=== PATIENT | male | born 1965 | race Two or more races ===

== ENCOUNTER 2021-06-20 21:39 | Inpatient (IN) | payer OTHER ==
[~2021-06-20] VITALS: Ht 170.2 cm; Wt 116.5 kg
[2021-06-20 22:48] LABS: Basophils # (auto) 0 10 ^3/uL (0-0.2); Basophils % (auto) 0.1 % (0.0-2.0); Eosinophils # (auto) 0 10 ^3/uL (0-0.8); Eosinophils % (auto) 0.2 % (0.0-7.0); Hematocrit 40.5 % (41.0-53.0); Hemoglobin 13.8 g/dL (13.5-17.5); Lymphocytes # (auto) 0.9 10 ^3/uL (0.4-5.4); Lymphocytes % (auto) 4.1 % (10.0-50.0); Mean Corpuscular Volume 94.1 fL (80.0-100.0); Monocytes # (auto) 1.4 10 ^3/uL (0-1.3); Monocytes % (auto) 6.2 % (0.0-12.0); Neutrophils # (auto) 20.1 10 ^3/uL (1.6-8.6); Neutrophils % (auto) 89.4 % (37.0-80.0); Red Blood Cells 4.31 10^6/uL (4.5-5.90); Red Cell Distribution Width 14.1 % (11.8-14.3); White Blood Cell 22.5 10^3/uL (4.4-10.8)
[2021-06-20 23:07] LABS: Albumin 2.7 g/dL (3.4-5.0); Calcium 9.7 mg/dL (8.5-10.1); Potassium 3.3 mmol/L (3.5-5.1)
[2021-06-20 23:11] LABS: BUN/Creatinine Ratio 21.9; Bilirubin, Total 0.9 mg/dL (0.2-1.0); Total Protein 7.7 g/dL (6.4-8.2)
[2021-06-21] MEDS ORDERED: VANCOMYCIN 1GM/250ML 250 ML IV ONE ×2 (00:15→08:15)
[2021-06-21] MEDS ORDERED: fentaNYL CITRATE 100 MCG/2 ML VL IV ONE (00:15)
[2021-06-21] MEDS ORDERED: ONDANSETRON HCL 4 MG/2 ML VIAL IV ONE (00:15)
[2021-06-21] MEDS ORDERED: PIPERACILLIN-TAZOB 3.375GM 100 ML IV ONE (02:30)
[2021-06-21] MEDS ORDERED: MORPHINE SULFATE INJECTION 2 MG/ML SYRG IV PRN (06:15)
[2021-06-21] MEDS ORDERED: NITROGLYCERIN 0.4 MG SL TAB SL PRN (06:15)
[2021-06-21] MEDS ORDERED: DOCUSATE SOD 100 MG CAP PO PRN (06:15)
[2021-06-21] MEDS ORDERED: DEXTROSE (50%) 50ML SYRG IV PRN (06:15)
[2021-06-21] MEDS ORDERED: VANCOMYCIN PER PHARMACY 0 MG IV SCH (06:15)
[2021-06-21] MEDS ORDERED: POTASSIUM CHL 20 Meq TABLET PO ONE (06:30)
[2021-06-21 06:49] LABS: Basophils # (auto) 0.1 10 ^3/uL (0-0.2); Basophils % (auto) 0.3 % (0.0-2.0); Eosinophils # (auto) 0 10 ^3/uL (0-0.8); Eosinophils % (auto) 0.1 % (0.0-7.0); Hematocrit 37.5 % (41.0-53.0); Hemoglobin 12.7 g/dL (13.5-17.5); Lymphocytes # (auto) 1.5 10 ^3/uL (0.4-5.4); Lymphocytes % (auto) 6.8 % (10.0-50.0); Mean Corpuscular Hemoglobin 31.8 pg (28.0-32.0); Mean Corpuscular Hgb Conc. 33.9 g/dL (32.0-36.0); Mean Corpuscular Volume 93.8 fL (80.0-100.0); Monocytes # (auto) 1.6 10 ^3/uL (0-1.3); Monocytes % (auto) 7.1 % (0.0-12.0); Neutrophils # (auto) 18.8 10 ^3/uL (1.6-8.6); Neutrophils % (auto) 85.7 % (37.0-80.0); Red Cell Distribution Width 13.7 % (11.8-14.3)
[2021-06-21 07:09] LABS: Albumin 2.4 g/dL (3.4-5.0); Calcium 9.4 mg/dL (8.5-10.1); Potassium 3.7 mmol/L (3.5-5.1)
[2021-06-21 07:11] LABS: BUN/Creatinine Ratio 20.7
[2021-06-21 07:14] LABS: Bilirubin, Total 0.7 mg/dL (0.2-1.0); Total Protein 7.4 g/dL (6.4-8.2)
[2021-06-21] MEDS ORDERED: cefTRIAXone 1GM/50ML D5W 50 ML IV SCH (09:00)
[2021-06-21] MEDS: ENOXAPARIN SOD 40 MG/0.4 ML SYRINGE SC SCH (09:24)
[2021-06-21] MEDS: ASCORBIC ACID 500 MG TAB PO SCH ×2 (09:24→21:44)
[2021-06-21] MEDS: MULTIPLE VITAMIN TAB PO SCH (09:25)
[2021-06-21] MEDS: ZINC SULFATE 220mg CAP or TAB PO SCH (09:25)
[2021-06-21] MEDS: SODIUM CHLORIDE 0.9% 1,000 ML IV SCH ×2 (09:25→23:35)
[2021-06-21] MEDS: ACCU-CHEK COMFORT CURVE STRIP VI SCH ×4 (09:25→21:44)
[2021-06-21] MEDS: metFORMIN HYDROCHLORIDE 500 MG TAB PO SCH ×2 (09:47→18:04)
[2021-06-21] MEDS: FAMOTIDINE (10MG/ML) 2ML VL IV SCH ×2 (09:47→21:44)
[2021-06-21] MEDS: ACETAMINOPHEN 325 MG TAB PO PRN (09:53)
[2021-06-21] MEDS: InsuLIN REG 1unit/0.01ml Soln (100units/ml) SC SCH ×4 (09:54→21:53)
[2021-06-21] MEDS: MORPHINE SULFATE 4 MG/ML SYR/VIAL IV PRN ×3 (09:55→21:53)
[2021-06-21] MEDS: HYDROcodone-ACET 5/325MG TAB PO PRN ×3 (13:28→23:35)
[2021-06-21 16:56] VITALS: BP 130/81
[2021-06-21 17:23] VITALS: BP 130/81
[2021-06-21] MEDS: VANCOMYCIN 1GM/250ML 250 ML IV SCH (17:34)
[2021-06-21] MEDS ORDERED: METF-370 PO (18:24)
[2021-06-21] MEDS: CEFEPIME 2 GM in SODIUM CHL 0.9% 50 ML IV SCH (21:53)
[2021-06-21] MEDS: INSULIN LANTUS (GLARGINE) 1 /0.01ml (100units/ml) SC SCH (21:57)
[2021-06-21 22:02] VITALS: BP 130/74
[2021-06-22] MEDS: VANCOMYCIN 1GM/250ML 250 ML IV SCH ×3 (01:40→20:42)
[2021-06-22] MEDS: MORPHINE SULFATE 4 MG/ML SYR/VIAL IV PRN ×3 (02:54→18:33)
[2021-06-22 05:00] VITALS: BP 132/89
[2021-06-22 05:10] LABS: Basophils # (auto) 0 10 ^3/uL (0-0.2); Basophils % (auto) 0.2 % (0.0-2.0); Eosinophils # (auto) 0 10 ^3/uL (0-0.8); Eosinophils % (auto) 0.1 % (0.0-7.0); Hemoglobin 12.1 g/dL (13.5-17.5); Lymphocytes # (auto) 1.9 10 ^3/uL (0.4-5.4); Lymphocytes % (auto) 9.7 % (10.0-50.0); Mean Corpuscular Hemoglobin 30.9 pg (28.0-32.0); Mean Corpuscular Hgb Conc. 32.7 g/dL (32.0-36.0); Mean Corpuscular Volume 94.6 fL (80.0-100.0); Monocytes # (auto) 1.9 10 ^3/uL (0-1.3); Monocytes % (auto) 9.6 % (0.0-12.0); Neutrophils # (auto) 15.6 10 ^3/uL (1.6-8.6); Neutrophils % (auto) 80.4 % (37.0-80.0); Red Blood Cells 3.91 10^6/uL (4.5-5.90); Red Cell Distribution Width 13.7 % (11.8-14.3); White Blood Cell 19.4 10^3/uL (4.4-10.8)
[2021-06-22 05:33] LABS: Calcium 8.8 mg/dL (8.5-10.1); Potassium 3.6 mmol/L (3.5-5.1)
[2021-06-22 05:36] LABS: Albumin 2.3 g/dL (3.4-5.0)
[2021-06-22 05:52] LABS: Bilirubin, Total 0.8 mg/dL (0.2-1.0); Total Protein 7.1 g/dL (6.4-8.2)
[2021-06-22] MEDS: InsuLIN REG 1unit/0.01ml Soln (100units/ml) SC SCH ×4 (06:16→21:39)
[2021-06-22] MEDS: ACCU-CHEK COMFORT CURVE STRIP VI SCH ×4 (06:16→21:39)
[2021-06-22] MEDS: HYDROcodone-ACET 5/325MG TAB PO PRN ×3 (06:22→20:10)
[2021-06-22] MEDS: ONDANSETRON HCL 4 MG/2 ML VIAL IV PRN ×2 (08:57→18:33)
[2021-06-22] MEDS: CEFEPIME 2 GM in SODIUM CHL 0.9% 50 ML IV SCH ×3 (08:57→21:38)
[2021-06-22] MEDS: FAMOTIDINE (10MG/ML) 2ML VL IV SCH ×2 (08:58→21:38)
[2021-06-22] MEDS: ENOXAPARIN SOD 40 MG/0.4 ML SYRINGE SC SCH (08:58)
[2021-06-22] MEDS: ZINC SULFATE 220mg CAP or TAB PO SCH (08:58)
[2021-06-22] MEDS: ASCORBIC ACID 500 MG TAB PO SCH ×2 (08:58→21:38)
[2021-06-22] MEDS: MULTIPLE VITAMIN TAB PO SCH (08:58)
[2021-06-22 09:00] VITALS: BP 156/77
[2021-06-22] MEDS ORDERED: cefTRIAXone 1GM/50ML D5W 50 ML IV SCH (10:00)
[2021-06-22] MEDS ORDERED: VANCOMYCIN 1GM/250ML 250 ML IV ONE (13:24)
[2021-06-22] MEDS ORDERED: guaiFENesin-DM 100/10mg/5ml SYR PO PRN (13:45)
[2021-06-22 17:00] VITALS: BP 153/80
[2021-06-22] MEDS: SODIUM CHLORIDE 0.9% 1,000 ML IV SCH (17:17)
[2021-06-22] MEDS: IPRATROPIUM BROM 0.5 MG/2.5ML INH SOL NEB SCH (20:16)
[2021-06-22] MEDS: ALBUTEROL SULF 2.5 MG/0.5ML(0.5%) NEB SOLN NEB SCH (20:16)
[2021-06-22] MEDS: INSULIN LANTUS (GLARGINE) 1 /0.01ml (100units/ml) SC SCH (21:39)
[2021-06-22 22:00] VITALS: BP 143/83
[2021-06-23] MEDS: ONDANSETRON HCL 4 MG/2 ML VIAL IV PRN ×2 (00:57→13:55)
[2021-06-23] MEDS: MORPHINE SULFATE 4 MG/ML SYR/VIAL IV PRN ×3 (00:57→13:55)
[2021-06-23] MEDS: VANCOMYCIN 1GM/250ML 250 ML IV SCH ×3 (01:10→17:48)
[2021-06-23 05:00] VITALS: BP 151/70
[2021-06-23 05:16] LABS: Basophils # (auto) 0 10 ^3/uL (0-0.2); Basophils % (auto) 0.2 % (0.0-2.0); Eosinophils # (auto) 0.1 10 ^3/uL (0-0.8); Eosinophils % (auto) 0.3 % (0.0-7.0); Hematocrit 36.2 % (41.0-53.0); Hemoglobin 12.1 g/dL (13.5-17.5); Lymphocytes # (auto) 1.4 10 ^3/uL (0.4-5.4); Lymphocytes % (auto) 7.6 % (10.0-50.0); Mean Corpuscular Hemoglobin 31.3 pg (28.0-32.0); Mean Corpuscular Hgb Conc. 33.5 g/dL (32.0-36.0); Mean Corpuscular Volume 93.5 fL (80.0-100.0); Monocytes # (auto) 1.6 10 ^3/uL (0-1.3); Monocytes % (auto) 9.1 % (0.0-12.0); Neutrophils % (auto) 82.8 % (37.0-80.0); Red Blood Cells 3.87 10^6/uL (4.5-5.90); Red Cell Distribution Width 13.4 % (11.8-14.3); White Blood Cell 18.1 10^3/uL (4.4-10.8)
[2021-06-23 05:47] LABS: Calcium 8.6 mg/dL (8.5-10.1); Potassium 3.7 mmol/L (3.5-5.1)
[2021-06-23 05:49] LABS: BUN/Creatinine Ratio 17.4
[2021-06-23] MEDS: CEFEPIME 2 GM in SODIUM CHL 0.9% 50 ML IV SCH ×3 (05:54→21:33)
[2021-06-23] MEDS: HYDROcodone-ACET 5/325MG TAB PO PRN ×3 (05:57→17:48)
[2021-06-23] MEDS: ACETAMINOPHEN 325 MG TAB PO PRN (05:57)
[2021-06-23] MEDS: ACCU-CHEK COMFORT CURVE STRIP VI SCH ×4 (06:09→21:33)
[2021-06-23] MEDS: InsuLIN REG 1unit/0.01ml Soln (100units/ml) SC SCH ×4 (06:12→21:33)
[2021-06-23] MEDS: SODIUM CHLORIDE 0.9% 1,000 ML IV SCH (08:15)
[2021-06-23 09:00] VITALS: BP 140/90
[2021-06-23] MEDS ORDERED: DAKINS HALF STR 0.25% (NaHypochlorite) 473 ML TOPICAL SOL TOP ONE (09:45)
[2021-06-23] MEDS ORDERED: LIDOCAINE 1% HCL (LOCAL ANESTH.) INJ 20ML MDV ID ONE (09:45)
[2021-06-23] MEDS: FAMOTIDINE (10MG/ML) 2ML VL IV SCH ×2 (09:52→21:33)
[2021-06-23] MEDS: ENOXAPARIN SOD 40 MG/0.4 ML SYRINGE SC SCH (10:00)
[2021-06-23] MEDS: ALBUTEROL SULF 2.5 MG/0.5ML(0.5%) NEB SOLN NEB SCH ×4 (10:45→18:42)
[2021-06-23] MEDS: IPRATROPIUM BROM 0.5 MG/2.5ML INH SOL NEB SCH ×4 (10:45→18:42)
[2021-06-23] MEDS: ZINC SULFATE 220mg CAP or TAB PO SCH (11:57)
[2021-06-23] MEDS: MULTIPLE VITAMIN TAB PO SCH (11:57)
[2021-06-23] MEDS: ASCORBIC ACID 500 MG TAB PO SCH ×2 (11:58→21:33)
[2021-06-23 12:42] LABS: Alcohol, Urine < 3.0 mg/dL (0-10); Amphetamine Screen, Urine NEGATIVE (NEGATIVE); Barbiturate Scree,Urine NEGATIVE (NEGATIVE); Benzodiazephine Screen, Urine NEGATIVE (NEGATIVE); Cannabinoid Screen, Urine NEGATIVE (NEGATIVE); Cocaine Screen, Urine NEGATIVE (NEGATIVE); Opiate Scree,Urine POSITIVE (NEGATIVE); Phencyclidine Screen, Urine NEGATIVE (NEGATIVE)
[2021-06-23 13:00] VITALS: BP 150/83
[2021-06-23] MEDS: metroNIDAZOLE 500MG/100ML 100 ML IV SCH ×2 (15:31→23:59)
[2021-06-23 17:00] VITALS: BP 138/82
[2021-06-23] MEDS: INSULIN LANTUS (GLARGINE) 1 /0.01ml (100units/ml) SC SCH (21:34)
[2021-06-23 22:00] VITALS: BP 125/74
[2021-06-24] MEDS: ALBUTEROL SULF 2.5 MG/0.5ML(0.5%) NEB SOLN NEB SCH ×4 (00:22→19:07)
[2021-06-24] MEDS: IPRATROPIUM BROM 0.5 MG/2.5ML INH SOL NEB SCH ×4 (00:22→19:08)
[2021-06-24] MEDS: MORPHINE SULFATE 4 MG/ML SYR/VIAL IV PRN (00:29)
[2021-06-24] MEDS: ONDANSETRON HCL 4 MG/2 ML VIAL IV PRN (00:29)
[2021-06-24] MEDS: SODIUM CHLORIDE 0.9% 1,000 ML IV SCH (00:55)
[2021-06-24] MEDS: VANCOMYCIN 1GM/250ML 250 ML IV SCH ×3 (01:18→17:57)
[2021-06-24] MEDS: HYDROcodone-ACET 5/325MG TAB PO PRN ×2 (03:13→07:26)
[2021-06-24 05:00] VITALS: BP 136/76
[2021-06-24] MEDS: CEFEPIME 2 GM in SODIUM CHL 0.9% 50 ML IV SCH ×3 (05:53→21:42)
[2021-06-24] MEDS: ACCU-CHEK COMFORT CURVE STRIP VI SCH ×4 (06:18→21:43)
[2021-06-24] MEDS: InsuLIN REG 1unit/0.01ml Soln (100units/ml) SC SCH ×4 (06:19→22:13)
[2021-06-24] MEDS: metroNIDAZOLE 500MG/100ML 100 ML IV SCH ×3 (07:26→23:34)
[2021-06-24] MEDS: ENOXAPARIN SOD 40 MG/0.4 ML SYRINGE SC SCH (08:14)
[2021-06-24 09:00] VITALS: BP 146/96
[2021-06-24] MEDS: ZINC SULFATE 220mg CAP or TAB PO SCH (10:24)
[2021-06-24] MEDS: MULTIPLE VITAMIN TAB PO SCH (10:24)
[2021-06-24] MEDS: ASCORBIC ACID 500 MG TAB PO SCH ×2 (10:24→21:42)
[2021-06-24] MEDS: FAMOTIDINE (10MG/ML) 2ML VL IV SCH (10:24)
[2021-06-24] MEDS ORDERED: TEMAZEPAM 15 MG CAP PO PRN (10:30)
[2021-06-24] MEDS: HYDROmorphone HCL 2 MG/ML VL IV PRN ×2 (11:03→15:41)
[2021-06-24 13:00] VITALS: BP 141/95
[2021-06-24] MEDS: HYDROcodone-ACET 10/325MG TAB PO PRN ×2 (13:03→17:57)
[2021-06-24] MEDS ORDERED: GABA100C9 PO (15:20)
[2021-06-24] MEDS ORDERED: GLIP5TAB12 PO (15:20)
[2021-06-24] MEDS ORDERED: METF-370 PO (15:20)
[2021-06-24] MEDS ORDERED: HYDR25TA4 PO (15:20)
[2021-06-24] MEDS ORDERED: OME20T PO (15:20)
[2021-06-24] MEDS ORDERED: ATOR20TA PO (15:20)
[2021-06-24 17:00] VITALS: BP 135/72
[2021-06-24 19:37] LABS: INR 1.21 (0.9-1.15); Partial Thromboplastin Time 32.1 sec (23.6-33.0)
[2021-06-24 22:00] VITALS: BP 109/69
[2021-06-24] MEDS: INSULIN LANTUS (GLARGINE) 1 /0.01ml (100units/ml) SC SCH (22:13)
[2021-06-25] MEDS: VANCOMYCIN 1GM/250ML 250 ML IV SCH ×3 (01:11→17:58)
[2021-06-25] MEDS: HYDROmorphone HCL 2 MG/ML VL IV PRN ×5 (03:33→22:38)
[2021-06-25 05:00] VITALS: BP 116/73
[2021-06-25 05:45] LABS: Basophils # (auto) 0.1 10 ^3/uL (0-0.2); Basophils % (auto) 0.3 % (0.0-2.0); Eosinophils # (auto) 0.2 10 ^3/uL (0-0.8); Hematocrit 36.7 % (41.0-53.0); Hemoglobin 12.2 g/dL (13.5-17.5); Lymphocytes # (auto) 1.7 10 ^3/uL (0.4-5.4); Lymphocytes % (auto) 10.5 % (10.0-50.0); Mean Corpuscular Hemoglobin 31.3 pg (28.0-32.0); Mean Corpuscular Hgb Conc. 33.1 g/dL (32.0-36.0); Mean Corpuscular Volume 94.6 fL (80.0-100.0); Monocytes # (auto) 1.7 10 ^3/uL (0-1.3); Monocytes % (auto) 10.5 % (0.0-12.0); Neutrophils # (auto) 12.3 10 ^3/uL (1.6-8.6); Neutrophils % (auto) 77.7 % (37.0-80.0); Red Blood Cells 3.88 10^6/uL (4.5-5.90); Red Cell Distribution Width 13.3 % (11.8-14.3); White Blood Cell 15.9 10^3/uL (4.4-10.8)
[2021-06-25] MEDS: CEFEPIME 2 GM in SODIUM CHL 0.9% 50 ML IV SCH ×3 (05:48→21:10)
[2021-06-25 06:19] LABS: BUN/Creatinine Ratio 16.7; Calcium 8.3 mg/dL (8.5-10.1); Potassium 3.1 mmol/L (3.5-5.1)
[2021-06-25] MEDS: HYDROcodone-ACET 10/325MG TAB PO PRN ×3 (06:42→19:44)
[2021-06-25] MEDS: InsuLIN REG 1unit/0.01ml Soln (100units/ml) SC SCH ×4 (06:43→21:11)
[2021-06-25] MEDS: ACCU-CHEK COMFORT CURVE STRIP VI SCH ×4 (06:43→21:11)
[2021-06-25] MEDS: IPRATROPIUM BROM 0.5 MG/2.5ML INH SOL NEB SCH ×4 (07:06→22:17)
[2021-06-25] MEDS: ALBUTEROL SULF 2.5 MG/0.5ML(0.5%) NEB SOLN NEB SCH ×4 (07:06→22:17)
[2021-06-25 07:56] LABS: Urine WBC None Seen /hpf (0 - 3)
[2021-06-25 08:30] LABS: Urine Bacteria NONE SEEN /hpf (None Seen); Urine Blood Negative /uL (Negative); Urine Specific Gravity 1.024 (1.001-1.035)
[2021-06-25] MEDS: metroNIDAZOLE 500MG/100ML 100 ML IV SCH ×2 (08:33→15:47)
[2021-06-25] MEDS ORDERED: POTASSIUM CHLORIDE 40 MEQ, LIDOCAINE 1% (LOCAL ANESTH.) 4 ML in SODIUM CHL 0.9% 250 ML IV ONE (08:45)
[2021-06-25 09:00] VITALS: BP 119/73
[2021-06-25 13:00] VITALS: BP 140/81
[2021-06-25] MEDS ORDERED: AMIODARONE HCL 150 MG in D5W 5% 100 ML IV ONE (13:00)
[2021-06-25] MEDS ORDERED: AMIODARONE 450mg/250ml AE 250 ML IV SCH (13:00)
[2021-06-25] MEDS: ONDANSETRON HCL 4 MG/2 ML VIAL IV PRN ×2 (13:28→21:20)
[2021-06-25] MEDS: ASCORBIC ACID 500 MG TAB PO SCH ×2 (15:46→21:11)
[2021-06-25] MEDS: MULTIPLE VITAMIN TAB PO SCH (15:46)
[2021-06-25 17:00] VITALS: BP 130/74
[2021-06-25] MEDS ORDERED: DIGOXIN (250MCG/ML) 2 ML AMPULE IV ONE (18:15)
[2021-06-25] MEDS: AMIODARONE 450mg/250ml AE 250 ML IV SCH (18:55)
[2021-06-25] MEDS: METOPROLOL SUCCINATE XL 50 MG TAB PO SCH (21:10)
[2021-06-25] MEDS: INSULIN LANTUS (GLARGINE) 1 /0.01ml (100units/ml) SC SCH (21:15)
[2021-06-25 22:00] VITALS: BP 124/82
[2021-06-25] MEDS ORDERED: METOPROLOL TARTRATE 25 MG TAB PO SCH (22:00)
[2021-06-26] MEDS: metroNIDAZOLE 500MG/100ML 100 ML IV SCH ×3 (00:07→16:30)
[2021-06-26] MEDS: HYDROcodone-ACET 10/325MG TAB PO PRN ×3 (00:08→17:30)
[2021-06-26] MEDS: VANCOMYCIN 1GM/250ML 250 ML IV SCH ×3 (00:55→17:26)
[2021-06-26] MEDS: IPRATROPIUM BROM 0.5 MG/2.5ML INH SOL NEB SCH ×3 (02:15→22:17)
[2021-06-26] MEDS: ALBUTEROL SULF 2.5 MG/0.5ML(0.5%) NEB SOLN NEB SCH ×3 (02:15→22:17)
[2021-06-26] MEDS: HYDROmorphone HCL 2 MG/ML VL IV PRN ×6 (02:38→22:21)
[2021-06-26 05:00] VITALS: BP 133/69
[2021-06-26] MEDS: CEFEPIME 2 GM in SODIUM CHL 0.9% 50 ML IV SCH ×3 (06:14→20:24)
[2021-06-26] MEDS: ACCU-CHEK COMFORT CURVE STRIP VI SCH ×4 (06:14→21:01)
[2021-06-26] MEDS: InsuLIN REG 1unit/0.01ml Soln (100units/ml) SC SCH ×4 (06:31→21:29)
[2021-06-26 09:00] VITALS: BP 136/78
[2021-06-26] MEDS: MULTIPLE VITAMIN TAB PO SCH (10:18)
[2021-06-26] MEDS: ASCORBIC ACID 500 MG TAB PO SCH ×2 (10:18→21:01)
[2021-06-26] MEDS: METOPROLOL SUCCINATE XL 50 MG TAB PO SCH ×2 (10:26→21:01)
[2021-06-26 11:05] LABS: Basophils # (auto) 0 10 ^3/uL (0-0.2); Basophils % (auto) 0.3 % (0.0-2.0); Eosinophils # (auto) 0.1 10 ^3/uL (0-0.8); Eosinophils % (auto) 0.7 % (0.0-7.0); Hematocrit 34.4 % (41.0-53.0); Hemoglobin 11.2 g/dL (13.5-17.5); Lymphocytes % (auto) 11.6 % (10.0-50.0); Mean Corpuscular Hemoglobin 30.9 pg (28.0-32.0); Mean Corpuscular Hgb Conc. 32.7 g/dL (32.0-36.0); Mean Corpuscular Volume 94.7 fL (80.0-100.0); Monocytes # (auto) 1.4 10 ^3/uL (0-1.3); Monocytes % (auto) 8.4 % (0.0-12.0); Neutrophils # (auto) 13.6 10 ^3/uL (1.6-8.6); Red Blood Cells 3.63 10^6/uL (4.5-5.90); Red Cell Distribution Width 13.8 % (11.8-14.3); White Blood Cell 17.3 10^3/uL (4.4-10.8)
[2021-06-26 11:43] LABS: Calcium 8.1 mg/dL (8.5-10.1); Potassium 3.4 mmol/L (3.5-5.1)
[2021-06-26 11:45] LABS: BUN/Creatinine Ratio 13.9
[2021-06-26] MEDS: AMIODARONE 450mg/250ml AE 250 ML IV SCH (12:00)
[2021-06-26 13:00] VITALS: BP 157/82
[2021-06-26] MEDS ORDERED: POTASSIUM CHL 20 Meq TABLET PO ONE (13:30)
[2021-06-26] MEDS ORDERED: LIDOCAINE 1% (LOCAL ANESTH.) PF 5ml SDV ID ONE (16:45)
[2021-06-26 17:00] VITALS: BP 142/61
[2021-06-26] MEDS: SODIUM CHLOR 0.9% PF (SALINE LOCK) 10ML VIAL/SYR IV SCH (20:59)
[2021-06-26] MEDS: INSULIN LANTUS (GLARGINE) 1 /0.01ml (100units/ml) SC SCH (21:36)
[2021-06-26 22:00] VITALS: BP 136/73
[2021-06-27] MEDS: VANCOMYCIN 1GM/250ML 250 ML IV SCH ×3 (01:00→17:12)
[2021-06-27] MEDS: HYDROmorphone HCL 2 MG/ML VL IV PRN ×5 (02:32→22:18)
[2021-06-27 06:08] LABS: Basophils # (auto) 0.1 10 ^3/uL (0-0.2); Basophils % (auto) 0.4 % (0.0-2.0); Eosinophils # (auto) 0.1 10 ^3/uL (0-0.8); Eosinophils % (auto) 0.7 % (0.0-7.0); Hemoglobin 11.2 g/dL (13.5-17.5); Lymphocytes # (auto) 1.8 10 ^3/uL (0.4-5.4); Lymphocytes % (auto) 11.2 % (10.0-50.0); Mean Corpuscular Hemoglobin 32.1 pg (28.0-32.0); Mean Corpuscular Volume 94.4 fL (80.0-100.0); Monocytes # (auto) 1.5 10 ^3/uL (0-1.3); Monocytes % (auto) 8.9 % (0.0-12.0); Neutrophils % (auto) 78.8 % (37.0-80.0); Red Cell Distribution Width 13.8 % (11.8-14.3); White Blood Cell 16.5 10^3/uL (4.4-10.8)
[2021-06-27] MEDS: CEFEPIME 2 GM in SODIUM CHL 0.9% 50 ML IV SCH ×3 (06:16→22:19)
[2021-06-27] MEDS: ACCU-CHEK COMFORT CURVE STRIP VI SCH ×4 (06:16→22:18)
[2021-06-27] MEDS: IPRATROPIUM BROM 0.5 MG/2.5ML INH SOL NEB SCH ×3 (06:28→18:45)
[2021-06-27] MEDS: ALBUTEROL SULF 2.5 MG/0.5ML(0.5%) NEB SOLN NEB SCH ×3 (06:28→18:45)
[2021-06-27] MEDS: InsuLIN REG 1unit/0.01ml Soln (100units/ml) SC SCH ×4 (06:48→23:59)
[2021-06-27 07:48] VITALS: BP 123/63
[2021-06-27] MEDS: metroNIDAZOLE 500MG/100ML 100 ML IV SCH ×3 (07:50→16:40)
[2021-06-27] MEDS: HYDROcodone-ACET 10/325MG TAB PO PRN ×2 (07:56→16:41)
[2021-06-27 08:00] VITALS: BP 133/70
[2021-06-27] MEDS: AMIODARONE HCL 200 MG TAB PO SCH (09:24)
[2021-06-27] MEDS: ASCORBIC ACID 500 MG TAB PO SCH ×2 (09:24→22:18)
[2021-06-27] MEDS: SODIUM CHLOR 0.9% PF (SALINE LOCK) 10ML VIAL/SYR IV SCH ×2 (09:25→22:19)
[2021-06-27] MEDS: MULTIPLE VITAMIN TAB PO SCH (09:25)
[2021-06-27] MEDS: METOPROLOL SUCCINATE XL 50 MG TAB PO SCH ×2 (09:25→22:19)
[2021-06-27 09:33] LABS: BUN/Creatinine Ratio 16.9; Calcium 8.1 mg/dL (8.5-10.1); Potassium 3.6 mmol/L (3.5-5.1)
[2021-06-27] MEDS ORDERED: PROPOFOL 10 MG/ML 20 ML IV ONE (11:45)
[2021-06-27] MEDS ORDERED: ONDANSETRON HCL 4 MG/2 ML VIAL ONE (11:45)
[2021-06-27] MEDS ORDERED: SODIUM CHLORIDE LOCK 10 ML ONE (11:45)
[2021-06-27] MEDS ORDERED: MIDAZOLAM HCL 2MG/2ML 2ml VIAL (1mg/ml) ONE (11:45)
[2021-06-27] MEDS ORDERED: fentaNYL CITRATE 100 MCG/2 ML VL ONE (11:45)
[2021-06-27 12:00] VITALS: BP 128/94
[2021-06-27] MEDS ORDERED: MORPHINE SULFATE 4 MG/ML SYR/VIAL IV PRN (12:00)
[2021-06-27] MEDS ORDERED: ACCU-CHEK COMFORT CURVE STRIP VI ONE (12:00)
[2021-06-27] MEDS ORDERED: METOCLOPRAMIDE HCL 5MG/ml INJ 2ml VIAL IV PRN (12:00)
[2021-06-27] MEDS ORDERED: HYDROmorphone HCL 2 MG/ML VL IV PRN (12:00)
[2021-06-27] MEDS ORDERED: LIDOCAINE 1%-Mpf/Epinephrine 1:200,000 ONE (12:26)
[2021-06-27] MEDS ORDERED: BUPIVACAINE 0.5% MPF INJ 30ML SDV IJ ONE (12:26)
[2021-06-27] MEDS ORDERED: LIDOCAINE 1% HCL (LOCAL ANESTH.) INJ 20ML MDV ONE (12:26)
[2021-06-27 17:00] VITALS: BP 125/79
[2021-06-27 21:00] VITALS: BP 137/66
[2021-06-27] MEDS: INSULIN LANTUS (GLARGINE) 1 /0.01ml (100units/ml) SC SCH (23:59)
[2021-06-28] MEDS: metroNIDAZOLE 500MG/100ML 100 ML IV SCH ×3 (00:02→17:29)
[2021-06-28] MEDS: VANCOMYCIN 1GM/250ML 250 ML IV SCH ×3 (01:17→17:29)
[2021-06-28] MEDS: HYDROmorphone HCL 2 MG/ML VL IV PRN ×5 (02:34→21:03)
[2021-06-28 04:59] VITALS: BP 116/73
[2021-06-28] MEDS: CEFEPIME 2 GM in SODIUM CHL 0.9% 50 ML IV SCH ×3 (05:47→22:37)
[2021-06-28] MEDS: InsuLIN REG 1unit/0.01ml Soln (100units/ml) SC SCH ×4 (06:39→22:00)
[2021-06-28] MEDS: ACCU-CHEK COMFORT CURVE STRIP VI SCH ×4 (06:39→22:00)
[2021-06-28] MEDS: ALBUTEROL SULF 2.5 MG/0.5ML(0.5%) NEB SOLN NEB SCH ×2 (07:13→15:14)
[2021-06-28] MEDS: IPRATROPIUM BROM 0.5 MG/2.5ML INH SOL NEB SCH ×2 (07:13→15:15)
[2021-06-28] MEDS: ASCORBIC ACID 500 MG TAB PO SCH ×2 (09:02→22:38)
[2021-06-28] MEDS: AMIODARONE HCL 200 MG TAB PO SCH (09:03)
[2021-06-28] MEDS: METOPROLOL SUCCINATE XL 50 MG TAB PO SCH ×2 (09:03→22:39)
[2021-06-28] MEDS: MULTIPLE VITAMIN TAB PO SCH (09:03)
[2021-06-28] MEDS: SODIUM CHLOR 0.9% PF (SALINE LOCK) 10ML VIAL/SYR IV SCH ×2 (09:04→22:00)
[2021-06-28 09:37] VITALS: BP 132/66
[2021-06-28 16:28] VITALS: BP 124/82
[2021-06-28] MEDS: HYDROcodone-ACET 10/325MG TAB PO PRN (17:54)
[2021-06-28 22:00] VITALS: BP 121/74
[2021-06-28] MEDS: INSULIN LANTUS (GLARGINE) 1 /0.01ml (100units/ml) SC SCH (22:00)
[2021-06-29] MEDS: metroNIDAZOLE 500MG/100ML 100 ML IV SCH ×3 (00:17→16:30)
[2021-06-29] MEDS: VANCOMYCIN 1GM/250ML 250 ML IV SCH ×3 (01:27→17:20)
[2021-06-29] MEDS: HYDROcodone-ACET 10/325MG TAB PO PRN (04:38)
[2021-06-29 05:00] VITALS: BP 116/80
[2021-06-29] MEDS: CEFEPIME 2 GM in SODIUM CHL 0.9% 50 ML IV SCH ×3 (06:16→21:26)
[2021-06-29 06:17] LABS: Potassium 3.7 mmol/L (3.5-5.1)
[2021-06-29] MEDS: ACCU-CHEK COMFORT CURVE STRIP VI SCH ×4 (06:17→21:27)
[2021-06-29] MEDS: InsuLIN REG 1unit/0.01ml Soln (100units/ml) SC SCH ×4 (06:17→21:27)
[2021-06-29 06:25] LABS: BUN/Creatinine Ratio 14.7; Calcium 7.9 mg/dL (8.5-10.1)
[2021-06-29] MEDS: ALBUTEROL SULF 2.5 MG/0.5ML(0.5%) NEB SOLN NEB SCH ×2 (06:47→14:21)
[2021-06-29] MEDS: IPRATROPIUM BROM 0.5 MG/2.5ML INH SOL NEB SCH ×2 (06:48→14:21)
[2021-06-29] MEDS: HYDROmorphone HCL 2 MG/ML VL IV PRN ×4 (08:14→21:28)
[2021-06-29 09:00] VITALS: BP 147/75
[2021-06-29] MEDS: MULTIPLE VITAMIN TAB PO SCH (09:57)
[2021-06-29] MEDS: ASCORBIC ACID 500 MG TAB PO SCH ×2 (09:57→21:26)
[2021-06-29] MEDS: SODIUM CHLOR 0.9% PF (SALINE LOCK) 10ML VIAL/SYR IV SCH ×2 (09:57→21:26)
[2021-06-29] MEDS: AMIODARONE HCL 200 MG TAB PO SCH (09:57)
[2021-06-29] MEDS: METOPROLOL SUCCINATE XL 50 MG TAB PO SCH ×2 (09:58→22:09)
[2021-06-29 13:00] VITALS: BP 131/79
[2021-06-29 17:34] VITALS: BP 141/81
[2021-06-29 20:00] VITALS: BP 127/77
[2021-06-29] MEDS: INSULIN LANTUS (GLARGINE) 1 /0.01ml (100units/ml) SC SCH (21:27)
[2021-06-30] MEDS: VANCOMYCIN 1GM/250ML 250 ML IV SCH ×3 (01:00→17:58)
[2021-06-30] MEDS: HYDROmorphone HCL 2 MG/ML VL IV PRN ×5 (01:19→22:22)
[2021-06-30] MEDS: IPRATROPIUM BROM 0.5 MG/2.5ML INH SOL NEB SCH ×4 (02:00→22:53)
[2021-06-30] MEDS: ALBUTEROL SULF 2.5 MG/0.5ML(0.5%) NEB SOLN NEB SCH ×4 (02:00→22:53)
[2021-06-30 05:00] VITALS: BP 144/93
[2021-06-30] MEDS: CEFEPIME 2 GM in SODIUM CHL 0.9% 50 ML IV SCH (05:11)
[2021-06-30 06:16] LABS: Hemoglobin 11.2 g/dL (13.5-17.5); Red Cell Distribution Width 13.8 % (11.8-14.3)
[2021-06-30 06:19] LABS: Hematocrit 33.4 % (41.0-53.0); Mean Corpuscular Hgb Conc. 33.4 g/dL (32.0-36.0); Mean Corpuscular Volume 95.7 fL (80.0-100.0); Red Blood Cells 3.49 10^6/uL (4.5-5.90); White Blood Cell 7.8 10^3/uL (4.4-10.8)
[2021-06-30] MEDS: ACCU-CHEK COMFORT CURVE STRIP VI SCH ×4 (06:25→21:54)
[2021-06-30] MEDS: InsuLIN REG 1unit/0.01ml Soln (100units/ml) SC SCH ×4 (06:26→21:58)
[2021-06-30 06:35] LABS: Basophils % (manual) 0 (0.0-2.0); Blast Cells 0; Metamyelocytes % 0; Myelocytes % 0; Promyelocytes % 0; Reactive Lymphocytes 0
[2021-06-30] MEDS: metroNIDAZOLE 500MG/100ML 100 ML IV SCH ×2 (07:56)
[2021-06-30 08:42] LABS: Band Neutrophils % (manual) 1; Eosinophils % (manual) 4 (0-7); Lymphocytes % (manual) 23 (10.0-50.0); Monocytes % (manual) 7 (0-12)
[2021-06-30 09:00] VITALS: BP 139/98
[2021-06-30] MEDS: ENOXAPARIN SOD 40 MG/0.4 ML SYRINGE SC SCH (09:50)
[2021-06-30] MEDS: AMIODARONE HCL 200 MG TAB PO SCH (09:50)
[2021-06-30] MEDS: ASPirin-EC 81 mg tab PO SCH (09:50)
[2021-06-30] MEDS: MULTIPLE VITAMIN TAB PO SCH (09:51)
[2021-06-30] MEDS: HYDROcodone-ACET 10/325MG TAB PO PRN ×2 (09:51→20:57)
[2021-06-30] MEDS: ASCORBIC ACID 500 MG TAB PO SCH ×2 (09:51→21:54)
[2021-06-30] MEDS: METOPROLOL SUCCINATE XL 50 MG TAB PO SCH ×2 (09:52→21:54)
[2021-06-30] MEDS: SODIUM CHLOR 0.9% PF (SALINE LOCK) 10ML VIAL/SYR IV SCH ×2 (09:55→21:54)
[2021-06-30] MEDS: CEFTRIAXONE SODIUM 2 GM in D5W 5% 50 ML IV SCH (11:19)
[2021-06-30 13:15] VITALS: BP 135/83
[2021-06-30 17:00] VITALS: BP 143/76
[2021-06-30 19:43] LABS: Hepatitis B Surface Antibody Negative
[2021-06-30 20:32] LABS: Hepatitis B Surface Antigen Negative (Negative)
[2021-06-30] MEDS: INSULIN LANTUS (GLARGINE) 1 /0.01ml (100units/ml) SC SCH (21:59)
[2021-06-30 22:00] VITALS: BP 162/88
[2021-07-01] MEDS: VANCOMYCIN 1GM/250ML 250 ML IV SCH ×2 (01:03→08:58)
[2021-07-01] MEDS: HYDROmorphone HCL 2 MG/ML VL IV PRN ×3 (02:38→22:09)
[2021-07-01 05:00] VITALS: BP 173/99
[2021-07-01] MEDS: METOPROLOL SUCCINATE XL 50 MG TAB PO SCH ×2 (06:03→22:08)
[2021-07-01] MEDS: HYDROcodone-ACET 10/325MG TAB PO PRN (06:10)
[2021-07-01] MEDS: IPRATROPIUM BROM 0.5 MG/2.5ML INH SOL NEB SCH ×3 (06:10→23:07)
[2021-07-01] MEDS: ACCU-CHEK COMFORT CURVE STRIP VI SCH ×4 (06:10→22:08)
[2021-07-01] MEDS: ALBUTEROL SULF 2.5 MG/0.5ML(0.5%) NEB SOLN NEB SCH ×3 (06:10→23:07)
[2021-07-01] MEDS: InsuLIN REG 1unit/0.01ml Soln (100units/ml) SC SCH ×4 (06:11→22:00)
[2021-07-01 09:00] VITALS: BP 155/85
[2021-07-01] MEDS ORDERED: LABETALOL HCL 5 MG/ML 4ML SYRINGE IV PRN (09:00)
[2021-07-01] MEDS: ENOXAPARIN SOD 40 MG/0.4 ML SYRINGE SC SCH (10:00)
[2021-07-01] MEDS: AMIODARONE HCL 200 MG TAB PO SCH (10:19)
[2021-07-01] MEDS: LOSARTAN POTASSIUM 25 MG TAB PO SCH (10:19)
[2021-07-01] MEDS: ASPirin-EC 81 mg tab PO SCH (10:19)
[2021-07-01] MEDS: SODIUM CHLOR 0.9% PF (SALINE LOCK) 10ML VIAL/SYR IV SCH ×2 (10:19→22:09)
[2021-07-01] MEDS: ASCORBIC ACID 500 MG TAB PO SCH ×2 (10:20→22:07)
[2021-07-01] MEDS: MULTIPLE VITAMIN TAB PO SCH (10:20)
[2021-07-01] MEDS: CEFTRIAXONE SODIUM 2 GM in D5W 5% 50 ML IV SCH (10:22)
[2021-07-01] MEDS ORDERED: LACTULOSE 20Gm/30ML SOLN PO PRN (12:45)
[2021-07-01] MEDS ORDERED: LACTULOSE 20Gm/30ML SOLN PO ONE (12:45)
[2021-07-01 13:00] VITALS: BP_SYST 103; BP_SYST 173; BP_DIAS 60; BP_DIAS 93
[2021-07-01 17:00] VITALS: BP 127/61
[2021-07-01] MEDS: AMPICILLIN INJ 1 GM in SODIUM CHL 0.9% 50 ML IV SCH ×2 (18:56→23:52)
[2021-07-01 22:00] VITALS: BP 138/66
[2021-07-01] MEDS: INSULIN LANTUS (GLARGINE) 1 /0.01ml (100units/ml) SC SCH (22:09)
[2021-07-01 23:08] VITALS: BP 138/66
[2021-07-02] MEDS: HYDROcodone-ACET 10/325MG TAB PO PRN
[2021-07-02 02:43] LABS: INR 1.19 (0.9-1.15); Partial Thromboplastin Time 30.5 sec (23.6-33.0)
[2021-07-02 05:00] VITALS: BP 122/79
[2021-07-02] MEDS: HYDROmorphone HCL 2 MG/ML VL IV PRN ×3 (05:36→19:48)
[2021-07-02] MEDS: AMPICILLIN INJ 1 GM in SODIUM CHL 0.9% 50 ML IV SCH ×4 (06:34→23:57)
[2021-07-02] MEDS: ACCU-CHEK COMFORT CURVE STRIP VI SCH ×4 (06:39→21:42)
[2021-07-02] MEDS: InsuLIN REG 1unit/0.01ml Soln (100units/ml) SC SCH ×4 (06:39→22:01)
[2021-07-02] MEDS: ALBUTEROL SULF 2.5 MG/0.5ML(0.5%) NEB SOLN NEB SCH ×4 (06:52→22:18)
[2021-07-02] MEDS: IPRATROPIUM BROM 0.5 MG/2.5ML INH SOL NEB SCH ×4 (06:52→22:18)
[2021-07-02 09:00] VITALS: BP 140/77
[2021-07-02 10:21] LABS: Basophils # (auto) 0 10 ^3/uL (0-0.2); Basophils % (auto) 0.4 % (0.0-2.0); Eosinophils # (auto) 0.2 10 ^3/uL (0-0.8); Hemoglobin 11.3 g/dL (13.5-17.5); Lymphocytes # (auto) 1.3 10 ^3/uL (0.4-5.4); Mean Corpuscular Hemoglobin 31.4 pg (28.0-32.0); Red Blood Cells 3.61 10^6/uL (4.5-5.90)
[2021-07-02 10:23] LABS: Eosinophils % (auto) 1.3 % (0.0-7.0); Hematocrit 34.1 % (41.0-53.0); Lymphocytes % (auto) 11.4 % (10.0-50.0); Mean Corpuscular Hgb Conc. 33.2 g/dL (32.0-36.0); Mean Corpuscular Volume 94.5 fL (80.0-100.0); Monocytes # (auto) 0.5 10 ^3/uL (0-1.3); Monocytes % (auto) 4.7 % (0.0-12.0); Neutrophils # (auto) 9.5 10 ^3/uL (1.6-8.6); Neutrophils % (auto) 82.2 % (37.0-80.0); Red Cell Distribution Width 13.8 % (11.8-14.3); White Blood Cell 11.5 10^3/uL (4.4-10.8)
[2021-07-02 10:37] LABS: BUN/Creatinine Ratio 16.9; Calcium 8.5 mg/dL (8.5-10.1); Potassium 4.3 mmol/L (3.5-5.1)
[2021-07-02] MEDS: CEFTRIAXONE SODIUM 2 GM in D5W 5% 50 ML IV SCH (11:55)
[2021-07-02] MEDS: AMIODARONE HCL 200 MG TAB PO SCH (11:55)
[2021-07-02] MEDS: SODIUM CHLOR 0.9% PF (SALINE LOCK) 10ML VIAL/SYR IV SCH ×2 (11:56→19:49)
[2021-07-02] MEDS: MULTIPLE VITAMIN TAB PO SCH (11:56)
[2021-07-02] MEDS: Pro-Stat SF 30ml Vanilla PO SCH (11:56)
[2021-07-02] MEDS: LOSARTAN POTASSIUM 25 MG TAB PO SCH (11:56)
[2021-07-02] MEDS: METOPROLOL SUCCINATE XL 50 MG TAB PO SCH ×2 (11:57→21:42)
[2021-07-02] MEDS: ASCORBIC ACID 500 MG TAB PO SCH ×2 (11:57→21:42)
[2021-07-02] MEDS ORDERED: LIDOCAINE 1% HCL (LOCAL ANESTH.) INJ 20ML MDV ONE (12:30)
[2021-07-02] MEDS ORDERED: BUPIVACAINE 0.25% INJ 50ML VIAL ONE (12:30)
[2021-07-02] MEDS ORDERED: ceFAZolin 1GM/50ML 100 ML IV ONE (12:37)
[2021-07-02] MEDS ORDERED: MIDAZOLAM HCL 2MG/2ML 2ml VIAL (1mg/ml) ONE (12:38)
[2021-07-02] MEDS ORDERED: fentaNYL CITRATE 100 MCG/2 ML VL ONE (12:38)
[2021-07-02] MEDS ORDERED: LIDOCAINE 2% (LOCAL ANESTH.) PF 5ml SDV ONE (12:41)
[2021-07-02] MEDS ORDERED: PROPOFOL 10 MG/ML 20 ML IV ONE (12:41)
[2021-07-02] MEDS ORDERED: ONDANSETRON HCL 4 MG/2 ML VIAL ONE (12:41)
[2021-07-02] MEDS ORDERED: ONDANSETRON HCL 4 MG/2 ML VIAL IV PRN (13:45)
[2021-07-02] MEDS ORDERED: HYDROmorphone HCL 2 MG/ML VL IV PRN (13:45)
[2021-07-02 17:00] VITALS: BP 113/75
[2021-07-02 22:00] VITALS: BP 144/98
[2021-07-02] MEDS: INSULIN LANTUS (GLARGINE) 1 /0.01ml (100units/ml) SC SCH (22:02)
[2021-07-03] MEDS: HYDROmorphone HCL 2 MG/ML VL IV PRN ×3 (00:03→18:53)
[2021-07-03 05:00] VITALS: BP 132/73
[2021-07-03] MEDS: AMPICILLIN INJ 1 GM in SODIUM CHL 0.9% 50 ML IV SCH ×4 (05:21→23:03)
[2021-07-03] MEDS: InsuLIN REG 1unit/0.01ml Soln (100units/ml) SC SCH ×4 (06:21→21:49)
[2021-07-03] MEDS: ACCU-CHEK COMFORT CURVE STRIP VI SCH ×4 (06:21→21:44)
[2021-07-03] MEDS: ALBUTEROL SULF 2.5 MG/0.5ML(0.5%) NEB SOLN NEB SCH ×3 (07:25→22:47)
[2021-07-03] MEDS: IPRATROPIUM BROM 0.5 MG/2.5ML INH SOL NEB SCH ×3 (07:25→22:47)
[2021-07-03] MEDS ORDERED: APIX5TAB PO (08:46)
[2021-07-03] MEDS ORDERED: AMOX-277 PO (08:46)
[2021-07-03] MEDS ORDERED: METO-6 PO ×2 (08:46)
[2021-07-03] MEDS ORDERED: METF-371 PO (08:46)
[2021-07-03] MEDS ORDERED: AMIO200T33 PO (08:47)
[2021-07-03 09:00] VITALS: BP 144/61
[2021-07-03] MEDS: MULTIPLE VITAMIN TAB PO SCH (09:49)
[2021-07-03] MEDS: ASCORBIC ACID 500 MG TAB PO SCH ×2 (09:49→21:44)
[2021-07-03] MEDS: LOSARTAN POTASSIUM 25 MG TAB PO SCH (09:51)
[2021-07-03] MEDS: METOPROLOL SUCCINATE XL 50 MG TAB PO SCH ×2 (09:52→21:44)
[2021-07-03] MEDS: AMIODARONE HCL 200 MG TAB PO SCH (09:54)
[2021-07-03] MEDS: CEFTRIAXONE SODIUM 2 GM in D5W 5% 50 ML IV SCH (09:56)
[2021-07-03] MEDS: SODIUM CHLOR 0.9% PF (SALINE LOCK) 10ML VIAL/SYR IV SCH ×2 (10:00→21:44)
[2021-07-03 13:00] VITALS: BP 129/68
[2021-07-03] MEDS: Pro-Stat SF 30ml Vanilla PO SCH (14:02)
[2021-07-03 17:00] VITALS: BP 116/45
[2021-07-03] MEDS ORDERED: DAKINS HALF STR 0.25% (NaHypochlorite) 473 ML TOPICAL SOL TOP ONE (17:45)
[2021-07-03] MEDS: INSULIN LANTUS (GLARGINE) 1 /0.01ml (100units/ml) SC SCH (21:49)
[2021-07-03] MEDS: HYDROcodone-ACET 10/325MG TAB PO PRN (21:50)
[2021-07-03 22:05] VITALS: BP 117/70
[2021-07-04] MEDS: HYDROmorphone HCL 2 MG/ML VL IV PRN ×4 (01:31→15:36)
[2021-07-04] MEDS: AMPICILLIN INJ 1 GM in SODIUM CHL 0.9% 50 ML IV SCH (05:10)
[2021-07-04 05:14] VITALS: BP 139/86
[2021-07-04] MEDS: ALBUTEROL SULF 2.5 MG/0.5ML(0.5%) NEB SOLN NEB SCH ×2 (06:00→07:05)
[2021-07-04] MEDS: ACCU-CHEK COMFORT CURVE STRIP VI SCH ×2 (06:28→12:10)
[2021-07-04] MEDS: InsuLIN REG 1unit/0.01ml Soln (100units/ml) SC SCH ×2 (06:29→12:17)
[2021-07-04] MEDS: IPRATROPIUM BROM 0.5 MG/2.5ML INH SOL NEB SCH (07:05)
[2021-07-04] MEDS ORDERED: LOS25T PO (08:55)
[2021-07-04 09:00] VITALS: BP 161/76
[2021-07-04] MEDS ORDERED: AMOXICILLIN/CLAVUL 875 MG TAB PO SCH (10:00)
[2021-07-04] MEDS ORDERED: AMIODARONE HCL 200 MG TAB PO SCH (10:00)
[2021-07-04] MEDS: SODIUM CHLOR 0.9% PF (SALINE LOCK) 10ML VIAL/SYR IV SCH (10:02)
[2021-07-04] MEDS: Pro-Stat SF 30ml Vanilla PO SCH (10:04)
[2021-07-04] MEDS: MULTIPLE VITAMIN TAB PO SCH (10:04)
[2021-07-04] MEDS: LOSARTAN POTASSIUM 25 MG TAB PO SCH (10:04)
[2021-07-04] MEDS: ASCORBIC ACID 500 MG TAB PO SCH (10:05)
[2021-07-04] MEDS: METOPROLOL SUCCINATE XL 50 MG TAB PO SCH (10:05)
[2021-07-04] MEDS: CEFTRIAXONE SODIUM 2 GM in D5W 5% 50 ML IV SCH (11:43)
[2021-07-04 13:00] VITALS: BP 160/74
[2021-07-04 17:00] VITALS: BP 133/91
[2021-07-04] MEDS ORDERED: metFORMIN HYDROCHLORIDE 850 MG TAB PO SCH (18:00)
== END 2021-07-04 18:10 | disposition home health service (06) | DRG 853 ==
LOC: ER 21:42 → OVERFLOW 06-21 06:17 → CENTRAL 06-21 15:48 → WEST WING 06-22 11:56 → TELE-WESTW 06-26 05:11
PROVIDERS: ADMIT Nurse Practitioner Family; ATTEND Internal Medicine
PROC: 05HB33Z Insertion of Infusion Device into Right Basilic Vein, Percutaneous Approach (ICD-10-PCS; 2021-06-26)
PROC: B54MZZA Ultrasonography of Right Upper Extremity Veins, Guidance (ICD-10-PCS; 2021-06-26)
PROC: 0Y6M0ZF Detachment at Right Foot, Partial 5th Ray, Open Approach (ICD-10-PCS; principal; 2021-06-27 12:52)
PROC: 0QBN0ZZ Excision of Right Metatarsal, Open Approach (ICD-10-PCS; 2021-07-02)
DX: A41.9 Sepsis, unspecified organism (principal); A48.0 Gas gangrene; L03.115 Cellulitis of right lower limb; L02.611 Cutaneous abscess of right foot; L97.419 Non-pressure chronic ulcer of right heel and midfoot with unspecified severity; E87.1 Hypo-osmolality and hyponatremia; M86.8X7 Other osteomyelitis, ankle and foot; Z68.41 Body mass index [BMI] 40.0-44.9, adult; E11.621 Type 2 diabetes mellitus with foot ulcer; L97.519 Non-pressure chronic ulcer of other part of right foot with unspecified severity; E11.65 Type 2 diabetes mellitus with hyperglycemia; E87.6 Hypokalemia; E66.01 Morbid (severe) obesity due to excess calories; E88.09 Other disorders of plasma-protein metabolism, not elsewhere classified; E11.628 Type 2 diabetes mellitus with other skin complications; E11.69 Type 2 diabetes mellitus with other specified complication; I10 Essential (primary) hypertension; I48.0 Paroxysmal atrial fibrillation; J44.9 Chronic obstructive pulmonary disease, unspecified; Z20.822 Contact with and (suspected) exposure to COVID-19
CPT/HCPCS: 36415; 36569; 71045; 73700; 73718; 80048; 80053; 80202; 80307; 80320; 81001; 82565; 82962; 83036; 83605; 83735; 85007; 85025; 85027; 85610; 85730; 86703; 86706; 86803; 86850; 86900; 86901; 87040; 87070; 87075; 87076; 87077; 87186; 87205; 87340; 87426; 93306; 93926; 93971; 94640; 96365; 96366; 96368; 96375; 97110; 97116; 97530; G0378; J0690; J0696; J1815; J2001; J2250; J2405; J2543; J2704; J3490; J7060

== ENCOUNTER 2021-10-16 14:00 | Emergency (ER) | payer OTHER ==
[~2021-10-16] VITALS: Ht 170.2 cm; Wt 117.9 kg
[~2021-10-16 14:00] MED LIST: AMIO200T33 PO; AMOX-277 PO; APIX5TAB PO; ATOR20TA PO; GABA100C9 PO; GLIP5TAB12 PO; HYDR25TA4 PO; LOS25T PO; METF-371 PO; METO-6 PO; OME20T PO
[2021-10-16 14:01] VITALS: BP 186/91
[2021-10-16 15:28] LABS: Basophils # (auto) 0 10 ^3/uL (0-0.2); Basophils % (auto) 0.6 % (0.0-2.0); Eosinophils # (auto) 0 10 ^3/uL (0-0.8); Eosinophils % (auto) 0.4 % (0.0-7.0); Hematocrit 36.4 % (41.0-53.0); Lymphocytes # (auto) 0.9 10 ^3/uL (0.4-5.4); Lymphocytes % (auto) 10.7 % (10.0-50.0); Mean Corpuscular Hemoglobin 30.3 pg (28.0-32.0); Mean Corpuscular Volume 91.6 fL (80.0-100.0); Monocytes # (auto) 0.4 10 ^3/uL (0-1.3); Monocytes % (auto) 4.4 % (0.0-12.0); Neutrophils # (auto) 6.7 10 ^3/uL (1.6-8.6); Neutrophils % (auto) 83.9 % (37.0-80.0); Nucleated Red Blood Cells % 0.1 %; Red Blood Cells 3.97 10^6/uL (4.5-5.90); Red Cell Distribution Width 14.4 % (11.8-14.3)
[2021-10-16 15:30] LABS: Albumin 2.9 g/dL (3.4-5.0); Calcium 8.9 mg/dL (8.5-10.1); Potassium 4.3 mmol/L (3.5-5.1)
[2021-10-16 15:42] LABS: BUN/Creatinine Ratio 18.9; Bilirubin, Total 0.3 mg/dL (0.2-1.0)
[2021-10-16 16:32] LABS: Urine Bacteria NONE SEEN /hpf (None Seen); Urine Blood 1+ /uL (Negative); Urine Mucus FEW (None Seen); Urine Specific Gravity 1.025 (1.001-1.035); Urine WBC 5 /hpf (0 - 3)
== END 2021-10-16 20:33 | disposition home or self-care (01) ==
LOC: ER 14:00
DX: R06.2 Wheezing (principal); E11.9 Type 2 diabetes mellitus without complications; I10 Essential (primary) hypertension; J44.9 Chronic obstructive pulmonary disease, unspecified; Z20.822 Contact with and (suspected) exposure to COVID-19
CPT/HCPCS: 36415; 71045; 80053; 81001; 84484; 85025; 87426; 93005

== ENCOUNTER 2021-11-10 12:17 | Emergency (ER) | payer MEDICAID, OTHER ==
[~2021-11-10] VITALS: Ht 170.2 cm; Wt 117.9 kg
[2021-11-10] MEDS ORDERED: cloNIDine HCL 0.1 MG TAB PO ONE (13:15)
[2021-11-10 14:18] LABS: Basophils # (auto) 0.1 10 ^3/uL (0-0.2); Basophils % (auto) 1.3 % (0.0-2.0); Eosinophils # (auto) 0.2 10 ^3/uL (0-0.8); Eosinophils % (auto) 2.1 % (0.0-7.0); Hematocrit 41.4 % (41.0-53.0); Hemoglobin 13.6 g/dL (13.5-17.5); Lymphocytes # (auto) 2.5 10 ^3/uL (0.4-5.4); Lymphocytes % (auto) 30.3 % (10.0-50.0); Mean Corpuscular Hemoglobin 30.4 pg (28.0-32.0); Mean Corpuscular Hgb Conc. 32.9 g/dL (32.0-36.0); Mean Corpuscular Volume 92.4 fL (80.0-100.0); Monocytes # (auto) 0.6 10 ^3/uL (0-1.3); Monocytes % (auto) 7.2 % (0.0-12.0); Neutrophils # (auto) 4.9 10 ^3/uL (1.6-8.6); Neutrophils % (auto) 59.1 % (37.0-80.0); Red Blood Cells 4.48 10^6/uL (4.5-5.90); Red Cell Distribution Width 15.3 % (11.8-14.3); White Blood Cell 8.3 10^3/uL (4.4-10.8)
[2021-11-10 14:35] LABS: Potassium 4.8 mmol/L (3.5-5.1)
[2021-11-10 14:39] LABS: BUN/Creatinine Ratio 14.4; Bilirubin, Total 0.3 mg/dL (0.2-1.0); INR 0.99 (0.9-1.15); Partial Thromboplastin Time 29.7 sec (23.6-33.0); Total Protein 7.7 g/dL (6.4-8.2)
[2021-11-10] MEDS ORDERED: traMADol HCL 50 MG TAB PO ONE (16:30)
[2021-11-10 17:44] VITALS: BP 148/88
== END 2021-11-10 17:49 | disposition home or self-care (01) ==
LOC: ER 12:17
DX: M79.604 Pain in right leg (principal); I73.9 Peripheral vascular disease, unspecified; E11.65 Type 2 diabetes mellitus with hyperglycemia; I10 Essential (primary) hypertension; J44.9 Chronic obstructive pulmonary disease, unspecified; I48.91 Unspecified atrial fibrillation; F17.210 Nicotine dependence, cigarettes, uncomplicated; Z79.899 Other long term (current) drug therapy
CPT/HCPCS: 36415; 80053; 85025; 85610; 85730; 93925

== ENCOUNTER 2022-06-15 20:02 | Emergency (ER) | payer MEDICAID ==
[~2022-06-15] VITALS: Ht 170.2 cm; Wt 143.5 kg
[2022-06-15 22:56] LABS: Urine Bacteria FEW /hpf (None Seen); Urine Blood TRACE /uL (Negative); Urine Specific Gravity 1.008 (1.001-1.035); Urine WBC 6 /hpf (0 - 3); Urine WBC Clumps PRESENT /hpf (None Seen)
[2022-06-15 22:57] LABS: Basophils # (auto) 0.1 10 ^3/uL (0-0.2); Basophils % (auto) 1.4 % (0.0-2.0); Eosinophils # (auto) 0.1 10 ^3/uL (0-0.8); Eosinophils % (auto) 1.9 % (0.0-7.0); Hematocrit 37.5 % (41.0-53.0); Hemoglobin 12.2 g/dL (13.5-17.5); Lymphocytes # (auto) 1.5 10 ^3/uL (0.4-5.4); Lymphocytes % (auto) 18.7 % (10.0-50.0); Mean Corpuscular Hemoglobin 30.3 pg (28.0-32.0); Mean Corpuscular Hgb Conc. 32.4 g/dL (32.0-36.0); Mean Corpuscular Volume 93.5 fL (80.0-100.0); Monocytes # (auto) 0.5 10 ^3/uL (0-1.3); Monocytes % (auto) 6.3 % (0.0-12.0); Neutrophils # (auto) 5.7 10 ^3/uL (1.6-8.6); Neutrophils % (auto) 71.7 % (37.0-80.0); Nucleated Red Blood Cells % 0.1 %; Red Blood Cells 4.01 10^6/uL (4.5-5.90); Red Cell Distribution Width 17.2 % (11.8-14.3); White Blood Cell 7.9 10^3/uL (4.4-10.8)
[2022-06-15 23:19] LABS: Albumin 2.7 g/dL (3.4-5.0); BUN/Creatinine Ratio 16.5; Calcium 8.6 mg/dL (8.5-10.1); Potassium 4.2 mmol/L (3.5-5.1)
[2022-06-15 23:21] LABS: Bilirubin, Total 0.3 mg/dL (0.2-1.0); Total Protein 7.6 g/dL (6.4-8.2)
[2022-06-16] MEDS ORDERED: BACDST PO ×2 (03:10→03:37)
[2022-06-16] MEDS ORDERED: FUROSEMIDE 20 MG TAB PO ONE (03:15)
[2022-06-16 03:30] VITALS: BP 149/74
== END 2022-06-16 03:44 | disposition home or self-care (01) ==
LOC: ER 20:10
DX: E11.621 Type 2 diabetes mellitus with foot ulcer (principal); N39.0 Urinary tract infection, site not specified; I11.0 Hypertensive heart disease with heart failure; I50.9 Heart failure, unspecified; J44.9 Chronic obstructive pulmonary disease, unspecified; F17.210 Nicotine dependence, cigarettes, uncomplicated; Z88.2 Allergy status to sulfonamides
CPT/HCPCS: 36415; 74176; 80053; 81001; 83880; 85025; 93005

== ENCOUNTER 2022-09-21 10:58 | Emergency (ER) | payer MEDICAID, OTHER ==
[~2022-09-21] VITALS: Ht 170.2 cm; Wt 154.5 kg
[~2022-09-21 10:58] MED LIST changes: +BACDST PO
[2022-09-21 11:10] VITALS: BP 151/94
[2022-09-21] MEDS ORDERED: LINE1TAB10 PO (12:22)
== END 2022-09-21 13:04 | disposition home or self-care (01) ==
LOC: ER 10:58
DX: L02.415 Cutaneous abscess of right lower limb (principal); L03.115 Cellulitis of right lower limb; F17.210 Nicotine dependence, cigarettes, uncomplicated; I48.91 Unspecified atrial fibrillation; J44.9 Chronic obstructive pulmonary disease, unspecified; E11.9 Type 2 diabetes mellitus without complications; I10 Essential (primary) hypertension; Z79.84 Long term (current) use of oral hypoglycemic drugs; Z79.899 Other long term (current) drug therapy; Z98.890 Other specified postprocedural states

== ENCOUNTER 2023-04-17 16:24 | Inpatient (IN) | payer MEDICAID ==
[~2023-04-17] VITALS: Ht 170.2 cm; Wt 152.0 kg
[~2023-04-17 16:24] MED LIST changes: -AMOX-277 PO; +AMOX875T4 PO; +GABA-1308 PO; -GABA100C9 PO; +LINE1TAB10 PO
[2023-04-17 17:48] LABS: Albumin 3.5 g/dL (3.4-5.0); Potassium 4.6 mmol/L (3.5-5.1)
[2023-04-17 17:52] LABS: BUN/Creatinine Ratio 20.4 (10.0-20.0); Bilirubin, Total 0.3 mg/dL (0.2-1.0); Total Protein 7.9 g/dL (6.4-8.2)
[2023-04-17 18:00] LABS: Basophils # (auto) 0.3 10 ^3/uL (0-0.2); Basophils % (auto) 3.4 % (0.0-2.0); Eosinophils # (auto) 0.1 10 ^3/uL (0-0.8); Eosinophils % (auto) 1.4 % (0.0-7.0); Hematocrit 54.1 % (41.0-53.0); Hemoglobin 17.6 g/dL (13.5-17.5); Lymphocytes # (auto) 1.5 10 ^3/uL (0.4-5.4); Lymphocytes % (auto) 15.6 % (10.0-50.0); Mean Corpuscular Hemoglobin 30.5 pg (28.0-32.0); Mean Corpuscular Hgb Conc. 32.5 g/dL (32.0-36.0); Mean Corpuscular Volume 93.8 fL (80.0-100.0); Monocytes # (auto) 0.5 10 ^3/uL (0-1.3); Monocytes % (auto) 5.5 % (0.0-12.0); Neutrophils % (auto) 74.1 % (37.0-80.0); Red Blood Cells 5.77 10^6/uL (4.5-5.90); Red Cell Distribution Width 15.9 % (11.8-14.3); White Blood Cell 9.4 10^3/uL (4.4-10.8)
[2023-04-17 20:37] LABS: Urine Bacteria FEW /hpf (None Seen); Urine Blood Negative /uL (Negative); Urine Hyaline Cast FEW /lpf (0 - 2); Urine Specific Gravity 1.011 (1.001-1.035); Urine WBC 47 /hpf (0 - 3)
[2023-04-18] MEDS ORDERED: cefTRIAXone SOD 1,000 MG VL IM ONE (00:30)
[2023-04-18] MEDS ORDERED: HYDROcodone-ACET 5/325MG TAB PO ONE ×2 (00:30→01:30)
[2023-04-18] MEDS ORDERED: ONDANSETRON HCL 4 MG/2 ML VIAL IV PRN (01:15)
[2023-04-18] MEDS ORDERED: ACETAMINOPHEN 325 MG TAB PO PRN (01:15)
[2023-04-18] MEDS ORDERED: DOCUSATE SOD 100 MG CAP PO PRN (01:15)
[2023-04-18] MEDS ORDERED: DEXTROSE (50%) 50ML SYRG IV PRN (01:15)
[2023-04-18] MEDS: SODIUM CHLORIDE 0.9% 1,000 ML IV SCH ×2 (03:56→17:00)
[2023-04-18] MEDS ORDERED: ONDANSETRON HCL 4 MG/2 ML VIAL IV ONE (04:15)
[2023-04-18] MEDS ORDERED: NITROGLYCERIN 0.4 MG SL TAB SL PRN (06:15)
[2023-04-18] MEDS ORDERED: MORPHINE SULFATE INJ 2 MG/ml SYRG IV PRN (06:15)
[2023-04-18] MEDS: ACCU-CHEK COMFORT CURVE STRIP VI SCH ×4 (06:44→22:20)
[2023-04-18] MEDS: HYDROcodone-ACET 5/325MG TAB PO PRN (06:47)
[2023-04-18 07:24] LABS: Calcium 8.6 mg/dL (8.5-10.1)
[2023-04-18 07:29] LABS: BUN/Creatinine Ratio 20.9 (10.0-20.0); Bilirubin, Total 0.5 mg/dL (0.2-1.0); Total Protein 6.9 g/dL (6.4-8.2)
[2023-04-18 07:42] LABS: Hematocrit 47.8 % (41.0-53.0); Hemoglobin 15.9 g/dL (13.5-17.5); Mean Corpuscular Hemoglobin 31.3 pg (28.0-32.0); Mean Corpuscular Hgb Conc. 33.2 g/dL (32.0-36.0); Mean Corpuscular Volume 94.3 fL (80.0-100.0); Red Blood Cells 5.07 10^6/uL (4.5-5.90); Red Cell Distribution Width 16.1 % (11.8-14.3); White Blood Cell 12.7 10^3/uL (4.4-10.8)
[2023-04-18 07:45] LABS: Basophils % (manual) 0 (0.0-2.0); Blast Cells 0; Metamyelocytes % 0; Myelocytes % 0; Promyelocytes % 0; Reactive Lymphocytes 0
[2023-04-18] MEDS: InsuLIN REG 1unit/0.01ml Soln (100units/ml) SC SCH ×4 (08:25→23:41)
[2023-04-18] MEDS: cefTRIAXone 1GM/50ML D5W 50 ML IV SCH (08:28)
[2023-04-18] MEDS: APIXABAN 5 MG TAB PO SCH ×2 (08:29→23:01)
[2023-04-18] MEDS: FAMOTIDINE (10MG/ML) 2ML VL IV SCH (08:29)
[2023-04-18 09:23] LABS: Band Neutrophils % (manual) 7; Eosinophils % (manual) 1 (0-7); Lymphocytes % (manual) 18 (10.0-50.0); Monocytes % (manual) 8 (0-12)
[2023-04-18] MEDS: OXYCODONE W/ ACETAMINOPHEN 5/325MG TABLET PO SCH ×2 (13:09→23:02)
[2023-04-19 04:47] LABS: Basophils # (auto) 0.1 10 ^3/uL (0-0.2); Basophils % (auto) 0.6 % (0.0-2.0); Eosinophils # (auto) 0.1 10 ^3/uL (0-0.8); Eosinophils % (auto) 1.1 % (0.0-7.0); Hematocrit 48.9 % (41.0-53.0); Hemoglobin 16.3 g/dL (13.5-17.5); Lymphocytes # (auto) 1.4 10 ^3/uL (0.4-5.4); Lymphocytes % (auto) 15.1 % (10.0-50.0); Mean Corpuscular Hemoglobin 31.3 pg (28.0-32.0); Mean Corpuscular Hgb Conc. 33.3 g/dL (32.0-36.0); Mean Corpuscular Volume 94.2 fL (80.0-100.0); Monocytes # (auto) 0.8 10 ^3/uL (0-1.3); Monocytes % (auto) 8.5 % (0.0-12.0); Neutrophils # (auto) 6.9 10 ^3/uL (1.6-8.6); Neutrophils % (auto) 74.7 % (37.0-80.0); Red Blood Cells 5.19 10^6/uL (4.5-5.90); Red Cell Distribution Width 16.3 % (11.8-14.3); White Blood Cell 9.3 10^3/uL (4.4-10.8)
[2023-04-19 05:04] LABS: Albumin 3.2 g/dL (3.4-5.0); Calcium 8.6 mg/dL (8.5-10.1); Potassium 4.5 mmol/L (3.5-5.1)
[2023-04-19 05:09] LABS: BUN/Creatinine Ratio 23.4 (10.0-20.0); Bilirubin, Total 0.4 mg/dL (0.2-1.0); Total Protein 7.2 g/dL (6.4-8.2)
[2023-04-19] MEDS: ACCU-CHEK COMFORT CURVE STRIP VI SCH ×4 (06:43→21:59)
[2023-04-19] MEDS: OXYCODONE W/ ACETAMINOPHEN 5/325MG TABLET PO SCH ×3 (06:44→21:58)
[2023-04-19] MEDS: InsuLIN REG 1unit/0.01ml Soln (100units/ml) SC SCH ×4 (07:03→21:59)
[2023-04-19 09:45] VITALS: BP 137/69
[2023-04-19 10:40] VITALS: BP 137/69
[2023-04-19] MEDS: cefTRIAXone 1GM/50ML D5W 50 ML IV SCH (10:58)
[2023-04-19] MEDS: FAMOTIDINE (10MG/ML) 2ML VL IV SCH (10:59)
[2023-04-19] MEDS: APIXABAN 5 MG TAB PO SCH ×2 (10:59→21:58)
[2023-04-19] MEDS: SODIUM CHLORIDE 0.9% 1,000 ML IV SCH (11:00)
[2023-04-19 13:00] VITALS: BP 124/81
[2023-04-19] MEDS: ceFAZolin 1GM/50ML 50 ML IV SCH ×2 (15:11→21:59)
[2023-04-19 17:00] VITALS: BP 145/61
[2023-04-19 22:00] VITALS: BP 105/75
[2023-04-20] MEDS: SODIUM CHLORIDE 0.9% 1,000 ML IV SCH ×3 (03:15→21:53)
[2023-04-20 05:00] VITALS: BP 154/66
[2023-04-20] MEDS: ceFAZolin 1GM/50ML 50 ML IV SCH ×3 (05:30→21:47)
[2023-04-20] MEDS: OXYCODONE W/ ACETAMINOPHEN 5/325MG TABLET PO SCH ×3 (05:30→21:47)
[2023-04-20 06:14] LABS: Basophils # (auto) 0 10 ^3/uL (0-0.2); Basophils % (auto) 0.5 % (0.0-2.0); Eosinophils # (auto) 0.1 10 ^3/uL (0-0.8); Eosinophils % (auto) 1.6 % (0.0-7.0); Hematocrit 50.3 % (41.0-53.0); Hemoglobin 16.6 g/dL (13.5-17.5); Lymphocytes % (auto) 24.3 % (10.0-50.0); Mean Corpuscular Hemoglobin 31.2 pg (28.0-32.0); Mean Corpuscular Hgb Conc. 32.9 g/dL (32.0-36.0); Mean Corpuscular Volume 94.7 fL (80.0-100.0); Monocytes # (auto) 0.8 10 ^3/uL (0-1.3); Monocytes % (auto) 9.6 % (0.0-12.0); Neutrophils # (auto) 5.3 10 ^3/uL (1.6-8.6); Nucleated Red Blood Cells % 0.1 %; Red Blood Cells 5.31 10^6/uL (4.5-5.90); Red Cell Distribution Width 15.9 % (11.8-14.3); White Blood Cell 8.3 10^3/uL (4.4-10.8)
[2023-04-20 06:33] LABS: Calcium 8.9 mg/dL (8.5-10.1); Potassium 4.4 mmol/L (3.5-5.1)
[2023-04-20 06:35] LABS: BUN/Creatinine Ratio 19.3 (10.0-20.0)
[2023-04-20] MEDS: ACCU-CHEK COMFORT CURVE STRIP VI SCH ×4 (06:39→21:40)
[2023-04-20] MEDS: InsuLIN REG 1unit/0.01ml Soln (100units/ml) SC SCH ×4 (06:49→21:36)
[2023-04-20 08:20] VITALS: BP 137/67
[2023-04-20 09:00] VITALS: BP 137/67
[2023-04-20] MEDS: APIXABAN 5 MG TAB PO SCH ×2 (09:46→21:47)
[2023-04-20] MEDS: FAMOTIDINE (10MG/ML) 2ML VL IV SCH (09:46)
[2023-04-20 13:00] VITALS: BP 150/78
[2023-04-20] MEDS ORDERED: LOSARTAN POTASSIUM 25 MG TAB PO ONE (13:15)
[2023-04-20] MEDS ORDERED: hydrALAZINE HCL 20 MG/ML VL IV PRN (13:15)
[2023-04-20 16:40] VITALS: BP 174/80
[2023-04-20] MEDS ORDERED: APIXABAN 2.5 MG TAB ONE (21:40)
[2023-04-20 22:00] VITALS: BP 134/71
[2023-04-21 05:00] VITALS: BP 134/72
[2023-04-21] MEDS: InsuLIN REG 1unit/0.01ml Soln (100units/ml) SC SCH ×4 (05:48→21:46)
[2023-04-21] MEDS: ACCU-CHEK COMFORT CURVE STRIP VI SCH ×4 (05:49→21:59)
[2023-04-21] MEDS: ceFAZolin 1GM/50ML 50 ML IV SCH ×3 (06:46→21:59)
[2023-04-21] MEDS: OXYCODONE W/ ACETAMINOPHEN 5/325MG TABLET PO SCH ×3 (06:46→21:58)
[2023-04-21 08:59] LABS: Basophils # (auto) 0 10 ^3/uL (0-0.2); Basophils % (auto) 0.5 % (0.0-2.0); Eosinophils # (auto) 0.1 10 ^3/uL (0-0.8); Eosinophils % (auto) 1.3 % (0.0-7.0); Hematocrit 53.9 % (41.0-53.0); Hemoglobin 17.6 g/dL (13.5-17.5); Lymphocytes # (auto) 1.8 10 ^3/uL (0.4-5.4); Lymphocytes % (auto) 21.2 % (10.0-50.0); Mean Corpuscular Hemoglobin 30.9 pg (28.0-32.0); Mean Corpuscular Hgb Conc. 32.7 g/dL (32.0-36.0); Mean Corpuscular Volume 94.5 fL (80.0-100.0); Monocytes # (auto) 0.8 10 ^3/uL (0-1.3); Monocytes % (auto) 9.1 % (0.0-12.0); Neutrophils # (auto) 5.7 10 ^3/uL (1.6-8.6); Neutrophils % (auto) 67.9 % (37.0-80.0); Nucleated Red Blood Cells % 0.1 %; Red Cell Distribution Width 15.8 % (11.8-14.3); White Blood Cell 8.4 10^3/uL (4.4-10.8)
[2023-04-21 09:00] VITALS: BP 151/52
[2023-04-21] MEDS: LOSARTAN POTASSIUM 25 MG TAB PO SCH (09:22)
[2023-04-21] MEDS: APIXABAN 5 MG TAB PO SCH ×2 (09:22→21:59)
[2023-04-21 09:27] LABS: Potassium 4.2 mmol/L (3.5-5.1)
[2023-04-21 09:36] LABS: BUN/Creatinine Ratio 15.9 (10.0-20.0); Calcium 8.6 mg/dL (8.5-10.1)
[2023-04-21 13:00] VITALS: BP 141/58
[2023-04-21 17:00] VITALS: BP 129/69
[2023-04-21 22:00] VITALS: BP 130/61
[2023-04-22] MEDS: SODIUM CHLORIDE 0.9% 1,000 ML IV SCH (04:58)
[2023-04-22 05:00] VITALS: BP 111/60
[2023-04-22] MEDS: OXYCODONE W/ ACETAMINOPHEN 5/325MG TABLET PO SCH (06:00)
[2023-04-22] MEDS: InsuLIN REG 1unit/0.01ml Soln (100units/ml) SC SCH ×2 (06:39→11:30)
[2023-04-22] MEDS: ACCU-CHEK COMFORT CURVE STRIP VI SCH ×2 (06:39→12:19)
[2023-04-22] MEDS: ceFAZolin 1GM/50ML 50 ML IV SCH (06:46)
[2023-04-22 09:00] VITALS: BP 132/63
[2023-04-22] MEDS: HYDROcodone-ACET 5/325MG TAB PO PRN (10:14)
[2023-04-22] MEDS: APIXABAN 5 MG TAB PO SCH (10:14)
[2023-04-22] MEDS: LOSARTAN POTASSIUM 25 MG TAB PO SCH (10:15)
[2023-04-22] MEDS ORDERED: CEPH250C PO (11:02)
[2023-04-22 13:00] VITALS: BP 115/56
== END 2023-04-22 13:46 | disposition home or self-care (01) | DRG 844 ==
LOC: ER 16:24 → OVERFLOW 04-18 06:05 → WEST WING 04-19 09:11
PROVIDERS: ADMIT Nurse Practitioner Family; ATTEND Internal Medicine Pulmonary Disease
DX: T25.021A Burn of unspecified degree of right foot, initial encounter (principal); N17.9 Acute kidney failure, unspecified; E11.42 Type 2 diabetes mellitus with diabetic polyneuropathy; E11.610 Type 2 diabetes mellitus with diabetic neuropathic arthropathy; L97.509 Non-pressure chronic ulcer of other part of unspecified foot with unspecified severity; E11.22 Type 2 diabetes mellitus with diabetic chronic kidney disease; I13.0 Hypertensive heart and chronic kidney disease with heart failure and stage 1 through stage 4 chronic kidney disease, or unspecified chronic kidney disease; I50.32 Chronic diastolic (congestive) heart failure; L03.115 Cellulitis of right lower limb; Z68.43 Body mass index [BMI] 50.0-59.9, adult; E11.51 Type 2 diabetes mellitus with diabetic peripheral angiopathy without gangrene; E11.621 Type 2 diabetes mellitus with foot ulcer; N39.0 Urinary tract infection, site not specified; E11.65 Type 2 diabetes mellitus with hyperglycemia; J44.9 Chronic obstructive pulmonary disease, unspecified; T65.91XA Toxic effect of unspecified substance, accidental (unintentional), initial encounter; E66.01 Morbid (severe) obesity due to excess calories; I25.10 Atherosclerotic heart disease of native coronary artery without angina pectoris; N18.2 Chronic kidney disease, stage 2 (mild); X08.8XXA Exposure to other specified smoke, fire and flames, initial encounter; Z83.3 Family history of diabetes mellitus; Y92.89 Other specified places as the place of occurrence of the external cause; Y93.89 Activity, other specified; Y99.8 Other external cause status; Z79.84 Long term (current) use of oral hypoglycemic drugs
CPT/HCPCS: 36415; 73630; 73718; 80048; 80053; 81001; 82962; 83605; 85007; 85025; 85027; 87040; 87086; 87205; 96365; 96372; 96375; G0378; J0690; J0696; J1815; J2405; J3490

== ENCOUNTER 2025-03-14 03:54 | Inpatient (IN) | payer MEDICARE, MEDICAID ==
[~2025-03-14] VITALS: Ht 170.2 cm; Wt 178.5 kg
[~2025-03-14 03:54] MED LIST changes: +ACET-6 PO; +AMIT-238 PO; -AMOX875T4 PO; +ATOR40TA52 PO; +CEPH250C PO; +FURO40TA4 PO; -GLIP5TAB12 PO; +GLIP5TAB21 PO; +INSU100I54 SC; +INSUINJ37 SC; +METO5TAB5 PO; +OXYC-998 PO; +PREG200C36 PO; +TIZA-142 PO; +TRAZ-228 PO
[2025-03-14] MEDS: CEFEPIME 2GM/50ML NS 50 ML IV ONE (04:00)
--- NOTE | 2025-03-14 04:35 | ED.PDOC ---
History of Present Illness HPI Comments 59 y/o morbidly obese M presents with son for chronic, nonhealing diabetic foot ulcer wound to left heel. Patient is a poor historian. He endorses on wound getting progressively worse, with associated black discoloration, following previous debridement of his heel. Patient states on having a PICC line in place for antibiotic treatment but not receiving his regimen for over a month for unknown reasons he is able to state. He reports extensive medical history, which includes: AFib, CKF, COPD on O2, DM, HTN, UTI's, PTCA, and tobacco abuse. Denies any recent injuries alongside having any current fever, chills, diaphoresis, urinary symptoms, nausea, or vomiting. Time Seen by MD: 04:00 Primary Care Provider: [facility] Reviewed Notes: Nurses Notes, Medications, Allergies Allergies: Coded Allergies: Penicillins (Verified Allergy, Severe, 04/21/23) Home Meds Active Scripts Cephalexin (KEFLEX CAPSULE) 250 Mg Cp, 2 CAP PO QID PRN for 5 Days, #40 CAP Prov:JESUS LAZARO MD 04/22/23 Linezolid (Linezolid) 600 Mg Tab, 600 MG PO BID for 14 Days, #28 TAB Prov:JENELLE RATLIFF DO 09/21/22 Sulfamethoxazole W/Trimethopri (Bactrim Ds Tablet) 1 Tab Tb, 1 TAB PO BID for 7 Days, #14 TAB Prov:KEITH BADILLO MD 06/16/22 Sulfamethoxazole W/Trimethopri (Bactrim Ds Tablet) 1 Tab Tb, 1 TAB PO BID for 5 Days, #10 TAB Prov:KEITH BADILLO MD 06/16/22 Losartan Potassium (Losartan Potassium) 25 Mg Tab, 25 MG PO DAILY for 30 Days, #30 TAB Prov:LORENZO AGUILAR MD 07/04/21 Amiodarone Hcl (Amiodarone Hcl) 200 Mg Tab, 1 TAB PO DAILY, #30 TAB 0 Refills Prov:LORENZO AGUILAR MD 07/03/21 Metformin Hydrochloride (Metformin Hcl) 850 Mg Tab, 1 TAB PO BID, #60 TAB 0 Refills Prov:LORENZO AGUILAR MD 07/03/21 Metoprolol Succinate (Toprol Xl) 50 Mg Tab, 1 TAB PO DAILY, #30 TAB 0 Refills Prov:LORENZO AGUILAR MD 07/03/21 Apixaban Base (ELIQUIS) 5 Mg Tab, 5 MG PO BID for 30 Days, #60 TAB Prov:LORENZO AGUILAR MD 07/03/21 Reported Medications Omeprazole (Omeprazole) 20 Mg Cap, 20 MG PO DAILY, CAP 06/24/21 Hydrochlorothiazide (Hydrochlorothiazide) 25 Mg Tab, 25 MG PO DAILY for 30 Days, MG 06/24/21 Glipizide (Glipizide) 5 Mg Tab, 5 MG PO BIDWM for 30 Days, MG 06/24/21 Atorvastatin Calcium (Lipitor) 20 Mg Tab, 1 TAB PO DAILY, #90 TAB 1 Refill 06/24/21 Gabapentin (Gabapentin) 100 Mg Cap, 400 MG PO TID 06/24/21 Information Source: Patient Mode of Arrival: motorized scooter Severity: Moderate Timing: Months Duration: Since onset Prehospital treatment: None Past Medical History PAST MEDICAL HISTORY: AFIB, CKF, COPD, DM, HTN, UTI'S Past Medical History (Other): diabetic foot ulcer Surgical History: PTCA Family History Family History: Reviewed,noncontributory to illness, Family hx of DM Social History Smoker: Cigarettes Alcohol: Denies ETOH Use Drugs: Denies Drug Use Lives In: Home All Other Systems: Reviewed and Negative (Comprehensive systems review obtained and negative except for what is stated in the HPI.) Physical Exam General Appearance: No Apparent Distress, Obese HEENT: Normal ENT Inspection, Pharynx Normal, TMs Normal Neck: Full Range of Motion, Non-Tender, Normal, Normal Inspection Respiratory: Chest Non-Tender, Lungs Clear, No Accessory Muscle Use, No Respiratory Distress, Normal Breath Sounds Cardiovascular: No Edema, No JVD, No Murmur, No Gallop, Normal Peripheral Pulses, Regular Rate/Rhythm Breast Exam: Deferred Gastrointestinal: No Organomegaly, Non Tender, No Pulsatile Mass, Normal Bowel Sounds, Soft Genitalia: Deferred Pelvic: Deferred Rectal: Deferred Extremities: No calf tenderness, Normal capillary refill, Normal inspection, Normal range of motion, Non-tender, No pedal edema Musculoskeletal : Apperance: Normal, Other (PICC line in place) 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 Was a procedure done?: No Differential Dx Considerations may include: unhealing diabetic wound, noncompliance, sepsis, necrosis fasciitis, among others X-Ray, Labs, Meds, VS Vital Signs Date Time Temp Pulse Resp B/P (MAP) Pulse Ox O2 Delivery O2 Flow Rate FiO2 03/14/25 04:10 97.6 81 22 115/71 (86) 91 97.6 Lab Test 03/14/25 05:20 03/14/25 04:25 Range/Units White Blood Count Pending Red Blood Count Pending Hemoglobin Pending Hematocrit Pending Mean Corpuscular Volume Pending Mean Corpuscular Hemoglobin Pending Mean Corpuscular Hemoglobin Concent Pending Red Cell Distribution Width Pending Platelet Count Pending Mean Platelet Volume Pending Neutrophils (%) (Auto) Pending Lymphocytes (%) (Auto) Pending Monocytes (%) (Auto) Pending Basophils (%) (Auto) Pending Neutrophils # (Auto) Pending Lymphocytes # (Auto) Pending Monocytes # (Auto) Pending Sodium Level 139 136-145 mmol/L Potassium Level 4.1 3.5-5.1 mmol/L Chloride Level 107 98-107 mmol/L Carbon Dioxide Level 26 20-31 mmol/L Anion Gap 6 5-15 Blood Urea Nitrogen 24 H 9-23 mg/dL Creatinine 1.53 H 0.700-1.30 mg/dL Glomerular Filtration Rate Calc 53 >90 mL/min BUN/Creatinine Ratio 15.7 10.0-20.0 Serum Glucose 75 74-106 mg/dL Lactic Acid Level 1.7 0.4-2.0 mmol/L Calcium Level 9.2 8.7-10.4 mg/dL Total Bilirubin 0.3 0.2-1.0 mg/dL Aspartate Amino Transferase (AST) 27 13-40 U/L Alanine Aminotransferase (ALT) 14 7-40 U/L Alkaline Phosphatase 129 H 46-116 U/L Total Protein 7.2 5.7-8.2 g/dL Albumin 3.9 3.2-4.8 g/dL Plasma/Serum Blood Alcohol < 3.0 <10 mg/dL Time of 1ST Reevaluation: 04:30 Reevaluation 1ST: Unchanged Patient Education/Counseling: Diagnosis, Treatment, Other (need for admission ) Family Education/Counseling: Diagnosis, Treatment, Other (need for admission ) Additional Information Previous visits reviewed: April 18, 2023 encounter for wound infection The following tests were ordered, and results were reviewed by me: CXR, left- foot X-ray, blood cultures, blood alcohol, lactic acid w/reflex, CMP, CBC Additional Information was gathered from interviewing the following independent historians: son I reviewed and agreed with the following test results read by other providers: CXR, left-foot X-ray I discussed treatment and results with medical personnel and: patient and son Sepsis Sepsis Reasesment Focused Exam Orders: Laboratory Tests 03/14/25 04:25: Lactic Acid Level 1.7 Departure 1 Departure Time of Disposition: 05:25 (Patient has concern for worsening cellulitis and his infection of the left lower extremity. We will empirically cover patient with antibiotics. Likely the patient a full fluid boluses patient is clinically volume overloaded. We will admit patient for further workup and expert consultation) Impression: Primary Impression: Cellulitis of left foot Disposition: ADMITTED INPATIENT Admit to: Med Surg Condition: Serious Critical Care Note Critical Care Time?: No Stability Stability form required: No Heart Score Heart Score: Heart Score Response (Comments) Value History N/A 0 EKG N/A 0 Age N/A 0 Risk Factors N/A 0 Troponin N/A 0 Total 0 I personally scribed for CELIA FERGUSON MD ([email or web address]) on 03/14/25 at 04:35. Electronically submitted by Tanner Kaiser ([email or web address]). CELIA FERGUSON MD March 14, 2025 04:35
[2025-03-14 04:59] LABS: Alanine Aminotransferase 14 U/L (7-40); Albumin 3.9 g/dL (3.2-4.8); Anion Gap 6 (5-15); Aspartate Aminotransferase 27 U/L (13-40); BUN/Creatinine Ratio 15.7 (10.0-20.0); Bilirubin, Total 0.3 mg/dL (0.2-1.0); Calcium 9.2 mg/dL (8.7-10.4); Carbon Dioxide 26 mmol/L (20-31); Glucose 75 mg/dL (74-106); Potassium 4.1 mmol/L (3.5-5.1); Sodium 139 mmol/L (136-145); Total Protein 7.2 g/dL (5.7-8.2)
[2025-03-14 05:03] LABS: Alkaline Phosphatase 129 U/L (46-116); Blood Alcohol < 3.0 mg/dL (<10); Blood Urea Nitrogen 24 mg/dL (9-23); Chloride 107 mmol/L (98-107)
--- NOTE | 2025-03-14 05:42 | DVH ---
EXAM: XR Chest, 1 View CLINICAL INDICATION: picc line TECHNIQUE: Frontal view of the chest. COMPARISON: CHEST PORTABLE on DOS: 10/16/21, CXR1 on DOS: 06/25/21, CHEST XRAY 1 VIEW on DOS: 06/25/21 FINDINGS: LUNGS AND PLEURAL SPACES: Congestive heart failure. No consolidation. No pneumothorax. HEART: Unremarkable. No cardiomegaly. MEDIASTINUM: Unremarkable. Normal mediastinal contour. BONES/JOINTS: Unremarkable. No acute fracture. TUBES, LINES AND DEVICES: Left-sided PICC line. The distal tip can not be clearly localized due to the patient's chin. OTHER FINDINGS: . IMPRESSION: Left-sided PICC line. The distal tip can not be clearly localized due to the patient's chin.
--- NOTE | 2025-03-14 05:44 | DVH ---
CLINICAL INDICATION: left foot wound TECHNIQUE: XY L FOOT 3 VIEW XRAY Comparison: XY R FOOT 3 VIEW XRAY on DOS: 04/17/23 FINDINGS/IMPRESSION: : There is no evidence of acute fracture or dislocation. Post resection of the 5th digit from the level of the mid 5th metatarsal. Diffuse soft-tissue edema and swelling most prominent at the lateral aspect of the foot. Small volume subcutaneous emphysema.
[2025-03-14] MEDS ORDERED: DEXTROSE (50%) 50ML SYRG IV PRN (06:15)
[2025-03-14] MEDS ORDERED: VANCOMYCIN PER PHARMACY 0 MG IV SCH (06:15)
[2025-03-14] MEDS ORDERED: ACETAMINOPHEN 325 MG TAB PO PRN (06:15)
--- NOTE | 2025-03-14 06:38 | DVHHP2 ---
History of Present Illness Reason for Visit: diabteic foot History of Present Illness 59M with poorly controlled DM2 hba1c 10 (according to the son), PVD, and CKD presents with chronic, non-healing ulcer on lateral aspect of left heel (near 4th toe), worsening over 5 months with new black discoloration noted today. Patient is a poor historian. He had prior debridement and reportedly a stent placement in the same leg. He also has a PICC line in place and is currently receiving Daptomycin, though unclear for how long or under what supervision. No fever, chills, urinary symptoms, nausea or vomiting. Denies recent trauma. Brought in today due to concern for worsening infection or necrosis. PMHx: DM2, CKD, COPD on 2L O2, HTN, HFrEF, AFib, PVD, prior PTCA, bilateral 5th toe amputations, recurrent UTIs Allergies: Penicillin (severe reaction) Meds: Metformin, Lantus, Humalog, Entresto, Toprol-XL, Plavix, Amiodarone, Apixaban, Lasix, Lipitor, Trazodone, Amitriptyline, Percocet, Farsiga, Lyrica, Tizanidine, Aspirin RXS: Constitutional: No fever, chills, or night sweats Skin: Blackening of ulcer, no surrounding erythema or purulence per photo : Denies urinary symptoms Neuro: Denies AMS GI: Denies nausea or vomiting Social History Smoker: Cigarettes Alcohol: Denies ETOH Use Drugs: Denies Drug Use Lives In: Home Review of Systems Allergies: Coded Allergies: Penicillins (Verified Allergy, Severe, 04/21/23) Medications Current Medications Medications Dose Ordered Sig/Maria Isabel Route Start Time Stop Time Status Last Admin Dose Admin Acetaminophen 650 mg Q6HP PRN PO 03/14/25 06:15 Acetaminophen/ Hydrocodone Bitart 1 tab Q4HP PRN PO 03/14/25 06:15 Enoxaparin Sodium 90 mg BID SC 03/14/25 10:00 UNV Cefepime HCl 50 ml @ 12.5 mls/hr Q12HR IV 03/14/25 10:00 UNV Vancomycin HCl 0 ml @ 0 mls/hr UD IV 03/14/25 06:15 UNV Diagnostic Test (Pha) 1 strip ACHS 03/14/25 07:00 Insulin Human Regular ACHS SC 03/14/25 07:00 Dextrose 50 ml UD PRN IV 03/14/25 06:15 Amiodarone HCl 200 mg DAILY PO 03/14/25 10:00 Aspirin 81 mg DAILY PO 03/14/25 10:00 Furosemide 40 mg BIDD IV 03/14/25 10:00 Oxycodone/ Acetaminophen 2 tab Q6HP PRN PO 03/14/25 06:15 Exam Vital Signs Vital Signs Date Time Temp Pulse Resp B/P (MAP) Pulse Ox O2 Delivery O2 Flow Rate FiO2 03/14/25 04:10 97.6 81 22 115/71 (86) 91 97.6 General Appearance: Alert, Oriented X3 HEENT: Atraumatic Respiratory: Other (CRACKLES ) Cardiovascular: Regular rate, Normal S1 Abdominal: Normal bowel sounds Extremities: Other ( 4-5 cm ulcer on lateral left heel with central necrosis, black eschar, surrounding callus and mild erythema. No active drainage visible.) Neuro: Normal gait, Normal speech Psych/Mental Status: Mental status NL, Mood NL Labs/Xrays Labs Test 03/14/25 05:20 03/14/25 04:25 Range/Units Sodium Level 139 136-145 mmol/L Potassium Level 4.1 3.5-5.1 mmol/L Chloride Level 107 98-107 mmol/L Carbon Dioxide Level 26 20-31 mmol/L Anion Gap 6 5-15 Blood Urea Nitrogen 24 H 9-23 mg/dL Creatinine 1.53 H 0.700-1.30 mg/dL Glomerular Filtration Rate Calc 53 >90 mL/min BUN/Creatinine Ratio 15.7 10.0-20.0 Serum Glucose 75 74-106 mg/dL Lactic Acid Level 1.7 0.4-2.0 mmol/L Calcium Level 9.2 8.7-10.4 mg/dL Total Bilirubin 0.3 0.2-1.0 mg/dL Aspartate Amino Transferase (AST) 27 13-40 U/L Alanine Aminotransferase (ALT) 14 7-40 U/L Alkaline Phosphatase 129 H 46-116 U/L Total Protein 7.2 5.7-8.2 g/dL Albumin 3.9 3.2-4.8 g/dL Plasma/Serum Blood Alcohol < 3.0 <10 mg/dL Assessment/Plan Assessment/Plan #Diabetic foot #Rule out osteomyelitis #Uncontrolled DM2 #GEORGIE on possible CKD, #COPD on 2L O2, #HTN #HFrEF #AFib #PVD, prior PTCA #bilateral 5th toe amputations #recurrent UTIs #PICC line Admit Medsurg Images: MRI Left Foot WO Contrast Bilateral Lower Extremity Arterial Duplex ECHO Consults: Podiatry consult (Dr. Ang) Wound care consult Meds: Vancomycin IV per pharmacy protocol Cefepime 2g IV q12h Acetaminophen 650 mg PO q6h PRN Oxycodone-acetaminophen 5/325 mg 2 tabs PO q6h Amiodarone 200 mg PO daily Aspirin 81 mg PO daily Furosemide 40 mg IV BID Enoxaparin 90 mg BID SC Mild ISS Case discussed with Dr Burgess Full code Plan discussed with: Patient, Other My Orders Orders - MAX VILLANUEVA Procedure Category Date Status Time Admit ADMIT 03/14/25 Transmitted 06:02 Code Status CODE 03/14/25 Transmitted 06:02 Vital Signs [facility] 03/14/25 In Process 06:02 Review Orders With JESICA 03/14/25 In Process Adm. 06:02 Npo (Nothing By DIET 03/14/25 Transmitted Mouth) Diet Breakfast Acetaminophen Tablet PHA 03/14/25 In Process (Tylenol Tablet) 06:15 Notify Md Of Changes [facility] 03/14/25 In Process From Base 06:02 Advance Directive [facility] 03/14/25 In Process 06:02 Echo 2d Mode Cardiac US 03/14/25 Logged DOP 06:02 Patient Condition ORDERS 03/14/25 Transmitted 06:02 Allergies JESICA 03/14/25 In Process 06:02 Hydrocodone-Acet PHA 03/14/25 In Process 5/325mg Tab ([place] 06:15 Hemoglobin A1c LAB 03/14/25 Logged 06:02 Enoxaparin Sodium PHA 03/14/25 Pending (Lovenox) 10:00 Cefepime 1gm/ 50ml PHA 03/14/25 Pending (Maxipime 1gm/50ml) 10:00 Vancomycin Per PHA 03/14/25 Pending Pharmacy 06:15 Glucose Blood PHA 03/14/25 In Process (Accu-Chek Comfort 07:00 Insulin R (Human) PHA 03/14/25 In Process (Insulin R) 07:00 Dextrose 50% Syringe PHA 03/14/25 In Process 06:15 Amiodarone Tablet PHA 03/14/25 In Process (Cordarone Tablet) 10:00 Aspirin Tablet PHA 03/14/25 In Process 10:00 Furosemide Injection PHA 03/14/25 In Process (Lasix Injection) 10:00 Oxycodone W/ Acet PHA 03/14/25 In Process /325mg Tab (Percocet 06:15 Urinalysis LAB 03/14/25 Logged 06:08 Drug Screen LAB 03/14/25 Logged 06:08 Thyroid Stimulating LAB 03/14/25 In Process Hormone 06:08 B-Type Natriuretic LAB 03/14/25 Logged Peptide 06:08 *Podiatry Consult CONS 03/14/25 Transmitted Musson(Dvmg) 06:09 Bilat Low Ext Art US 03/14/25 Logged Duplex 06:10 Mri L Foot Wo W MRI 03/14/25 Logged Contrast 06:10 Wound Culture W/ Gs ERICK 03/14/25 Logged 06:10 * Wound Consult CONS 03/14/25 Transmitted Ekg On Admit JESICA 03/14/25 In Process 06:10 Date of Service: March 14, 2025 Billing Provider: DOMO BURGESS MD Common Visit Codes: [id number] INP/OBS CARE (HIGH) Secondary Visit Codes: [id number] CARE PLAN 30 MINUTES MAX VILLANUEVA RESIDENT March 14, 2025 06:38
[2025-03-14] MEDS: OXYCODONE W/ ACETAMINOPHEN 5/325MG TABLET PO PRN (06:42)
[2025-03-14] MEDS: MORPHINE SULFATE 4 MG/ML SYR/VIAL IV ONE (06:42)
[2025-03-14] MEDS: ONDANSETRON HCL 4 MG/2 ML VIAL IV ONE (06:42)
[2025-03-14] MEDS: SODIUM CHLORIDE 0.9% 1,000 ML IV ONE (06:50)
[2025-03-14] MEDS: VANCOMYCIN 1GM/200ML PM 200 ML IV ONE ×3 (06:53→20:08)
[2025-03-14 07:31] LABS: Basophils # (auto) 0.1 10 ^3/uL (0-0.2); Eosinophils # (auto) 0.1 10 ^3/uL (0-0.8); Hemoglobin 13.2 g/dL (13.5-17.5); Lymphocytes # (auto) 1.2 10 ^3/uL (0.4-5.4); Nucleated Red Blood Cells % 0.2 %
[2025-03-14 07:35] LABS: Basophils % (auto) 1.1 % (0.0-2.0); Eosinophils % (auto) 1.6 % (0.0-7.0); Hematocrit 41.7 % (41.0-53.0); Lymphocytes % (auto) 13.6 % (10.0-50.0); Mean Corpuscular Hemoglobin 24.8 pg (28.0-32.0); Mean Corpuscular Hgb Conc. 31.7 g/dL (32.0-36.0); Mean Corpuscular Volume 78.4 fL (80.0-100.0); Monocytes % (auto) 10.8 % (0.0-12.0); Neutrophils # (auto) 6.7 10 ^3/uL (1.6-8.6); Neutrophils % (auto) 72.9 % (37.0-80.0); Platelet Count (auto) 179 10^3/uL (140-450); Red Blood Cells 5.32 10^6/uL (4.5-5.90); White Blood Cell 9.2 10^3/uL (4.4-10.8)
[2025-03-14 07:39] LABS: Red Cell Distribution Width 21.6 % (11.8-14.3)
[2025-03-14] MEDS: InsuLIN REG 1unit/0.01ml Soln (100units/ml) SC SCH (08:08)
[2025-03-14] MEDS: ACCU-CHEK COMFORT CURVE STRIP VI SCH (08:09)
[2025-03-14 08:56] LABS: INR 1.08 (0.9-1.15); Partial Thromboplastin Time 28.3 SEC (24.5-34.5); Prothrombin Time 11.4 sec (9.3-11.8)
--- NOTE | 2025-03-14 09:56 | DVH ---
CLINICAL INDICATION: RULE OUT OSTEO COMPARISON: None. TECHNIQUE: Multiplanar, multisequence MRI of the left foot was performed without intravenous contrast . Contrast: None. INTERPRETATION: Bones /joints /alignment: No evidence of acute fracture. There is no marrow replacing lesion. Pes ca vus. Joint spaces are otherwise maintained. No abnormal alignment. Soft tissues: The Lisfranc ligament is intact. The medial and lateral collateral ligaments are intac t at the metatarsophalangeal joints. The flexor and extensor tendons are intact. There is no planta r plate tear. There is no soft tissue mass or fluid collection.. There is edema in the intrinsic mu scles of the foot, nonspecific. Edema in the subcutaneous tissues of the dorsal and posterior foot. IMPRESSION: 1. No evidence of osteomyelitis in the left foot. 2. Subcutaneous edema, nonspecific and may represent cellulitis in the appropriate clinical setting. 3. Edema within the intrinsic muscles of the foot which may reflect myositis or denervation edema.
[2025-03-14] MEDS: FUROSEMIDE 40 MG/4 ML VIAL IV SCH (10:00)
--- NOTE | 2025-03-14 12:19 | DVH ---
BILATERAL Lower Extremity Arterial Duplex Date: 03/14/2025 11:13 AM Clinical History: Pain; PAD Comparison: BILAT LOW EXT ART DUPLEX on DOS: 11/10/21 Technique: Duplex Doppler evaluation including color Doppler and spectral/pulsed waveform analysis of the lower extremity arteries was performed. Finding: RIGHT: Peak systolic velocities are as follows: DIRECTOR [employer] MANAGEMENT 116 cm/s Deep femoral not visualized due to body habitus and patient unable to tolerate exam. SFA proximal 48 cm/s SFA mid-portion 55 cm/s SFA distal 71 cm/s Popliteal 58 cm/s Posterior tibial 60 cm/s Anterior tibial 0 Dorsalis pedis 27 cm/s The waveforms are monophasic in the right dorsalis pedis artery.. LEFT: Peak systolic velocities are as follows: DIRECTOR [employer] MANAGEMENT not visualized due to body habitus and patient unable to tolerate exam. Deep femoral not visualized due to body habitus and patient unable to tolerate exam. SFA proximal not visualized due to body habitus and patient unable to tolerate exam. SFA mid-portion not visualized due to body habitus and patient unable to tolerate exam. SFA distal 114 cm/s Popliteal 35 cm/s Posterior tibial 54 cm/s Anterior tibial 31 cm/s Dorsalis pedis 6.8 cm/s The waveforms are monophasic in the left distal superficial femoral artery, left popliteal artery, le ft posterior tibial artery, left dorsalis pedis artery and left anterior tibial artery. REFERENCE VALUES, [facility] ([facility]) vascular Imaging Lab Criteria: Peak systolic velocity ranges (in cm/sec) are as follows: <150 cm/s - <20 % stenosis 150-200 cm/s - 20-49% stenosis 200-300 cm/s - 50-75% stenosis >300 cm/s -> 75% stenosis IMPRESSION: Extremely limited exam due to body habitus and patient unable to tolerate exam. Peripheral vascular d isease in the bilateral lower extremities with monophasic waveforms as detailed above. No flow is visualized in the anterior tibial artery. Decreased flow in the left dorsalis pedis artery. Approximately 30-49% stenosis of the right common femoral artery. Right deep femoral artery, left common femoral artery, left deep femoral artery, left proximal superf icial femoral artery, and left mid superficial femoral artery are not visualized due to limited exam.
[2025-03-14] MEDS: ASPirin 81 mg TAB PO SCH (13:12)
[2025-03-14] MEDS: AMIODARONE HCL 200 MG TAB PO SCH (13:12)
[2025-03-14 14:18] LABS: Urine Bacteria None Seen /hpf (None Seen)
[2025-03-14 14:37] LABS: Cannabinoid Screen, Urine Neg (NEGATIVE); Opiate Scree,Urine Neg (NEGATIVE)
[2025-03-14 14:38] LABS: Amphetamine Screen, Urine Neg (NEGATIVE); Barbiturate Scree,Urine Neg (NEGATIVE); Benzodiazephine Screen, Urine Neg (NEGATIVE); Cocaine Screen, Urine Neg (NEGATIVE); Phencyclidine Screen, Urine Neg (NEGATIVE)
[2025-03-14 15:00] LABS: Urine Blood 2+ /uL (Negative); Urine Budding Yeast MODERATE /hpf (None Seen); Urine Clarity Turbid (Clear); Urine Color Colorless (Yellow); Urine Protein, UAD 1+ (Negative); Urine Specific Gravity 1.017 (1.001-1.035); Urine Squamous Epithelial Cell FEW /hpf (<5); Urine Urobilinogen Normal (Negative); Urine WBC 208 /HPF (0-3); Urine WBC Clumps PRESENT /hpf (None Seen); Urine pH 5.5 (5.0-9.0)
--- NOTE | 2025-03-14 15:45 | DVHPNRES ---
Progress Note Date Seen: March 14, 2025 Resident Creating Document: ASHISH SMITH RESIDENT Has the PT tested + for MRSA If YES, has PT been informed?: No Medical Necessity Reason Pt with a Central, PICC or Fol: No Medical Necessity Reason History of Present Illness 59M with poorly controlled DM2 hba1c 10 (according to the son), PVD, and CKD presents with chronic, non-healing ulcer on lateral aspect of left heel (near 4th toe), worsening over 5 months with new black discoloration noted today. Patient is a poor historian. He had prior debridement and reportedly a stent placement in the same leg. He also has a PICC line in place and is currently receiving Daptomycin, though unclear for how long or under what supervision. No fever, chills, urinary symptoms, nausea or vomiting. Denies recent trauma. Brought in today due to concern for worsening infection or necrosis. PMHx: DM2, CKD, COPD on 2L O2, HTN, HFrEF, AFib, PVD, prior PTCA, bilateral 5th toe amputations, recurrent UTIs PShx: Amputation of the right toes Social history: lives at home, smokes cigarettes, denies EToh use Allergies: Penicillin (severe reaction) Meds: Metformin, Lantus, Humalog, Entresto, Toprol-XL, Plavix, Amiodarone, Apixaban, Lasix, Lipitor, Trazodone, Amitriptyline, Percocet, Farsiga, Lyrica, Tizanidine, Aspirin 03/14 Patient is a 59-year-old male with a history of diabetes poorly controlled, PVD, CKD, S/P right lateral toes amputation presented to the ED with left wound nonhealing plantar ulcer that has been ongoing for about 5 months. According to the patient, he is currently on disability he lives at home. His does the wound dressing. Per the patient, as of yesterday morning, his wound was pink all around; however, by evening wound dressing, his noticed that the wound has on turned black. Thus, patient was prompted to come to the ED with the hospital for evaluation. According to the patient, he was seen at the hospital 3 week ago on the same foot. He was discharge home with a PICC line and on Daptomycin. He was supposed to been on it for 2 weeks, but due to insurance reasons, he was only able to receive one week of daptomycin. Initial lab work in the ED WBC showed microcytic anemia, A1c 11.5, creatinine level 1.53. CXR showed Left-sided PICC line. The distal tip can not be clearly localized due to the patient's chin. Xray foot left foot: Post resection of the 5th digit from the level of the mid 5th metatarsal. MRI scan showed No evidence of osteomyelitis in the left foot; Subcutaneous edema, nonspecific and may represent cellulitis in the appropriate clinical setting;Edema within the intrinsic muscles of the foot which may reflect myositis or denervation edema. Arterial doppler showed Extremely limited exam due to body habitus and patient unable to tolerate exam. Peripheral vascular disease in the bilateral lower extremities with monophasic waveforms as detailed above; No flow is visualized in the anterior tibial artery. Decreased flow in the left dorsalis pedis artery.Approximately 30-49% stenosis of the right common femoral artery. Subjective Review of Systems Constitutional: Denies fever no chills no feeling of malaise HEENT: Denies headache, ear pain, ear discharges, conjunctivitis, nasal discharge throat pain Cardiovascular: Denies chest pain, palpitation, orthopnea, PND, or pedal edema Respiratory: Denies shortness of breath, cough cough, sputum production, hemoptysis, GI: Denies abdominal pain, nausea, vomiting, diarrhea, hematemesis, hematochezia, : Denies frequency, urgency, hematuria, Endocrine: Denies unintentional weight gain or weight loss, feeling of hot flashes, Osman: Denies easy bruising, bleeding disorders, epistaxis Musculoskeletal: Denies joint pains, muscle aches Psych: No evidence of depression, kaley, suicidal ideation Objective vital signs Vital Sign Date Time Temp Pulse Resp B/P (MAP) Pulse Ox O2 Delivery O2 Flow Rate FiO2 03/14/25 13:39 98.0 92 18 133/77 (95) 97 98.0 03/14/25 08:21 Room Air medications Current Medications Medications Dose Ordered Sig/Maria Isabel Route Start Time Stop Time Status Last Admin Dose Admin Acetaminophen 650 mg Q6HP PRN PO 03/14/25 06:15 Acetaminophen/ Hydrocodone Bitart 1 tab Q4HP PRN PO 03/14/25 06:15 Enoxaparin Sodium 90 mg BID SC 03/14/25 10:00 UNV Cefepime HCl 50 ml @ 12.5 mls/hr Q12HR IV 03/14/25 10:00 UNV Vancomycin HCl 0 ml @ 0 mls/hr UD IV 03/14/25 06:15 Diagnostic Test (Pha) 1 strip ACHS 03/14/25 07:00 03/14/25 08:09 1 STRIP Insulin Human Regular ACHS SC 03/14/25 07:00 Dextrose 50 ml UD PRN IV 03/14/25 06:15 Amiodarone HCl 200 mg DAILY PO 03/14/25 10:00 03/14/25 13:12 200 MG Aspirin 81 mg DAILY PO 03/14/25 10:00 03/14/25 13:12 81 MG Furosemide 40 mg BIDD IV 03/14/25 10:00 Oxycodone/ Acetaminophen 2 tab Q6HP PRN PO 03/14/25 06:15 03/14/25 13:13 2 TAB Examination General Appearance: Alert, Oriented X3, Cooperative, No acute distress,sleeping HEENT: Atraumatic, PERRLA, EOMI, Mucous membrane moist/pink Respiratory: Clear to auscultation, Normal air movement Cardiovascular: Regular rate, Normal S1, Normal S2, No murmurs, no chest wall tenderness Abdominal: Very large. tenderness, bowel sounds present,significant stretched monk Extremities: left foot covered in bandage, right foot had nonhealing ulcer, S/p lateral toes amputations right Skin: No rashes, No breakdown, No significant lesion Neuro: Normal speech,Cranial nerves 3-12 NL, Reflexes 2+ Psych/Mental Status: Mental status NL, Mood NL laboratory and microbiology Laboratory Tests 03/14/25 07:05 03/14/25 04:25 Test 03/14/25 04:25 Range/Units Serum Glucose 75 74-106 mg/dL Problem List/Assessment/Plan Problem List/Assessment/Plan Assessment Diabetic foot ulcer, Osteomyelitis ruled out Uncontrolled DM2 hba1c 11.5 GEORGIE due to VMN on possible CKD, Chronic respiratory hypoxic failure COPD on home O2 2 LT Hypertensive heart disease with systolic dysfunction Acute exacerbation of heart failure Atrial fibrillation Secondary hypercoagulable state PVD s/p PTCA bilateral 5th toe amputations recurrent UTIs History of PICC line on previous daptomycin treatment plan Continue antibiotics: Vancomycin IV per pharmacy protocol and Cefepime 2g IV q12h Wound consult Podiatry consult Vascular consult Acetaminophen 650 mg PO q6h PRN Oxycodone-acetaminophen 5/325 mg 2 tabs PO q6h Amiodarone 200 mg PO daily Aspirin 81 mg PO daily Furosemide 40 mg IV BID Enoxaparin 90 mg BID SC Mild ISS Goal of care discussed for more than 25 minute: Full code Case and plan discussed with Dr. Che Plan discussed with: Patient My Orders My Orders Orders - ASHISH SMITH Procedure Category Date Status Time Urine Bacterial ERICK 03/14/25 In Process Culture 10:49 Date of Service: March 14, 2025 Billing Provider: JOSE CRUZ CHE MD Common Visit Codes: [id number] INP/OBS CARE(HIGH) ASHISH SMITH March 14, 2025 15:45 JOSE CRUZ CHE MD March 14, 2025 17:59
[2025-03-14 16:00] VITALS: PULSE 90; RESP 12; O2SAT 98
[2025-03-14] MEDS: ENOXAPARIN SOD 100 MG/1 ML SYRINGE SC SCH (16:35)
[2025-03-14] MEDS: GABAPENTIN 400 MG CAP PO SCH (16:35)
[2025-03-14] MEDS: CEFEPIME 1GM/ 50ML 50 ML IV ONE (16:47)
[2025-03-14 18:21] VITALS: BP 136/84; PULSE 106; RESP 22; TEMP 98.1; O2SAT 97
[2025-03-14 20:00] VITALS: PULSE 100; RESP 18; O2SAT 96
[2025-03-14 21:00] VITALS: BP 120/63; PULSE 100; RESP 18; TEMP 97.6; O2SAT 96
[2025-03-14] MEDS ORDERED: APIXABAN 5 MG TAB PO SCH (22:00)
[2025-03-14] MEDS: ATORVASTATIN 20 MG TAB PO SCH (23:18)
[2025-03-14] MEDS: HYDROcodone-ACET 5/325MG TAB PO PRN (23:19)
[2025-03-14] MEDS: CEFEPIME 1GM/ 50ML 50 ML IV SCH (23:19)
[2025-03-15] VITALS (7 sets, daily range): BP systolic 116–151; BP diastolic 51–90; PULSE 68–98; RESP 16–21; TEMP 97.7–98.1; O2SAT 91–97
[2025-03-15 08:06] LABS: Chloride 104 mmol/L (98-107); Potassium 3.8 mmol/L (3.5-5.1); Sodium 141 mmol/L (136-145)
[2025-03-15 08:07] LABS: Anion Gap 9 (5-15); Calcium 9.6 mg/dL (8.7-10.4); Carbon Dioxide 28 mmol/L (20-31)
[2025-03-15 08:12] LABS: BUN/Creatinine Ratio 16.8 (10.0-20.0); Blood Urea Nitrogen 22 mg/dL (9-23)
[2025-03-15 08:24] LABS: Glucose 176 mg/dL (74-106)
[2025-03-15 08:42] LABS: Basophils # (auto) 0.1 10 ^3/uL (0-0.2); Basophils % (auto) 0.7 % (0.0-2.0); Eosinophils # (auto) 0.1 10 ^3/uL (0-0.8); Eosinophils % (auto) 1.8 % (0.0-7.0); Hematocrit 45.3 % (41.0-53.0); Hemoglobin 13.9 g/dL (13.5-17.5); Lymphocytes % (auto) 12.1 % (10.0-50.0); Mean Corpuscular Hemoglobin 24.6 pg (28.0-32.0); Mean Corpuscular Hgb Conc. 30.7 g/dL (32.0-36.0); Mean Corpuscular Volume 80.2 fL (80.0-100.0); Monocytes # (auto) 0.6 10 ^3/uL (0-1.3); Monocytes % (auto) 7.3 % (0.0-12.0); Neutrophils # (auto) 6.2 10 ^3/uL (1.6-8.6); Neutrophils % (auto) 78.1 % (37.0-80.0); Nucleated Red Blood Cells % 0.2 %; Platelet Count (auto) 169 10^3/uL (140-450); Red Blood Cells 5.65 10^6/uL (4.5-5.90); White Blood Cell 7.9 10^3/uL (4.4-10.8)
[2025-03-15 08:44] LABS: Red Cell Distribution Width 21.3 % (11.8-14.3)
[2025-03-15] MEDS ORDERED: METOPROLOL SUCCINATE XL 50 MG TAB PO SCH (10:00)
[2025-03-15] MEDS ORDERED: AMIODARONE HCL 200 MG TAB PO SCH (10:00)
[2025-03-15] MEDS ORDERED: hydroCHLOROthiazide 25 MG TAB PO SCH (10:00)
[2025-03-15] MEDS: OPTISON 3ml Vial for INJ IV ONE (11:11)
[2025-03-15] MEDS: VANCOMYCIN 1GM/200ML PM 200 ML IV ONE (13:04)
--- NOTE | 2025-03-15 13:07 | DVHINCON2 ---
Date Seen: March 15, 2025 Reason for Consultation Left foot wound History of Present Illness 59M with poorly controlled DM2 hba1c 10 (according to the son), PVD, and CKD presents with chronic, non-healing ulcer on lateral aspect of left heel (near 4th toe), worsening over 5 months with new black discoloration noted today. Patient is a poor historian. He had prior debridement and reportedly a stent placement in the same leg. He also has a PICC line in place and is currently receiving Daptomycin, though unclear for how long or under what supervision. No fever, chills, urinary symptoms, nausea or vomiting. Denies recent trauma. Brought in today due to concern for worsening infection or necrosis. Past Medical History See H&P Past Surgical History See H&P Family History: Cerebrovascular accident (CVA) G8 FATHER Colon cancer G8 MOTHER Diabetes mellitus G8 FATHER G8 MOTHER FH: chronic kidney disease G8 FATHER FH: congestive heart failure G8 FATHER FH: heart attack G8 FATHER Hypertension G8 MOTHER Allergies: Coded Allergies: Penicillins (Verified Allergy, Severe, 04/21/23) Home Meds Active Scripts Cephalexin (KEFLEX CAPSULE) 250 Mg Cp, 2 CAP PO QID PRN for 5 Days, #40 CAP Prov:JESUS LAZARO MD 04/22/23 Linezolid (Linezolid) 600 Mg Tab, 600 MG PO BID for 14 Days, #28 TAB Prov:JENELLE RATLIFF DO 09/21/22 Sulfamethoxazole W/Trimethopri (Bactrim Ds Tablet) 1 Tab Tb, 1 TAB PO BID for 7 Days, #14 TAB Prov:KEITH BADILLO MD 06/16/22 Sulfamethoxazole W/Trimethopri (Bactrim Ds Tablet) 1 Tab Tb, 1 TAB PO BID for 5 Days, #10 TAB Prov:KEITH BADILLO MD 06/16/22 Losartan Potassium (Losartan Potassium) 25 Mg Tab, 25 MG PO DAILY for 30 Days, #30 TAB Prov:LORENZO AGUILAR MD 07/04/21 Amiodarone Hcl (Amiodarone Hcl) 200 Mg Tab, 1 TAB PO DAILY, #30 TAB 0 Refills Prov:LORENZO AGUILAR MD 07/03/21 Metformin Hydrochloride (Metformin Hcl) 850 Mg Tab, 1 TAB PO BID, #60 TAB 0 Refills Prov:LORENZO AGUILAR MD 07/03/21 Metoprolol Succinate (Toprol Xl) 50 Mg Tab, 1 TAB PO DAILY, #30 TAB 0 Refills Prov:LORENZO AGUILAR MD 07/03/21 Apixaban Base (ELIQUIS) 5 Mg Tab, 5 MG PO BID for 30 Days, #60 TAB Prov:LORENZO AGUILAR MD 07/03/21 Reported Medications Omeprazole (Omeprazole) 20 Mg Cap, 20 MG PO DAILY, CAP 06/24/21 Hydrochlorothiazide (Hydrochlorothiazide) 25 Mg Tab, 25 MG PO DAILY for 30 Days, MG 06/24/21 Glipizide (Glipizide) 5 Mg Tab, 5 MG PO BIDWM for 30 Days, MG 06/24/21 Atorvastatin Calcium (Lipitor) 20 Mg Tab, 1 TAB PO DAILY, #90 TAB 1 Refill 06/24/21 Gabapentin (Gabapentin) 100 Mg Cap, 400 MG PO TID 06/24/21 Current Medications Current Medications Medications (Trade) Dose Ordered Sig/Maria Isabel Route PRN Reason Start Time Stop Time Status Last Admin Enoxaparin Sodium (Lovenox) 90 mg BID@0600,1800 SC 03/14/25 16:10 03/15/25 05:44 Cefepime HCl 50 ml @ 12.5 mls/hr Q8HR IV 03/14/25 22:00 03/15/25 05:44 Amiodarone HCl (Cordarone Tablet) 200 mg DAILY PO 03/15/25 10:00 03/14/25 15:41 DC Apixaban (Eliquis) 5 mg BID PO 03/14/25 22:00 03/14/25 15:41 DC Atorvastatin Calcium (Lipitor) 20 mg HS PO 03/14/25 22:00 03/14/25 23:18 Gabapentin (Neurontin Capsule) 400 mg TID PO 03/14/25 16:04 03/15/25 05:44 Hydrochlorothiazide (hydroCHLOROthiazide TABLET) 25 mg DAILY PO 03/15/25 10:00 03/14/25 15:45 DC Metoprolol Succinate (Toprol Xl) 50 mg DAILY PO 03/15/25 10:00 03/14/25 15:45 DC Vital Signs Vital Signs Date Time Temp Pulse Resp B/P (MAP) Pulse Ox O2 Delivery O2 Flow Rate FiO2 03/15/25 09:00 97.9 75 17 141/66 (91) 95 97.9 03/15/25 08:15 Nasal Cannula* 2 28 Physical Exam Dermatological: Skin is dry with mild erythema and some maceration around the wound site No gross deformities noted Mild non-pitting edema present bilaterally Wound: Location: Left plantar midfoot Measures: 4 cm in length, 3 cm in width, and 1 cm in depth. Depth: Full thickness Base: Eschar Drainage: None Odor: None Periwound: Intact Vascular: Dorsalis pedis and posterior tibial pulses are 1+ bilaterally Capillary refill is under 2 seconds Skin temperature is warm bilaterally Neurologic: Protective sensation is absent on the plantar forefoot bilaterally Monofilament testing reveals decreased sensation in multiple plantar sites Musculoskeletal: Range of motion at the ankle and MTP joints is within normal limits. Strength is 5/5 in all tested muscle groups. Gait is antalgic due to offloading of the affected limb. Labs/Diagnostic Data Labs Test 03/15/25 06:17 03/15/25 06:06 03/14/25 08:30 03/14/25 07:05 Range/Units POC Glucose 190 H 70-106 mg/dl White Blood Count 7.9 4.4-10.8 10^3/uL Red Blood Count 5.65 4.5-5.90 10^6/uL Hemoglobin 13.9 13.5-17.5 g/dL Hematocrit 45.3 41.0-53.0 % Mean Corpuscular Volume 80.2 80.0-100.0 fL Mean Corpuscular Hemoglobin 24.6 L 28.0-32.0 pg Mean Corpuscular Hemoglobin Concent 30.7 L 32.0-36.0 g/dL Red Cell Distribution Width 21.3 H 11.8-14.3 % Platelet Count 169 140-450 10^3/uL Mean Platelet Volume 8.7 6.9-10.8 fL Neutrophils (%) (Auto) 78.1 37.0-80.0 % Lymphocytes (%) (Auto) 12.1 10.0-50.0 % Monocytes (%) (Auto) 7.3 0.0-12.0 % Eosinophils (%) (Auto) 1.8 0.0-7.0 % Basophils (%) (Auto) 0.7 0.0-2.0 % Neutrophils # (Auto) 6.2 1.6-8.6 10 ^3/uL Lymphocytes # (Auto) 1.0 0.4-5.4 10 ^3/uL Monocytes # (Auto) 0.6 0-1.3 10 ^3/uL Eosinophils # (Auto) 0.1 0-0.8 10 ^3/uL Basophils # (Auto) 0.1 0-0.2 10 ^3/uL Nucleated Red Blood Cells 0.2 % Sodium Level 141 136-145 mmol/L Potassium Level 3.8 3.5-5.1 mmol/L Chloride Level 104 98-107 mmol/L Carbon Dioxide Level 28 20-31 mmol/L Anion Gap 9 5-15 Blood Urea Nitrogen 22 9-23 mg/dL Creatinine 1.31 H 0.700-1.30 mg/dL Glomerular Filtration Rate Calc 63 >90 mL/min BUN/Creatinine Ratio 16.8 10.0-20.0 Serum Glucose 176 #H 74-106 mg/dL Calcium Level 9.6 8.7-10.4 mg/dL Random Vancomycin Level 9.8 5-10 ug/mL Urine Color Colorless Yellow Urine Clarity Turbid H Clear Urine pH 5.5 5.0-9.0 Urine Specific Oriental 1.017 1.001-1.035 Urine Protein 1+ H Negative Urine Ketones Negative Negative Urine Blood 2+ H Negative /uL Urine Nitrite Negative Negative Urine Bilirubin Negative Negative Urine Urobilinogen Normal Negative mg/dL Urine Leukocyte Esterase 3+ Negative /uL Urine RBC 41 0 - 3 /hpf Urine WBC Clumps Present None Seen /hpf Urine Microscopic WBC 208 H 0-3 /HPF Urine Squamous Epithelial Cells Few <5 /hpf Urine Bacteria None seen None Seen /hpf Urine Yeast (Budding) Moderate None Seen /hpf Urine Glucose 3+ H Normal mg/dL Urine Opiates Screen Neg NEGATIVE Urine Fentanyl Screen Neg NEGATIVE Urine Barbiturates Screen Neg NEGATIVE Urine Phencyclidine Screen Neg NEGATIVE Urine Amphetamines Screen Neg NEGATIVE Urine Benzodiazepines Screen Neg NEGATIVE Urine Cocaine Screen Neg NEGATIVE Urine Cannabinoids Screen Neg NEGATIVE Prothrombin Time 11.4 9.3-11.8 sec Prothrombin Time INR 1.08 0.9-1.15 Activated Partial Thromboplast Time 28.3 24.5-34.5 SEC Hemoglobin A1c 11.5 H <5.7 % A1C B-Type Natriuretic Peptide 173.40 0-100 pg/mL Test 03/14/25 04:25 Range/Units Lactic Acid Level 1.7 0.4-2.0 mmol/L Total Bilirubin 0.3 0.2-1.0 mg/dL Aspartate Amino Transferase (AST) 27 13-40 U/L Alanine Aminotransferase (ALT) 14 7-40 U/L Alkaline Phosphatase 129 H 46-116 U/L Total Protein 7.2 5.7-8.2 g/dL Albumin 3.9 3.2-4.8 g/dL Thyroid Stimulating Hormone (TSH) 2.29 0.55-4.78 uIU/mL Plasma/Serum Blood Alcohol < 3.0 <10 mg/dL Microbiology Date/Time Source Procedure Growth Status 03/14/25 08:30 Voided Urine Urine Culture - Preliminary Resulted 03/14/25 04:25 Blood Blood Culture - Preliminary NO GROWTH AFTER 24 HOURS OF INCUBATION. Resulted Problems(with codes): (1) Diabetes (2) Dyspnea (3) Hypertension (4) Right leg pain (5) CHF (congestive heart failure) (6) Cellulitis and abscess of right leg (7) Acute on chronic kidney failure (8) Acute prerenal azotemia (9) Diabetic foot ulcer (10) Hyperglycemia (11) UTI (urinary tract infection) (12) Peripheral vascular disease (13) Cellulitis and abscess of foot (14) Charcot arthropathy of midfoot (15) Cellulitis of left foot Plan/Recommendation ASSESSMENT: Patient is a 59 year old seen on the floor for a worsening ulcer PLAN: - The patients chart was reviewed, clinical findings were discussed with the brian zabala, the etiologies of the conditions were discussed in detail, and a treatment plan was agreed to at this time, with both oral and written instructions provided. - reviewed advanced imaging - discussed there is no indication for surgical intervention at this point as no sign of osteomyelitis or abscess - recommend patient follows up in clinic for outpatient wound care - continue dressing with Medihoney - discussed surgical options for his other foot as well All questions were answered and concerns addressed to the patient's satisfaction. The patient was given the phone number to the clinic and was told how to make contact with the clinic should any concerns or questions arise. Patient understands that if any questions or concerns arise prior to the next appointment, we should be contacted immediately. FOLLOW-UP: Follow up 1 week after discharge Plan discussed with: Patient Date of Service: March 15, 2025 Billing Provider: ARACELI MARTIN DPM Common Visit Codes: CONSULT ONLY Consultation Codes: [id number] CONSULT <80MIN ARACELI MARTIN DPM March 15, 2025 13:07
--- NOTE | 2025-03-15 14:03 | DVHPNRES ---
Progress Note Date Seen: March 15, 2025 Resident Creating Document: ASHISH SMITH RESIDENT Has the PT tested + for MRSA If YES, has PT been informed?: No Medical Necessity Reason Pt with a Central, PICC or Fol: No Medical Necessity Reason 59M with poorly controlled DM2 hba1c 10 (according to the son), PVD, and CKD presents with chronic, non-healing ulcer on lateral aspect of left heel (near 4th toe), worsening over 5 months with new black discoloration noted today. Patient is a poor historian. He had prior debridement and reportedly a stent placement in the same leg. He also has a PICC line in place and is currently receiving Daptomycin, though unclear for how long or under what supervision. No fever, chills, urinary symptoms, nausea or vomiting. Denies recent trauma. Brought in today due to concern for worsening infection or necrosis. PMHx: DM2, CKD, COPD on 2L O2, HTN, HFrEF, AFib, PVD, prior PTCA, bilateral 5th toe amputations, recurrent UTIs PShx: Amputation of the right toes Social history: lives at home, smokes cigarettes, denies EToh use Allergies: Penicillin (severe reaction) Meds: Metformin, Lantus, Humalog, Entresto, Toprol-XL, Plavix, Amiodarone, Apixaban, Lasix, Lipitor, Trazodone, Amitriptyline, Percocet, Farsiga, Lyrica, Tizanidine, Aspirin 03/14 Patient is a 59-year-old male with a history of diabetes poorly controlled, PVD, CKD, S/P right lateral toes amputation presented to the ED with left wound nonhealing plantar ulcer that has been ongoing for about 5 months. According to the patient, he is currently on disability he lives at home. His does the wound dressing. Per the patient, as of yesterday morning, his wound was pink all around; however, by evening wound dressing, his noticed that the wound has on turned black. Thus, patient was prompted to come to the ED with the hospital for evaluation. According to the patient, he was seen at the hospital 3 week ago on the same foot. He was discharge home with a PICC line and on Daptomycin. He was supposed to been on it for 2 weeks, but due to insurance reasons, he was only able to receive one week of daptomycin. Initial lab work in the ED WBC showed microcytic anemia, A1c 11.5, creatinine level 1.53. CXR showed Left-sided PICC line. The distal tip can not be clearly localized due to the patient's chin. Xray foot left foot: Post resection of the 5th digit from the level of the mid 5th metatarsal. MRI scan showed No evidence of osteomyelitis in the left foot; Subcutaneous edema, nonspecific and may represent cellulitis in the appropriate clinical setting;Edema within the intrinsic muscles of the foot which may reflect myositis or denervation edema. Arterial doppler showed Extremely limited exam due to body habitus and patient unable to tolerate exam. Peripheral vascular disease in the bilateral lower extremities with monophasic waveforms as detailed above; No flow is visualized in the anterior tibial artery. Decreased flow in the left dorsalis pedis artery.Approximately 30-49% stenosis of the right common femoral artery. 03/15/ Patient seen and examined to day. He is not in any acute distress. He was seen by the car salesperson as well. He does not require any surgical intervention at this time. He rather recommends patient follows up in clinic for outpatient wound care and continue dressing with Medihoney. Subjective Review of Systems Constitutional: Denies fever no chills no feeling of malaise HEENT: Denies headache, ear pain, ear discharges, conjunctivitis, nasal discharge throat pain Cardiovascular: Denies chest pain, palpitation, orthopnea, PND, or pedal edema Respiratory: Denies shortness of breath, cough cough, sputum production, hemoptysis, GI: Denies abdominal pain, nausea, vomiting, diarrhea, hematemesis, hematochezia, : Denies frequency, urgency, hematuria, Endocrine: Denies unintentional weight gain or weight loss, feeling of hot flashes, Osman: Denies easy bruising, bleeding disorders, epistaxis Musculoskeletal: Denies joint pains, muscle aches Psych: No evidence of depression, kaley, suicidal ideation Objective vital signs Vital Sign Date Time Temp Pulse Resp B/P (MAP) Pulse Ox O2 Delivery O2 Flow Rate FiO2 03/15/25 13:00 98.0 88 21 120/64 (82) 94 98.0 03/15/25 08:15 Nasal Cannula* 2 28 Total Intake and Output 03/14/25 03/14/25 03/15/25 15:00 23:00 07:00 Intake Total 200 ml 850 ml Balance 200 ml 850 ml medications Current Medications Medications Dose Ordered Sig/Maria Isabel Route Start Time Stop Time Status Last Admin Dose Admin Acetaminophen 650 mg Q6HP PRN PO 03/14/25 06:15 Acetaminophen/ Hydrocodone Bitart 1 tab Q4HP PRN PO 03/14/25 06:15 03/15/25 04:03 1 TAB Enoxaparin Sodium 90 mg BID@0600,1800 SC 03/14/25 16:10 03/15/25 05:44 90 MG Cefepime HCl 50 ml @ 12.5 mls/hr Q8HR IV 03/14/25 22:00 03/15/25 05:44 12.5 MLS/HR Vancomycin HCl 0 ml @ 0 mls/hr UD IV 03/14/25 06:15 Diagnostic Test (Pha) 1 strip ACHS 03/14/25 07:00 03/15/25 12:20 1 STRIP Insulin Human Regular ACHS SC 03/14/25 07:00 03/15/25 13:05 3 UNITS Dextrose 50 ml UD PRN IV 03/14/25 06:15 Amiodarone HCl 200 mg DAILY PO 03/14/25 10:00 03/15/25 09:49 200 MG Aspirin 81 mg DAILY PO 03/14/25 10:00 03/15/25 09:50 81 MG Furosemide 40 mg BIDD IV 03/14/25 10:00 03/15/25 05:53 40 MG Oxycodone/ Acetaminophen 2 tab Q6HP PRN PO 03/14/25 06:15 03/15/25 09:52 2 TAB Atorvastatin Calcium 20 mg HS PO 03/14/25 22:00 03/14/25 23:18 20 MG Gabapentin 400 mg TID PO 03/14/25 16:04 03/15/25 05:44 400 MG Examination General Appearance: Alert, Oriented X3, Cooperative, No acute distress,sleeping HEENT: Atraumatic, PERRLA, EOMI, Mucous membrane moist/pink Respiratory: Clear to auscultation, Normal air movement Cardiovascular: Regular rate, Normal S1, Normal S2, No murmurs, no chest wall tenderness Abdominal: Very large. tenderness, bowel sounds present,significant stretched monk Extremities: left foot covered in bandage, right foot had nonhealing ulcer, S/p lateral toes amputations right Skin: No rashes, No breakdown, No significant lesion Neuro: Normal speech,Cranial nerves 3-12 NL, Reflexes 2+ Psych/Mental Status: Mental status NL, Mood NL laboratory and microbiology Laboratory Tests 03/15/25 06:06 Test 03/15/25 06:06 Range/Units Serum Glucose 176 #H 74-106 mg/dL Microbiology Date/Time Source Procedure Growth Status 03/14/25 08:30 Voided Urine Urine Culture - Preliminary Resulted 03/14/25 04:25 Blood Blood Culture - Preliminary NO GROWTH AFTER 24 HOURS OF INCUBATION. Resulted Problem List/Assessment/Plan Problem List/Assessment/Plan Assessment Diabetic foot ulcer, Osteomyelitis ruled out Uncontrolled DM2 hba1c 11.5 GEORGIE due to VMN on possible CKD, Chronic respiratory hypoxic failure COPD on home O2 2L, not in exacerbation Hypertensive heart disease with systolic dysfunction Acute exacerbation of heart failure Atrial fibrillation Secondary hypercoagulable state PVD s/p PTCA bilateral 5th toe amputations recurrent UTIs History of PICC line on previous daptomycin treatment plan Continue antibiotics: Vancomycin IV per pharmacy protocol and Cefepime 2g IV q12h Continue home medications Vascular consult Acetaminophen 650 mg PO q6h PRN Oxycodone-acetaminophen 5/325 mg 2 tabs PO q6h Amiodarone 200 mg PO daily Aspirin 81 mg PO daily Furosemide 40 mg IV BID Enoxaparin 90 mg BID SC Mild ISS Pending CTA report For discharge tomorrow Goal of care discussed for more than 20 minute: Full code Case and plan discussed with Dr. Che Plan discussed with: Patient My Orders My Orders Orders - ASHISH SMITH Procedure Category Date Status Time Atorvastatin (Lipitor) PHA 03/14/25 In Process 22:00 Gabapentin Capsule PHA 03/14/25 In Process (Neurontin Capsule) 16:04 Consult CONS 03/15/25 Transmitted Vascular/Endovascular 07:[address] 03/15/25 Logged Extremity 13:26 Date of Service: March 15, 2025 Billing Provider: JOSE CRUZ CHE MD Common Visit Codes: [id number] INP/OBS CARE(HIGH) ASHISH SMTIH March 15, 2025 14:03 JOSE CRUZ CHE MD March 15, 2025 17:44
[2025-03-15] MEDS: IOHEXOL 350 MG/ML 100ML IJ ONE (14:40)
--- NOTE | 2025-03-15 16:53 | DVH ---
EXAM: CT CT ANGIO LOWER EXTREMITY HISTORY: vascular patency COMPARISON: None TECHNIQUE: CT angiogram of the left lower extremity arterial system. CT scans at this facility use do se modulation, iterative reconstruction, and/or weight based dosing when appropriate to reduce radiat ion dose to as low as reasonably achievable. 100 mL of low osmolar contrast was administered without adverse effect. 3-D postprocessing was performed on a separate workstation under radiologist supervis ion. MIPs were created. VASCULAR FINDINGS: Mixed atherosclerotic plaque along the vascular structures. Right common iliac artery endovascular s tent. Left common femoral, femoral, popliteal, tibioperoneal trunk, posterior tibial, peroneal, agustina mechelle are patent. Minimal areas of calcified plaque with possible occlusion of the distal left anterio r tibial artery versus related to slow flow. NON-VASCULAR FINDINGS: Edema along the anterior aspect of the subcutaneous adipose tissues of the level of the pelvis. Junie elate for panniculitis. Mild edema along the proximal lateral thigh extending into the calf with dis maxime calf circumferential involvement. Differential includes edema versus infection. Status post prior suspected amputation of the distal aspect of the 5th digit overlying stump and post surgical changes with skin thickening. No drainable fluid collection. Circumferential bladder wall thickening. Small fat containing left inguinal hernia. IMPRESSION: 1. Minimal areas of calcified plaque with possible occlusion of the distal left anterior tibial arter y versus related to slow flow.
[2025-03-15] MEDS: traZODone HCL 50 MG TAB PO SCH (21:49)
[2025-03-15] MEDS: PREGABALIN 25 MG CAP PO SCH (21:49)
[2025-03-15] MEDS: TIZANIDINE HYDROCHLORIDE 4 MG PO SCH (22:00)
[2025-03-15] MEDS: oxyCODONE HCL 5MG TAB PO SCH (22:01)
[2025-03-15] MEDS: INSULIN LANTUS (GLARGINE) 1 /0.01ml (100units/ml) SC SCH (22:05)
[2025-03-16 01:00] VITALS: BP 123/65; PULSE 96; RESP 16; TEMP 98.1; O2SAT 93
[2025-03-16 05:00] VITALS: BP 104/59; PULSE 90; RESP 18; TEMP 98; O2SAT 96
[2025-03-16 08:00] VITALS: PULSE 71; RESP 20; O2SAT 94
[2025-03-16 09:00] VITALS: BP 142/92; PULSE 71; RESP 19; TEMP 97.3; O2SAT 93
--- NOTE | 2025-03-16 11:06 | DVHDSRES ---
Discharge Summary Date of Admission Resident Creating Document: ASHISH SMITH RESIDENT March 14, 2025 at 06:02 Date of Discharge: March 16, 2025 Admitting Diagnosis Worsening diabetic foot Labs/Diagnostic Data: PATIENT: EVGENY CABRAL ACCT: [id number] UNIT: [id number] : 1965 LOC: CENTRAL ROOM / BED: 0214 / A AGE / SEX: 59 / M ADM STATUS: ADM IN SERVICE 1326 ORDERING PHYSICIAN: ASHISH SMITH RESIDENT PROCEDURE(s): CTALE - CT ANGIO LOWER EXTREMITY REASON: vascular patency ORDER NUMBER(s): [id number], ACCESSION NUMBER(s): [id number] EXAM: CT CT ANGIO LOWER EXTREMITY HISTORY: vascular patency COMPARISON: None TECHNIQUE: CT angiogram of the left lower extremity arterial system. CT scans at this facility use dose modulation, iterative reconstruction, and/or weight based dosing when appropriate to reduce radiation dose to as low as reasonably achievable. 100 mL of low osmolar contrast was administered without adverse effect. 3-D postprocessing was performed on a separate workstation under radiologist supervision. MIPs were created. VASCULAR FINDINGS: Mixed atherosclerotic plaque along the vascular structures. Right common iliac artery endovascular stent. Left common femoral, femoral, popliteal, tibioperoneal trunk, posterior tibial, peroneal, arteries are patent. Minimal areas of calcified plaque with possible occlusion of the distal left anterior tibial artery versus related to slow flow. NON-VASCULAR FINDINGS: Edema along the anterior aspect of the subcutaneous adipose tissues of the level of the pelvis. Correlate for panniculitis. Mild edema along the proximal lateral thigh extending into the calf with distal calf circumferential involvement. Differential includes edema versus infection. Status post prior suspected amputation of the distal aspect of the 5th digit overlying stump and postsurgical changes with skin thickening. No drainable fluid collection. Circumferential bladder wall thickening. Small fat containing left inguinal hernia. IMPRESSION: 1. Minimal areas of calcified plaque with possible occlusion of the distal left anterior tibial artery versus related to slow flow. ATED BY: CARLA BUCK MD DICTATED DATE/TIME: 03/15/25 1651 PATIENT: EVGENY CABRAL ACCT: [id number] UNIT: [id number] : 1965 LOC: OVERFLOW ROOM / BED: [address] [place] [address] / A AGE / SEX: 59 / M ADM STATUS: ADM IN SERVICE 9 ORDERING PHYSICIAN: MAX VILLANUEVA PROCEDURE(s): LFTMR - MRI L FOOT WO CONTRAST REASON: RULE OUT OSTEO ORDER NUMBER(s): [id number], ACCESSION NUMBER(s): [id number] CLINICAL INDICATION: RULE OUT OSTEO COMPARISON: None. TECHNIQUE: Multiplanar, multisequence MRI of the left foot was performed without intravenous contrast. Contrast: None. INTERPRETATION: Bones /joints /alignment: No evidence of acute fracture. There is no marrow replacing lesion. Pes cavus. Joint spaces are otherwise maintained. No abnormal alignment. Soft tissues: The Lisfranc ligament is intact. The medial and lateral collateral ligaments are intact at the metatarsophalangeal joints. The flexor and extensor tendons are intact. There is no plantar plate tear. There is no soft tissue mass or fluid collection.. There is edema in the intrinsic muscles of the foot, nonspecific. Edema in the subcutaneous tissues of the dorsal and posterior foot. IMPRESSION: 1. No evidence of osteomyelitis in the left foot. 2. Subcutaneous edema, nonspecific and may represent cellulitis in the appropriate clinical setting. 3. Edema within the intrinsic muscles of the foot which may reflect myositis or denervation edema. ATED BY: DESHAWN JAIMES MD DICTATED DATE/TIME: 03/14/25 0953 PATIENT: EVGENY CABRAL ACCT: [id number] UNIT: [id number] : 1965 LOC: OVERFLOW ROOM / BED: [address] [place] [address] AGE / SEX: 59 / M ADM STATUS: ADM IN SERVICE 9 ORDERING PHYSICIAN: MAX VILLANUEVA PROCEDURE(s): BLEAD - BiLat Low Ext Art Duplex REASON: PAD ORDER NUMBER(s): [id number], ACCESSION NUMBER(s): [id number] BILATERAL Lower Extremity Arterial Duplex Date: 03/14/2025 11:13 AM Clinical History: Pain; PAD Comparison: BILAT LOW EXT ART DUPLEX on DOS: 11/10/21 Technique: Duplex Doppler evaluation including color Doppler and spectral/pulsed waveform analysis of the lower extremity arteries was performed. Finding: RIGHT: Peak systolic velocities are as follows: STNA 116 cm/s Deep femoral not visualized due to body habitus and patient unable to tolerate exam. SFA proximal 48 cm/s SFA mid-portion 55 cm/s SFA distal 71 cm/s Popliteal 58 cm/s Posterior tibial 60 cm/s Anterior tibial 0 Dorsalis pedis 27 cm/s The waveforms are monophasic in the right dorsalis pedis artery.. LEFT: Peak systolic velocities are as follows: STNA not visualized due to body habitus and patient unable to tolerate exam. Deep femoral not visualized due to body habitus and patient unable to tolerate exam. SFA proximal not visualized due to body habitus and patient unable to tolerate exam. SFA mid-portion not visualized due to body habitus and patient unable to tolerate exam. SFA distal 114 cm/s Popliteal 35 cm/s Posterior tibial 54 cm/s Anterior tibial 31 cm/s Dorsalis pedis 6.8 cm/s The waveforms are monophasic in the left distal superficial femoral artery, left popliteal artery, left posterior tibial artery, left dorsalis pedis artery and left anterior tibial artery. REFERENCE VALUES, [facility] ([facility]) vascular Imaging Lab Criteria: Peak systolic velocity ranges (in cm/sec) are as follows: <150 cm/s - <20 % stenosis 150-200 cm/s - 20-49% stenosis 200-300 cm/s - 50-75% stenosis >300 cm/s -> 75% stenosis IMPRESSION: Extremely limited exam due to body habitus and patient unable to tolerate exam. Peripheral vascular disease in the bilateral lower extremities with monophasic waveforms as detailed above. No flow is visualized in the anterior tibial artery. Decreased flow in the left dorsalis pedis artery. Approximately 30-49% stenosis of the right common femoral artery. Right deep femoral artery, left common femoral artery, left deep femoral artery, left proximal superficial femoral artery, and left mid superficial femoral artery are not visualized due to limited exam. ATED BY: MATTHEW JACOBS MD DICTATED DATE/TIME: 03/14/25 1217 PATIENT: EVGENY CABRAL ACCT: [id number] UNIT: [id number] : 1965 LOC: ER ROOM / BED: / AGE / SEX: 59 / M ADM STATUS: REG ER SERVICE 9 ORDERING PHYSICIAN: CELIA FERGUSON MD PROCEDURE(s): LFOOT - L FOOT 3 VIEW XRAY REASON: left foot wound ORDER NUMBER(s): [id number], ACCESSION NUMBER(s): [id number] CLINICAL INDICATION: left foot wound TECHNIQUE: XY L FOOT 3 VIEW XRAY Comparison: XY R FOOT 3 VIEW XRAY on DOS: 04/17/23 FINDINGS/IMPRESSION: : There is no evidence of acute fracture or dislocation. Post resection of the 5th digit from the level of the mid 5th metatarsal. Diffuse soft-tissue edema and swelling most prominent at the lateral aspect of the foot. Small volume subcutaneous emphysema. ATED BY: DYLAN LOBO MD DICTATED DATE/TIME: 03/14/25541 PATIENT: EVGENY CABRAL ACCT: [id number] UNIT: [id number] : 1965 LOC: ER ROOM / BED: / AGE / SEX: 59 / M ADM STATUS: REG ER SERVICE 9 ORDERING PHYSICIAN: CELIA FERGUSON MD PROCEDURE(s): CXRP - CHEST PORTABLE REASON: picc line ORDER NUMBER(s): [id number], ACCESSION NUMBER(s): [id number] EXAM: XR Chest, 1 View CLINICAL INDICATION: picc line TECHNIQUE: Frontal view of the chest. COMPARISON: CHEST PORTABLE on DOS: 10/16/21, CXR1 on DOS: 06/25/21, CHEST XRAY 1 VIEW on DOS: 06/25/21 FINDINGS: LUNGS AND PLEURAL SPACES: Congestive heart failure. No consolidation. No pneumothorax. HEART: Unremarkable. No cardiomegaly. MEDIASTINUM: Unremarkable. Normal mediastinal contour. BONES/JOINTS: Unremarkable. No acute fracture. TUBES, LINES AND DEVICES: Left-sided PICC line. The distal tip can not be clearly localized due to the patient's chin. OTHER FINDINGS: . IMPRESSION: Left-sided PICC line. The distal tip can not be clearly localized due to the patient's chin. ATED BY: EMI SALEH MD DICTATED DATE/TIME: 03/14/25 0557 Laboratory Results Test 03/16/25 06:07 03/16/25 05:37 03/15/25 06:06 03/14/25 08:30 POC Glucose 203 mg/dl (70-106) Creatinine 1.36 mg/dL (0.700-1.30) Glomerular Filtration Rate Calc 61 mL/min (>90) Random Vancomycin Level 9.3 ug/mL (5-10) White Blood Count 7.9 10^3/uL (4.4-10.8) Red Blood Count 5.65 10^6/uL (4.5-5.90) Hemoglobin 13.9 g/dL (13.5-17.5) Hematocrit 45.3 % (41.0-53.0) Mean Corpuscular Volume 80.2 fL (80.0-100.0) Mean Corpuscular Hemoglobin 24.6 pg (28.0-32.0) Mean Corpuscular Hemoglobin Concent 30.7 g/dL (32.0-36.0) Red Cell Distribution Width 21.3 % (11.8-14.3) Platelet Count 169 10^3/uL (140-450) Mean Platelet Volume 8.7 fL (6.9-10.8) Neutrophils (%) (Auto) 78.1 % (37.0-80.0) Lymphocytes (%) (Auto) 12.1 % (10.0-50.0) Monocytes (%) (Auto) 7.3 % (0.0-12.0) Eosinophils (%) (Auto) 1.8 % (0.0-7.0) Basophils (%) (Auto) 0.7 % (0.0-2.0) Neutrophils # (Auto) 6.2 10 ^3/uL (1.6-8.6) Lymphocytes # (Auto) 1.0 10 ^3/uL (0.4-5.4) Monocytes # (Auto) 0.6 10 ^3/uL (0-1.3) Eosinophils # (Auto) 0.1 10 ^3/uL (0-0.8) Basophils # (Auto) 0.1 10 ^3/uL (0-0.2) Nucleated Red Blood Cells 0.2 % Sodium Level 141 mmol/L (136-145) Potassium Level 3.8 mmol/L (3.5-5.1) Chloride Level 104 mmol/L (98-107) Carbon Dioxide Level 28 mmol/L (20-31) Anion Gap 9 (5-15) Blood Urea Nitrogen 22 mg/dL (9-23) BUN/Creatinine Ratio 16.8 (10.0-20.0) Serum Glucose 176 mg/dL (74-106) Calcium Level 9.6 mg/dL (8.7-10.4) Urine Color Colorless (Yellow) Urine Clarity Turbid (Clear) Urine pH 5.5 (5.0-9.0) Urine Specific [place] 1.017 (1.001-1.035) Urine Protein 1+ (Negative) Urine Ketones Negative (Negative) Urine Blood 2+ /uL (Negative) Urine Nitrite Negative (Negative) Urine Bilirubin Negative (Negative) Urine Urobilinogen Normal mg/dL (Negative) Urine Leukocyte Esterase 3+ /uL (Negative) Urine RBC 41 /hpf (0 - 3) Urine WBC Clumps Present /hpf (None Seen) Urine Microscopic WBC 208 /HPF (0-3) Urine Squamous Epithelial Cells Few /hpf (<5) Urine Bacteria None seen /hpf (None Seen) Urine Yeast (Budding) Moderate /hpf (None Seen) Urine Glucose 3+ mg/dL (Normal) Urine Opiates Screen Neg (NEGATIVE) Urine Fentanyl Screen Neg (NEGATIVE) Urine Barbiturates Screen Neg (NEGATIVE) Urine Phencyclidine Screen Neg (NEGATIVE) Urine Amphetamines Screen Neg (NEGATIVE) Urine Benzodiazepines Screen Neg (NEGATIVE) Urine Cocaine Screen Neg (NEGATIVE) Urine Cannabinoids Screen Neg (NEGATIVE) Test 03/14/25 07:05 03/14/25 04:25 Prothrombin Time 11.4 sec (9.3-11.8) Prothrombin Time INR 1.08 (0.9-1.15) Activated Partial Thromboplast Time 28.3 SEC (24.5-34.5) Hemoglobin A1c 11.5 % A1C (<5.7) B-Type Natriuretic Peptide 173.40 pg/mL (0-100) Lactic Acid Level 1.7 mmol/L (0.4-2.0) Total Bilirubin 0.3 mg/dL (0.2-1.0) Aspartate Amino Transferase (AST) 27 U/L (13-40) Alanine Aminotransferase (ALT) 14 U/L (7-40) Alkaline Phosphatase 129 U/L (46-116) Total Protein 7.2 g/dL (5.7-8.2) Albumin 3.9 g/dL (3.2-4.8) Thyroid Stimulating Hormone (TSH) 2.29 uIU/mL (0.55-4.78) Plasma/Serum Blood Alcohol < 3.0 mg/dL (<10) Other Laboratory Tests 03/16/25 05:37 03/15/25 06:06 Brief Hx & Hospital Course: History of present illness 59M with poorly controlled DM2 hba1c 10 (according to the son), PVD, and CKD presents with chronic, non-healing ulcer on lateral aspect of left heel (near 4th toe), worsening over 5 months with new black discoloration noted today. Patient is a poor historian. He had prior debridement and reportedly a stent placement in the same leg. He also has a PICC line in place and is currently receiving Daptomycin, though unclear for how long or under what supervision. No fever, chills, urinary symptoms, nausea or vomiting. Denies recent trauma. Brought in today due to concern for worsening infection or necrosis. PMHx: DM2, CKD, COPD on 2L O2, HTN, HFrEF, AFib, PVD, prior PTCA, bilateral 5th toe amputations, recurrent UTIs PShx: Amputation of the right toes Social history: lives at home, smokes cigarettes, denies EToh use Allergies: Penicillin (severe reaction) Meds: Metformin, Lantus, Humalog, Entresto, Toprol-XL, Plavix, Amiodarone, Apixaban, Lasix, Lipitor, Trazodone, Amitriptyline, Percocet, Farsiga, Lyrica, Tizanidine, Aspirin Brief Hospital course Patient is a 59-year-old male with a history of poorly controlled diabetes, PVD, CKD, S/P right lateral toes amputation presented to the ED with left nonhealing plantar ulcer that has been ongoing for about 5 months. According to the patient, he was seen at the hospital 3 week ago for the same foot and was discharge home with a PICC line on Daptomycin. He was supposed to been on it for 2 weeks, but due to insurance reasons, he was only able to receive one week of daptomycin. Initial lab work in the ED WBC showed microcytic anemia, A1c 11.5, creatinine level 1.53. CXR showed Left-sided PICC line. Xray foot left foot: Post resection of the 5th digit from the level of the mid 5th metatarsal. MRI scan showed No evidence of osteomyelitis in the left foot; Subcutaneous edema, nonspecific and may represent cellulitis in the appropriate clinical setting; Edema within the intrinsic muscles of the foot which may reflect myositis or denervation edema. Arterial doppler showed Extremely limited exam due to body habitus and patient unable to tolerate exam. Peripheral vascular disease in the bilateral lower extremities with monophasic waveforms as detailed above; No flow is visualized in the anterior tibial artery. Decreased flow in the left dorsalis pedis artery. Approximately 30-49% stenosis of the right common femoral artery. Patent was started on antibiotics and resumed his home medications. He was also seen by the hop farmer who recommended only wound care and dressing with Medihoney. No surgical management recommended at this time. Thus will discharge patient home to follow up with the hop farmer. Review of systems Constitutional: Denies fever no chills no feeling of malaise HEENT: Denies headache, ear pain, ear discharges, conjunctivitis, nasal discharge throat pain Cardiovascular: Denies chest pain, palpitation, orthopnea, PND, or pedal edema Respiratory: Denies shortness of breath, cough cough, sputum production, hemoptysis, GI: Denies abdominal pain, nausea, vomiting, diarrhea, hematemesis, hematochezia, : Denies frequency, urgency, hematuria, Endocrine: Denies unintentional weight gain or weight loss, feeling of hot flashes, Osman: Denies easy bruising, bleeding disorders, epistaxis Musculoskeletal: Denies joint pains, muscle aches Psych: No evidence of depression, kaley, suicidal ideation Examination General Appearance: Alert, Oriented X3, Cooperative, No acute distress HEENT: Atraumatic, PERRLA, EOMI, Mucous membrane moist/pink Respiratory: Clear to auscultation, Normal air movement Cardiovascular: Regular rate, Normal S1, Normal S2, No murmurs, no chest wall tenderness Abdominal: NO distention, no tenderness, bowel sounds present, no scars noted Extremities: No clubbing, No cyanosis, No edema, Normal pulses, No tenderness/swelling Skin: No rashes, No breakdown, No significant lesion Neuro: Normal gait, Normal speech, Strength at 5/5 X4 ext, Normal tone, Sensation intact, Cranial nerves 3-12 NL, Reflexes 2+ Psych/Mental Status: Mental status NL, Mood NL Diagnoses Diabetic foot ulcer, Osteomyelitis ruled out Uncontrolled DM2 hba1c 11.5 GEOR[place]IE due to VMN on possible CKD, Chronic respiratory hypoxic failure COPD on home O2 2L, not in exacerbation Hypertensive heart disease with systolic dysfunction Acute on chronic exacerbation of HFrEF Atrial fibrillation Secondary hypercoagulable state PVD s/p PTCA bilateral 5th toe amputations recurrent UTIs History of PICC line on previous daptomycin treatment Morbid obesity, BMI 61.6 Discharge plan Continue home medications Continue wound care/ dressing, wound care continue dressing with Medihoney Follow up at the discharge clinic in 7 days Follow up with PCP Patient advised to return to the ED if he does not feel any better Discharge plan discussed with Dr. Che Consults/Reason for consult Reason for Consultation: worsening Left foot wound Condition at Discharge: Good Final Diagnosis/Problems List Diabetic foot ulcer, Osteomyelitis ruled out Uncontrolled DM2 hba1c 11.5 GEORGIE due to VMN on possible CKD, Chronic respiratory hypoxic failure COPD on home O2 2L, not in exacerbation Hypertensive heart disease with systolic dysfunction Acute on chronic exacerbation of HFrEF Atrial fibrillation Secondary hypercoagulable state PVD s/p PTCA bilateral 5th toe amputations recurrent UTIs History of PICC line on previous daptomycin treatment Morbid obesity, BMI 61.6 Discharge Disposition: Home Discharge Instruct/Medications Diet: See Comment Diet comment: adherent to diabetic diet Activity: No Restrictions, As Tolerated Follow Up/Referral: 7 days at the discharge clinic Medications: Continue home medications Discharge Statement: "Patient was advised to return to the ER or call 911 if any headaches, dizziness, shortness of breath, chest pain, abdominal pain, bleeding, fevers, or worsening of medical condition. Patient was counseled about treatment plan, medications, possible side effects, patientverbalized understanding. All questions were answered to the best of my ability. This discharge took greater then 30 minutes in planning, reviewing documentation, counseling the patient, and discussing with other team members." ASSESSMENT ASSESSMENT Assessment Diabetic foot ulcer, Osteomyelitis ruled out Uncontrolled DM2 hba1c 11.5 GEORGIE due to VMN on possible CKD, Chronic respiratory hypoxic failure COPD on home O2 2L, not in exacerbation Hypertensive heart disease with systolic dysfunction Acute exacerbation of heart failure Atrial fibrillation Secondary hypercoagulable state PVD s/p PTCA bilateral 5th toe amputations recurrent UTIs History of PICC line on previous daptomycin treatment ASHISH SMITH RESIDENT March 16, 2025 11:06
[2025-03-16 11:45] VITALS: BP 142/92; PULSE 71; RESP 19; TEMP 97.3; O2SAT 93
== END 2025-03-16 12:29 | disposition home or self-care (01) | DRG 637 ==
LOC: ER 03:56 → OVERFLOW 06:02 → CENTRAL 18:04
PROVIDERS: ADMIT Hospitalist; ATTEND Hospitalist
DX: E11.621 Type 2 diabetes mellitus with foot ulcer (principal); I50.23 Acute on chronic systolic (congestive) heart failure; I13.0 Hypertensive heart and chronic kidney disease with heart failure and stage 1 through stage 4 chronic kidney disease, or unspecified chronic kidney disease; D68.69 Other thrombophilia; Z68.44 Body mass index [BMI] 60.0-69.9, adult; N17.0 Acute kidney failure with tubular necrosis; J44.9 Chronic obstructive pulmonary disease, unspecified; I48.91 Unspecified atrial fibrillation; E11.22 Type 2 diabetes mellitus with diabetic chronic kidney disease; E66.01 Morbid (severe) obesity due to excess calories; F17.210 Nicotine dependence, cigarettes, uncomplicated; L97.529 Non-pressure chronic ulcer of other part of left foot with unspecified severity; N18.9 Chronic kidney disease, unspecified; Z87.440 Personal history of urinary (tract) infections; Z80.0 Family history of malignant neoplasm of digestive organs; Z82.3 Family history of stroke; Z82.49 Family history of ischemic heart disease and other diseases of the circulatory system; Z83.3 Family history of diabetes mellitus; Z98.61 Coronary angioplasty status; Z88.0 Allergy status to penicillin; Z79.84 Long term (current) use of oral hypoglycemic drugs; Z79.01 Long term (current) use of anticoagulants; Z79.899 Other long term (current) drug therapy; Z99.81 Dependence on supplemental oxygen; E11.65 Type 2 diabetes mellitus with hyperglycemia; E11.51 Type 2 diabetes mellitus with diabetic peripheral angiopathy without gangrene
CPT/HCPCS: 36415; 71045; 73630; 73706; 73718; 80048; 80053; 80202; 80307; 80320; 81001; 82565; 82962; 83036; 83605; 83880; 84443; 85025; 85610; 85730; 87040; 87077; 87086; 87186; 87205; 93306; 93925; G0378; J1815; Q9956

== ENCOUNTER 2025-03-29 23:41 | Inpatient (IN) | payer OTHER, MEDICAID ==
[~2025-03-29] VITALS: Ht 170.2 cm; Wt 164.0 kg
[~2025-03-29 23:41] MED LIST changes: -ATOR20TA PO; -BACDST PO; -CEPH250C PO; -GABA-1308 PO; -GLIP5TAB21 PO; -LINE1TAB10 PO; -LOS25T PO; -METF-371 PO; +METO-289 PO; -OME20T PO
--- NOTE | 2025-03-30 00:09 | ED.PDOC ---
Musculoskeletal HPI Comments 59-year-old male who came to ER due to wound check. Patient discharged your last March 16, diagnosed with 1. Diabetic foot ulcer, Osteomyelitis ruled out, 2. Uncontrolled DM2 hba1c 11.5,3. GEORGIE due to VMN on possible CKD, , 4. Chronic respiratory hypoxic failure , 5. COPD on home O2 2L, not in exacerbation 6. Hypertensive heart disease with systolic dysfunction , 7. Acute on chronic exacerbation of HFrEF, 8. Atrial fibrillation, 9. Secondary hypercoagulable state , 10. PVD, 11. s/p PTCA, 12. bilateral 5th toe amputations, 13. recurrent UTIs, 14. History of PICC line on previous daptomycin treatment , 15. Morbid obesity, BMI 61.6. Patient has a chronic nonhealing wound on the plantar aspect of his left foot. Noted earlier today a foul smelling odor over his left foot, associated with reddish discharge. Chief Complaint: Wound check Time Seen by MD: 00:07 Primary Care Provider: [facility] Reviewed Notes: Nurses Notes Allergies: Coded Allergies: Penicillins (Verified Allergy, Severe, 04/21/23) Home Meds Active Scripts Amiodarone Hcl (Amiodarone Hcl) 200 Mg Tab, 1 TAB PO DAILY, #30 TAB 0 Refills Prov:LORENZO AGUILAR MD 07/03/21 Reported Medications Apixaban Base (ELIQUIS) 5 Mg Tab, 1 TAB PO BID for 30 Days, #60 04/03/25 Metoprolol Succinate (Metoprolol Succinate Er) 50 Mg Tab, 1 TAB PO DAILY@9AM for 30 Days, #30 04/03/25 Metolazone (Metolazone) 5 Mg Tab, 1 TAB PO DAILY for 30 Days, #30 03/15/25 Acetaminophen (Acetaminophen Extra Stren) 500 Mg Tab, 1-2 TAB PO QID PRN for 30 Days, #240 03/15/25 Furosemide (Furosemide) 40 Mg Tab, 2 TAB PO BID for 30 Days, #120 03/15/25 Tizanidine Hydrochloride (Tizanidine Hcl) 4 Mg Tab, 1 TAB PO TID for 30 Days, #90 03/15/25 Pregabalin (Pregabalin) 200 Mg Cap, 1 CAP PO TID for 30 Days, #90 03/15/25 Amitriptyline HCl (Amitriptyline Hydrochlori) 25 Mg Tab, 1 TAB PO QHSP PRN for LUMBAGO WITH SCIATICA for 30 Days, #30 03/15/25 Trazodone Hcl (Trazodone Hcl) 100 Mg Tab, 1 TAB PO HS for 30 Days, #30 03/15/25 Oxycodone HCl (Oxycodone Hydrochloride) 10 Mg Tab, 1 TAB PO TID for 30 Days, #90 03/15/25 Atorvastatin Calcium (ATORVASTATIN CALCIUM) 40 Mg Tab, 1 TAB PO DAILY@5PM for 30 Days, #30 03/15/25 Insulin Lispro (Insulin Lispro Kwikpen) 100 Unit/Ml Inj, 15-20 UNIT SC AC for 65 Days, #30 03/15/25 Insulin Glargine (Lantus Solostar) 100 Unit/Ml Inj, 40 UNITS SC HS for 57 Days, #24 03/15/25 Hydrochlorothiazide (Hydrochlorothiazide) 25 Mg Tab, 25 MG PO DAILY for 30 Days, MG 06/24/21 Information Source: Patient Mode of Arrival: Wheelchair Location: Left Extremity Location: Foot Timing: Days Prehospital treatment: None Severity: Moderate Able to Move Extremity: Yes Bear Weight: Limited Pain: Moderate Hand Dominance: Right Mechanism: Spontaneous Circumstances: Spontaneous Onset of Symptoms: Spontaneous Symptoms: Swelling Associated signs and symptoms: Foot pain (Left) Review of Systems REVIEW OF SYSTEMS: No fever, no chills, or fatigue HEENT: No sore throat, no earache, no congestion, no neck pain. Cardiac: No chest pain. No palpitations. Lungs: No shortness of breath, no cough. GI: No nausea, no vomiting, no diarrhea, no constipation, no abdominal pain : No dysuria, frequency, or urgency. No hematuria. Musculoskeletal: No joint pain , no joint swelling, no extremity edema. Skin: No rash, no itching. (+) wound plantar aspect left foot Neuro: No headache, no dizziness, no weakness Vital Signs Vital Signs Date Time Temp Pulse Resp B/P (MAP) Pulse Ox O2 Delivery O2 Flow Rate FiO2 03/30/25 10:00 86 16 115/57 (76) 99 03/30/25 09:00 Nasal Cannula* 2 28 03/30/25 05:57 98.3 98.3 Physical Exam General: Awake, alert and oriented. No acute distress. Skin: Skin in warm, dry and intact. Appropriate color for ethnicity. Nailbeds pink with no cyanosis. HEENT: The head is normocephalic and atraumatic. Conjunctivae are clear without exudates or hemorrhage. Sclera is non-icteric. EOM are intact. No signs of nystagmus. Eyelids are normal in appearance without swelling or lesions. Oral mucosa is pink and moist Neck: The neck is supple with normal range of motion. No JVD. Cardiac: Heart rate and rhythm are normal. No murmurs, gallops, or rubs are auscultated. Respiratory: No signs of respiratory distress. Lung sounds are clear in all lobes bilaterally without rales, rhonchi, or wheezes. Abdominal: Abdomen is soft, non-tender without distention. Bowel sounds are present and normoactive in all four quadrants. Extremities: Left lower extremity edematous with discharge, purpilish dusky foot and toes laterally which patient states is worsening over the past few hours. Nonpalpable DP pulse. Neurological: The patient is awake, alert and oriented to person, place, and time with normal speech. Speech is clear. There is no facial asymmetry. Sensation of the left foot intact. Psychiatric: Appropriate mood and affect. Good judgement and insight. No visual or auditory hallucinations. Past Medical History PAST MEDICAL HISTORY: AFIB, CKF, COPD, DM, HTN, UTI'S Surgical History: PTCA Surgical History (Other): Bilateral 5th toe amputation Family History Family History: Reviewed,noncontributory to illness, Family hx of DM Social History Smoker: Cigarettes Alcohol: Denies ETOH Use Drugs: Denies Drug Use Lives In: Home Was a procedure done? 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: Attending Physician Indication: Hypotension, Suspected infection Room prepared for procedure: Yes Lens Blank Gauger performed hand hygien: Yes Maximal sterile barrier precau: Mask/Eye shield, Sterile gown, Cap, Sterlie gloves, Large sterlie drape Skin Preparation: Chlorhexidine gluconate Skin preparation completely dr: Yes Insertion site: Right, Internal jugular Central line catheter type: [id number] dialysis Number of lumens: 3 Post Assessment: Chest X-Ray, Proper placement Informed consent obtained: Yes Risks/benefits/alt described: Yes Notes Right IJ central line placed with ultrasound guidance. Differential Diagnosis EXT Differential Diagnosis: Cellulitis, Septic, Other (Osteomyelitis, diabetic foot) X-Ray, Labs, Meds, VS Vital Signs Date Time Temp Pulse Resp B/P (MAP) Pulse Ox O2 Delivery O2 Flow Rate FiO2 03/30/25 10:00 86 16 115/57 (76) 99 03/30/25 09:00 99 17 96 Nasal Cannula* 2 28 03/30/25 09:00 99 17 145/92 (109) 96 03/30/25 05:57 103 21 97 Nasal Cannula* 2 28 03/30/25 05:57 98.3 110 18 136/44 (74) 97 98.3 03/30/25 04:59 115 18 137/87 03/30/25 00:01 98.1 118 18 130/70 (90) 90 98.1 Lab Test 03/30/25 09:24 03/30/25 01:58 03/30/25 00:17 03/30/25 00:00 Range/Units White Blood Count 12.6 H 12.2 H 4.4-10.8 10^3/uL Red Blood Count 5.62 6.08 H 4.5-5.90 10^6/uL Hemoglobin 13.6 15.0 13.5-17.5 g/dL Hematocrit 43.4 47.4 41.0-53.0 % Mean Corpuscular Volume 77.3 L 77.9 L 80.0-100.0 fL Mean Corpuscular Hemoglobin 24.2 L 24.7 L 28.0-32.0 pg Mean Corpuscular Hemoglobin Concent 31.4 L 31.7 L 32.0-36.0 g/dL Red Cell Distribution Width 20.4 H 20.3 H 11.8-14.3 % Platelet Count 243 277 140-450 10^3/uL Mean Platelet Volume 7.9 8.2 6.9-10.8 fL Neutrophils (%) (Auto) 81.6 H 80.6 H 37.0-80.0 % Lymphocytes (%) (Auto) 8.1 L 9.6 L 10.0-50.0 % Monocytes (%) (Auto) 8.6 8.0 0.0-12.0 % Eosinophils (%) (Auto) 1.0 1.0 0.0-7.0 % Basophils (%) (Auto) 0.7 0.8 0.0-2.0 % Neutrophils # (Auto) 10.3 H 9.8 H 1.6-8.6 10 ^3/uL Lymphocytes # (Auto) 1.0 1.2 0.4-5.4 10 ^3/uL Monocytes # (Auto) 1.1 1.0 0-1.3 10 ^3/uL Eosinophils # (Auto) 0.1 0.1 0-0.8 10 ^3/uL Basophils # (Auto) 0.1 0.1 0-0.2 10 ^3/uL Nucleated Red Blood Cells 0.1 0.2 % Prothrombin Time 11.7 9.3-11.8 sec Prothrombin Time INR 1.12 0.9-1.15 Activated Partial Thromboplast Time 28.1 24.5-34.5 SEC Sodium Level 132 L 132 L 136-145 mmol/L Potassium Level 3.4 L 2.9 L 3.5-5.1 mmol/L Chloride Level 89 L 89 L 98-107 mmol/L Carbon Dioxide Level 33 H 34 H 20-31 mmol/L Anion Gap 10 9 5-15 Blood Urea Nitrogen 33 H 29 H 9-23 mg/dL Creatinine 1.50 H 1.65 H 0.700-1.30 mg/dL Glomerular Filtration Rate Calc 54 48 >90 mL/min BUN/Creatinine Ratio 22.0 H 17.6 10.0-20.0 Serum Glucose 281 H 253 H 74-106 mg/dL Calcium Level 9.4 9.2 8.7-10.4 mg/dL Blood Gas Specimen Type Arterial Blood Gas Sample Site Right radial Blood Gas Patient Temperature 37.0 Arterial Blood Date Drawn [id number] Arterial Blood pH 7.457 H 7.350-7.450 Arterial Blood Partial Pressure CO2 50.0 H 35.0-48.0 mmHg Arterial Blood Partial Pressure O2 45.2 *L 83.0-108.0 mmHg Arterial Blood HCO3 34.5 H 21.0-28.0 mmol/L Arterial Blood Oxygen Saturation 80.4 *L 94.0-98.0 % Arterial Blood Base Excess 9.0 H -2.0-3.0 mmol/L Arterial Blood Oxyhemoglobin 75.3 L 94.0-98.0 % Arterial Blood Carboxyhemoglobin 5.9 H 0.5-1.5 % Arterial Blood Methemoglobin 0.4 0.0-1.5 % Suresh Test Yes Blood Gas Total Hemoglobin 15.40 13.5-17.5 g/dL Blood Gas Modality Room air FiO2 % 21.0 Blood Gas Critical Value Read Back Yes Blood Gas Notified Whom Tanna rowe md Blood Gas Notified Time [id number] Blood Gas Notified By Margaux ventura rrt Lactic Acid Level 2.0 0.4-2.0 mmol/L Urine Color Light-yellow Yellow Urine Clarity Clear Clear Urine pH 6.5 5.0-9.0 Urine Specific [place] 1.014 1.001-1.035 Urine Protein Negative Negative Urine Ketones Negative Negative Urine Blood Negative Negative /uL Urine Nitrite Negative Negative Urine Bilirubin Negative Negative Urine Urobilinogen Normal Negative mg/dL Urine Leukocyte Esterase Negative Negative /uL Urine RBC None seen 0 - 3 /hpf Urine Microscopic WBC 1 0-3 /HPF Urine Squamous Epithelial Cells Few <5 /hpf Urine Bacteria Few H None Seen /hpf Urine Glucose Normal Normal mg/dL Microbiology Date/Time Source Procedure Growth Status 03/30/25 09:07 Foot Gram Stain - Final Complete 03/30/25 09:07 Wound Culture - Final Enterococcus faecalis Staphylococcus aureus Complete 03/30/25 00:17 Blood Blood Culture - Final NO GROWTH AFTER 5 DAYS OF INCUBATION. Complete 03/30/25 00:00 Blood Blood Culture - Final NO GROWTH AFTER 5 DAYS OF INCUBATION. Complete Time of 1ST Reevaluation: 00:01 Reevaluation 1ST: Unchanged Patient Education/Counseling: Prognosis Family Education/Counseling: Prognosis Sepsis Sepsis Reasesment Focused Exam Orders: Laboratory Tests 03/30/25 00:17: Lactic Acid Level 2.0 Departure 1 Departure Time of Disposition: 01:48 Impression: Primary Impression: Cellulitis of left foot Additional Impressions: Type 2 diabetes mellitus Hyperglycemia Chronic kidney disease Supplemental oxygen dependent COPD (chronic obstructive pulmonary disease) Heart failure with reduced ejection fraction Disposition: ADMITTED INPATIENT Condition: Stable Comments 59-year-old male with concern for osteomyelitis myelitis of the left, cellulitis of the left foot, decreased perfusion to the left foot. Signed out oncoming provider pending CT angiogram to rule out critical limb ischemia. Antibiotics initiated in the ED. Central Line placed. Discussed with Kael mobley for vascular surgery- the facility is at capacity and not accepting transfers at tthis time. Discussed with Dr. Hillman, he is unavailable for consult. Critical Care Note Critical Care Time?: No Stability Stability form required: No Heart Score Heart Score: Heart Score Response (Comments) Value History N/A 0 EKG N/A 0 Age N/A 0 Risk Factors N/A 0 Troponin N/A 0 Total 0 I personally scribed for MALU ROWE MD ([email or web address]) on 03/30/25 at 00:09. Electronically submitted by Zen Solorzano ([email or web address]). I personally scribed for MALU ROWE MD ([email or web address]) on 03/30/25 at 06:19. Electronically submitted by Jean-Claude Whitehead ([email or web address]). MALU ROWE MD Mar 30, 2025 00:09
[2025-03-30 00:32] LABS: Basophils # (auto) 0.1 10 ^3/uL (0-0.2); Eosinophils # (auto) 0.1 10 ^3/uL (0-0.8); Lymphocytes # (auto) 1.2 10 ^3/uL (0.4-5.4); Lymphocytes % (auto) 9.6 % (10.0-50.0); Mean Corpuscular Hemoglobin 24.7 pg (28.0-32.0); Mean Corpuscular Hgb Conc. 31.7 g/dL (32.0-36.0); Nucleated Red Blood Cells % 0.2 %; White Blood Cell 12.2 10^3/uL (4.4-10.8)
[2025-03-30 00:33] LABS: Basophils % (auto) 0.8 % (0.0-2.0); Hematocrit 47.4 % (41.0-53.0); Mean Corpuscular Volume 77.9 fL (80.0-100.0); Neutrophils # (auto) 9.8 10 ^3/uL (1.6-8.6); Neutrophils % (auto) 80.6 % (37.0-80.0); Platelet Count (auto) 277 10^3/uL (140-450); Red Blood Cells 6.08 10^6/uL (4.5-5.90)
[2025-03-30 00:36] LABS: Red Cell Distribution Width 20.3 % (11.8-14.3)
[2025-03-30 00:40] LABS: Anion Gap 9 (5-15); Calcium 9.2 mg/dL (8.7-10.4)
[2025-03-30 00:42] LABS: Carbon Dioxide 34 mmol/L (20-31); Chloride 89 mmol/L (98-107); Potassium 2.9 mmol/L (3.5-5.1); Sodium 132 mmol/L (136-145)
[2025-03-30 00:45] LABS: BUN/Creatinine Ratio 17.6 (10.0-20.0)
[2025-03-30 00:56] LABS: Blood Urea Nitrogen 29 mg/dL (9-23); Glucose 253 mg/dL (74-106)
[2025-03-30] MEDS: MORPHINE SULFATE 4 MG/ML SYR/VIAL IM ONE (04:59)
--- NOTE | 2025-03-30 05:12 | DVH ---
EXAM: XR Left Foot Complete, 3 or More Views CLINICAL INDICATION: diabetic foot wound TECHNIQUE: Frontal, lateral and oblique views of the left foot. COMPARISON: XY L FOOT 3 VIEW XRAY on DOS: 03/14/25, XY R FOOT 3 VIEW XRAY on DOS: 04/17/23 FINDINGS: BONES/JOINTS: Amputation at the 5th metatarsal. Surgical margin appears hazy with overlying soft ti ssue swelling and emphysema. Osteomyelitis can not be excluded. No acute fracture. No dislocation. SOFT TISSUES: See above. OTHER FINDINGS: . IMPRESSION: Amputation at the 5th metatarsal. Surgical margin appears hazy with overlying soft tissue swelling a nd emphysema. Osteomyelitis can not be excluded.
[2025-03-30] MEDS: IOHEXOL 350 MG/ML 100ML IJ ONE (05:27)
[2025-03-30 05:57] VITALS: PULSE 103; RESP 21; O2SAT 97
--- NOTE | 2025-03-30 06:49 | DVH ---
CHEST RADIOGRAPH Indication: central line placement Technique: Single frontal view of the chest was obtained COMPARISON: XY CHEST PORTABLE on DOS: 03/14/25, CHEST PORTABLE on DOS: 10/16/21, CXR1 on DOS: 06/25/21, CHEST XRAY 1 VIEW on DOS: 06/25/21 FINDINGS: Lines and Tubes: Right central venous catheter in satisfactory position. Lungs: Increased interstitial prominence. Pleura: No effusion. No pneumothorax. Cardiomediastinal contours: Cardiomegaly Bones: Unremarkable IMPRESSION: Right central venous catheter in satisfactory position.
[2025-03-30] MEDS: VANCOMYCIN 1GM/200ML PM 200 ML IV ONE (07:25)
[2025-03-30] MEDS: SODIUM CHLORIDE 0.9% 1,000 ML IV ONE (08:00)
[2025-03-30] MEDS: POTASSIUM CHL 20MEQ/100ML 100 ML IV ONE (08:00)
[2025-03-30] MEDS: CLINDAMYCIN 600MG IV 50 ML IV ONE (08:44)
[2025-03-30 09:00] VITALS: PULSE 99; RESP 17; O2SAT 96
[2025-03-30 09:36] LABS: Basophils # (auto) 0.1 10 ^3/uL (0-0.2); Basophils % (auto) 0.7 % (0.0-2.0); Eosinophils # (auto) 0.1 10 ^3/uL (0-0.8); Hematocrit 43.4 % (41.0-53.0); Hemoglobin 13.6 g/dL (13.5-17.5); Lymphocytes % (auto) 8.1 % (10.0-50.0); Mean Corpuscular Hemoglobin 24.2 pg (28.0-32.0); Mean Corpuscular Hgb Conc. 31.4 g/dL (32.0-36.0); Mean Corpuscular Volume 77.3 fL (80.0-100.0); Monocytes # (auto) 1.1 10 ^3/uL (0-1.3); Monocytes % (auto) 8.6 % (0.0-12.0); Neutrophils # (auto) 10.3 10 ^3/uL (1.6-8.6); Neutrophils % (auto) 81.6 % (37.0-80.0); Nucleated Red Blood Cells % 0.1 %; Platelet Count (auto) 243 10^3/uL (140-450); Red Blood Cells 5.62 10^6/uL (4.5-5.90); Red Cell Distribution Width 20.4 % (11.8-14.3); White Blood Cell 12.6 10^3/uL (4.4-10.8)
--- NOTE | 2025-03-30 09:47 | DVH ---
EXAM: CT CT ANGIO LOWER EXTREMITY Reason for study/Clinical History: LLE diminished pulse, discoloration COMPARISON STUDY: CT CT ANGIO LOWER EXTREMITY on DOS: 03/15/25 CTA left LOWER EXTREMITY RUNOFF WITH CONTRAST DATED 03/30/2025 07:54 AM TECHNIQUE: 3D angiographic acquisition of lower extremities was obtained during the intravenous admi nistration of 100 cc omni 350 without immediate adverse effect. 3D post processing, including maximum intensity projection, was performed on an independent workstation and images were reviewed on PACS. Radiation dose : Radiation Dose Information: CT Dose: CTDI volume is 23.68 mGy. Dose-length product is 1890.87 mGy*cm FINDINGS: Minimal contrast opacification of the lower extremity arteries. Nondiagnostic exam. Vascular: Visualized left external iliac artery is not well evaluated. Left common femoral, profunda femoral, s uperficial femoral and popliteal arteries are not well evaluated. 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 Bila teral iliac chain and inguinal lymphadenopathy. Subcutaneous edema in the left lower leg. Open wound in the left foot. IMPRESSION: 1. Limited, essentially nondiagnostic exam. Left lower extremity arteries are not well opacified. If concern persists recommend follow-up exam or catheter angiogram. Iliac chain and inguinal lymphadenop athy is nonspecific but could be reactive. Inguinal lymph nodes would be amenable to ultrasound-guid ed biopsy. Open wound in the left foot. Clinical correlation and continued follow-up is recommended. END IMPRESSION: HS:Y
[2025-03-30 09:59] LABS: INR 1.12 (0.9-1.15); Partial Thromboplastin Time 28.1 SEC (24.5-34.5); Prothrombin Time 11.7 sec (9.3-11.8)
[2025-03-30] MEDS: HEPARIN DRIP/D5W 100UNITS/ML 250 ML IV SCH ×2 (10:23→18:10)
[2025-03-30] MEDS: HEPARIN SODIUM (PORCINE) 5000 UNITS/ML 1ML VIAL IV ONE (10:27)
[2025-03-30] MEDS: SODIUM CHLORIDE 0.9% 1,000 ML IV SCH (10:30)
[2025-03-30] MEDS ORDERED: NITROGLYCERIN 0.4 MG SL TAB SL PRN (10:30)
[2025-03-30] MEDS ORDERED: ONDANSETRON HCL 4 MG/2 ML VIAL IV PRN (10:30)
[2025-03-30] MEDS ORDERED: ACETAMINOPHEN 325 MG TAB PO PRN (10:30)
[2025-03-30] MEDS ORDERED: DEXTROSE (50%) 50ML SYRG IV PRN (10:30)
[2025-03-30] MEDS ORDERED: MORPHINE SULFATE INJ 2 MG/ml SYRG IV PRN (10:30)
[2025-03-30] MEDS: AZTREONAM 1GM INJ 1 GM in D5W 5% 50 ML IV ONE (10:41)
[2025-03-30 12:06] VITALS: PULSE 96; RESP 18; O2SAT 97
[2025-03-30] MEDS: ACCU-CHEK COMFORT CURVE STRIP VI SCH (12:36)
[2025-03-30] MEDS: InsuLIN REG 1unit/0.01ml Soln (100units/ml) SC SCH (12:39)
[2025-03-30 12:49] LABS: Anion Gap 10 (5-15); Calcium 9.4 mg/dL (8.7-10.4)
[2025-03-30 12:51] LABS: Carbon Dioxide 33 mmol/L (20-31); Chloride 89 mmol/L (98-107); Potassium 3.4 mmol/L (3.5-5.1); Sodium 132 mmol/L (136-145)
[2025-03-30 12:55] LABS: Blood Urea Nitrogen 33 mg/dL (9-23); Glucose 281 mg/dL (74-106)
[2025-03-30 14:18] LABS: Urine Bacteria FEW /hpf (None Seen); Urine Blood Negative /uL (Negative); Urine Clarity Clear (Clear); Urine Color Light-Yellow (Yellow); Urine Protein, UAD Negative (Negative); Urine Specific Gravity 1.014 (1.001-1.035); Urine Squamous Epithelial Cell FEW /hpf (<5); Urine Urobilinogen Normal (Negative); Urine WBC 1 /HPF (0-3); Urine pH 6.5 (5.0-9.0)
[2025-03-30 16:30] VITALS: BP 129/76; PULSE 82; RESP 20; TEMP 97.5; O2SAT 97
[2025-03-30 17:33] LABS: INR 1.14 (0.9-1.15); Partial Thromboplastin Time 36.5 SEC (24.5-34.5); Prothrombin Time 11.9 sec (9.3-11.8)
[2025-03-30] MEDS ORDERED: MEROPENEM 1GM IVPB 50 ML IV SCH (18:00)
[2025-03-30] MEDS: HYDROcodone-ACET 5/325MG TAB PO PRN (18:17)
[2025-03-30] MEDS: MEROPENEM 1GM IVPB 50 ML IV SCH (18:38)
[2025-03-30 20:00] VITALS: PULSE 97; RESP 20; O2SAT 96
[2025-03-30 21:20] VITALS: BP 110/75; PULSE 98; RESP 19; TEMP 97.4; O2SAT 97
[2025-03-30] MEDS: INSULIN LANTUS (GLARGINE) 1 /0.01ml (100units/ml) SC SCH (21:38)
[2025-03-31] VITALS (7 sets, daily range): BP systolic 53–126; BP diastolic 47–79; PULSE 93–108; RESP 19–21; TEMP 97.4–98.1; O2SAT 97–100
[2025-03-31 01:18] LABS: INR 1.11 (0.9-1.15); Partial Thromboplastin Time 29.3 SEC (24.5-34.5); Prothrombin Time 11.6 sec (9.3-11.8)
[2025-03-31] MEDS: HEPARIN DRIP/D5W 100UNITS/ML 250 ML IV SCH ×2 (02:06→16:54)
[2025-03-31] MEDS: HEPARIN SODIUM (PORCINE) 5000 UNITS/ML 1ML VIAL IV ONE ×2 (02:15→16:51)
[2025-03-31 08:45] LABS: INR 1.08 (0.9-1.15); Partial Thromboplastin Time 27.3 SEC (24.5-34.5); Prothrombin Time 11.4 sec (9.3-11.8)
[2025-03-31 13:27] LABS: Potassium 3.5 mmol/L (3.5-5.1)
[2025-03-31 13:28] LABS: Anion Gap 7 (5-15); Calcium 9.3 mg/dL (8.7-10.4)
[2025-03-31 13:33] LABS: BUN/Creatinine Ratio 18.1 (10.0-20.0)
[2025-03-31 13:34] LABS: Blood Urea Nitrogen 23 mg/dL (9-23); Carbon Dioxide 36 mmol/L (20-31); Chloride 93 mmol/L (98-107); Glucose 359 mg/dL (74-106); Sodium 136 mmol/L (136-145)
[2025-03-31 14:24] LABS: Basophils # (auto) 0.1 10 ^3/uL (0-0.2); Basophils % (auto) 0.8 % (0.0-2.0); Eosinophils # (auto) 0.2 10 ^3/uL (0-0.8); Hemoglobin 13.4 g/dL (13.5-17.5); Mean Corpuscular Hemoglobin 24.6 pg (28.0-32.0); Mean Corpuscular Hgb Conc. 31.1 g/dL (32.0-36.0); Nucleated Red Blood Cells % 0.1 %
[2025-03-31 14:25] LABS: Eosinophils % (auto) 1.8 % (0.0-7.0); Hematocrit 43.3 % (41.0-53.0); Lymphocytes # (auto) 0.8 10 ^3/uL (0.4-5.4); Lymphocytes % (auto) 8.4 % (10.0-50.0); Mean Corpuscular Volume 79.2 fL (80.0-100.0); Monocytes # (auto) 0.8 10 ^3/uL (0-1.3); Monocytes % (auto) 7.8 % (0.0-12.0); Neutrophils % (auto) 81.2 % (37.0-80.0); Platelet Count (auto) 231 10^3/uL (140-450); Red Blood Cells 5.46 10^6/uL (4.5-5.90); White Blood Cell 9.8 10^3/uL (4.4-10.8)
[2025-03-31 14:28] LABS: Red Cell Distribution Width 20.8 % (11.8-14.3)
[2025-03-31 14:41] LABS: INR 1.13 (0.9-1.15); Partial Thromboplastin Time 32.3 SEC (24.5-34.5); Prothrombin Time 11.8 sec (9.3-11.8)
--- NOTE | 2025-03-31 16:13 | DVHINCON2 ---
Date of service: Mar 31, 2025 Referring Physician Hospitalist Reason for Consultation Acute kidney injury History of Present Illness 59-year-old morbidly obese male with past medical history of nonhealing diabetic wound recently treated with IV antibiotics returns to the hospital due to foul purulent drainage from wound site. Allergies: Coded Allergies: Penicillins (Verified Allergy, Severe, 04/21/23) Home Meds Active Scripts Amiodarone Hcl (Amiodarone Hcl) 200 Mg Tab, 1 TAB PO DAILY, #30 TAB 0 Refills Prov:LORENZO AGUILAR MD 07/03/21 Metoprolol Succinate (Toprol Xl) 50 Mg Tab, 1 TAB PO DAILY, #30 TAB 0 Refills Prov:LORENZO AGUILAR MD 07/03/21 Apixaban Base (ELIQUIS) 5 Mg Tab, 5 MG PO BID for 30 Days, #60 TAB Prov:LORENZO AGUILAR MD 07/03/21 Reported Medications Metolazone (Metolazone) 5 Mg Tab, 1 TAB PO DAILY for 30 Days, #30 03/15/25 Acetaminophen (Acetaminophen Extra Stren) 500 Mg Tab, 1-2 TAB PO QID PRN for 30 Days, #240 03/15/25 Furosemide (Furosemide) 40 Mg Tab, 2 TAB PO BID for 90 Days, #360 03/15/25 Tizanidine Hydrochloride (Tizanidine Hcl) 4 Mg Tab, 1 TAB PO TID for 30 Days, #90 03/15/25 Pregabalin (Pregabalin) 200 Mg Cap, 1 CAP PO TID for 30 Days, #90 03/15/25 Amitriptyline HCl (Amitriptyline Hydrochlori) 25 Mg Tab, 1 TAB PO QHSP PRN for LUMBAGO WITH SCIATICA for 30 Days, #30 03/15/25 Trazodone Hcl (Trazodone Hcl) 100 Mg Tab, 1 TAB PO HS for 30 Days, #30 03/15/25 Oxycodone HCl (Oxycodone Hydrochloride) 10 Mg Tab, 1 TAB PO TID for 30 Days, #90 03/15/25 Atorvastatin Calcium (ATORVASTATIN CALCIUM) 40 Mg Tab, 1 TAB PO DAILY for 90 Days, #90 03/15/25 Insulin Lispro (Insulin Lispro Kwikpen) 100 Unit/Ml Inj, 15-20 UNIT SC AC for 36 Days, #30 03/15/25 Insulin Glargine (Lantus Solostar) 100 Unit/Ml Inj, 40 UNITS SC HS for 28 Days, #12 03/15/25 Hydrochlorothiazide (Hydrochlorothiazide) 25 Mg Tab, 25 MG PO DAILY for 30 Days, MG 06/24/21 Current Medications Current Medications Medications (Trade) Dose Ordered Sig/Maria Isabel Route PRN Reason Start Time Stop Time Status Last Admin Insulin Glargine (Lantus) 40 units HS SC 03/30/25 22:00 03/30/25 21:38 Meropenem 50 ml @ 17 mls/hr Q12H IV 03/30/25 18:00 03/30/25 17:30 DC Meropenem 50 ml @ 17 mls/hr Q12H IV 03/30/25 18:00 03/30/25 21:08 DC 03/30/25 18:38 Heparin Sodium/ Dextrose 250 ml @ 22 mls/hr [id number] IV 03/30/25 18:00 03/31/25 02:04 DC 03/31/25 00:34 Meropenem 50 ml @ 17 mls/hr Q8H IV 03/31/25 23:00 Heparin Sodium/ Dextrose 250 ml @ 25 mls/hr Q10H IV 03/31/25 02:15 03/31/25 15:06 DC 03/31/25 13:17 Heparin Sodium/ Dextrose 250 ml @ 28 mls/hr [id number] IV 03/31/25 15:15 Family History: Cerebrovascular accident (CVA) G8 FATHER Colon cancer G8 MOTHER Diabetes mellitus G8 FATHER G8 MOTHER FH: chronic kidney disease G8 FATHER FH: congestive heart failure G8 FATHER FH: heart attack G8 FATHER Hypertension G8 MOTHER H&P Exam Vital Signs/I&O Vital Sign Date Time Temp Pulse Resp B/P (MAP) Pulse Ox O2 Delivery O2 Flow Rate FiO2 03/31/25 12:15 98.0 93 20 126/72 (90) 97 98.0 03/31/25 08:00 Nasal Cannula* 4 36 Intake and Output 03/30/25 03/31/25 19:00 07:00 Intake Total 650 ml 960 ml Balance 650 ml 960 ml Intake Oral 0 ml 960 ml IV Total 650 ml # Voids 2 Labs/Diagnostic Data Labs/Diagnostic Data Laboratory Tests Test 03/31/25 14:10 03/31/25 13:00 03/31/25 11:24 03/31/25 08:15 Range/Units White Blood Count 9.8 4.4-10.8 10^3/uL Red Blood Count 5.46 4.5-5.90 10^6/uL Hemoglobin 13.4 L 13.5-17.5 g/dL Hematocrit 43.3 41.0-53.0 % Mean Corpuscular Volume 79.2 L 80.0-100.0 fL Mean Corpuscular Hemoglobin 24.6 L 28.0-32.0 pg Mean Corpuscular Hemoglobin Concent 31.1 L 32.0-36.0 g/dL Red Cell Distribution Width 20.8 H 11.8-14.3 % Platelet Count 231 140-450 10^3/uL Mean Platelet Volume 8.3 6.9-10.8 fL Neutrophils (%) (Auto) 81.2 H 37.0-80.0 % Lymphocytes (%) (Auto) 8.4 L 10.0-50.0 % Monocytes (%) (Auto) 7.8 0.0-12.0 % Eosinophils (%) (Auto) 1.8 0.0-7.0 % Basophils (%) (Auto) 0.8 0.0-2.0 % Neutrophils # (Auto) 8.0 1.6-8.6 10 ^3/uL Lymphocytes # (Auto) 0.8 0.4-5.4 10 ^3/uL Monocytes # (Auto) 0.8 0-1.3 10 ^3/uL Eosinophils # (Auto) 0.2 0-0.8 10 ^3/uL Basophils # (Auto) 0.1 0-0.2 10 ^3/uL Nucleated Red Blood Cells 0.1 % Prothrombin Time 11.8 11.4 9.3-11.8 sec Prothrombin Time INR 1.13 1.08 0.9-1.15 Activated Partial Thromboplast Time 32.3 27.3 24.5-34.5 SEC Sodium Level 136 136-145 mmol/L Potassium Level 3.5 3.5-5.1 mmol/L Chloride Level 93 L 98-107 mmol/L Carbon Dioxide Level 36 H 20-31 mmol/L Anion Gap 7 5-15 Blood Urea Nitrogen 23 # 9-23 mg/dL Creatinine 1.27 0.700-1.30 mg/dL Glomerular Filtration Rate Calc 66 >90 mL/min BUN/Creatinine Ratio 18.1 10.0-20.0 Serum Glucose 359 H 74-106 mg/dL Calcium Level 9.3 8.7-10.4 mg/dL POC Glucose 399 H 70-106 mg/dl Test 03/31/25 05:07 03/31/25 00:15 03/30/25 20:27 03/30/25 18:06 Range/Units POC Glucose 285 H 369 H 325 H 70-106 mg/dl Prothrombin Time 11.6 9.3-11.8 sec Prothrombin Time INR 1.11 0.9-1.15 Activated Partial Thromboplast Time 29.3 24.5-34.5 SEC Test 03/30/25 17:10 03/30/25 12:33 03/30/25 09:24 03/30/25 01:58 Range/Units Prothrombin Time 11.9 H 11.7 9.3-11.8 sec Prothrombin Time INR 1.14 1.12 0.9-1.15 Activated Partial Thromboplast Time 36.5 H 28.1 24.5-34.5 SEC POC Glucose 286 H 70-106 mg/dl White Blood Count 12.6 H 4.4-10.8 10^3/uL Red Blood Count 5.62 4.5-5.90 10^6/uL Hemoglobin 13.6 13.5-17.5 g/dL Hematocrit 43.4 41.0-53.0 % Mean Corpuscular Volume 77.3 L 80.0-100.0 fL Mean Corpuscular Hemoglobin 24.2 L 28.0-32.0 pg Mean Corpuscular Hemoglobin Concent 31.4 L 32.0-36.0 g/dL Red Cell Distribution Width 20.4 H 11.8-14.3 % Platelet Count 243 140-450 10^3/uL Mean Platelet Volume 7.9 6.9-10.8 fL Neutrophils (%) (Auto) 81.6 H 37.0-80.0 % Lymphocytes (%) (Auto) 8.1 L 10.0-50.0 % Monocytes (%) (Auto) 8.6 0.0-12.0 % Eosinophils (%) (Auto) 1.0 0.0-7.0 % Basophils (%) (Auto) 0.7 0.0-2.0 % Neutrophils # (Auto) 10.3 H 1.6-8.6 10 ^3/uL Lymphocytes # (Auto) 1.0 0.4-5.4 10 ^3/uL Monocytes # (Auto) 1.1 0-1.3 10 ^3/uL Eosinophils # (Auto) 0.1 0-0.8 10 ^3/uL Basophils # (Auto) 0.1 0-0.2 10 ^3/uL Nucleated Red Blood Cells 0.1 % Sodium Level 132 L 136-145 mmol/L Potassium Level 3.4 L 3.5-5.1 mmol/L Chloride Level 89 L 98-107 mmol/L Carbon Dioxide Level 33 H 20-31 mmol/L Anion Gap 10 5-15 Blood Urea Nitrogen 33 H 9-23 mg/dL Creatinine 1.50 H 0.700-1.30 mg/dL Glomerular Filtration Rate Calc 54 >90 mL/min BUN/Creatinine Ratio 22.0 H 10.0-20.0 Serum Glucose 281 H 74-106 mg/dL Calcium Level 9.4 8.7-10.4 mg/dL Blood Gas Specimen Type Arterial Blood Gas Sample Site Right radial Blood Gas Patient Temperature 37.0 Arterial Blood Date Drawn [id number] Arterial Blood pH 7.457 H 7.350-7.450 Arterial Blood Partial Pressure CO2 50.0 H 35.0-48.0 mmHg Arterial Blood Partial Pressure O2 45.2 *L 83.0-108.0 mmHg Arterial Blood HCO3 34.5 H 21.0-28.0 mmol/L Arterial Blood Oxygen Saturation 80.4 *L 94.0-98.0 % Arterial Blood Base Excess 9.0 H -2.0-3.0 mmol/L Arterial Blood Oxyhemoglobin 75.3 L 94.0-98.0 % Arterial Blood Carboxyhemoglobin 5.9 H 0.5-1.5 % Arterial Blood Methemoglobin 0.4 0.0-1.5 % Suresh Test Yes Blood Gas Total Hemoglobin 15.40 13.5-17.5 g/dL Blood Gas Modality Room air FiO2 % 21.0 Blood Gas Critical Value Read Back Yes Blood Gas Notified Whom Tanna hernandez md Blood Gas Notified Time [id number] Blood Gas Notified By Margaux ventura driver license examiner Test 03/30/25 00:17 03/30/25 00:00 Range/Units White Blood Count 12.2 H 4.4-10.8 10^3/uL Red Blood Count 6.08 H 4.5-5.90 10^6/uL Hemoglobin 15.0 13.5-17.5 g/dL Hematocrit 47.4 41.0-53.0 % Mean Corpuscular Volume 77.9 L 80.0-100.0 fL Mean Corpuscular Hemoglobin 24.7 L 28.0-32.0 pg Mean Corpuscular Hemoglobin Concent 31.7 L 32.0-36.0 g/dL Red Cell Distribution Width 20.3 H 11.8-14.3 % Platelet Count 277 140-450 10^3/uL Mean Platelet Volume 8.2 6.9-10.8 fL Neutrophils (%) (Auto) 80.6 H 37.0-80.0 % Lymphocytes (%) (Auto) 9.6 L 10.0-50.0 % Monocytes (%) (Auto) 8.0 0.0-12.0 % Eosinophils (%) (Auto) 1.0 0.0-7.0 % Basophils (%) (Auto) 0.8 0.0-2.0 % Neutrophils # (Auto) 9.8 H 1.6-8.6 10 ^3/uL Lymphocytes # (Auto) 1.2 0.4-5.4 10 ^3/uL Monocytes # (Auto) 1.0 0-1.3 10 ^3/uL Eosinophils # (Auto) 0.1 0-0.8 10 ^3/uL Basophils # (Auto) 0.1 0-0.2 10 ^3/uL Nucleated Red Blood Cells 0.2 % Sodium Level 132 L 136-145 mmol/L Potassium Level 2.9 L 3.5-5.1 mmol/L Chloride Level 89 L 98-107 mmol/L Carbon Dioxide Level 34 H 20-31 mmol/L Anion Gap 9 5-15 Blood Urea Nitrogen 29 H 9-23 mg/dL Creatinine 1.65 H 0.700-1.30 mg/dL Glomerular Filtration Rate Calc 48 >90 mL/min BUN/Creatinine Ratio 17.6 10.0-20.0 Serum Glucose 253 H 74-106 mg/dL Lactic Acid Level 2.0 0.4-2.0 mmol/L Calcium Level 9.2 8.7-10.4 mg/dL Urine Color Light-yellow Yellow Urine Clarity Clear Clear Urine pH 6.5 5.0-9.0 Urine Specific [place] 1.014 1.001-1.035 Urine Protein Negative Negative Urine Ketones Negative Negative Urine Blood Negative Negative /uL Urine Nitrite Negative Negative Urine Bilirubin Negative Negative Urine Urobilinogen Normal Negative mg/dL Urine Leukocyte Esterase Negative Negative /uL Urine RBC None seen 0 - 3 /hpf Urine Microscopic WBC 1 0-3 /HPF Urine Squamous Epithelial Cells Few <5 /hpf Urine Bacteria Few H None Seen /hpf Urine Glucose Normal Normal mg/dL Microbiology Date/Time Source Procedure Growth Status 03/30/25 18:45 Nose MRSA Screen - Final Complete Assessment 59-year-old morbidly obese male with past medical history of diabetes, hypertension, peripheral vascular disease, nonhealing lower extremity wounds recently treated with IV antibiotics returns to the hospital due to foul drainage from wound site. Nephrology consulted for acute kidney injury Acute kidney injury hemodynamically mediated Chronic kidney disease stage 2 Sepsis secondary to nonhealing foot wound in setting of diabetes IV fluid hydration IV antibiotics Avoid hypotension Avoid contrast Avoid nonsteroidal anti-inflammatory drugs Rest of care as per primary medical team Plan discussed with: Patient RASHID MIMS MD Mar 31, 2025 16:13
--- NOTE | 2025-03-31 16:22 | DVHHP2 ---
Admitting Diagnosis: Diabetic Foot Infection History of Present Illness HPI Patient is a 59-year-old male with past medical history of type 2 diabetes on insulin, morbid obesity, history of toe amputations, who presents with complaints of worsening left foot infection. Patient was recently seen at [facility] but was unable to follow-up with podiatry due to insurance reasons. Patient states he did not receive any antibiotics on discharge and subsequently returned due to worsening infection. On arrival, patient was noted to have a leukocytosis of 12.2 with purulent discharge and discoloration of the left fourth digit. Patient's glucose was noted to be elevated into the 200s. Patient was admitted for further evaluation by podiatry and vascular surgery. Home Meds Active Scripts Amiodarone Hcl (Amiodarone Hcl) 200 Mg Tab, 1 TAB PO DAILY, #30 TAB 0 Refills Prov:LORENZO AGUILAR MD 07/03/21 Metoprolol Succinate (Toprol Xl) 50 Mg Tab, 1 TAB PO DAILY, #30 TAB 0 Refills Prov:LORENZO AGUILAR MD 07/03/21 Apixaban Base (ELIQUIS) 5 Mg Tab, 5 MG PO BID for 30 Days, #60 TAB Prov:LORENZO AGUILAR MD 07/03/21 Reported Medications Metolazone (Metolazone) 5 Mg Tab, 1 TAB PO DAILY for 30 Days, #30 03/15/25 Acetaminophen (Acetaminophen Extra Stren) 500 Mg Tab, 1-2 TAB PO QID PRN for 30 Days, #240 03/15/25 Furosemide (Furosemide) 40 Mg Tab, 2 TAB PO BID for 90 Days, #360 03/15/25 Tizanidine Hydrochloride (Tizanidine Hcl) 4 Mg Tab, 1 TAB PO TID for 30 Days, #90 03/15/25 Pregabalin (Pregabalin) 200 Mg Cap, 1 CAP PO TID for 30 Days, #90 03/15/25 Amitriptyline HCl (Amitriptyline Hydrochlori) 25 Mg Tab, 1 TAB PO QHSP PRN for LUMBAGO WITH SCIATICA for 30 Days, #30 03/15/25 Trazodone Hcl (Trazodone Hcl) 100 Mg Tab, 1 TAB PO HS for 30 Days, #30 03/15/25 Oxycodone HCl (Oxycodone Hydrochloride) 10 Mg Tab, 1 TAB PO TID for 30 Days, #90 03/15/25 Atorvastatin Calcium (ATORVASTATIN CALCIUM) 40 Mg Tab, 1 TAB PO DAILY for 90 Days, #90 03/15/25 Insulin Lispro (Insulin Lispro Kwikpen) 100 Unit/Ml Inj, 15-20 UNIT SC AC for 36 Days, #30 03/15/25 Insulin Glargine (Lantus Solostar) 100 Unit/Ml Inj, 40 UNITS SC HS for 28 Days, #12 03/15/25 Hydrochlorothiazide (Hydrochlorothiazide) 25 Mg Tab, 25 MG PO DAILY for 30 Days, MG 06/24/21 Past Medical History Endocrine: IDDM Patient Family History: Cerebrovascular accident (CVA) G8 FATHER Colon cancer G8 MOTHER Diabetes mellitus G8 FATHER G8 MOTHER FH: chronic kidney disease G8 FATHER FH: congestive heart failure G8 FATHER FH: heart attack G8 FATHER Hypertension G8 MOTHER Review of Systems Constitutional: Weakness Musculoskeletal: Foot pain Skin: Lesions H&P Exam Vital Signs Vital Signs Date Time Temp Pulse Resp B/P (MAP) Pulse Ox O2 Delivery O2 Flow Rate FiO2 03/31/25 12:15 98.0 93 20 126/72 (90) 97 98.0 03/31/25 08:00 Nasal Cannula* 4 36 General Appeara: Obese Pulmonary/Respiratory: Lungs clear Cardiovascular/Chest: Regular rate Labs/Xrays Labs Test 03/31/25 14:10 03/31/25 13:00 03/31/25 11:24 03/30/25 01:58 Range/Units White Blood Count 9.8 4.4-10.8 10^3/uL Red Blood Count 5.46 4.5-5.90 10^6/uL Hemoglobin 13.4 L 13.5-17.5 g/dL Hematocrit 43.3 41.0-53.0 % Mean Corpuscular Volume 79.2 L 80.0-100.0 fL Mean Corpuscular Hemoglobin 24.6 L 28.0-32.0 pg Mean Corpuscular Hemoglobin Concent 31.1 L 32.0-36.0 g/dL Red Cell Distribution Width 20.8 H 11.8-14.3 % Platelet Count 231 140-450 10^3/uL Mean Platelet Volume 8.3 6.9-10.8 fL Neutrophils (%) (Auto) 81.2 H 37.0-80.0 % Lymphocytes (%) (Auto) 8.4 L 10.0-50.0 % Monocytes (%) (Auto) 7.8 0.0-12.0 % Eosinophils (%) (Auto) 1.8 0.0-7.0 % Basophils (%) (Auto) 0.8 0.0-2.0 % Neutrophils # (Auto) 8.0 1.6-8.6 10 ^3/uL Lymphocytes # (Auto) 0.8 0.4-5.4 10 ^3/uL Monocytes # (Auto) 0.8 0-1.3 10 ^3/uL Eosinophils # (Auto) 0.2 0-0.8 10 ^3/uL Basophils # (Auto) 0.1 0-0.2 10 ^3/uL Nucleated Red Blood Cells 0.1 % Prothrombin Time 11.8 9.3-11.8 sec Prothrombin Time INR 1.13 0.9-1.15 Activated Partial Thromboplast Time 32.3 24.5-34.5 SEC Sodium Level 136 136-145 mmol/L Potassium Level 3.5 3.5-5.1 mmol/L Chloride Level 93 L 98-107 mmol/L Carbon Dioxide Level 36 H 20-31 mmol/L Anion Gap 7 5-15 Blood Urea Nitrogen 23 # 9-23 mg/dL Creatinine 1.27 0.700-1.30 mg/dL Glomerular Filtration Rate Calc 66 >90 mL/min BUN/Creatinine Ratio 18.1 10.0-20.0 Serum Glucose 359 H 74-106 mg/dL Calcium Level 9.3 8.7-10.4 mg/dL POC Glucose 399 H 70-106 mg/dl Blood Gas Specimen Type Arterial Blood Gas Sample Site Right radial Blood Gas Patient Temperature 37.0 Arterial Blood Date Drawn [id number] Arterial Blood pH 7.457 H 7.350-7.450 Arterial Blood Partial Pressure CO2 50.0 H 35.0-48.0 mmHg Arterial Blood Partial Pressure O2 45.2 *L 83.0-108.0 mmHg Arterial Blood HCO3 34.5 H 21.0-28.0 mmol/L Arterial Blood Oxygen Saturation 80.4 *L 94.0-98.0 % Arterial Blood Base Excess 9.0 H -2.0-3.0 mmol/L Arterial Blood Oxyhemoglobin 75.3 L 94.0-98.0 % Arterial Blood Carboxyhemoglobin 5.9 H 0.5-1.5 % Arterial Blood Methemoglobin 0.4 0.0-1.5 % Suresh Test Yes Blood Gas Total Hemoglobin 15.40 13.5-17.5 g/dL Blood Gas Modality Room air FiO2 % 21.0 Blood Gas Critical Value Read Back Yes Blood Gas Notified Whom Tanna hernandez md Blood Gas Notified Time [id number] Blood Gas Notified By Margaux ventura refrigeration repair supervisor Test 03/30/25 00:17 03/30/25 00:00 Range/Units Lactic Acid Level 2.0 0.4-2.0 mmol/L Urine Color Light-yellow Yellow Urine Clarity Clear Clear Urine pH 6.5 5.0-9.0 Urine Specific [place] 1.014 1.001-1.035 Urine Protein Negative Negative Urine Ketones Negative Negative Urine Blood Negative Negative /uL Urine Nitrite Negative Negative Urine Bilirubin Negative Negative Urine Urobilinogen Normal Negative mg/dL Urine Leukocyte Esterase Negative Negative /uL Urine RBC None seen 0 - 3 /hpf Urine Microscopic WBC 1 0-3 /HPF Urine Squamous Epithelial Cells Few <5 /hpf Urine Bacteria Few H None Seen /hpf Urine Glucose Normal Normal mg/dL Microbiology Date/Time Source Procedure Growth Status 03/30/25 18:45 Nose MRSA Screen - Final Complete 03/30/25 00:17 Blood Blood Culture - Preliminary NO GROWTH AFTER 24 HOURS OF INCUBATION. Resulted Assessment/Plan Primary Diagnosis 1. Diabetic Foot Infection with Concern for Gangrene/PAD 2' Diagnosis/Co-morbidities 2. Morbid obesity 3. Type 2 diabetes insulin-dependent 4. Acute respiratory failure likely secondary to obesity hypoventilation syndrome 5. Concern for PAD Plan: - Admit to telemetry - Heparin drip for concern of PAD - CT angio of the lower extremity done which was nondiagnostic. Plan to repeat once renal function improves -MRI of the lower extremity ordered to evaluate for underlying osteomyelitis - Vascular surgery consulted, Dr. Hillman - Podiatry consulted, Dr. Juarez - Meropenem renally dosed - Blood cultures show no growth to date - Wound culture pending - ID, Dr. Duff consulted - Insulin sliding scale high-dose, glargine 40 units q. bedtime - Daily CBC and BMP -Full Code Plan discussed with: Patient CLARY ESTRELLA DO Mar 31, 2025 16:22
[2025-03-31] MEDS ORDERED: DEXTROSE (50%) 50ML SYRG IV PRN (16:30)
[2025-03-31] MEDS: SODIUM CHLORIDE 0.9% 1,000 ML IV SCH (16:55)
[2025-03-31] MEDS: OXYCODONE W/ ACETAMINOPHEN 5/325MG TABLET PO PRN (17:01)
[2025-03-31] MEDS: ACCU-CHEK COMFORT CURVE STRIP VI SCH (17:24)
[2025-03-31] MEDS: InsuLIN REG 1unit/0.01ml Soln (100units/ml) SC SCH ×2 (17:26→21:34)
[2025-03-31 21:21] LABS: INR 1.14 (0.9-1.15); Partial Thromboplastin Time 61.5 SEC (24.5-34.5); Prothrombin Time 11.9 sec (9.3-11.8)
[2025-03-31] MEDS: MEROPENEM 1GM IVPB 50 ML IV SCH (23:06)
[2025-04-01] VITALS (7 sets, daily range): BP systolic 61–140; BP diastolic 48–70; PULSE 79–106; RESP 18–20; TEMP 97.5–99.2; O2SAT 93–100
[2025-04-01 03:20] LABS: Basophils # (auto) 0.1 10 ^3/uL (0-0.2); Eosinophils # (auto) 0.2 10 ^3/uL (0-0.8); Hemoglobin 13.5 g/dL (13.5-17.5); Lymphocytes # (auto) 1.1 10 ^3/uL (0.4-5.4); Lymphocytes % (auto) 9.6 % (10.0-50.0); Nucleated Red Blood Cells % 0.1 %
[2025-04-01 03:22] LABS: Basophils % (auto) 0.8 % (0.0-2.0); Eosinophils % (auto) 1.5 % (0.0-7.0); Hematocrit 42.8 % (41.0-53.0); Mean Corpuscular Hemoglobin 24.6 pg (28.0-32.0); Mean Corpuscular Hgb Conc. 31.5 g/dL (32.0-36.0); Mean Corpuscular Volume 77.9 fL (80.0-100.0); Monocytes # (auto) 0.9 10 ^3/uL (0-1.3); Monocytes % (auto) 7.9 % (0.0-12.0); Neutrophils # (auto) 9.2 10 ^3/uL (1.6-8.6); Neutrophils % (auto) 80.2 % (37.0-80.0); Platelet Count (auto) 244 10^3/uL (140-450); Red Blood Cells 5.49 10^6/uL (4.5-5.90); Red Cell Distribution Width 20.1 % (11.8-14.3); White Blood Cell 11.4 10^3/uL (4.4-10.8)
[2025-04-01 03:25] LABS: Anion Gap 7 (5-15); Calcium 9.5 mg/dL (8.7-10.4)
[2025-04-01 03:26] LABS: Carbon Dioxide 34 mmol/L (20-31); Chloride 95 mmol/L (98-107); Potassium 3.3 mmol/L (3.5-5.1); Sodium 136 mmol/L (136-145)
[2025-04-01 03:30] LABS: BUN/Creatinine Ratio 17.4 (10.0-20.0); Blood Urea Nitrogen 19 mg/dL (9-23); Glucose 220 mg/dL (74-106)
[2025-04-01 03:35] LABS: INR 1.14 (0.9-1.15); Partial Thromboplastin Time 62.6 SEC (24.5-34.5); Prothrombin Time 11.9 sec (9.3-11.8)
[2025-04-01 09:34] LABS: INR 1.15 (0.9-1.15); Partial Thromboplastin Time 64.7 SEC (24.5-34.5)
--- NOTE | 2025-04-01 09:53 | DVH ---
MRI LEFT HEEL WITHOUT CONTRAST HISTORY: r/o OM vs abscess COMPARISON: MRI MRI L FOOT WO CONTRAST on DOS: 03/14/25, MRI MRI R FOOT WO CONTRAST on DOS: 04/19/23, MR I R FOOT WO CONTRAST on DOS: 06/23/21 CONTRAST: none TECHNIQUE: Standard MR imaging of the left heel without contrast. FINDINGS: Status post 5th metatarsal partial amputation. There is marrow edema with mild T1 hypointensity surro unding the distal aspect of the 5th metatarsal stump. There is subjacent edema and skin thickening of the soft tissues. Next There is subcutaneous emphysema with ulceration of the distal- lateral forefoot. There is marrow rep lacement and T2 / flair hyperintensity involving the 4th middle and proximal phalanges as well as the 4th metatarsal head / neck. There are degenerative changes with subchondral cysts within the cuboid- lateral cuneiform joint. Diffuse edema within the intrinsic muscles of the foot. IMPRESSION: 1. Osteomyelitis involving the 4th middle and proximal phalanges as well as the 4th metatarsal head a nd neck with associated osteonecrosis and subcutaneous emphysema with soft tissue ulceration 2. Osteomyelitis of the distal aspect of the 5th metatarsal stump with subjacent edema - fluid exten ding to the skin surface. 3. Edema within the intrinsic muscles of the foot 4. No discrete abscess
--- NOTE | 2025-04-01 12:29 | DVHPN2 ---
Progress Note - Dictate Date Seen: Apr 01, 2025 Medical Necessity Reason Pt with a Central, PICC or Fol: No Subjective Patient resting. Discussed findings of osteomyelitis and possibility of toe amputation. vital signs Vital Sign Date Time Temp Pulse Resp B/P (MAP) Pulse Ox O2 Delivery O2 Flow Rate FiO2 04/01/25 08:15 97.5 89 20 61/ 93 97.5 03/31/25 20:00 Nasal Cannula* 3 32 Total Intake and Output 03/31/25 03/31/25 04/01/25 15:00 23:00 07:00 Intake Total 118 ml 750 ml 750 ml Balance 118 ml 750 ml 750 ml medications Current Medications Medications Dose Ordered Sig/Maria Isabel Route Start Time Stop Time Status Last Admin Dose Admin Acetaminophen 325 mg Q4HP PRN PO 03/30/25 10:30 Acetaminophen/ Hydrocodone Bitart 1 tab Q4HP PRN PO 03/30/25 10:30 03/31/25 12:50 1 TAB Ondansetron HCl 4 mg Q4HP PRN IV 03/30/25 10:30 Morphine Sulfate 2 mg Q4HPRN PRN IV 03/30/25 10:30 Nitroglycerin 0.4 mg Q5MINP PRN SL 03/30/25 10:30 Morphine Sulfate 2 mg Q30M PRN IV 03/30/25 10:30 Insulin Glargine 40 units HS SC 03/30/25 22:00 03/31/25 21:35 40 UNITS Meropenem 50 ml @ 17 mls/hr Q8H IV 03/31/25 23:00 04/01/25 06:32 17 MLS/HR Heparin Sodium/ Dextrose 250 ml @ 28 mls/hr Q8H56M IV 03/31/25 15:15 04/01/25 08:52 28 MLS/HR Sodium Chloride 1,000 ml @ 50 mls/hr Q20H IV 03/31/25 16:15 03/31/25 16:55 50 MLS/HR Diagnostic Test (Pha) 1 strip ACHS 03/31/25 17:00 04/01/25 06:56 1 STRIP Insulin Human Regular AC SC 03/31/25 17:00 04/01/25 06:29 8 UNITS Insulin Human Regular HS SC 03/31/25 22:00 03/31/25 21:34 8 UNITS Dextrose 50 ml UD PRN IV 03/31/25 16:30 Oxycodone/ Acetaminophen 1 tab Q4HP PRN PO 03/31/25 16:30 04/01/25 10:15 1 TAB objective General appearance: No acute distress. Obese Respiratory: Lungs clear to auscultation. No wheezing, crackles Cardiovascular: Regular rate and rhythm, no murmurs. No edema Abdomen: Soft, nondistended, nontender, bowel sounds present MSK: Normal range of motion. Left foot infection of toe with gangrene Neuro: Alert, no neurological deficits Psych: Appropriate mood and affect. laboratory and microbiology Laboratory Tests 04/01/25 02:58 Test 04/01/25 02:58 Range/Units Serum Glucose 220 #H 74-106 mg/dL Assessment/Plan 1. Diabetic Foot Infection with Concern for Gangrene/PAD 2' Diagnosis/Co-morbidities 2. Morbid obesity 3. Type 2 diabetes insulin-dependent 4. Acute respiratory failure likely secondary to obesity hypoventilation syndrome 5. Concern for PAD Plan: - Admit to telemetry - Heparin drip for concern of PAD - CT angio of the lower extremity done which was nondiagnostic. Plan to repeat once renal function improves -MRI of the lower extremity orshows osteomyelitis - Vascular surgery consulted, Dr. Hillman - Podiatry consulted, Dr. Ang - Meropenem renally dosed. Will adjust dosing as renal function is improving. - Blood cultures show no growth to date - Wound culture pending - ID, Dr. Duff consulted - Insulin sliding scale high-dose, glargine 40 units q. bedtime. A1c pending. -NPO at midnight except ice chips pending possible surgery for Wednesday with podiatry - Daily CBC and BMP -Full Code Plan discussed with: Patient CLARY ESTRELLA DO Apr 01, 2025 12:29
[2025-04-01] MEDS ORDERED: VANCOMYCIN PER PHARMACY 0 MG IV SCH (12:45)
[2025-04-01] MEDS: Juven Fruit Punch Powder PACKET 28.8gm PO SCH (22:36)
[2025-04-02] VITALS (9 sets, daily range): BP systolic 112–135; BP diastolic 48–70; PULSE 86–114; RESP 17–23; TEMP 97.4–98.2; O2SAT 96–100
[2025-04-02 08:06] LABS: Basophils # (auto) 0.1 10 ^3/uL (0-0.2); Basophils % (auto) 0.6 % (0.0-2.0); Eosinophils # (auto) 0.2 10 ^3/uL (0-0.8); Eosinophils % (auto) 2.7 % (0.0-7.0); Hematocrit 44.6 % (41.0-53.0); Lymphocytes # (auto) 1.2 10 ^3/uL (0.4-5.4); Lymphocytes % (auto) 12.8 % (10.0-50.0); Mean Corpuscular Hgb Conc. 31.4 g/dL (32.0-36.0); Mean Corpuscular Volume 79.6 fL (80.0-100.0); Monocytes # (auto) 0.8 10 ^3/uL (0-1.3); Monocytes % (auto) 8.6 % (0.0-12.0); Neutrophils # (auto) 6.8 10 ^3/uL (1.6-8.6); Neutrophils % (auto) 75.3 % (37.0-80.0); Nucleated Red Blood Cells % 0.1 %; Platelet Count (auto) 212 10^3/uL (140-450); White Blood Cell 9.1 10^3/uL (4.4-10.8)
[2025-04-02 08:07] LABS: Red Cell Distribution Width 20.3 % (11.8-14.3)
[2025-04-02 08:10] LABS: INR 1.12 (0.9-1.15); Partial Thromboplastin Time 42.5 SEC (24.5-34.5); Prothrombin Time 11.7 sec (9.3-11.8)
--- NOTE | 2025-04-02 08:12 | ECG ---
[facility] Test Date: 2025-04-02 Test Time: 05:11:59 Pat Name: EVGENY CABRAL Department: Room: 0288T B Gender: M Cashier Manager: CLARITA : 1965 Requested By: ARACELI MARTIN Order Number: [id number] Reading MD: Bertram Bear Measurements Intervals [place] Rate: 100 P: 0 ID: 0 QRS: 6 QRSD: 108 T: 49 QT: 396 QTc: 511 Interpretive Statements Atrial fibrillation Low voltage, extremity and precordial leads Consider anterior infarct Prolonged QT interval Baseline wander in lead(s) I,II,aVR,V1 Electronically Signed On 04-03-2025 17:23:10 PDT by Bertram Bear Please click the below link to view image of tracing.
[2025-04-02 08:19] LABS: Albumin 3.8 g/dL (3.2-4.8); Anion Gap 9 (5-15); Aspartate Aminotransferase 13 U/L (<34); BUN/Creatinine Ratio 14.3 (10.0-20.0); Blood Urea Nitrogen 15 mg/dL (9-23); Calcium 9.6 mg/dL (8.7-10.4); Carbon Dioxide 30 mmol/L (20-31); Potassium 3.7 mmol/L (3.5-5.1); Total Protein 7.3 g/dL (5.7-8.2)
[2025-04-02 08:20] LABS: Bilirubin, Total 0.7 mg/dL (0.2-1.0)
[2025-04-02 08:24] LABS: Alanine Aminotransferase < 9 U/L (7-40); Alkaline Phosphatase 117 U/L (46-116); Chloride 96 mmol/L (98-107); Glucose 123 mg/dL (74-106); Sodium 135 mmol/L (136-145)
--- NOTE | 2025-04-02 09:19 | DVHINCON2 ---
Date Seen: Apr 02, 2025 Reason for Consultation Left foot wound History of Present Illness Patient is a 59-year-old male with past medical history of type 2 diabetes on insulin, morbid obesity, history of toe amputations, who presents with complaints of worsening left foot infection. Patient was recently seen at [facility] but was unable to follow-up with podiatry due to insurance reasons. Patient states he did not receive any antibiotics on discharge and subsequently returned due to worsening infection. On arrival, patient was noted to have a leukocytosis of 12.2 with purulent discharge and discoloration of the left fourth digit. Patient's glucose was noted to be elevated into the 200s. Patient was admitted for further evaluation by podiatry and vascular surgery. Past Medical History See H&P Past Surgical History See H&P Family History: Cerebrovascular accident (CVA) G8 FATHER Colon cancer G8 MOTHER Diabetes mellitus G8 FATHER G8 MOTHER FH: chronic kidney disease G8 FATHER FH: congestive heart failure G8 FATHER FH: heart attack G8 FATHER Hypertension G8 MOTHER Allergies: Coded Allergies: Penicillins (Verified Allergy, Severe, 04/21/23) Home Meds Active Scripts Amiodarone Hcl (Amiodarone Hcl) 200 Mg Tab, 1 TAB PO DAILY, #30 TAB 0 Refills Prov:LORENZO AGUILAR MD 07/03/21 Metoprolol Succinate (Toprol Xl) 50 Mg Tab, 1 TAB PO DAILY, #30 TAB 0 Refills Prov:LORENZO AGUILAR MD 07/03/21 Apixaban Base (ELIQUIS) 5 Mg Tab, 5 MG PO BID for 30 Days, #60 TAB Prov:LORENZO AGUILAR MD 07/03/21 Reported Medications Metolazone (Metolazone) 5 Mg Tab, 1 TAB PO DAILY for 30 Days, #30 03/15/25 Acetaminophen (Acetaminophen Extra Stren) 500 Mg Tab, 1-2 TAB PO QID PRN for 30 Days, #240 03/15/25 Furosemide (Furosemide) 40 Mg Tab, 2 TAB PO BID for 90 Days, #360 03/15/25 Tizanidine Hydrochloride (Tizanidine Hcl) 4 Mg Tab, 1 TAB PO TID for 30 Days, #90 03/15/25 Pregabalin (Pregabalin) 200 Mg Cap, 1 CAP PO TID for 30 Days, #90 03/15/25 Amitriptyline HCl (Amitriptyline Hydrochlori) 25 Mg Tab, 1 TAB PO QHSP PRN for LUMBAGO WITH SCIATICA for 30 Days, #30 03/15/25 Trazodone Hcl (Trazodone Hcl) 100 Mg Tab, 1 TAB PO HS for 30 Days, #30 03/15/25 Oxycodone HCl (Oxycodone Hydrochloride) 10 Mg Tab, 1 TAB PO TID for 30 Days, #90 03/15/25 Atorvastatin Calcium (ATORVASTATIN CALCIUM) 40 Mg Tab, 1 TAB PO DAILY for 90 Days, #90 03/15/25 Insulin Lispro (Insulin Lispro Kwikpen) 100 Unit/Ml Inj, 15-20 UNIT SC AC for 36 Days, #30 03/15/25 Insulin Glargine (Lantus Solostar) 100 Unit/Ml Inj, 40 UNITS SC HS for 28 Days, #12 03/15/25 Hydrochlorothiazide (Hydrochlorothiazide) 25 Mg Tab, 25 MG PO DAILY for 30 Days, MG 06/24/21 Current Medications Current Medications Medications (Trade) Dose Ordered Sig/Maria Isabel Route PRN Reason Start Time Stop Time Status Last Admin Vancomycin HCl 0 ml @ 0 mls/hr UD IV 04/01/25 12:45 Vancomycin HCl 200 ml @ 200 mls/hr Q1H IV 04/01/25 13:15 04/01/25 15:14 DC 04/01/25 14:41 Enteral Nutritional Formula (Demetrius Fruit Punch Powder PACKET) 28.8 gm BID PO 04/01/25 22:00 04/01/25 22:36 Vital Signs Vital Signs Date Time Temp Pulse Resp B/P (MAP) Pulse Ox O2 Delivery O2 Flow Rate FiO2 04/02/25 08:44 98.1 103 20 129/48 (75) 100 98.1 04/01/25 20:00 Nasal Cannula* 3 32 Physical Exam Dermatological: Skin is dry with mild erythema and some maceration around the wound site No gross deformities noted Mild non-pitting edema present bilaterally Left plantar foot wound with cellulitis and fibrosis Vascular: Dorsalis pedis and posterior tibial pulses are 1+ bilaterally Capillary refill is under 2 seconds Skin temperature is warm bilaterally Neurologic: Protective sensation is absent on the plantar forefoot bilaterally Monofilament testing reveals decreased sensation in multiple plantar sites Musculoskeletal: Range of motion at the ankle and MTP joints is within normal limits. Strength is 5/5 in all tested muscle groups. Gait is antalgic due to offloading of the affected limb. Labs/Diagnostic Data Labs Test 04/02/25 06:14 04/02/25 05:55 03/30/25 01:58 03/30/25 00:17 Range/Units White Blood Count 9.1 4.4-10.8 10^3/uL Red Blood Count 5.60 4.5-5.90 10^6/uL Hemoglobin 14.0 13.5-17.5 g/dL Hematocrit 44.6 41.0-53.0 % Mean Corpuscular Volume 79.6 L 80.0-100.0 fL Mean Corpuscular Hemoglobin 25.0 L 28.0-32.0 pg Mean Corpuscular Hemoglobin Concent 31.4 L 32.0-36.0 g/dL Red Cell Distribution Width 20.3 H 11.8-14.3 % Platelet Count 212 140-450 10^3/uL Mean Platelet Volume 8.8 6.9-10.8 fL Neutrophils (%) (Auto) 75.3 37.0-80.0 % Lymphocytes (%) (Auto) 12.8 10.0-50.0 % Monocytes (%) (Auto) 8.6 0.0-12.0 % Eosinophils (%) (Auto) 2.7 0.0-7.0 % Basophils (%) (Auto) 0.6 0.0-2.0 % Neutrophils # (Auto) 6.8 1.6-8.6 10 ^3/uL Lymphocytes # (Auto) 1.2 0.4-5.4 10 ^3/uL Monocytes # (Auto) 0.8 0-1.3 10 ^3/uL Eosinophils # (Auto) 0.2 0-0.8 10 ^3/uL Basophils # (Auto) 0.1 0-0.2 10 ^3/uL Nucleated Red Blood Cells 0.1 % Prothrombin Time 11.7 9.3-11.8 sec Prothrombin Time INR 1.12 0.9-1.15 Activated Partial Thromboplast Time 42.5 H 24.5-34.5 SEC Sodium Level 135 L 136-145 mmol/L Potassium Level 3.7 3.5-5.1 mmol/L Chloride Level 96 L 98-107 mmol/L Carbon Dioxide Level 30 20-31 mmol/L Anion Gap 9 5-15 Blood Urea Nitrogen 15 9-23 mg/dL Creatinine 1.05 0.700-1.30 mg/dL Glomerular Filtration Rate Calc 83 >90 mL/min BUN/Creatinine Ratio 14.3 10.0-20.0 Serum Glucose 123 H 74-106 mg/dL Calcium Level 9.6 8.7-10.4 mg/dL Total Bilirubin 0.7 0.2-1.0 mg/dL Aspartate Amino Transferase (AST) 13 <34 U/L Alanine Aminotransferase (ALT) < 9 7-40 U/L Alkaline Phosphatase 117 H 46-116 U/L Total Protein 7.3 5.7-8.2 g/dL Albumin 3.8 3.2-4.8 g/dL Random Vancomycin Level 8.8 5-10 ug/mL POC Glucose 159 H 70-106 mg/dl Blood Gas Specimen Type Arterial Blood Gas Sample Site Right radial Blood Gas Patient Temperature 37.0 Arterial Blood Date Drawn [id number] Arterial Blood pH 7.457 H 7.350-7.450 Arterial Blood Partial Pressure CO2 50.0 H 35.0-48.0 mmHg Arterial Blood Partial Pressure O2 45.2 *L 83.0-108.0 mmHg Arterial Blood HCO3 34.5 H 21.0-28.0 mmol/L Arterial Blood Oxygen Saturation 80.4 *L 94.0-98.0 % Arterial Blood Base Excess 9.0 H -2.0-3.0 mmol/L Arterial Blood Oxyhemoglobin 75.3 L 94.0-98.0 % Arterial Blood Carboxyhemoglobin 5.9 H 0.5-1.5 % Arterial Blood Methemoglobin 0.4 0.0-1.5 % Suresh Test Yes Blood Gas Total Hemoglobin 15.40 13.5-17.5 g/dL Blood Gas Modality Room air FiO2 % 21.0 Blood Gas Critical Value Read Back Yes Blood Gas Notified Whom Tanna hernandez md Blood Gas Notified Time [id number] Blood Gas Notified By Margaux ventura rrt Lactic Acid Level 2.0 0.4-2.0 mmol/L Test 03/30/25 00:00 Range/Units Urine Color Light-yellow Yellow Urine Clarity Clear Clear Urine pH 6.5 5.0-9.0 Urine Specific [place] 1.014 1.001-1.035 Urine Protein Negative Negative Urine Ketones Negative Negative Urine Blood Negative Negative /uL Urine Nitrite Negative Negative Urine Bilirubin Negative Negative Urine Urobilinogen Normal Negative mg/dL Urine Leukocyte Esterase Negative Negative /uL Urine RBC None seen 0 - 3 /hpf Urine Microscopic WBC 1 0-3 /HPF Urine Squamous Epithelial Cells Few <5 /hpf Urine Bacteria Few H None Seen /hpf Urine Glucose Normal Normal mg/dL Microbiology Date/Time Source Procedure Growth Status 03/30/25 18:45 Nose MRSA Screen - Final Complete 03/30/25 00:17 Blood Blood Culture - Preliminary NO GROWTH AFTER 72 HOURS OF INCUBATION. Resulted Problems(with codes): (1) Diabetes (2) Dyspnea (3) CHF (congestive heart failure) (4) Peripheral vascular disease (5) UTI (urinary tract infection) (6) Hypertension (7) Cellulitis and abscess of foot (8) Diabetic foot ulcer (9) Right leg pain (10) Acute on chronic kidney failure (11) Acute prerenal azotemia (12) Cellulitis and abscess of right leg (13) Charcot arthropathy of midfoot (14) COPD (chronic obstructive pulmonary disease) (15) Type 2 diabetes mellitus (16) Chronic kidney disease (17) Supplemental oxygen dependent (18) Heart failure with reduced ejection fraction (19) Hyperglycemia (20) Cellulitis of left foot Plan/Recommendation ASSESSMENT: Patient is a 59 year old seen on the floor for a worsening ulcer PLAN: - The patients chart was reviewed, clinical findings were discussed with the patient, the etiologies of the conditions were discussed in detail, and a treatment plan was agreed to at this time, with both oral and written instructi ons provided. - reviewed advanced imaging - discussed plan is to perform an incision and drainage - patient has been NPO since midnight - take him to the OR today - we will get cultures in the OR - can weightbear as tolerated in postoperative shoe All questions were answered and concerns addressed to the patient's satisfaction. The patient was given the phone number to the clinic and was told how to make contact with the clinic should any concerns or questions arise. Patient understands that if any questions or concerns arise prior to the next appointment, we should be contacted immediately. FOLLOW-UP: Continue to follow while inpatient Plan discussed with: Patient Date of Service: Apr 02, 2025 Billing Provider: ARACELI MARTIN DPM Common Visit Codes: CONSULT ONLY Consultation Codes: [id number] CONSULT <80MIN ARACELI MARTIN DPM Apr 02, 2025 09:19
--- NOTE | 2025-04-02 10:54 | DVHPN2 ---
Progress Note - Dictate Date Seen: Apr 02, 2025 Medical Necessity Reason Pt with a Central, PICC or Fol: No Subjective Patient resting. Discussed findings of osteomyelitis and plan for surgery today. Discussed possibility of IV AB and need for home health, which patient agrees to if needed. vital signs Vital Sign Date Time Temp Pulse Resp B/P (MAP) Pulse Ox O2 Delivery O2 Flow Rate FiO2 04/02/25 08:44 98.1 103 20 129/48 (75) 100 98.1 04/02/25 08:00 Nasal Cannula* 3 32 Total Intake and Output 04/01/25 04/01/25 04/02/25 15:00 23:00 07:00 Intake Total 500 ml 1795 ml 345 ml Output Total 750 ml 450 ml Balance 500 ml 1045 ml -105 ml medications Current Medications Medications Dose Ordered Sig/Maria Isabel Route Start Time Stop Time Status Last Admin Dose Admin Acetaminophen 325 mg Q4HP PRN PO 03/30/25 10:30 Acetaminophen/ Hydrocodone Bitart 1 tab Q4HP PRN PO 03/30/25 10:30 04/02/25 08:30 1 TAB Ondansetron HCl 4 mg Q4HP PRN IV 03/30/25 10:30 Morphine Sulfate 2 mg Q4HPRN PRN IV 03/30/25 10:30 Nitroglycerin 0.4 mg Q5MINP PRN SL 03/30/25 10:30 Morphine Sulfate 2 mg Q30M PRN IV 03/30/25 10:30 Insulin Glargine 40 units HS SC 03/30/25 22:00 04/01/25 22:26 40 UNITS Meropenem 50 ml @ 17 mls/hr Q8H IV 03/31/25 23:00 04/02/25 06:36 17 MLS/HR Heparin Sodium/ Dextrose 250 ml @ 28 mls/hr Q8H56M IV 03/31/25 15:15 04/02/25 02:40 28 MLS/HR Sodium Chloride 1,000 ml @ 50 mls/hr Q20H IV 03/31/25 16:15 04/02/25 08:30 50 MLS/HR Diagnostic Test (Pha) 1 strip ACHS 03/31/25 17:00 04/02/25 06:35 1 STRIP Insulin Human Regular AC SC 03/31/25 17:00 04/02/25 06:34 2 UNITS Insulin Human Regular HS SC 03/31/25 22:00 04/01/25 22:26 3 UNITS Dextrose 50 ml UD PRN IV 03/31/25 16:30 Oxycodone/ Acetaminophen 1 tab Q4HP PRN PO 03/31/25 16:30 04/02/25 05:44 1 TAB Vancomycin HCl 0 ml @ 0 mls/hr UD IV 04/01/25 12:45 Enteral Nutritional Formula 28.8 gm BID PO 04/01/25 22:00 04/01/25 22:36 28.8 GM objective General appearance: No acute distress. Obese Respiratory: Lungs clear to auscultation. No wheezing, crackles Cardiovascular: Regular rate and rhythm, no murmurs. No edema Abdomen: Soft, nondistended, nontender, bowel sounds present MSK: Normal range of motion. Left foot infection of toe with gangrene Neuro: Alert, no neurological deficits Psych: Appropriate mood and affect. laboratory and microbiology Laboratory Tests 04/02/25 06:14 Test 04/02/25 06:14 Range/Units Serum Glucose 123 H 74-106 mg/dL Assessment/Plan 1. Diabetic Foot Infection with Concern for Gangrene/PAD 2' Diagnosis/Co-morbidities 2. Morbid obesity 3. Type 2 diabetes insulin-dependent 4. Acute respiratory failure likely secondary to obesity hypoventilation syndrome 5. Concern for PAD 6. Chronic Opioid Dependence Plan: - Heparin drip for concern of PAD - CT angio of the lower extremity done which was nondiagnostic. Plan to repeat once renal function improves -MRI of the lower extremity shows osteomyelitis - Vascular surgery consulted, Dr. Hillman - Podiatry consulted, Dr. Ang. Plan for surgery 04/02 - Meropenem as scheduled. - Blood cultures show no growth to date - Wound culture pending - ID, Dr. Duff consulted - Insulin sliding scale high-dose, glargine 40 units q. bedtime. A1c pending. -NPO for surgery -Pt takes oxycodone at home for chronic pain, restarted - Daily CBC and BMP -Full Code Dietary Evaluation Review Recommendations by RD: Dietary education by RD, Protein Supplementation Comments: 1) Initiate Demetrius @ 1 pk bid 2) Initiate MVI @ 1 tb qd 3) Encourage optimal PO intake 4) Collect HbA1C 5) Refer to outpatient RD/[facility] for diabetes education and weight management 6) Follow-up with podiatry, vascular surgery, cardiology, and nephrology 7) Continue to monitor I&O, labs, and skin integrity Expected Outcomes/Goals: 1) appetite and labs to improve 2) wound to improve 3) f/u in 3-5 days Plan discussed with: Patient CLARY ESTRELLA DO Apr 02, 2025 10:54
[2025-04-02] MEDS: HEPARIN DRIP/D5W 100UNITS/ML 250 ML IV SCH (11:35)
--- NOTE | 2025-04-02 12:03 | DVHCONRES ---
Date Seen: Apr 02, 2025 Resident Creating Document: RAQUEL JANE RESIDENT Referring Physician Charly Reason for Consultation Infected Diabetic foot wound History of Present Illness This 59-year-old male with past medical history of type 2 diabetes mellitus insulin dependent, hypertension, dyslipidemia, COPD, AFib, CHF, CKD, history of bilateral 5th toe amputations, who presented to the ED with chief complaint of worsening left foot ulcer infection. The patient stated that he was recently discharged from the [facility] but was not able to follow up with rn peritoneal dialysis and did not receive any antibiotics on discharge. Patient states that the wound got w orse with purulent secretion and foul smelling. Upon admission, the patient had elevated WBC at 12.2 associated with purulent discharge from the plantar aspect of the left foot just below the 4th metatarsal bone with associated bluish discoloration of the 4th digit of the left foot likely gangrenous. Initial blood glucose was significantly elevated above 200s. Blood cultures came back negative and wound culture is currently growing Staphylococcus aureus and possible Enterococcus suspicious. The patient is currently receiving vancomycin and meropenem for active infection. On initial left foot x-ray was performed showing amputation of the 5th metatarsal, there was soft tissue swelling and emphysema noted as well. A subsequent left foot MRI showed osteomyelitis involving the 4th middle and proximal phalanges as well as the 4th metatarsal head and neck with a associated osteonecrosis and subcutaneous emphysema with soft tissue ulceration. There was also osteomyelitis of the distal aspect of the 5th metatarsal stump with subjacent edema. A left lower extremity arterial Doppler ultrasound was performed as well due to PAD but no significant hemodynamic stenosis was noted on initial evaluation. Customer Strategy Manager is consulted and involved in the case which most likely we will perform surgical debridement today in the OR. Upon my examination, there is serosanguineous fluid/purulent material draining from the plantar aspect of the left foot just below the 4th metatarsal bone associated with foul smelling and significant pain rated as 10/10 on the pain scale. We will continue current IV antibiotics and wait for surgical procedure to be done to determine the extensive of the debridement or amputation if needed. Past Medical History COPD, hypertension, dyslipidemia, type 2 diabetes mellitus insulin-dependent, AFib, CHF, CKD Past Surgical History Bilateral amputation of the 5th digit of both feet. Family History: Cerebrovascular accident (CVA) G8 FATHER Colon cancer G8 MOTHER Diabetes mellitus G8 FATHER G8 MOTHER FH: chronic kidney disease G8 FATHER FH: congestive heart failure G8 FATHER FH: heart attack G8 FATHER Hypertension G8 MOTHER Family History denies Social History denies Allergies: Coded Allergies: Penicillins (Verified Allergy, Severe, 04/21/23) Home Meds Active Scripts Amiodarone Hcl (Amiodarone Hcl) 200 Mg Tab, 1 TAB PO DAILY, #30 TAB 0 Refills Prov:LORENZO AGUILAR MD 07/03/21 Metoprolol Succinate (Toprol Xl) 50 Mg Tab, 1 TAB PO DAILY, #30 TAB 0 Refills Prov:LORENZO AGUILAR MD 07/03/21 Apixaban Base (ELIQUIS) 5 Mg Tab, 5 MG PO BID for 30 Days, #60 TAB Prov:LORENZO AGUILAR MD 07/03/21 Reported Medications Metolazone (Metolazone) 5 Mg Tab, 1 TAB PO DAILY for 30 Days, #30 03/15/25 Acetaminophen (Acetaminophen Extra Stren) 500 Mg Tab, 1-2 TAB PO QID PRN for 30 Days, #240 03/15/25 Furosemide (Furosemide) 40 Mg Tab, 2 TAB PO BID for 90 Days, #360 03/15/25 Tizanidine Hydrochloride (Tizanidine Hcl) 4 Mg Tab, 1 TAB PO TID for 30 Days, #90 03/15/25 Pregabalin (Pregabalin) 200 Mg Cap, 1 CAP PO TID for 30 Days, #90 03/15/25 Amitriptyline HCl (Amitriptyline Hydrochlori) 25 Mg Tab, 1 TAB PO QHSP PRN for LUMBAGO WITH SCIATICA for 30 Days, #30 03/15/25 Trazodone Hcl (Trazodone Hcl) 100 Mg Tab, 1 TAB PO HS for 30 Days, #30 03/15/25 Oxycodone HCl (Oxycodone Hydrochloride) 10 Mg Tab, 1 TAB PO TID for 30 Days, #90 03/15/25 Atorvastatin Calcium (ATORVASTATIN CALCIUM) 40 Mg Tab, 1 TAB PO DAILY for 90 Days, #90 03/15/25 Insulin Lispro (Insulin Lispro Kwikpen) 100 Unit/Ml Inj, 15-20 UNIT SC AC for 36 Days, #30 03/15/25 Insulin Glargine (Lantus Solostar) 100 Unit/Ml Inj, 40 UNITS SC HS for 28 Days, #12 03/15/25 Hydrochlorothiazide (Hydrochlorothiazide) 25 Mg Tab, 25 MG PO DAILY for 30 Days, MG 06/24/21 Current Medications Current Medications Medications (Trade) Dose Ordered Sig/Maria Isabel Route PRN Reason Start Time Stop Time Status Last Admin Vancomycin HCl 0 ml @ 0 mls/hr UD IV 04/01/25 12:45 Vancomycin HCl 200 ml @ 200 mls/hr Q1H IV 04/01/25 13:15 04/01/25 15:14 DC 04/01/25 14:41 Enteral Nutritional Formula (Demetrius Fruit Punch Powder PACKET) 28.8 gm BID PO 04/01/25 22:00 04/01/25 22:36 Heparin Sodium/ Dextrose 250 ml @ 30 mls/hr Q8H20M IV 04/02/25 11:45 04/02/25 11:35 Review of Systems ROS Constitutional: Denies weight loss, fever and chills. HEENT: Denies changes in vision and hearing. Respiratory: Denies shortness of breath and cough Cardiovascular: Denies chest discomfort or palpitations GI: Denies abdominal pain, nausea, vomiting and diarrhea. : Denies dysuria and urinary frequency. Musculoskeletal: Reports significant pain in the plantar aspect of the left foot associated with serosanguineous/purulent discharge and foul smelling. Skin: Denies rash and pruritus. Neurological: Denies dizziness, headache, vision or hearing problems Vital Signs Vital Signs Date Time Temp Pulse Resp B/P (MAP) Pulse Ox O2 Delivery O2 Flow Rate FiO2 04/02/25 08:44 98.1 103 20 129/48 (75) 100 98.1 04/02/25 08:00 Nasal Cannula* 3 32 Physical Exam Physical Examination General: Patient alert and oriented in person, place and time. Patient following commands. HEENT: Normocephalic, atraumatic, moist mucous membranes Respiratory/pulmonary: There is decreased breath sounds on bilateral lung king, no wheezes or crackles at this time. Patient is currently on 3 L of oxygen through nasal cannula. Cardiovascular: Normal heart sounds S1 and S2 with no associated murmurs Abdomen: Abdomen nondistended, there is no pain to palpation in any of the abdominal quadrants, no palpable masses. Extremities: There is amputation of bilateral 5th digits on both feet. Left foot has a drainage that is soak of serosanguineous/purulent material in the plantar aspect of the left foot with foul-smelling and significant pain. Skin: No rashes or pruritus, there is no sacral edema present at this time. Neurological: Intact cranial nerves with no focal neurologic deficits Labs/Diagnostic Data Labs Test 04/02/25 11:28 04/02/25 06:14 03/30/25 01:58 03/30/25 00:17 Range/Units POC Glucose 180 H 70-106 mg/dl White Blood Count 9.1 4.4-10.8 10^3/uL Red Blood Count 5.60 4.5-5.90 10^6/uL Hemoglobin 14.0 13.5-17.5 g/dL Hematocrit 44.6 41.0-53.0 % Mean Corpuscular Volume 79.6 L 80.0-100.0 fL Mean Corpuscular Hemoglobin 25.0 L 28.0-32.0 pg Mean Corpuscular Hemoglobin Concent 31.4 L 32.0-36.0 g/dL Red Cell Distribution Width 20.3 H 11.8-14.3 % Platelet Count 212 140-450 10^3/uL Mean Platelet Volume 8.8 6.9-10.8 fL Neutrophils (%) (Auto) 75.3 37.0-80.0 % Lymphocytes (%) (Auto) 12.8 10.0-50.0 % Monocytes (%) (Auto) 8.6 0.0-12.0 % Eosinophils (%) (Auto) 2.7 0.0-7.0 % Basophils (%) (Auto) 0.6 0.0-2.0 % Neutrophils # (Auto) 6.8 1.6-8.6 10 ^3/uL Lymphocytes # (Auto) 1.2 0.4-5.4 10 ^3/uL Monocytes # (Auto) 0.8 0-1.3 10 ^3/uL Eosinophils # (Auto) 0.2 0-0.8 10 ^3/uL Basophils # (Auto) 0.1 0-0.2 10 ^3/uL Nucleated Red Blood Cells 0.1 % Prothrombin Time 11.7 9.3-11.8 sec Prothrombin Time INR 1.12 0.9-1.15 Activated Partial Thromboplast Time 42.5 H 24.5-34.5 SEC Sodium Level 135 L 136-145 mmol/L Potassium Level 3.7 3.5-5.1 mmol/L Chloride Level 96 L 98-107 mmol/L Carbon Dioxide Level 30 20-31 mmol/L Anion Gap 9 5-15 Blood Urea Nitrogen 15 9-23 mg/dL Creatinine 1.05 0.700-1.30 mg/dL Glomerular Filtration Rate Calc 83 >90 mL/min BUN/Creatinine Ratio 14.3 10.0-20.0 Serum Glucose 123 H 74-106 mg/dL Calcium Level 9.6 8.7-10.4 mg/dL Total Bilirubin 0.7 0.2-1.0 mg/dL Aspartate Amino Transferase (AST) 13 <34 U/L Alanine Aminotransferase (ALT) < 9 7-40 U/L Alkaline Phosphatase 117 H 46-116 U/L Total Protein 7.3 5.7-8.2 g/dL Albumin 3.8 3.2-4.8 g/dL Random Vancomycin Level 8.8 5-10 ug/mL Blood Gas Specimen Type Arterial Blood Gas Sample Site Right radial Blood Gas Patient Temperature 37.0 Arterial Blood Date Drawn [id number] Arterial Blood pH 7.457 H 7.350-7.450 Arterial Blood Partial Pressure CO2 50.0 H 35.0-48.0 mmHg Arterial Blood Partial Pressure O2 45.2 *L 83.0-108.0 mmHg Arterial Blood HCO3 34.5 H 21.0-28.0 mmol/L Arterial Blood Oxygen Saturation 80.4 *L 94.0-98.0 % Arterial Blood Base Excess 9.0 H -2.0-3.0 mmol/L Arterial Blood Oxyhemoglobin 75.3 L 94.0-98.0 % Arterial Blood Carboxyhemoglobin 5.9 H 0.5-1.5 % Arterial Blood Methemoglobin 0.4 0.0-1.5 % Suresh Test Yes Blood Gas Total Hemoglobin 15.40 13.5-17.5 g/dL Blood Gas Modality Room air FiO2 % 21.0 Blood Gas Critical Value Read Back Yes Blood Gas Notified Whom Tanna hernandez md Blood Gas Notified Time [id number] Blood Gas Notified By Margaux ventura rrt Lactic Acid Level 2.0 0.4-2.0 mmol/L Test 03/30/25 00:00 Range/Units Urine Color Light-yellow Yellow Urine Clarity Clear Clear Urine pH 6.5 5.0-9.0 Urine Specific [place] 1.014 1.001-1.035 Urine Protein Negative Negative Urine Ketones Negative Negative Urine Blood Negative Negative /uL Urine Nitrite Negative Negative Urine Bilirubin Negative Negative Urine Urobilinogen Normal Negative mg/dL Urine Leukocyte Esterase Negative Negative /uL Urine RBC None seen 0 - 3 /hpf Urine Microscopic WBC 1 0-3 /HPF Urine Squamous Epithelial Cells Few <5 /hpf Urine Bacteria Few H None Seen /hpf Urine Glucose Normal Normal mg/dL Microbiology Date/Time Source Procedure Growth Status 03/30/25 18:45 Nose MRSA Screen - Final Complete 03/30/25 00:17 Blood Blood Culture - Preliminary NO GROWTH AFTER 72 HOURS OF INCUBATION. Resulted Assessment Assessment/Plan Acute left foot infected diabetic wound Acute osteomyelitis of the distal aspect of the 5th metatarsal stump Possible gangrene of the 4th metatarsal head Acute hypoxic respiratory failure likely due to obesity hyperventilation syndrome Uncontrolled type 2 diabetes mellitus with insulin dependence Peripheral artery disease Morbid obesity Primary hypertension Dyslipidemia COPD History of CHF and CKD Plan -wound culture showing Staphylococcus aureus and possible Enterococcus species -continue IV vancomycin -Discontinue Meropenem -Start IV Cefepime -Ordered Hb A1c -rn peritoneal dialysis on board, performed left foot incision and drainage to bone, left foot biopsy of the 3rd proximal phalanx and left foot bone biopsy of the 3rd metatarsal. -wound consult for daily wound care, wound dressing. -Control blood glucose (140-180mg/dl) Goals of care discussed with the patient at bedside for >35min, FULL CODE Plan discussed with Dr. Duff Plan discussed with: Patient RAQUEL JANE RESIDENT Apr 02, 2025 12:03
[2025-04-02] MEDS: BUPIVACAINE 0.5% P/F INJ 10 ML VIAL ONE (15:15)
[2025-04-02] MEDS ORDERED: PROPOFOL 10 MG/ML 20 ML IV ONE (15:22)
[2025-04-02] MEDS ORDERED: fentaNYL CITRATE 100 MCG/2 ML VL ONE (15:22)
[2025-04-02] MEDS ORDERED: MIDAZOLAM HCL 2MG/2ML 2ml VIAL (1mg/ml) ONE (15:22)
[2025-04-02] MEDS ORDERED: METOCLOPRAMIDE HCL 5MG/ml INJ 2ml VIAL ONE (15:23)
[2025-04-02] MEDS ORDERED: ONDANSETRON HCL 4 MG/2 ML VIAL ONE (15:23)
--- NOTE | 2025-04-02 15:53 | DVHOP2 ---
Operative Report - 2 Report Details Date: 04/02/25 Preop Diagnosis: 1. Left foot osteomyelitis 2. Left foot abscess 3. Left foot cellulitis 4. Left foot diabetic foot ulcer Postop Diagnosis: Same as preop Surgeon: Araceli Martin MD Anesthesiologist: See anesthesia Anesthesia: Mac Consent: The patient was informed of the risks and benefits of the procedure. These include but are not limited to complications of anesthesia, postoperative infection, incomplete relief of symptoms, recurrence of symptoms, damage to blood vessels, nerves and tendons, deep venous thrombosis, pulmonary embolism and possible need for repeat surgery in the future. Complications: None Estimated Blood Loss: Minimal Fluids: See anesthesia Findings: Consistent with the diagnosis Indications for Surgery: Worsening left foot wound Name of Procedure Performed 1. Left foot I&D to bone () 2. Left foot bone biopsy third proximal phalanx () 3. Left foot bone biopsy 3rd metatarsal () Procedure Details Procedure Details: PRE-PROCEDURE INFORMATION: In the pre-op holding area, the extremity to be operated on was clearly marked and the patient verified correct laterality of the marking. The patient was transferred to the OR table and placed in a supine position. A timeout was performed in which identification of the correct patient, procedure, location, and materials was done. The _ foot and leg were prepped and draped in normal sterile fashion. The foot and leg were exsanguinated and the _ tourniquet was inflated to 250 mmHg. DESCRIPTION OF PROCEDURE: Attention was directed to the _ where area of fluctuance was noted. An incision was made over this area and was deepened through blunt dissection. The incision was deepened to the level of abscess and bone. Care was taken to the dissection to avoid any neurovascular and tendinous structures. The incision was deepened to the bone, and the abscess appeared to be purulent fluid consistent with pus. The cortices of the bone was then removed with rongeur an all necrotic tissue. After the abscess was drained, the area was irrigated with 3 L normal saline using cysto tubing. Deep cultures were then obtained from the wound. The area was then inspected and any areas of tracking, especially along the tendons were also drained. A bone biopsy was then taken of the left 3rd proximal phalanx which was deepened to the muscle belly and tendons. The bone was then sent to pathology to determine the extent of osteomyelitis. A bone biopsy was then taken of the left 3rd metatarsal which was deepened to the muscle belly and tendons. The bone was then sent to pathology to determine the extent of osteomyelitis. The wound was packed with Betadine-soaked gauze and we will need to be closed at a later date. POSTOPERATIVE INFORMATION: The patient tolerated the above noted procedure and anesthesia well and was transferred to the PACU with vital signs stable, and vascular status intact with capillary refill intact to all digits. Cultures were taken and bone biopsy was taken. Patient will return to the floor continue IV antibiotics. Patient will be taken back another day. Specimen: Left 3rd metatarsal Left 3rd proximal phalanx Condition Good Disposition Still a Patient ARACELI MARTIN DPM Apr 02, 2025 15:53
[2025-04-02] MEDS: VANCOMYCIN 1.25GM/250ML 250 ML IV SCH (17:36)
[2025-04-02 18:29] LABS: INR 1.13 (0.9-1.15); Prothrombin Time 11.8 sec (9.3-11.8)
[2025-04-02 18:32] LABS: Partial Thromboplastin Time 72.6 SEC (24.5-34.5)
--- NOTE | 2025-04-02 19:10 | DVHPN2 ---
Progress Note Date Seen: Apr 02, 2025 Medical Necessity Reason Pt with a Central, PICC or Fol: No Subjective Patient reports: No new complaints Review of Systems: Deferred Objective vital signs Vital Sign Date Time Temp Pulse Resp B/P (MAP) Pulse Ox O2 Delivery O2 Flow Rate FiO2 04/02/25 16:52 97.4 94 20 118/61 (80) 99 97.4 04/02/25 15:49 Nasal Cannula 4.0 04/02/25 15:49 96 Total Intake and Output 04/01/25 04/01/25 04/02/25 15:00 23:00 07:00 Intake Total 500 ml 1795 ml 345 ml Output Total 750 ml 450 ml Balance 500 ml 1045 ml -105 ml medications Current Medications Medications Dose Ordered Sig/Maria Isabel Route Start Time Stop Time Status Last Admin Dose Admin Acetaminophen 325 mg Q4HP PRN PO 03/30/25 10:30 Acetaminophen/ Hydrocodone Bitart 1 tab Q4HP PRN PO 03/30/25 10:30 04/02/25 08:30 1 TAB Ondansetron HCl 4 mg Q4HP PRN IV 03/30/25 10:30 Morphine Sulfate 2 mg Q4HPRN PRN IV 03/30/25 10:30 Nitroglycerin 0.4 mg Q5MINP PRN SL 03/30/25 10:30 Morphine Sulfate 2 mg Q30M PRN IV 03/30/25 10:30 Insulin Glargine 40 units HS SC 03/30/25 22:00 04/01/25 22:26 40 UNITS Sodium Chloride 1,000 ml @ 50 mls/hr Q20H IV 03/31/25 16:15 04/02/25 08:30 50 MLS/HR Diagnostic Test (Pha) 1 strip ACHS 03/31/25 17:00 04/02/25 17:37 1 STRIP Insulin Human Regular AC SC 03/31/25 17:00 04/02/25 17:37 4 UNITS Insulin Human Regular HS SC 03/31/25 22:00 04/01/25 22:26 3 UNITS Dextrose 50 ml UD PRN IV 03/31/25 16:30 Oxycodone/ Acetaminophen 1 tab Q4HP PRN PO 03/31/25 16:30 04/02/25 05:44 1 TAB Vancomycin HCl 0 ml @ 0 mls/hr UD IV 04/01/25 12:45 Enteral Nutritional Formula 28.8 gm BID PO 04/01/25 22:00 04/01/25 22:36 28.8 GM Heparin Sodium/ Dextrose 250 ml @ 30 mls/hr Q8H20M IV 04/02/25 11:45 04/02/25 11:35 30 MLS/HR Vancomycin HCl 250 ml @ 200 mls/hr Q12H IV 04/02/25 16:00 04/02/25 17:36 200 MLS/HR Cefepime HCl 50 ml @ 12.5 mls/hr Q8HR IV 04/02/25 22:00 Examination: MSK:Abnormal, SKIN:Abnormal laboratory and microbiology Laboratory Tests 04/02/25 06:14 Test 04/02/25 06:14 Range/Units Serum Glucose 123 H 74-106 mg/dL Microbiology Date/Time Source Procedure Growth Status 03/30/25 18:45 Nose MRSA Screen - Final Complete 03/30/25 00:17 Blood Blood Culture - Preliminary NO GROWTH AFTER 72 HOURS OF INCUBATION. Resulted Problem List/Assessment/Plan Problem List/Assessment/Plan Acute kidney injury hemodynamically mediated Chronic kidney disease stage 2 Sepsis secondary to nonhealing foot wound in setting of diabetes Recommendations Renal function better I will sign off this case Please reconsult if needed Plan discussed with: Patient Dietary Evaluation Review Recommendations by RD: Dietary education by RD, Protein Supplementation Comments: 1) Initiate Demetrius @ 1 pk bid 2) Initiate MVI @ 1 tb qd 3) Encourage optimal PO intake 4) Collect HbA1C 5) Refer to outpatient RD/[facility] for diabetes education and weight management 6) Follow-up with podiatry, vascular surgery, cardiology, and nephrology 7) Continue to monitor I&O, labs, and skin integrity Expected Outcomes/Goals: 1) appetite and labs to improve 2) wound to improve 3) f/u in 3-5 days RAE BENAVIDEZ MD Apr 02, 2025 19:10
[2025-04-02] MEDS ORDERED: VANCOMYCIN 1.25GM/250ML 250 ML IV SCH (19:15)
[2025-04-02] MEDS: CEFEPIME 2GM/50ML NS 50 ML IV SCH (21:50)
[2025-04-03] VITALS (9 sets, daily range): BP systolic 89–128; BP diastolic 55–68; PULSE 85–105; RESP 18–20; TEMP 97.5–98.4; O2SAT 97–100
[2025-04-03 00:06] LABS: INR 1.13 (0.9-1.15); Prothrombin Time 11.8 sec (9.3-11.8)
[2025-04-03 00:09] LABS: Partial Thromboplastin Time 75.5 SEC (24.5-34.5)
[2025-04-03] MEDS: VANCOMYCIN 1.25GM/250ML 250 ML IV SCH (05:04)
[2025-04-03] MEDS: MORPHINE SULFATE INJ 2 MG/ml SYRG IV PRN (06:40)
[2025-04-03 07:18] LABS: Basophils # (auto) 0.1 10 ^3/uL (0-0.2); Eosinophils # (auto) 0.2 10 ^3/uL (0-0.8); Lymphocytes # (auto) 1.1 10 ^3/uL (0.4-5.4)
[2025-04-03 07:22] LABS: Basophils % (auto) 0.7 % (0.0-2.0); Hemoglobin 12.8 g/dL (13.5-17.5); Mean Corpuscular Hemoglobin 24.6 pg (28.0-32.0); Mean Corpuscular Hgb Conc. 31.3 g/dL (32.0-36.0); Mean Corpuscular Volume 78.6 fL (80.0-100.0); Monocytes # (auto) 0.9 10 ^3/uL (0-1.3); Monocytes % (auto) 8.3 % (0.0-12.0); Neutrophils # (auto) 8.8 10 ^3/uL (1.6-8.6); Platelet Count (auto) 219 10^3/uL (140-450); Red Blood Cells 5.21 10^6/uL (4.5-5.90); White Blood Cell 11.2 10^3/uL (4.4-10.8)
[2025-04-03 07:41] LABS: Albumin 3.7 g/dL (3.2-4.8); Anion Gap 8 (5-15); Aspartate Aminotransferase 9 U/L (<34); BUN/Creatinine Ratio 14.4 (10.0-20.0); Bilirubin, Total 0.6 mg/dL (0.2-1.0); Blood Urea Nitrogen 14 mg/dL (9-23); Calcium 8.8 mg/dL (8.7-10.4); Potassium 3.9 mmol/L (3.5-5.1); Sodium 136 mmol/L (136-145)
[2025-04-03 07:42] LABS: Carbon Dioxide 32 mmol/L (20-31); Chloride 96 mmol/L (98-107); Glucose 215 mg/dL (74-106)
[2025-04-03 07:43] LABS: Alanine Aminotransferase < 9 U/L (7-40); Alkaline Phosphatase 125 U/L (46-116)
[2025-04-03 07:49] LABS: INR 1.15 (0.9-1.15)
[2025-04-03 07:55] LABS: Partial Thromboplastin Time 83.5 SEC (24.5-34.5)
[2025-04-03] MEDS: HEPARIN DRIP/D5W 100UNITS/ML 250 ML IV SCH ×2 (08:19→16:41)
--- NOTE | 2025-04-03 08:19 | CONS ---
Pharmacy Clinical Information: Heparin per pharmacy Spoke to MILLER Escobar regarding heparin dose change Current dose: 3000 units/hr Current aPTT: 83.5 on 04/03/25 @ 0512 Bolus: No Hold infusion 1 hr: No Decrease to new dose: 2800 units/hr Date and time new dose started: 04/03/25 @ 0819 Next aPTT: 04/03/25 @ 1430 MILLER Escobar read back new dose: 2800 units/hr Comments: to clarify and/or to report heparin errors (e.g., value entered wrong on the IV pump) ALO YIN PHARMACIST Apr 03, 2025 08:19
--- NOTE | 2025-04-03 11:34 | DVHPN2 ---
Progress Note - Dictate Date Seen: Apr 03, 2025 Medical Necessity Reason Pt with a Central, PICC or Fol: No Subjective Patient resting. S/p surgery. Pain well controlled. vital signs Vital Sign Date Time Temp Pulse Resp B/P (MAP) Pulse Ox O2 Delivery O2 Flow Rate FiO2 04/03/25 08:51 97.8 93 20 97/67 (77) 99 97.8 04/02/25 20:00 Nasal Cannula* 3 32 Total Intake and Output 04/02/25 04/02/25 04/03/25 15:00 23:00 07:00 Intake Total 1050 ml 700 ml 105 ml Output Total 550 ml 550 ml Balance 1050 ml 150 ml -445 ml medications Current Medications Medications Dose Ordered Sig/Maria Isabel Route Start Time Stop Time Status Last Admin Dose Admin Acetaminophen 325 mg Q4HP PRN PO 03/30/25 10:30 Acetaminophen/ Hydrocodone Bitart 1 tab Q4HP PRN PO 03/30/25 10:30 04/03/25 00:09 1 TAB Ondansetron HCl 4 mg Q4HP PRN IV 03/30/25 10:30 Morphine Sulfate 2 mg Q4HPRN PRN IV 03/30/25 10:30 04/03/25 06:40 2 MG Nitroglycerin 0.4 mg Q5MINP PRN SL 03/30/25 10:30 Morphine Sulfate 2 mg Q30M PRN IV 03/30/25 10:30 Insulin Glargine 40 units HS SC 03/30/25 22:00 04/02/25 21:58 40 UNITS Sodium Chloride 1,000 ml @ 50 mls/hr Q20H IV 03/31/25 16:15 04/02/25 08:30 50 MLS/HR Diagnostic Test (Pha) 1 strip ACHS 03/31/25 17:00 04/03/25 06:42 1 STRIP Insulin Human Regular AC SC 03/31/25 17:00 04/03/25 06:43 8 UNITS Insulin Human Regular HS SC 03/31/25 22:00 04/02/25 21:57 8 UNITS Dextrose 50 ml UD PRN IV 03/31/25 16:30 Oxycodone/ Acetaminophen 1 tab Q4HP PRN PO 03/31/25 16:30 04/02/25 05:44 1 TAB Vancomycin HCl 0 ml @ 0 mls/hr UD IV 04/01/25 12:45 Enteral Nutritional Formula 28.8 gm BID PO 04/01/25 22:00 04/03/25 09:23 28.8 GM Cefepime HCl 50 ml @ 12.5 mls/hr Q8HR IV 04/02/25 22:00 04/03/25 06:00 12.5 MLS/HR Vancomycin HCl 250 ml @ 200 mls/hr Q12H IV 04/03/25 05:00 04/03/25 05:04 200 MLS/HR Heparin Sodium/ Dextrose 250 ml @ 28 mls/hr Q8H56M IV 04/03/25 08:15 04/03/25 08:19 28 MLS/HR objective General appearance: No acute distress. Obese Respiratory: Lungs clear to auscultation. No wheezing, crackles Cardiovascular: Regular rate and rhythm, no murmurs. No edema Abdomen: Soft, nondistended, nontender, bowel sounds present MSK: Normal range of motion. Left foot infection of toe with gangrene Neuro: Alert, no neurological deficits Psych: Appropriate mood and affect. laboratory and microbiology Laboratory Tests 04/03/25 05:12 Test 04/03/25 05:12 Range/Units Serum Glucose 215 H 74-106 mg/dL Assessment/Plan 1. Osteomyelitis 2' Diagnosis/Co-morbidities 2. Morbid obesity 3. Type 2 diabetes insulin-dependent 4. Acute respiratory failure likely secondary to obesity hypoventilation syndrome 5. Concern for PAD 6. Chronic Opioid Dependence Plan: - Heparin drip for concern of PAD - CT angio of the lower extremity done which was nondiagnostic. Plan to repeat once renal function improves -MRI of the lower extremity shows osteomyelitis - Vascular surgery consulted, Dr. Hillman - Podiatry consulted, Dr. Ang. Plan for surgery 04/02 - Meropenem as scheduled. - Blood cultures show no growth to date - Wound culture show e. faecalis - ID, Dr. Duff consulted - Insulin sliding scale high-dose, glargine 40 units q. bedtime. A1c pending. -NPO for surgery -Pt takes oxycodone at home for chronic pain, restarted - Daily CBC and BMP -PICC line ordered for chcf IV AB -Full Code Dietary Evaluation Review Recommendations by RD: Dietary education by RD, Protein Supplementation Comments: 1) Initiate Demetrius @ 1 pk bid 2) Initiate MVI @ 1 tb qd 3) Encourage optimal PO intake 4) Collect HbA1C 5) Refer to outpatient RD/[facility] for diabetes education and weight management 6) Follow-up with podiatry, vascular surgery, cardiology, and nephrology 7) Continue to monitor I&O, labs, and skin integrity Expected Outcomes/Goals: 1) appetite and labs to improve 2) wound to improve 3) f/u in 3-5 days Plan discussed with: Patient CLARY ESTRELLA DO Apr 03, 2025 11:34
--- NOTE | 2025-04-03 13:19 | DVHPN2 ---
Subjective Patient is a 59-year-old male with past medical history of type 2 diabetes on insulin, morbid obesity, history of toe amputations, who presents with complaints of worsening left foot infection. Patient was recently seen at [facility] but was unable to follow-up with podiatry due to insurance reasons. Patient states he did not receive any antibiotics on discharge and subsequently returned due to worsening infection. On arrival, patient was noted to have a leukocytosis of 12.2 with purulent discharge and discoloration of the left fourth digit. Patient's glucose was noted to be elevated into the 200s. Patient was admitted for further evaluation by podiatry and vascular surgery. Changes from previous H/P or p: No Changes Objective Vitals Vital Signs Date Time Temp Pulse Resp B/P (MAP) Pulse Ox O2 Delivery O2 Flow Rate FiO2 04/03/25 08:51 97.8 93 20 97/67 (77) 99 97.8 04/02/25 20:00 Nasal Cannula* 3 32 Intake/Output Intake and Output 04/03/25 07:00 Intake Total 1855 ml Output Total 1100 ml Balance 755 ml Intake Oral 105 ml IV Total 1750 ml Output Urine Total 1100 ml # Voids 2 Exam Dermatological: Skin is dry with mild erythema and some maceration around the wound site No gross deformities noted Mild non-pitting edema present bilaterally Left plantar foot wound with cellulitis and fibrosis Vascular: Dorsalis pedis and posterior tibial pulses are 1+ bilaterally Capillary refill is under 2 seconds Skin temperature is warm bilaterally Neurologic: Protective sensation is absent on the plantar forefoot bilaterally Monofilament testing reveals decreased sensation in multiple plantar sites Musculoskeletal: Range of motion at the ankle and MTP joints is within normal limits. Strength is 5/5 in all tested muscle groups. Gait is antalgic due to offloading of the affected limb. Medications Current Medications Medications Dose Ordered Sig/Maria Isabel Route Start Time Stop Time Status Last Admin Dose Admin Acetaminophen 325 mg Q4HP PRN PO 03/30/25 10:30 Acetaminophen/ Hydrocodone Bitart 1 tab Q4HP PRN PO 03/30/25 10:30 04/03/25 00:09 1 TAB Ondansetron HCl 4 mg Q4HP PRN IV 03/30/25 10:30 Morphine Sulfate 2 mg Q4HPRN PRN IV 03/30/25 10:30 04/03/25 06:40 2 MG Nitroglycerin 0.4 mg Q5MINP PRN SL 03/30/25 10:30 Morphine Sulfate 2 mg Q30M PRN IV 03/30/25 10:30 Insulin Glargine 40 units HS SC 03/30/25 22:00 04/02/25 21:58 40 UNITS Sodium Chloride 1,000 ml @ 50 mls/hr Q20H IV 03/31/25 16:15 04/02/25 08:30 50 MLS/HR Diagnostic Test (Pha) 1 strip ACHS 03/31/25 17:00 04/03/25 11:30 1 STRIP Insulin Human Regular AC SC 03/31/25 17:00 04/03/25 13:06 8 UNITS Insulin Human Regular HS SC 03/31/25 22:00 04/02/25 21:57 8 UNITS Dextrose 50 ml UD PRN IV 03/31/25 16:30 Oxycodone/ Acetaminophen 1 tab Q4HP PRN PO 03/31/25 16:30 04/02/25 05:44 1 TAB Vancomycin HCl 0 ml @ 0 mls/hr UD IV 04/01/25 12:45 Enteral Nutritional Formula 28.8 gm BID PO 04/01/25 22:00 04/03/25 09:23 28.8 GM Cefepime HCl 50 ml @ 12.5 mls/hr Q8HR IV 04/02/25 22:00 04/03/25 06:00 12.5 MLS/HR Vancomycin HCl 250 ml @ 200 mls/hr Q12H IV 04/03/25 05:00 04/03/25 05:04 200 MLS/HR Heparin Sodium/ Dextrose 250 ml @ 28 mls/hr Q8H56M IV 04/03/25 08:15 04/03/25 08:19 28 MLS/HR Laboratory Results Laboratory Tests 04/03/25 05:12 Chemistry Test 04/03/25 05:12 Albumin 3.7 g/dL (3.2-4.8) Calcium Level 8.8 mg/dL (8.7-10.4) Total Protein 7.0 g/dL (5.7-8.2) Coagulation Test 04/02/25 17:39 04/02/25 23:23 04/03/25 05:12 Prothrombin Time 11.8 sec (9.3-11.8) 11.8 sec (9.3-11.8) 12.0 sec (9.3-11.8) H Prothrombin Time INR 1.13 (0.9-1.15) 1.13 (0.9-1.15) 1.15 (0.9-1.15) Activated Partial Thromboplast Time 72.6 SEC (24.5-34.5) *H 75.5 SEC (24.5-34.5) *H 83.5 SEC (24.5-34.5) *H LFT Test 04/03/25 05:12 Alanine Aminotransferase (ALT) < 9 U/L (7-40) Alkaline Phosphatase 125 U/L (46-116) H Aspartate Amino Transferase (AST) 9 U/L (<34) Total Bilirubin 0.6 mg/dL (0.2-1.0) Urinalysis Test 03/30/25 00:00 Urine Color Light-yellow (Yellow) Urine Clarity Clear (Clear) Urine pH 6.5 (5.0-9.0) Urine Specific [place] 1.014 (1.001-1.035) Urine Protein Negative (Negative) Urine Ketones Negative (Negative) Urine Blood Negative /uL (Negative) Urine Nitrite Negative (Negative) Urine Bilirubin Negative (Negative) Urine Urobilinogen Normal mg/dL (Negative) Urine Leukocyte Esterase Negative /uL (Negative) Urine RBC None seen /hpf (0 - 3) Urine Microscopic WBC 1 /HPF (0-3) Urine Squamous Epithelial Cells Few /hpf (<5) Urine Bacteria Few /hpf (None Seen) H Urine Glucose Normal mg/dL (Normal) Microbiology Microbiology Date/Time Source Procedure Growth Status 04/02/25 15:40 Foot Left Gram Stain Pending Resulted 04/02/25 15:40 Foot Left Anaerobic Culture - Preliminary Resulted 04/02/25 15:40 Foot Left Aerobic Culture - Preliminary Resulted 03/30/25 00:17 Blood Blood Culture - Preliminary NO GROWTH AFTER 72 HOURS OF INCUBATION. Resulted Assessment/Plan Assessment/Plan ASSESSMENT: Patient is a 59 year old seen on the floor follow up s/p foot I&D PLAN: - The patients chart was reviewed, clinical findings were discussed with the patient, the etiologies of the conditions were discussed in detail, and a treatment plan was agreed to at this time, with both oral and written instructions provided. - reviewed advanced imaging - reviewed all of the labs and pathology - discussed plan is to perform a subsequent incision and drainage - patient will be NPO at midnight - take him to the OR tomorrow - it was determined that multiple I&Ds will be necessary to save the limb - evaluted patients both feet and there is excessive dryness and onychomycosis that patient would benefit from routine foot care as an outpatient - can weightbear as tolerated in postoperative shoe All questions were answered and concerns addressed to the patient's satisfaction. The patient was given the phone number to the clinic and was told how to make contact with the clinic should any concerns or questions arise. Patient understands that if any questions or concerns arise prior to the next appointment, we should be contacted immediately. FOLLOW-UP: Continue to follow while inpatient Plan discussed with: Patient My Orders Orders - ARACELI MARTIN DPM Procedure Category Date Status Time Anaerobic Culture ERICK 04/02/25 In Process 16:02 Gram Stain ERICK 04/02/25 In Process 16:02 Routine Bacterial ERICK 04/02/25 In Process Culture 16:02 Consistent DIET 04/02/25 Transmitted Carb(Ccho)Diabetes Dinner Problem List: (1) COPD (chronic obstructive pulmonary disease) (2) Type 2 diabetes mellitus (3) Chronic kidney disease (4) Supplemental oxygen dependent (5) Heart failure with reduced ejection fraction (6) Hyperglycemia (7) Cellulitis of left foot (8) Diabetes (9) Dyspnea (10) CHF (congestive heart failure) (11) Peripheral vascular disease (12) UTI (urinary tract infection) (13) Hypertension (14) Cellulitis and abscess of foot (15) Diabetic foot ulcer (16) Right leg pain (17) Acute on chronic kidney failure (18) Acute prerenal azotemia (19) Cellulitis and abscess of right leg (20) Charcot arthropathy of midfoot Date of Service: Apr 03, 2025 Billing Provider: ARACELI MARTIN DPM Common Visit Codes: [id number] INP/OBS CARE(HIGH) ARACELI MARTIN DPM Apr 03, 2025 13:19
[2025-04-03 16:11] LABS: INR 1.16 (0.9-1.15); Prothrombin Time 12.1 sec (9.3-11.8)
[2025-04-03 16:13] LABS: Partial Thromboplastin Time 89.2 SEC (24.5-34.5)
--- NOTE | 2025-04-03 16:18 | DVHPNRES ---
Progress Note Date Seen: Apr 03, 2025 Resident Creating Document: RAQUEL JANE RESIDENT Has the PT tested + for MRSA If YES, has PT been informed?: No Medical Necessity Reason Pt with a Central, PICC or Fol: No Subjective Review of Systems Patient seen and examined at bedside. Patient is currently at 3 L of oxygen through nasal cannula and was sleepy at the moment of examination. Patient states that still has pain in the left foot. Left foot was wrapped with gauze which was minimally soaked with serosanguineous fluid in the plantar aspect of the left foot. Caterers Helper yesterday performed left foot incision and drainage to the bone with left foot biopsy of the 3rd proximal phalanx and 3rd metatarsal. Per compensation manager note, there was just debridement and bone biopsy which was sent for cultures. Patient will be taken tomorrow for 2nd incision and drainage of the left foot to try to reduce as much as its possible the probability of amputation. Preliminary wound cultures are showing few Gram- positive cocci in pairs with rare Gram-negative rods. We will continue vancomycin and cefepime at this time. Patient might need placement of a PICC line. ROS Constitutional: Denies weight loss, fever and chills. HEENT: Denies changes in vision and hearing. Respiratory: Denies shortness of breath and cough Cardiovascular: Denies chest discomfort or palpitations GI: Denies abdominal pain, nausea, vomiting and diarrhea. : Denies dysuria and urinary frequency. Musculoskeletal: Still reports significant pain in the plantar aspect of the left foot associated with serosanguineous fluid observed through the gauze. Skin: Denies rash and pruritus. Neurological: Denies dizziness, headache, vision or hearing problems Objective vital signs Vital Sign Date Time Temp Pulse Resp B/P (MAP) Pulse Ox O2 Delivery O2 Flow Rate FiO2 04/03/25 13:00 98.4 103 18 128/68 (88) 97 98.4 04/02/25 20:00 Nasal Cannula* 3 32 Total Intake and Output 04/02/25 04/02/25 04/03/25 15:00 23:00 07:00 Intake Total 1050 ml 700 ml 105 ml Output Total 550 ml 550 ml Balance 1050 ml 150 ml -445 ml medications Current Medications Medications Dose Ordered Sig/Maria Isabel Route Start Time Stop Time Status Last Admin Dose Admin Acetaminophen 325 mg Q4HP PRN PO 03/30/25 10:30 Acetaminophen/ Hydrocodone Bitart 1 tab Q4HP PRN PO 03/30/25 10:30 04/03/25 00:09 1 TAB Ondansetron HCl 4 mg Q4HP PRN IV 03/30/25 10:30 Morphine Sulfate 2 mg Q4HPRN PRN IV 03/30/25 10:30 04/03/25 06:40 2 MG Nitroglycerin 0.4 mg Q5MINP PRN SL 03/30/25 10:30 Morphine Sulfate 2 mg Q30M PRN IV 03/30/25 10:30 Insulin Glargine 40 units HS SC 03/30/25 22:00 04/02/25 21:58 40 UNITS Sodium Chloride 1,000 ml @ 50 mls/hr Q20H IV 03/31/25 16:15 04/02/25 08:30 50 MLS/HR Diagnostic Test (Pha) 1 strip ACHS 03/31/25 17:00 04/03/25 11:30 1 STRIP Insulin Human Regular AC SC 03/31/25 17:00 04/03/25 13:06 8 UNITS Insulin Human Regular HS SC 03/31/25 22:00 04/02/25 21:57 8 UNITS Dextrose 50 ml UD PRN IV 03/31/25 16:30 Oxycodone/ Acetaminophen 1 tab Q4HP PRN PO 03/31/25 16:30 04/02/25 05:44 1 TAB Vancomycin HCl 0 ml @ 0 mls/hr UD IV 04/01/25 12:45 Enteral Nutritional Formula 28.8 gm BID PO 04/01/25 22:00 04/03/25 09:23 28.8 GM Cefepime HCl 50 ml @ 12.5 mls/hr Q8HR IV 04/02/25 22:00 04/03/25 15:52 12.5 MLS/HR Vancomycin HCl 250 ml @ 200 mls/hr Q12H IV 04/03/25 05:00 04/03/25 05:04 200 MLS/HR Heparin Sodium/ Dextrose 250 ml @ 28 mls/hr Q8H56M IV 04/03/25 08:15 04/03/25 16:00 28 MLS/HR Examination Physical Examination General: Patient alert and oriented in person, place and time. Patient following commands. HEENT: Normocephalic, atraumatic, moist mucous membranes Respiratory/pulmonary: There is decreased breath sounds on bilateral lung king, no wheezes or crackles at this time. Patient is currently on 3 L of oxygen through nasal cannula. Cardiovascular: Normal heart sounds S1 and S2 with no associated murmurs Abdomen: Abdomen nondistended, there is no pain to palpation in any of the abdominal quadrants, no palpable masses. Extremities: There is amputation of bilateral 5th digits on both feet. Left foot has a drainage that is soak of serosanguineous/purulent material in the plantar aspect of the left foot with foul-smelling and significant pain. Skin: No rashes or pruritus, there is no sacral edema present at this time. Neurological: Intact cranial nerves with no focal neurologic deficits laboratory and microbiology Laboratory Tests 04/03/25 05:12 Test 04/03/25 05:12 Range/Units Serum Glucose 215 H 74-106 mg/dL Microbiology Date/Time Source Procedure Growth Status 04/02/25 15:40 Foot Left Gram Stain - Final Resulted 04/02/25 15:40 Foot Left Anaerobic Culture - Preliminary Resulted 04/02/25 15:40 Foot Left Aerobic Culture - Preliminary Resulted 03/30/25 00:17 Blood Blood Culture - Preliminary NO GROWTH AFTER 72 HOURS OF INCUBATION. Resulted Problem List/Assessment/Plan Problem List/Assessment/Plan Assessment/Plan Acute left foot infected diabetic wound Acute osteomyelitis of the distal aspect of the 5th metatarsal stump Possible gangrene of the 4th metatarsal head Acute hypoxic respiratory failure likely due to obesity hyperventilation syndrome Uncontrolled type 2 diabetes mellitus with insulin dependence Peripheral artery disease Morbid obesity Primary hypertension Dyslipidemia COPD History of CHF and CKD Plan -preliminary bone cultures are showing few Gram-positive cocci in pairs with rare Gram-negative rods. wait for final reports. -Discontinue IV vancomycin and cefepime -Start IV zosyn since is growing gram - rods and staph aureus methicillin sensible -Will plan to add rifampin when las surgical intervention is performed -last hemoglobin A1c was 11.5% -compensation manager on board, performed left foot incision and drainage to bone, left foot biopsy of the 3rd proximal phalanx and left foot bone biopsy of the 3rd metatarsal on 04/02/2025. -wound consult for daily wound care, wound dressing. -Control blood glucose (140-180mg/dl) -Order PICC line -Patient will be taken tomorrow to the OR for 2nd I&D of the left foot Goals of care discussed with the patient at bedside for >35min, FULL CODE Plan discussed with Dr. Duff Plan discussed with: Patient My Orders My Orders Orders - RAQUEL JANE Procedure Category Date Status Time Cefepime 2gm/50ml Ns PHA 04/02/25 In Process (Maxipime 2gm/50ml) 22:00 * Certified Art Therapist CONS 04/02/25 Transmitted Consult Dietary Evaluation Review Recommendations by RD: Dietary education by RD, Protein Supplementation Comments: 1) Initiate Demetrius @ 1 pk bid 2) Initiate MVI @ 1 tb qd 3) Encourage optimal PO intake 4) Collect HbA1C 5) Refer to outpatient RD/CD[facility] for diabetes education and weight management 6) Follow-up with podiatry, vascular surgery, cardiology, and nephrology 7) Continue to monitor I&O, labs, and skin integrity Expected Outcomes/Goals: 1) appetite and labs to improve 2) wound to improve 3) f/u in 3-5 days RAQUEL JANE RESIDENT Apr 03, 2025 16:18
--- NOTE | 2025-04-03 16:23 | CONS ---
Pharmacy Clinical Information: Heparin per pharmacy Spoke to MILLER Escobar regarding heparin dose change Current dose: 2800 units/hr Current aPTT: 89.2 on 04/03/25 @ 1532 Bolus: No Hold infusion 1 hr: No Decrease to new dose: 2600 units/hr Date and time new dose started: 04/03/25 @ 1641 Next aPTT: 04/03/25 @ 2300 MILLER Escobar read back new dose: 2600 units/hr Comments: to clarify and/or to report heparin errors (e.g., value entered wrong on the IV pump) ALO YIN PHARMACIST Apr 03, 2025 16:23
[2025-04-03 23:06] LABS: INR 1.11 (0.9-1.15); Partial Thromboplastin Time 59.6 SEC (24.5-34.5); Prothrombin Time 11.6 sec (9.3-11.8)
[2025-04-04] VITALS (9 sets, daily range): BP systolic 109–154; BP diastolic 52–96; PULSE 82–108; RESP 14–22; TEMP 96.5–97.9; O2SAT 95–100
[2025-04-04] MEDS: PIPERACILLIN-TAZOB 3.375GM 100 ML IV SCH
[2025-04-04 06:42] LABS: Basophils # (auto) 0.1 10 ^3/uL (0-0.2); Monocytes # (auto) 0.9 10 ^3/uL (0-1.3); Platelet Count (auto) 225 10^3/uL (140-450)
[2025-04-04 06:44] LABS: Basophils % (auto) 1.1 % (0.0-2.0); Eosinophils # (auto) 0.2 10 ^3/uL (0-0.8); Eosinophils % (auto) 2.5 % (0.0-7.0); Hematocrit 39.3 % (41.0-53.0); Hemoglobin 12.3 g/dL (13.5-17.5); Lymphocytes % (auto) 9.6 % (10.0-50.0); Mean Corpuscular Hemoglobin 24.8 pg (28.0-32.0); Mean Corpuscular Hgb Conc. 31.4 g/dL (32.0-36.0); Mean Corpuscular Volume 78.9 fL (80.0-100.0); Monocytes % (auto) 9.1 % (0.0-12.0); Neutrophils # (auto) 7.8 10 ^3/uL (1.6-8.6); Neutrophils % (auto) 77.7 % (37.0-80.0); Nucleated Red Blood Cells % 0.1 %; Red Blood Cells 4.98 10^6/uL (4.5-5.90); Red Cell Distribution Width 20.7 % (11.8-14.3)
[2025-04-04 06:55] LABS: INR 1.14 (0.9-1.15); Partial Thromboplastin Time 68.9 SEC (24.5-34.5); Prothrombin Time 11.9 sec (9.3-11.8)
[2025-04-04 07:08] LABS: Albumin 3.3 g/dL (3.2-4.8); Anion Gap 9 (5-15); Aspartate Aminotransferase 9 U/L (<34); BUN/Creatinine Ratio 17.2 (10.0-20.0); Bilirubin, Total 0.6 mg/dL (0.2-1.0); Blood Urea Nitrogen 16 mg/dL (9-23); Carbon Dioxide 30 mmol/L (20-31); Chloride 98 mmol/L (98-107); Potassium 3.6 mmol/L (3.5-5.1); Sodium 137 mmol/L (136-145); Total Protein 6.9 g/dL (5.7-8.2)
[2025-04-04 07:11] LABS: Alanine Aminotransferase < 9 U/L (7-40); Alkaline Phosphatase 117 U/L (46-116); Calcium 8.7 mg/dL (8.7-10.4); Glucose 185 mg/dL (74-106)
[2025-04-04] MEDS ORDERED: BUPIVACAINE W/ EPINEPH 0.5% MPF 30ML VIAL IJ ONE (08:18)
--- NOTE | 2025-04-04 09:20 | DVHPN2 ---
Subjective Patient is a 59-year-old male with past medical history of type 2 diabetes on insulin, morbid obesity, history of toe amputations, who presents with complaints of worsening left foot infection. Patient was recently seen at [facility] but was unable to follow-up with podiatry due to insurance reasons. Patient states he did not receive any antibiotics on discharge and subsequently returned due to worsening infection. On arrival, patient was noted to have a leukocytosis of 12.2 with purulent discharge and discoloration of the left fourth digit. Patient's glucose was noted to be elevated into the 200s. Patient was admitted for further evaluation by podiatry and vascular surgery. Changes from previous H/P or p: No Changes Objective Vitals Vital Signs Date Time Temp Pulse Resp B/P (MAP) Pulse Ox O2 Delivery O2 Flow Rate FiO2 04/04/25 08:44 96.6 82 22 141/77 (98) 100 96.6 04/04/25 07:30 Nasal Cannula* 3 32 Intake/Output Intake and Output 04/04/25 07:00 Intake Total 2114.86 ml Output Total 1400 ml Balance 714.86 ml Intake Oral 1750 ml IV Total 364.86 ml Output Urine Total 1400 ml # Voids 7 Exam Dermatological: Skin is dry with mild erythema and some maceration around the wound site No gross deformities noted Mild non-pitting edema present bilaterally Left plantar foot wound with cellulitis and fibrosis Vascular: Dorsalis pedis and posterior tibial pulses are 1+ bilaterally Capillary refill is under 2 seconds Skin temperature is warm bilaterally Neurologic: Protective sensation is absent on the plantar forefoot bilaterally Monofilament testing reveals decreased sensation in multiple plantar sites Musculoskeletal: Range of motion at the ankle and MTP joints is within normal limits. Strength is 5/5 in all tested muscle groups. Gait is antalgic due to offloading of the affected limb. Medications Current Medications Medications Dose Ordered Sig/Maria Isabel Route Start Time Stop Time Status Last Admin Dose Admin Acetaminophen 325 mg Q4HP PRN PO 03/30/25 10:30 Acetaminophen/ Hydrocodone Bitart 1 tab Q4HP PRN PO 03/30/25 10:30 04/04/25 08:46 1 TAB Ondansetron HCl 4 mg Q4HP PRN IV 03/30/25 10:30 Morphine Sulfate 2 mg Q4HPRN PRN IV 03/30/25 10:30 04/03/25 06:40 2 MG Nitroglycerin 0.4 mg Q5MINP PRN SL 03/30/25 10:30 Morphine Sulfate 2 mg Q30M PRN IV 03/30/25 10:30 Insulin Glargine 40 units HS SC 03/30/25 22:00 04/03/25 22:20 40 UNITS Sodium Chloride 1,000 ml @ 50 mls/hr Q20H IV 03/31/25 16:15 04/02/25 08:30 50 MLS/HR Diagnostic Test (Pha) 1 strip ACHS 03/31/25 17:00 04/04/25 06:06 1 STRIP Insulin Human Regular AC SC 03/31/25 17:00 04/03/25 17:25 8 UNITS Insulin Human Regular HS SC 03/31/25 22:00 04/03/25 22:23 6 UNITS Dextrose 50 ml UD PRN IV 03/31/25 16:30 Oxycodone/ Acetaminophen 1 tab Q4HP PRN PO 03/31/25 16:30 04/04/25 05:02 1 TAB Enteral Nutritional Formula 28.8 gm BID PO 04/01/25 22:00 04/03/25 22:00 28.8 GM Heparin Sodium/ Dextrose 250 ml @ 26 mls/hr Q9H37M IV 04/03/25 16:30 04/03/25 16:41 26 MLS/HR Piperacillin Sod/ Tazobactam Sod 100 ml @ 25 mls/hr Q6HR IV 04/04/25 00:00 04/04/25 06:00 25 MLS/HR Laboratory Results Laboratory Tests 04/04/25 05:29 Chemistry Test 04/04/25 05:29 Albumin 3.3 g/dL (3.2-4.8) Calcium Level 8.7 mg/dL (8.7-10.4) Total Protein 6.9 g/dL (5.7-8.2) Coagulation Test 04/03/25 15:32 04/03/25 22:50 04/04/25 05:29 Prothrombin Time 12.1 sec (9.3-11.8) H 11.6 sec (9.3-11.8) 11.9 sec (9.3-11.8) H Prothrombin Time INR 1.16 (0.9-1.15) H 1.11 (0.9-1.15) 1.14 (0.9-1.15) Activated Partial Thromboplast Time 89.2 SEC (24.5-34.5) *H 59.6 SEC (24.5-34.5) H 68.9 SEC (24.5-34.5) H LFT Test 04/04/25 05:29 Alanine Aminotransferase (ALT) < 9 U/L (7-40) Alkaline Phosphatase 117 U/L (46-116) H Aspartate Amino Transferase (AST) 9 U/L (<34) Total Bilirubin 0.6 mg/dL (0.2-1.0) Urinalysis Test 03/30/25 00:00 Urine Color Light-yellow (Yellow) Urine Clarity Clear (Clear) Urine pH 6.5 (5.0-9.0) Urine Specific [place] 1.014 (1.001-1.035) Urine Protein Negative (Negative) Urine Ketones Negative (Negative) Urine Blood Negative /uL (Negative) Urine Nitrite Negative (Negative) Urine Bilirubin Negative (Negative) Urine Urobilinogen Normal mg/dL (Negative) Urine Leukocyte Esterase Negative /uL (Negative) Urine RBC None seen /hpf (0 - 3) Urine Microscopic WBC 1 /HPF (0-3) Urine Squamous Epithelial Cells Few /hpf (<5) Urine Bacteria Few /hpf (None Seen) H Urine Glucose Normal mg/dL (Normal) Microbiology Microbiology Date/Time Source Procedure Growth Status 04/02/25 15:40 Foot Left Gram Stain - Final Resulted 04/02/25 15:40 Foot Left Anaerobic Culture - Preliminary Resulted 04/02/25 15:40 Foot Left Aerobic Culture - Preliminary Resulted 03/30/25 00:17 Blood Blood Culture - Final NO GROWTH AFTER 5 DAYS OF INCUBATION. Complete Assessment/Plan Assessment/Plan ASSESSMENT: Patient is a 59 year old seen on the floor follow up s/p foot I&D PLAN: - The patients chart was reviewed, clinical findings were discussed with the patient, the etiologies of the conditions were discussed in detail, and a treatment plan was agreed to at this time, with both oral and written instructions provided. - reviewed advanced imaging - reviewed all of the labs and pathology - discussed plan is to perform a subsequent incision and drainage - patient has been NPO since midnight - take him to the OR today - it was determined that multiple I&Ds will be necessary to save the limb - can weightbear as tolerated in postoperative shoe All questions were answered and concerns addressed to the patient's satisfaction. The patient was given the phone number to the clinic and was told how to make contact with the clinic should any concerns or questions arise. Patient understands that if any questions or concerns arise prior to the next appointment, we should be contacted immediately. FOLLOW-UP: Continue to follow while inpatient Plan discussed with: Patient My Orders Orders - ARACELI MARTIN DPM Procedure Category Date Status Time Npo (Nothing By DIET 04/04/25 Transmitted Mouth) Diet Breakfast Obtain Consent For: ORDERS 04/03/25 Transmitted 13:21 Obtain Consent For: ORDERS 04/03/25 Transmitted 13:23 Problem List: (1) COPD (chronic obstructive pulmonary disease) (2) Type 2 diabetes mellitus (3) Chronic kidney disease (4) Supplemental oxygen dependent (5) Heart failure with reduced ejection fraction (6) Hyperglycemia (7) Cellulitis of left foot (8) Diabetes (9) Dyspnea (10) CHF (congestive heart failure) (11) Peripheral vascular disease (12) UTI (urinary tract infection) (13) Hypertension (14) Cellulitis and abscess of foot (15) Diabetic foot ulcer (16) Right leg pain (17) Acute on chronic kidney failure (18) Acute prerenal azotemia (19) Cellulitis and abscess of right leg (20) Charcot arthropathy of midfoot Date of Service: Apr 04, 2025 Billing Provider: ARACELI MARTIN DPM Common Visit Codes: [id number] INP/OBS CARE(HIGH) ARACELI MARTIN DPM Apr 04, 2025 09:20
--- NOTE | 2025-04-04 10:59 | DVHOP2 ---
Operative Report - 2 Report Details Date: 04/04/25 Preop Diagnosis: 1. Left foot osteomyelitis 2. Left foot abscess 3. Left foot cellulitis 4. Left foot diabetic foot ulcer Postop Diagnosis: Same as preop Surgeon: Araceli Martin MD Anesthesiologist: See anesthesia Anesthesia: Mac Consent: The patient was informed of the risks and benefits of the procedure. These include but are not limited to complications of anesthesia, postoperative infection, incomplete relief of symptoms, recurrence of symptoms, damage to blood vessels, nerves and tendons, deep venous thrombosis, pulmonary embolism and possible need for repeat surgery in the future. Complications: None Estimated Blood Loss: Minimal Fluids: See anesthesia Findings: Consistent with diagnosis Indications for Surgery: Worsening left foot wound Name of Procedure Performed 1. Left foot I&D to bone (41029) 2. Left foot third toe amputation (83102) Procedure Details Procedure Details: PRE-PROCEDURE INFORMATION: In the pre-op holding area, the extremity to be operated on was clearly marked and the patient verified correct laterality of the marking. The patient was transferred to the OR table and placed in a supine position. A timeout was performed in which identification of the correct patient, procedure, location, and materials was done. The left foot and leg were prepped and draped in normal sterile fashion. The foot and leg were exsanguinated and the _ tourniquet was inflated to 250 mmHg. DESCRIPTION OF PROCEDURE: Attention was directed to the left where previous incision was made. An incision was made over this area and was deepened through blunt dissection. The incision was deepened to the level of abscess and bone. Care was taken to the dissection to avoid any neurovascular and tendinous structures. The incision was deepened to the bone, and the abscess appeared to be purulent fluid consistent with pus. The cortices of the bone was then removed with rongeur an all necrotic tissue. After the abscess was drained, the area was irrigated with 3 L normal saline using cysto tubing. The area was then inspected and any areas of tracking, especially along the tendons were also drained. Said this for and that the left 4th toe was no longer salvageable. Using sharp instrumentation, the toe was removed this entirety at the level of the metatarsophalangeal joint. The wound was packed with Betadine-soaked gauze and we will need to be closed at a later date. POSTOPERATIVE INFORMATION: The patient tolerated the above noted procedure and anesthesia well and was transferred to the PACU with vital signs stable, and vascular status intact with capillary refill intact to all digits. Patient would likely benefit from 6 weeks IV antibiotics as well as a wound VAC to try and granulate over the the plantar wound. Wound care can place the wound VAC a nd organize outpatient care. Follow up with me in 1 week. Condition Good Disposition Still a Patient ARACELI MARTIN DPM Apr 04, 2025 10:59
--- NOTE | 2025-04-04 11:05 | DVHPNRES ---
Progress Note Date Seen: Apr 04, 2025 Resident Creating Document: RAQUEL JANE RESIDENT Has the PT tested + for MRSA If YES, has PT been informed?: No Medical Necessity Reason Pt with a Central, PICC or Fol: No Subjective Review of Systems Patient seen and examined at bedside. Patient is currently at 3 L of oxygen through nasal cannula with no acute respiratory distress. Patient still reports significant pain in the left foot. Patient will be taking today to the OR for 2nd incision and drainage procedure. Yesterday we stopped vancomycin and cefepime and we started the patient on IV Zosyn, the patient is growing few Gram-positive cocci in pairs and Gram-negative rods and previous cultures were showing Staphylococcus aureus methicillin-susceptible. We will recommend to continue IV Zosyn at this time and we will add rifampin 300 mg p.o. b.i.d. once no more procedures are needed. Lower extremity arterial Doppler was ordered but still pending results. ROS Constitutional: Denies weight loss, fever and chills. HEENT: Denies changes in vision and hearing. Respiratory: Denies shortness of breath and cough Cardiovascular: Denies chest discomfort or palpitations GI: Denies abdominal pain, nausea, vomiting and diarrhea. : Denies dysuria and urinary frequency. Musculoskeletal: Patient still reports significant left foot pain. Skin: Denies rash and pruritus. Neurological: Denies dizziness, headache, vision or hearing problems Objective vital signs Vital Sign Date Time Temp Pulse Resp B/P (MAP) Pulse Ox O2 Delivery O2 Flow Rate FiO2 04/04/25 08:44 96.6 82 22 141/77 (98) 100 96.6 04/04/25 07:30 Nasal Cannula* 3 32 Total Intake and Output 04/03/25 04/03/25 04/04/25 15:00 23:00 07:00 Intake Total 485.5 ml 829.36 ml 800 ml Output Total 800 ml 600 ml Balance 485.5 ml 29.36 ml 200 ml medications Current Medications Medications Dose Ordered Sig/Maria Isabel Route Start Time Stop Time Status Last Admin Dose Admin Acetaminophen 325 mg Q4HP PRN PO 03/30/25 10:30 Acetaminophen/ Hydrocodone Bitart 1 tab Q4HP PRN PO 03/30/25 10:30 04/04/25 08:46 1 TAB Ondansetron HCl 4 mg Q4HP PRN IV 03/30/25 10:30 Morphine Sulfate 2 mg Q4HPRN PRN IV 03/30/25 10:30 04/03/25 06:40 2 MG Nitroglycerin 0.4 mg Q5MINP PRN SL 03/30/25 10:30 Morphine Sulfate 2 mg Q30M PRN IV 03/30/25 10:30 Insulin Glargine 40 units HS SC 03/30/25 22:00 04/03/25 22:20 40 UNITS Sodium Chloride 1,000 ml @ 50 mls/hr Q20H IV 03/31/25 16:15 04/02/25 08:30 50 MLS/HR Diagnostic Test (Pha) 1 strip ACHS 03/31/25 17:00 04/04/25 06:06 1 STRIP Insulin Human Regular AC SC 03/31/25 17:00 04/03/25 17:25 8 UNITS Insulin Human Regular HS SC 03/31/25 22:00 04/03/25 22:23 6 UNITS Dextrose 50 ml UD PRN IV 03/31/25 16:30 Oxycodone/ Acetaminophen 1 tab Q4HP PRN PO 03/31/25 16:30 04/04/25 05:02 1 TAB Enteral Nutritional Formula 28.8 gm BID PO 04/01/25 22:00 04/03/25 22:00 28.8 GM Heparin Sodium/ Dextrose 250 ml @ 26 mls/hr Q9H37M IV 04/03/25 16:30 04/03/25 16:41 26 MLS/HR Piperacillin Sod/ Tazobactam Sod 100 ml @ 25 mls/hr Q6HR IV 04/04/25 00:00 04/04/25 06:00 25 MLS/HR Examination Physical Examination General: Patient alert and oriented in person, place and time. Patient following commands. HEENT: Normocephalic, atraumatic, moist mucous membranes Respiratory/pulmonary: There is decreased breath sounds on bilateral lung king, no wheezes or crackles at this time. Patient is currently on 3 L of oxygen through nasal cannula. Cardiovascular: Normal heart sounds S1 and S2 with no associated murmurs Abdomen: Abdomen nondistended, there is no pain to palpation in any of the abdominal quadrants, no palpable masses. Extremities: There is amputation of bilateral 5th digits on both feet. Left foot is currently covered with clean gauze. Skin: No rashes or pruritus, there is no sacral edema present at this time. Neurological: Intact cranial nerves with no focal neurologic deficits laboratory and microbiology Laboratory Tests 04/04/25 05:29 Test 04/04/25 05:29 Range/Units Serum Glucose 185 H 74-106 mg/dL Microbiology Date/Time Source Procedure Growth Status 04/02/25 15:40 Foot Left Gram Stain - Final Resulted 04/02/25 15:40 Foot Left Anaerobic Culture - Preliminary Resulted 04/02/25 15:40 Foot Left Aerobic Culture - Preliminary Resulted 03/30/25 00:17 Blood Blood Culture - Final NO GROWTH AFTER 5 DAYS OF INCUBATION. Complete Problem List/Assessment/Plan Problem List/Assessment/Plan Assessment/Plan Acute left foot infected diabetic wound Acute osteomyelitis of the distal aspect of the 5th metatarsal stump Possible gangrene of the 4th metatarsal head Acute hypoxic respiratory failure likely due to obesity hyperventilation syndrome Uncontrolled type 2 diabetes mellitus with insulin dependence Peripheral artery disease Morbid obesity Primary hypertension Dyslipidemia COPD History of CHF and CKD Plan -preliminary bone cultures are showing few Gram-positive cocci in pairs with rare Gram-negative rods. wait for final reports. -Continue IV zosyn since is growing gram - rods and staph aureus methicillin sensible -Will plan to add rifampin when las surgical intervention is performed -Patient will be taken to OR for 2nd I&D of the left foot wound -last hemoglobin A1c was 11.5% -wound consult for daily wound care, wound dressing. -Control blood glucose (140-180mg/dl) -Ordered PICC line -F/U with ID as outpatient in 2 weeks Goals of care discussed with the patient at bedside for >35min, FULL CODE Plan discussed with Dr. Duff Plan discussed with: Patient My Orders My Orders Orders - RAQUEL JANE Procedure Category Date Status Time Piperacillin-Tazob PHA 04/04/25 In Process 3.375gm (Zosyn 3.375g 00:00 * Picc Line Consult CONS 04/03/25 Transmitted 19:35 Dietary Evaluation Review Recommendations by RD: Dietary education by RD, Protein Supplementation Comments: 1) Initiate Demetrius @ 1 pk bid 2) Initiate MVI @ 1 tb qd 3) Encourage optimal PO intake 4) Collect HbA1C 5) Refer to outpatient RD/[facility] for diabetes education and weight management 6) Follow-up with podiatry, vascular surgery, cardiology, and nephrology 7) Continue to monitor I&O, labs, and skin integrity Expected Outcomes/Goals: 1) appetite and labs to improve 2) wound to improve 3) f/u in 3-5 days RAQUEL JANE RESIDENT Apr 04, 2025 11:04
[2025-04-04] MEDS ORDERED: fentaNYL CITRATE 100 MCG/2 ML VL ONE (11:11)
[2025-04-04] MEDS ORDERED: ePHEDrine SULFATE 50 MG/ML AMP ONE (11:22)
--- NOTE | 2025-04-04 11:30 | DVH ---
Left Lower Extremity Arterial Duplex Clinical History: Evaluate for PAD Comparison: US BILAT LOW EXT ART DUPLEX on DOS: 03/14/25, BILAT LOW EXT ART DUPLEX on DOS: 11/10/21 Technique: Duplex Doppler evaluation including color Doppler and spectral/pulsed waveform analysis of the lower extremity arteries was performed. Findings: LEFT: Peak systolic velocities are as follows: CPA TAX 69 cm/s Deep femoral 44 cm/s SFA proximal 42 cm/s SFA mid-portion 42 cm/s SFA distal 69 cm/s Popliteal 74 cm/s Posterior tibial 54 cm/s Anterior tibial 55 cm/s Peroneal nv cm/s Dorsalis pedis nv cm/s The waveforms are monophasic. IMPRESSION: No hemodynamically significant stenosis based on peak systolic velocity criteria. Monophasic arterial waveforms suggestive of peripheral arterial disease. Left dorsalis pedis artery is not visualized secondary to overlying bandages. REFERENCE VALUES, [facility]) vascular Imaging Lab Criteria: Peak systolic velocity rang es (in cm/sec) are as follows: <150 cm/s - <20 % stenosis 150-200 cm/s - 20-49% stenosis 200-300 cm/s - 50-75% stenosis >300 cm/s -> 75% stenosis
--- NOTE | 2025-04-04 13:32 | DVHPN2 ---
Progress Note - Dictate Date Seen: Apr 04, 2025 Has the PT tested + for MRSA If YES, has PT been informed?: No Medical Necessity Reason Pt with a Central, PICC or Fol: No Subjective Patient complains of increased pain in foot. Plan for repeat surgery today. vital signs Vital Sign Date Time Temp Pulse Resp B/P (MAP) Pulse Ox O2 Delivery O2 Flow Rate FiO2 04/04/25 12:02 95 16 139/61 (87) 95 04/04/25 11:37 Nasal Cannula 2.0 98 04/04/25 11:37 97.7 97.7 Total Intake and Output 04/03/25 04/03/25 04/04/25 15:00 23:00 07:00 Intake Total 485.5 ml 829.36 ml 800 ml Output Total 800 ml 600 ml Balance 485.5 ml 29.36 ml 200 ml medications Current Medications Medications Dose Ordered Sig/Maria Isabel Route Start Time Stop Time Status Last Admin Dose Admin Acetaminophen 325 mg Q4HP PRN PO 03/30/25 10:30 Acetaminophen/ Hydrocodone Bitart 1 tab Q4HP PRN PO 03/30/25 10:30 04/04/25 08:46 1 TAB Ondansetron HCl 4 mg Q4HP PRN IV 03/30/25 10:30 Morphine Sulfate 2 mg Q4HPRN PRN IV 03/30/25 10:30 04/03/25 06:40 2 MG Nitroglycerin 0.4 mg Q5MINP PRN SL 03/30/25 10:30 Morphine Sulfate 2 mg Q30M PRN IV 03/30/25 10:30 Insulin Glargine 40 units HS SC 03/30/25 22:00 04/03/25 22:20 40 UNITS Sodium Chloride 1,000 ml @ 50 mls/hr Q20H IV 03/31/25 16:15 04/02/25 08:30 50 MLS/HR Diagnostic Test (Pha) 1 strip ACHS 03/31/25 17:00 04/04/25 06:06 1 STRIP Insulin Human Regular AC SC 03/31/25 17:00 04/03/25 17:25 8 UNITS Insulin Human Regular HS SC 03/31/25 22:00 04/03/25 22:23 6 UNITS Dextrose 50 ml UD PRN IV 03/31/25 16:30 Oxycodone/ Acetaminophen 1 tab Q4HP PRN PO 03/31/25 16:30 04/04/25 05:02 1 TAB Enteral Nutritional Formula 28.8 gm BID PO 04/01/25 22:00 04/03/25 22:00 28.8 GM Heparin Sodium/ Dextrose 250 ml @ 26 mls/hr Q9H37M IV 04/03/25 16:30 04/04/25 12:40 26 MLS/HR Piperacillin Sod/ Tazobactam Sod 100 ml @ 25 mls/hr Q6HR IV 04/04/25 00:00 04/04/25 12:29 25 MLS/HR objective General appearance: No acute distress. Obese Respiratory: Lungs clear to auscultation. No wheezing, crackles Cardiovascular: Regular rate and rhythm, no murmurs. No edema Abdomen: Soft, nondistended, nontender, bowel sounds present MSK: Normal range of motion. Left foot infection of toe with gangrene Neuro: Alert, no neurological deficits Psych: Appropriate mood and affect. laboratory and microbiology Laboratory Tests 04/04/25 05:29 Test 04/04/25 05:29 Range/Units Serum Glucose 185 H 74-106 mg/dL Assessment/Plan 1. Osteomyelitis 2' Diagnosis/Co-morbidities 2. Morbid obesity 3. Type 2 diabetes insulin-dependent 4. Acute respiratory failure likely secondary to obesity hypoventilation syndrome 5. Concern for PAD 6. Chronic Opioid Dependence 7. History of Atrial Fibrillation on Eliquis and Amioadarone Plan: - Heparin drip for concern of PAD - CT angio of the lower extremity done which was nondiagnostic. Plan to repeat once renal function improves. US arterial suggest PAD with monophasic blood flow -MRI of the lower extremity shows osteomyelitis - Vascular surgery consulted, Dr. Hillman - Podiatry consulted, Dr. Ang. Plan for surgery 04/02 - Meropenem as scheduled. - Blood cultures show no growth to date - Wound culture show e. faecalis - ID, Dr. Duff consulted. Recommend zosyn for 6 weeks. - Insulin sliding scale high-dose, glargine 40 units q. bedtime. A1c>11 -NPO for surgery -Pt takes oxycodone at home for chronic pain, restarted - Daily CBC and BMP -PICC line ordered for snf IV AB -Full Code Dietary Evaluation Review Recommendations by RD: Dietary education by RD, Protein Supplementation Comments: 1) Initiate Demetrius @ 1 pk bid 2) Initiate MVI @ 1 tb qd 3) Encourage optimal PO intake 4) Collect HbA1C 5) Refer to outpatient RD/[facility] for diabetes education and weight management 6) Follow-up with podiatry, vascular surgery, cardiology, and nephrology 7) Continue to monitor I&O, labs, and skin integrity Expected Outcomes/Goals: 1) appetite and labs to improve 2) wound to improve 3) f/u in 3-5 days Plan discussed with: Patient TRINA ESTRELLARavin Freeman DO Apr 04, 2025 13:32
[2025-04-04 13:37] LABS: INR 1.13 (0.9-1.15); Prothrombin Time 11.8 sec (9.3-11.8)
[2025-04-04 13:40] LABS: Partial Thromboplastin Time 71.7 SEC (24.5-34.5)
[2025-04-04] MEDS ORDERED: AMITRIPTYLINE HCL 25 MG TAB PO PRN (13:45)
[2025-04-04] MEDS: PREGABALIN 25 MG CAP PO SCH (15:20)
[2025-04-04] MEDS ORDERED: LIDOCAINE 1% (LOCAL ANESTH.) PF 5ml SDV ID ONE (16:30)
[2025-04-04] MEDS: FUROSEMIDE 40 MG TAB PO SCH (18:55)
[2025-04-04] MEDS: OXYCODONE W/ ACETAMINOPHEN 5/325MG TABLET PO PRN (18:56)
--- NOTE | 2025-04-04 19:05 | DVHCONRES ---
Date Seen: Apr 04, 2025 Resident Creating Document: APRIL GONZALEZ Jr., MD Referring Physician er Reason for Consultation foot wound r/o pad History of Present Illness Patient is a 59-year-old male with past medical history of type 2 diabetes on insulin, morbid obesity, history of toe amputations, who presents with complaints of worsening left foot infection. Patient was recently seen at [facility] but was unable to follow-up with podiatry due to insurance reasons. Patient states he did not receive any antibiotics on discharge and subsequently returned due to worsening infection. On arrival, patient was noted to have a leukocytosis of 12.2 with purulent discharge and discoloration of the left fourth digit. Patient's glucose was noted to be elevated into the 200s. Since being in the hospital patient has had two debridements by Podiatry. Arterial duplex demonstrated no hemodynamic stenosis. Past Medical History type 2 diabetes on insulin, morbid obesity, history of toe amputations Past Surgical History Multiple toe amputations and foot debridements. Family History: Cerebrovascular accident (CVA) G8 FATHER Colon cancer G8 MOTHER Diabetes mellitus G8 FATHER G8 MOTHER FH: chronic kidney disease G8 FATHER FH: congestive heart failure G8 FATHER FH: heart attack G8 FATHER Hypertension G8 MOTHER Social History Nonsmoker nondrinker Allergies: Coded Allergies: Penicillins (Verified Allergy, Severe, 04/21/23) Home Meds Active Scripts Amiodarone Hcl (Amiodarone Hcl) 200 Mg Tab, 1 TAB PO DAILY, #30 TAB 0 Refills Prov:LORENZO AGUILAR MD 07/03/21 Reported Medications Apixaban Base (ELIQUIS) 5 Mg Tab, 1 TAB PO BID for 30 Days, #60 04/03/25 Metoprolol Succinate (Metoprolol Succinate Er) 50 Mg Tab, 1 TAB PO DAILY@9AM for 30 Days, #30 04/03/25 Metolazone (Metolazone) 5 Mg Tab, 1 TAB PO DAILY for 30 Days, #30 03/15/25 Acetaminophen (Acetaminophen Extra Stren) 500 Mg Tab, 1-2 TAB PO QID PRN for 30 Days, #240 03/15/25 Furosemide (Furosemide) 40 Mg Tab, 2 TAB PO BID for 30 Days, #120 03/15/25 Tizanidine Hydrochloride (Tizanidine Hcl) 4 Mg Tab, 1 TAB PO TID for 30 Days, #90 03/15/25 Pregabalin (Pregabalin) 200 Mg Cap, 1 CAP PO TID for 30 Days, #90 03/15/25 Amitriptyline HCl (Amitriptyline Hydrochlori) 25 Mg Tab, 1 TAB PO QHSP PRN for LUMBAGO WITH SCIATICA for 30 Days, #30 03/15/25 Trazodone Hcl (Trazodone Hcl) 100 Mg Tab, 1 TAB PO HS for 30 Days, #30 03/15/25 Oxycodone HCl (Oxycodone Hydrochloride) 10 Mg Tab, 1 TAB PO TID for 30 Days, #90 03/15/25 Atorvastatin Calcium (ATORVASTATIN CALCIUM) 40 Mg Tab, 1 TAB PO DAILY@5PM for 30 Days, #30 03/15/25 Insulin Lispro (Insulin Lispro Kwikpen) 100 Unit/Ml Inj, 15-20 UNIT SC AC for 65 Days, #30 03/15/25 Insulin Glargine (Lantus Solostar) 100 Unit/Ml Inj, 40 UNITS SC HS for 57 Days, #24 03/15/25 Hydrochlorothiazide (Hydrochlorothiazide) 25 Mg Tab, 25 MG PO DAILY for 30 Days, MG 06/24/21 Current Medications Current Medications Medications (Trade) Dose Ordered Sig/Maria Isabel Route PRN Reason Start Time Stop Time Status Last Admin Piperacillin Sod/ Tazobactam Sod 100 ml @ 25 mls/hr Q6HR IV 04/04/25 00:00 04/04/25 12:29 Amiodarone HCl (Cordarone Tablet) 200 mg DAILY PO 04/05/25 10:00 Amitriptyline HCl (Elavil Tablet) 25 mg QHSP PRN PO LUMBAGO WITH SCIATICA 04/04/25 13:45 Furosemide (Lasix Tablet) 80 mg BIDD PO 04/04/25 18:00 Metolazone (Zaroxolyn) 5 mg DAILY PO 04/05/25 10:00 Atorvastatin Calcium (Lipitor) 40 mg HS PO 04/04/25 22:00 Pregabalin (Lyrica Capsule) 200 mg TID PO 04/04/25 14:00 04/04/25 15:20 Trazodone HCl (Desyrel) 100 mg HS PO 04/04/25 22:00 Sodium Chloride (Saline Lock Ns) 10 ml QSHIFT@10,22 IV 04/04/25 22:00 Oxycodone/ Acetaminophen (Percocet 5/ 325MG Tablet) 2 tab Q4HPRN PRN PO SEVERE PAIN (7-10 PAIN SCALE) 04/04/25 17:00 Review of Systems All systems reviewed otherwise negative. Vital Signs Vital Signs Date Time Temp Pulse Resp B/P (MAP) Pulse Ox O2 Delivery O2 Flow Rate FiO2 04/04/25 16:22 96.5 101 20 135/88 (104) 99 96.5 04/04/25 11:37 Nasal Cannula 2.0 98 Physical Exam Pulse exam foot stand it. The femoral pulses palpable popliteal pulse palpable. Right foot pulses are palpable. Labs/Diagnostic Data Labs Test 04/04/25 13:05 04/04/25 05:46 04/04/25 05:29 04/02/25 06:14 Range/Units Prothrombin Time 11.8 9.3-11.8 sec Prothrombin Time INR 1.13 0.9-1.15 Activated Partial Thromboplast Time 71.7 *H 24.5-34.5 SEC POC Glucose 190 H 70-106 mg/dl White Blood Count 10.0 4.4-10.8 10^3/uL Red Blood Count 4.98 4.5-5.90 10^6/uL Hemoglobin 12.3 L 13.5-17.5 g/dL Hematocrit 39.3 L 41.0-53.0 % Mean Corpuscular Volume 78.9 L 80.0-100.0 fL Mean Corpuscular Hemoglobin 24.8 L 28.0-32.0 pg Mean Corpuscular Hemoglobin Concent 31.4 L 32.0-36.0 g/dL Red Cell Distribution Width 20.7 H 11.8-14.3 % Platelet Count 225 140-450 10^3/uL Mean Platelet Volume 8.8 6.9-10.8 fL Neutrophils (%) (Auto) 77.7 37.0-80.0 % Lymphocytes (%) (Auto) 9.6 L 10.0-50.0 % Monocytes (%) (Auto) 9.1 0.0-12.0 % Eosinophils (%) (Auto) 2.5 0.0-7.0 % Basophils (%) (Auto) 1.1 0.0-2.0 % Neutrophils # (Auto) 7.8 1.6-8.6 10 ^3/uL Lymphocytes # (Auto) 1.0 0.4-5.4 10 ^3/uL Monocytes # (Auto) 0.9 0-1.3 10 ^3/uL Eosinophils # (Auto) 0.2 0-0.8 10 ^3/uL Basophils # (Auto) 0.1 0-0.2 10 ^3/uL Nucleated Red Blood Cells 0.1 % Sodium Level 137 136-145 mmol/L Potassium Level 3.6 3.5-5.1 mmol/L Chloride Level 98 98-107 mmol/L Carbon Dioxide Level 30 20-31 mmol/L Anion Gap 9 5-15 Blood Urea Nitrogen 16 9-23 mg/dL Creatinine 0.93 0.700-1.30 mg/dL Glomerular Filtration Rate Calc 96 >90 mL/min BUN/Creatinine Ratio 17.2 10.0-20.0 Serum Glucose 185 H 74-106 mg/dL Calcium Level 8.7 8.7-10.4 mg/dL Total Bilirubin 0.6 0.2-1.0 mg/dL Aspartate Amino Transferase (AST) 9 <34 U/L Alanine Aminotransferase (ALT) < 9 7-40 U/L Alkaline Phosphatase 117 H 46-116 U/L Total Protein 6.9 5.7-8.2 g/dL Albumin 3.3 3.2-4.8 g/dL Random Vancomycin Level 8.8 5-10 ug/mL Test 03/30/25 01:58 03/30/25 00:17 03/30/25 00:00 Range/Units Blood Gas Specimen Type Arterial Blood Gas Sample Site Right radial Blood Gas Patient Temperature 37.0 Arterial Blood Date Drawn [id number] Arterial Blood pH 7.457 H 7.350-7.450 Arterial Blood Partial Pressure CO2 50.0 H 35.0-48.0 mmHg Arterial Blood Partial Pressure O2 45.2 *L 83.0-108.0 mmHg Arterial Blood HCO3 34.5 H 21.0-28.0 mmol/L Arterial Blood Oxygen Saturation 80.4 *L 94.0-98.0 % Arterial Blood Base Excess 9.0 H -2.0-3.0 mmol/L Arterial Blood Oxyhemoglobin 75.3 L 94.0-98.0 % Arterial Blood Carboxyhemoglobin 5.9 H 0.5-1.5 % Arterial Blood Methemoglobin 0.4 0.0-1.5 % Suresh Test Yes Blood Gas Total Hemoglobin 15.40 13.5-17.5 g/dL Blood Gas Modality Room air FiO2 % 21.0 Blood Gas Critical Value Read Back Yes Blood Gas Notified Whom Tanna hernandez md Blood Gas Notified Time [id number] Blood Gas Notified By Margaux ventura rrt Lactic Acid Level 2.0 0.4-2.0 mmol/L Urine Color Light-yellow Yellow Urine Clarity Clear Clear Urine pH 6.5 5.0-9.0 Urine Specific Gilman 1.014 1.001-1.035 Urine Protein Negative Negative Urine Ketones Negative Negative Urine Blood Negative Negative /uL Urine Nitrite Negative Negative Urine Bilirubin Negative Negative Urine Urobilinogen Normal Negative mg/dL Urine Leukocyte Esterase Negative Negative /uL Urine RBC None seen 0 - 3 /hpf Urine Microscopic WBC 1 0-3 /HPF Urine Squamous Epithelial Cells Few <5 /hpf Urine Bacteria Few H None Seen /hpf Urine Glucose Normal Normal mg/dL Microbiology Date/Time Source Procedure Growth Status 04/02/25 15:40 Foot Left Gram Stain - Final Resulted 04/02/25 15:40 Foot Left Anaerobic Culture - Preliminary Resulted 04/02/25 15:40 Foot Left Aerobic Culture - Preliminary Resulted 03/30/25 00:17 Blood Blood Culture - Final NO GROWTH AFTER 5 DAYS OF INCUBATION. Complete Left Lower Extremity Arterial Duplex Clinical History: Evaluate for PAD Comparison: US BILAT LOW EXT ART DUPLEX on DOS: 03/14/25, BILAT LOW EXT ART DUPLEX on DOS: 11/10/21 Technique: Duplex Doppler evaluation including color Doppler and spectral/pulsed waveform analysis of the lower extremity arteries was performed. Findings: LEFT: Peak systolic velocities are as follows: TOOL PUSHER 69 cm/s Deep femoral 44 cm/s SFA proximal 42 cm/s SFA mid-portion 42 cm/s SFA distal 69 cm/s Popliteal 74 cm/s Posterior tibial 54 cm/s Anterior tibial 55 cm/s Peroneal nv cm/s Dorsalis pedis nv cm/s The waveforms are monophasic. IMPRESSION: No hemodynamically significant stenosis based on peak systolic velocity criteria. Monophasic arterial waveforms suggestive of peripheral arterial disease. Left dorsalis pedis artery is not visualized secondary to overlying bandages. Assessment Multiple episodes of diabetic foot wounds and amputations and debridements. Based on exam and ultrasound findings arterial supply appears to be adequate for healing of wounds. Follow up with Podiatry Plan discussed with: Patient APRIL GONZALEZ Jr., MD Apr 04, 2025 19:05
[2025-04-04] MEDS: traZODone HCL 50 MG TAB PO SCH (21:46)
[2025-04-04] MEDS: ATORVASTATIN 20 MG TAB PO SCH (21:47)
[2025-04-04] MEDS: SODIUM CHLOR 0.9% PF (SALINE LOCK) 10ML VIAL/SYR IV SCH (22:28)
[2025-04-05 01:00] VITALS: BP_SYST 126; BP_SYST 99; BP_DIAS 46; BP_DIAS 80; PULSE 102; PULSE 95; RESP 18; TEMP 97.9; TEMP 98.2; O2SAT 93; O2SAT 99
[2025-04-05 05:03] VITALS: PULSE 100
[2025-04-05 05:09] VITALS: BP 129/82; PULSE 80; RESP 18; TEMP 98; O2SAT 100
[2025-04-05 07:28] LABS: Basophils # (auto) 0.1 10 ^3/uL (0-0.2); Basophils % (auto) 0.6 % (0.0-2.0); Eosinophils # (auto) 0.3 10 ^3/uL (0-0.8); Eosinophils % (auto) 3.3 % (0.0-7.0); Hematocrit 40.4 % (41.0-53.0); Hemoglobin 12.5 g/dL (13.5-17.5); Lymphocytes # (auto) 1.3 10 ^3/uL (0.4-5.4); Lymphocytes % (auto) 15.3 % (10.0-50.0); Mean Corpuscular Hemoglobin 24.3 pg (28.0-32.0); Mean Corpuscular Volume 78.6 fL (80.0-100.0); Monocytes # (auto) 0.8 10 ^3/uL (0-1.3); Monocytes % (auto) 9.7 % (0.0-12.0); Neutrophils # (auto) 5.9 10 ^3/uL (1.6-8.6); Neutrophils % (auto) 71.1 % (37.0-80.0); Nucleated Red Blood Cells % 0.1 %; Platelet Count (auto) 235 10^3/uL (140-450); Red Blood Cells 5.14 10^6/uL (4.5-5.90); Red Cell Distribution Width 20.9 % (11.8-14.3); White Blood Cell 8.3 10^3/uL (4.4-10.8)
[2025-04-05 07:30] VITALS: PULSE 79
--- NOTE | 2025-04-05 07:31 | DVHDS2 ---
New Physician D'charge PN Admitting Diagnosis Admitting Diagnosis L foot pain and drainage Discharge Diagnosis L foot OM s/p I&D Operations or Procedures L Foot I&D x 2 with podiatry Reason(s) For Hospitalization Surgery Hospital Course 59 M with Hx of diabetes comes to ER for L foot pain and drainage. He states his L foot has worsened over the last few weeks. He was admitted and started on IV Abx and podiatry was consulted. He had an MRI L foot which showed osteomyelitis please refer to the full report for further details. Podiatry saw hin and he underwent I&D x2 during this hospitalization. He was also seen by ID and wound cultures grew E faeicalis and S aureus and ID recommended IV Zosyn x 6 weeks via PICC line. PICC line was inserted and patient cleared by podiatry for discharge home with IV abx and HH. Patient was also seen by vascular surgery whom recommended podiatry follow up and no vascular intervention as his blood supply was sufficient for the wounds to heal. Updated his and she prefers to have him at home with HH and can do the IV ABx via PICC line at home. [facility] to arrange for HH and IV Abx as mentioned and patient will be discharge home with outpt ID and podiatry follow up. Treatment Plan Discharge Condition of Discharge Good Disposition Home with Health Services Discharge Instructions Diet: Consistent carbohydrate, Cardiac 2g Na,low cholest Activity: No Restrictions, As Tolerated Medications: see med sheet Follow Up Care Follow Up/Referral: pcp ID Discharge Statement: "Patient was advised to return to the ER or call 911 if any headaches, dizziness, shortness of breath, chest pain, abdominal pain, bleeding, fevers, or worsening of medical condition. Patient was counseled about treatment plan, medications, possible side effects, patientverbalized understanding. All questions were answered to the best of my ability. This discharge took greater then 30 minutes in planning, reviewing documentati on, counseling the patient, and discussing with other team members." JENNY MARK MD Apr 05, 2025 07:31
[2025-04-05 07:49] LABS: Alanine Aminotransferase 11 U/L (7-40); Albumin 3.7 g/dL (3.2-4.8); Anion Gap 7 (5-15); Aspartate Aminotransferase 10 U/L (<34); Blood Urea Nitrogen 16 mg/dL (9-23); Calcium 9.5 mg/dL (8.7-10.4); Chloride 100 mmol/L (98-107); Sodium 140 mmol/L (136-145); Total Protein 7.4 g/dL (5.7-8.2)
[2025-04-05 07:50] LABS: Alkaline Phosphatase 128 U/L (46-116); Bilirubin, Total 0.7 mg/dL (0.2-1.0); Carbon Dioxide 33 mmol/L (20-31); Glucose 136 mg/dL (74-106); Potassium 3.4 mmol/L (3.5-5.1)
[2025-04-05 07:51] LABS: INR 1.14 (0.9-1.15); Prothrombin Time 11.9 sec (9.3-11.8)
[2025-04-05 08:17] LABS: Partial Thromboplastin Time 83.2 SEC (24.5-34.5)
[2025-04-05] MEDS: POTASSIUM CHL 20 Meq TABLET PO ONE (09:55)
[2025-04-05] MEDS: AMIODARONE HCL 200 MG TAB PO SCH (09:55)
[2025-04-05] MEDS: metOLazone 5 MG TAB PO SCH (09:56)
[2025-04-05 10:56] VITALS: BP 120/70; PULSE 92; RESP 18; TEMP 97.5; O2SAT 99
--- NOTE | 2025-04-05 12:18 | DVHPNRES ---
Progress Note Date Seen: Apr 05, 2025 Resident Creating Document: RAQUEL JANE RESIDENT Has the PT tested + for MRSA If YES, has PT been informed?: No Medical Necessity Reason Pt with a Central, PICC or Fol: No Subjective Review of Systems Patient seen and examined at bedside. Patient reports that the pain in the left foot has decreased significantly after last intervention. Patient underwent incision and drainage yesterday with associated amputation of the 4th toe at the level of the metatarsophalangeal joint. Patient should continue with IV Zosyn through his PICC line. Patient will be discharged today with IV Zosyn through the PICC line for six weeks at home with home health. ROS Constitutional: Denies weight loss, fever and chills. HEENT: Denies changes in vision and hearing. Respiratory: Denies shortness of breath and cough Cardiovascular: Denies chest discomfort or palpitations GI: Denies abdominal pain, nausea, vomiting and diarrhea. : Denies dysuria and urinary frequency. Musculoskeletal: Denies myalgias and joint pain Skin: Denies rash and pruritus. Neurological: Denies dizziness, headache, vision or hearing problems Objective vital signs Vital Sign Date Time Temp Pulse Resp B/P (MAP) Pulse Ox O2 Delivery O2 Flow Rate FiO2 04/05/25 10:56 97.5 92 18 99 04/05/25 09:56 120/70 04/04/25 20:00 Nasal Cannula* 3 32 Total Intake and Output 04/04/25 04/04/25 04/05/25 15:00 23:00 07:00 Intake Total 1200 ml 600 ml Output Total 750 ml Balance 1200 ml -150 ml medications Current Medications Medications Dose Ordered Sig/Maria Isabel Route Start Time Stop Time Status Last Admin Dose Admin Acetaminophen 325 mg Q4HP PRN PO 03/30/25 10:30 Acetaminophen/ Hydrocodone Bitart 1 tab Q4HP PRN PO 03/30/25 10:30 04/05/25 11:55 1 TAB Ondansetron HCl 4 mg Q4HP PRN IV 03/30/25 10:30 Morphine Sulfate 2 mg Q4HPRN PRN IV 03/30/25 10:30 Hold 04/03/25 06:40 2 MG Nitroglycerin 0.4 mg Q5MINP PRN SL 03/30/25 10:30 Morphine Sulfate 2 mg Q30M PRN IV 03/30/25 10:30 Insulin Glargine 40 units HS SC 03/30/25 22:00 04/04/25 21:53 40 UNITS Sodium Chloride 1,000 ml @ 50 mls/hr Q20H IV 03/31/25 16:15 04/02/25 08:30 50 MLS/HR Diagnostic Test (Pha) 1 strip ACHS 03/31/25 17:00 04/05/25 11:50 1 STRIP Insulin Human Regular AC SC 03/31/25 17:00 04/05/25 11:50 8 UNITS Insulin Human Regular HS SC 03/31/25 22:00 04/04/25 22:00 8 UNITS Dextrose 50 ml UD PRN IV 03/31/25 16:30 Enteral Nutritional Formula 28.8 gm BID PO 04/01/25 22:00 04/04/25 22:28 28.8 GM Piperacillin Sod/ Tazobactam Sod 100 ml @ 25 mls/hr Q6HR IV 04/04/25 00:00 04/05/25 11:53 25 MLS/HR Amiodarone HCl 200 mg DAILY PO 04/05/25 10:00 04/05/25 09:55 200 MG Amitriptyline HCl 25 mg QHSP PRN PO 04/04/25 13:45 Furosemide 80 mg BIDD PO 04/04/25 18:00 04/05/25 05:28 80 MG Metolazone 5 mg DAILY PO 04/05/25 10:00 04/05/25 09:56 5 MG Atorvastatin Calcium 40 mg HS PO 04/04/25 22:00 04/04/25 21:47 40 MG Pregabalin 200 mg TID PO 04/04/25 14:00 04/05/25 06:10 200 MG Trazodone HCl 100 mg HS PO 04/04/25 22:00 04/04/25 21:46 100 MG Sodium Chloride 10 ml QSHIFT@10,22 IV 04/04/25 22:00 04/05/25 09:56 10 ML Oxycodone/ Acetaminophen 2 tab Q4HPRN PRN PO 04/04/25 17:00 04/05/25 03:57 2 TAB Examination Physical Examination General: Patient alert and oriented in person, place and time. Patient following commands. HEENT: Normocephalic, atraumatic, moist mucous membranes Respiratory/pulmonary: There is decreased breath sounds on bilateral lung king, no wheezes or crackles at this time. Patient is currently on 3 L of oxygen through nasal cannula. Cardiovascular: Normal heart sounds S1 and S2 with no associated murmurs Abdomen: Abdomen nondistended, there is no pain to palpation in any of the abdominal quadrants, no palpable masses. Extremities: There is amputation of bilateral 5th digits on both feet. Left foot is currently covered with clean gauze. Skin: No rashes or pruritus, there is no sacral edema present at this time. Neurological: Intact cranial nerves with no focal neurologic deficits laboratory and microbiology Laboratory Tests 04/05/25 07:08 Test 04/05/25 07:08 Range/Units Serum Glucose 136 H 74-106 mg/dL Microbiology Date/Time Source Procedure Growth Status 04/02/25 15:40 Foot Left Gram Stain - Final Resulted 04/02/25 15:40 Foot Left Anaerobic Culture - Preliminary Resulted 04/02/25 15:40 Foot Left Aerobic Culture - Preliminary Resulted 03/30/25 00:17 Blood Blood Culture - Final NO GROWTH AFTER 5 DAYS OF INCUBATION. Complete Problem List/Assessment/Plan Problem List/Assessment/Plan Assessment/Plan Acute left foot infected diabetic wound Acute osteomyelitis of the distal aspect of the 5th metatarsal stump Possible gangrene of the 4th metatarsal head Acute hypoxic respiratory failure likely due to obesity hyperventilation syndrome Uncontrolled type 2 diabetes mellitus with insulin dependence Peripheral artery disease Morbid obesity Primary hypertension Dyslipidemia COPD History of CHF and CKD Plan -preliminary bone cultures are showing few Gram-positive cocci in pairs with rare Gram-negative rods. wait for final reports. -patient underwent yesterday incision and drainage with amputation of the 4th toe at the metatarsophalangeal joint. -patient will be discharged home with home health with IV Zosyn through his PICC line for six weeks. -last hemoglobin A1c was 11.5% -wound consult for daily wound care, wound dressing. -Control blood glucose (140-180mg/dl) -Ordered PICC line -F/U with ID as outpatient in 2 weeks Goals of care discussed with the patient at bedside for >35min, FULL CODE Plan discussed with Dr. Duff Plan discussed with: Patient Dietary Evaluation Review Recommendations by RD: Dietary education by RD, Protein Supplementation Comments: 1) Initiate Demetrius @ 1 pk bid 2) Initiate MVI @ 1 tb qd 3) Encourage optimal PO intake 4) Collect HbA1C 5) Refer to outpatient RD/[facility] for diabetes education and weight management 6) Follow-up with podiatry, vascular surgery, cardiology, and nephrology 7) Continue to monitor I&O, labs, and skin integrity Expected Outcomes/Goals: 1) appetite and labs to improve 2) wound to improve 3) f/u in 3-5 days RAQUEL JANE RESIDENT Apr 05, 2025 12:18
[2025-04-05 17:00] VITALS: BP 108/72; PULSE 91; RESP 20; TEMP 98.6; O2SAT 97
== END 2025-04-05 18:40 | DRG 853 ==
LOC: ER 23:41 → OVERFLOW 03-30 10:16 → TELE-WESTW 03-30 15:27
PROVIDERS: ADMIT Student in an Organized Health Care Education/Training Program; ATTEND Student in an Organized Health Care Education/Training Program
PROC: 0QBP0ZX Excision of Left Metatarsal, Open Approach, Diagnostic (ICD-10-PCS; 2025-04-02)
PROC: 0QBR0ZX Excision of Left Toe Phalanx, Open Approach, Diagnostic (ICD-10-PCS; 2025-04-02)
PROC: 0J9R0ZZ Drainage of Left Foot Subcutaneous Tissue and Fascia, Open Approach (ICD-10-PCS; 2025-04-02)
PROC: 02HV33Z Insertion of Infusion Device into Superior Vena Cava, Percutaneous Approach (ICD-10-PCS; 2025-04-04)
PROC: 0J9R0ZZ Drainage of Left Foot Subcutaneous Tissue and Fascia, Open Approach (ICD-10-PCS; 2025-04-04)
PROC: 0Y6U0Z0 Detachment at Left 3rd Toe, Complete, Open Approach (ICD-10-PCS; principal; 2025-04-04 11:11)
DX: A41.9 Sepsis, unspecified organism (principal); N17.0 Acute kidney failure with tubular necrosis; E66.2 Morbid (severe) obesity with alveolar hypoventilation; Z68.45 Body mass index [BMI] 70 or greater, adult; I50.22 Chronic systolic (congestive) heart failure; I13.0 Hypertensive heart and chronic kidney disease with heart failure and stage 1 through stage 4 chronic kidney disease, or unspecified chronic kidney disease; L03.116 Cellulitis of left lower limb; F11.20 Opioid dependence, uncomplicated; M86.172 Other acute osteomyelitis, left ankle and foot; L02.612 Cutaneous abscess of left foot; Z99.81 Dependence on supplemental oxygen; E11.65 Type 2 diabetes mellitus with hyperglycemia; J44.9 Chronic obstructive pulmonary disease, unspecified; E11.69 Type 2 diabetes mellitus with other specified complication; E11.628 Type 2 diabetes mellitus with other skin complications; E11.621 Type 2 diabetes mellitus with foot ulcer; E11.610 Type 2 diabetes mellitus with diabetic neuropathic arthropathy; E11.22 Type 2 diabetes mellitus with diabetic chronic kidney disease; E11.51 Type 2 diabetes mellitus with diabetic peripheral angiopathy without gangrene; N18.2 Chronic kidney disease, stage 2 (mild); I48.91 Unspecified atrial fibrillation; F17.210 Nicotine dependence, cigarettes, uncomplicated; E78.5 Hyperlipidemia, unspecified; Z89.429 Acquired absence of other toe(s), unspecified side; Z79.4 Long term (current) use of insulin; Z83.49 Family history of other endocrine, nutritional and metabolic diseases; Z88.0 Allergy status to penicillin; Z79.01 Long term (current) use of anticoagulants; Z83.3 Family history of diabetes mellitus; Z82.49 Family history of ischemic heart disease and other diseases of the circulatory system; Z82.3 Family history of stroke; Z80.0 Family history of malignant neoplasm of digestive organs; L97.529 Non-pressure chronic ulcer of other part of left foot with unspecified severity
CPT/HCPCS: 36415; 36556; 36569; 36600; 71045; 73630; 73706; 73718; 80048; 80053; 80202; 81001; 82805; 82962; 83605; 85025; 85610; 85730; 86850; 86900; 86901; 87040; 87070; 87075; 87076; 87077; 87081; 87186; 87205; 93005; 93926; 96365; G0378; J0692; J1815; J2185; J2250; J2405; J2543; J2704; J3480; J3490; J7060

== ENCOUNTER 2025-06-29 00:06 | Observation (INO) | payer OTHER, MEDICAID ==
[~2025-06-29] VITALS: Ht 170.2 cm; Wt 153.7 kg
[~2025-06-29 00:06] MED LIST changes: -METO-6 PO
[2025-06-29 01:03] LABS: Hematocrit 49.2 % (41.0-53.0); Hemoglobin 16.0 g/dL (13.5-17.5); Mean Corpuscular Hemoglobin 26.4 pg (28.0-32.0); Mean Corpuscular Volume 81.3 fL (80.0-100.0); Nucleated Red Blood Cells % 0.1 %
[2025-06-29 01:11] LABS: Potassium 4.2 mmol/L (3.5-5.1)
[2025-06-29 01:12] LABS: Anion Gap 11 (5-15); Carbon Dioxide 26 mmol/L (20-31)
[2025-06-29 01:13] LABS: Calcium 9.4 mg/dL (8.7-10.4)
[2025-06-29 01:15] LABS: Chloride 94 mmol/L (98-107); Sodium 131 mmol/L (136-145)
[2025-06-29 01:18] LABS: BUN/Creatinine Ratio 11.3 (10.0-20.0); Blood Urea Nitrogen 15 mg/dL (9-23); Glucose 255 mg/dL (74-106); Lipase 27 U/L (12-53)
--- NOTE | 2025-06-29 01:24 | DVH ---
EXAM: CT CT L FOOT WO CONTRAST HISTORY: Rule out osteomyelitis COMPARISON: MRI MRI L FOOT WO CONTRAST on DOS: 04/01/25, CT CT ANGIO LOWER EXTREMITY on DOS: 03/30/25, XY L FOOT 3 VIEW XRAY on DOS: 03/30/25, CT CT ANGIO LOWER EXTREMITY on DOS: 03/15/25, MRI MRI L FOOT WO CONTRAST on DOS: 03/14/25 TECHNIQUE: Noncontrast axial CT images of the left foot were performed. Sagittal and coronal reformat marycarmen images were obtained. This CT exam was performed using one or more of the following dose reductio n techniques: Automated exposure control, adjustment of the mA and/or kv according to patient size, o r the use of iterative reconstruction techniques. Radiation Dose Information: CT Dose: CTDI volume is 7.75 mGy. Dose-length product is 309.86 mGy*cm FINDINGS: Prior partial 4th and 5th metatarsal amputations. There is osseous erosion and soft tissue gas about the base of the 3rd proximal phalanx, and to a lesser extent about the 2nd distal phalanx. No draina ble collection is seen. IMPRESSION: 1. Findings as above suggesting osteomyelitis in the appropriate clinical setting. MRI would be more sensitive in further assessment if clinically indicated.
[2025-06-29] MEDS ORDERED: SODIUM CHLORIDE 0.9% 1,000 ML IV ONE ×2 (02:15→04:45)
--- NOTE | 2025-06-29 02:20 | ED.PDOC ---
Musculoskeletal HPI Comments Patient is a severely morbidly obese 59-year-old male who arrives the ED today for evaluation of left foot concerns. Patient has a history of a 4th 5th toe amputation due to complications from diabetes. Patient arrives with continued wounds of the foot as well as some purplish of the 3rd toe. Vital signs were stable. Chief Complaint: Lower Extremity Time Seen by MD: 00:25 Primary Care Provider: [facility] Reviewed Notes: Nurses Notes Allergies: Coded Allergies: Penicillins (Verified Allergy, Severe, 04/21/23) Home Meds Active Scripts Amiodarone Hcl (Amiodarone Hcl) 200 Mg Tab, 1 TAB PO DAILY, #30 TAB 0 Refills Prov:LORENZO AGUILAR MD 07/03/21 Reported Medications Apixaban Base (ELIQUIS) 5 Mg Tab, 1 TAB PO BID for 30 Days, #60 04/03/25 Metoprolol Succinate (Metoprolol Succinate Er) 50 Mg Tab, 1 TAB PO DAILY@9AM for 30 Days, #30 04/03/25 Metolazone (Metolazone) 5 Mg Tab, 1 TAB PO DAILY for 30 Days, #30 03/15/25 Acetaminophen (Acetaminophen Extra Stren) 500 Mg Tab, 1-2 TAB PO QID PRN for 30 Days, #240 03/15/25 Furosemide (Furosemide) 40 Mg Tab, 2 TAB PO BID for 30 Days, #120 03/15/25 Tizanidine Hydrochloride (Tizanidine Hcl) 4 Mg Tab, 1 TAB PO TID for 30 Days, #90 03/15/25 Pregabalin (Pregabalin) 200 Mg Cap, 1 CAP PO TID for 30 Days, #90 03/15/25 Amitriptyline HCl (Amitriptyline Hydrochlori) 25 Mg Tab, 1 TAB PO QHSP PRN for LUMBAGO WITH SCIATICA for 30 Days, #30 03/15/25 Trazodone Hcl (Trazodone Hcl) 100 Mg Tab, 1 TAB PO HS for 30 Days, #30 03/15/25 Oxycodone HCl (Oxycodone Hydrochloride) 10 Mg Tab, 1 TAB PO TID for 30 Days, #90 03/15/25 Atorvastatin Calcium (ATORVASTATIN CALCIUM) 40 Mg Tab, 1 TAB PO DAILY@5PM for 30 Days, #30 03/15/25 Insulin Lispro (Insulin Lispro Kwikpen) 100 Unit/Ml Inj, 15-20 UNIT SC AC for 65 Days, #30 03/15/25 Insulin Glargine (Lantus Solostar) 100 Unit/Ml Inj, 40 UNITS SC HS for 57 Days, #24 03/15/25 Hydrochlorothiazide (Hydrochlorothiazide) 25 Mg Tab, 25 MG PO DAILY for 30 Days, MG 06/24/21 Information Source: Patient, Friend Mode of Arrival: Wheelchair Location: Left Extremity Location: Foot Timing: Weeks Prehospital treatment: Treatment Severity: Severe Able to Move Extremity: No Bear Weight: No Pain: Moderate Hand Dominance: Right Mechanism: Spontaneous Circumstances: Spontaneous Symptoms: Swelling, Pain Last Tetanus: UTD Past Medical History PAST MEDICAL HISTORY: AFIB, CKF, COPD, DM, HTN, UTI'S Surgical History: PTCA Family History Family History: Reviewed,noncontributory to illness, Family hx of DM Social History Smoker: Cigarettes Alcohol: Denies ETOH Use Drugs: Denies Drug Use Lives In: Home Constitutional: denies: chills, diaphoresis, fatigue, fever, malaise, sweats, weakness, others EENTM: denies: blurred vision, double vision, ear bleeding, ear discharge, ear drainage, ear pain, ear ringing, eye pain, eye redness, hearing loss, mouth pain, mouth swelling, nasal discharge, nose bleeding, nose congestion, nose pain, photophobia, tearing, throat pain, throat swelling, voice changes, others Respiratory: denies: cough, hemoptysis, orthopnea, SOB at rest, shortness of breath, SOB with excertion, stridor, wheezing, others Cardiovascular: denies: chest pain, dizzy spells, diaphoresis, Dyspnea on exertion, edema, irregular heart beat, left arm pain, lightheadedness, palpitati ons, PND, syncope, others Gastrointestinal: denies: abdomen distended, abdominal pain, blood streaked bowels, constipated, diarrhea, dysphagia, difficulty swallowing, hematemesis, melena, nausea, poor appetite, poor fluid intake, rectal bleeding, rectal pain, vomiting, others Genitourinary: denies: burning, dysuria, flank pain, frequency, hematuria, incontinence, penile discharge, penile sore, pain, testicle pain, testicle swelling, urgency, others Neurological: denies: dizziness, fainting, headache, left sided numbness, left sided weakness, numbness, paresthesia, pre-existing deficit, right sided numbness, right sided weakness, seizure, speech problems, tingling, tremors, weakness, others Musculoskeletal: denies: back pain, gout, joint pain, joint swelling, muscle pain, muscle stiffness, neck pain, others Integumetry: reports: wounds (Wounds to left foot); denies: bruises, change in color, change in hair/nails, dryness, laceration, lesions, lumps, rash, others Allergic/Immunocompromised: denies: Difficulty Healing, Frequent Infections, Hives, Itching, others Hematologic/Lymphatic: denies: anemia, blood clots, easy bleeding, easy bruising, swollen glands, others Endocrine: denies: excessive hunger, excessive sweating, excessive thirst, excessive urination, flushing, intolerance to cold, intolerance to heat, unexplained weight gain, unexplained weight loss, others Psychiatric: denies: anxiety, bipolar disorder, depression, hopeless, panic disorder, schizophrenia, sleepless, suicidal, others Physical Exam General Appearance: Moderate Distress (Due to left foot pain concerns), Obese HEENT: Normal ENT Inspection, Pharynx Normal, TMs Normal Neck: Full Range of Motion, Non-Tender, Normal, Normal Inspection Respiratory: Chest Non-Tender, Lungs Clear, No Accessory Muscle Use, No Respiratory Distress, Normal Breath Sounds Cardiovascular: No Edema, No JVD, No Murmur, No Gallop, Normal Peripheral Pulses, Regular Rate/Rhythm Breast Exam: Deferred Gastrointestinal: No Organomegaly, Non Tender, No Pulsatile Mass, Normal Bowel Sounds, Soft Genitalia: Deferred Pelvic: Deferred Rectal: Deferred Extremities: Other (Patient displays multiple weeping eschar as to the lateral aspect of the left foot with localized erythema and edema. Wounds appear to be penetrating.) Neurologic: Normal Affect Cerebellar Function: NOT DONE Reflexes: NOT DONE Skin: Dry, Normal Color, Warm Lymphatic: No Adenopathy Was a procedure done? Was a procedure done?: No Differential Diagnosis EXT Differential Diagnosis: Cellulitis, Other (Osteomyelitis, diabetic foot) X-Ray, Labs, Meds, VS Vital Signs Date Time Temp Pulse Resp B/P (MAP) Pulse Ox O2 Delivery O2 Flow Rate FiO2 06/29/25 00:11 98.2 109 18 155/76 89 98.2 Lab Test 06/29/25 01:41 06/29/25 00:45 Range/Units Troponin I High Sensitivity Pending 15 </=54 ng/L White Blood Count 12.5 H 4.4-10.8 10^3/uL Red Blood Count 6.04 H 4.5-5.90 10^6/uL Hemoglobin 16.0 13.5-17.5 g/dL Hematocrit 49.2 41.0-53.0 % Mean Corpuscular Volume 81.3 80.0-100.0 fL Mean Corpuscular Hemoglobin 26.4 L 28.0-32.0 pg Mean Corpuscular Hemoglobin Concent 32.5 32.0-36.0 g/dL Red Cell Distribution Width 21.1 H 11.8-14.3 % Platelet Count 283 140-450 10^3/uL Mean Platelet Volume 8.1 6.9-10.8 fL Neutrophils (%) (Auto) 79.3 37.0-80.0 % Lymphocytes (%) (Auto) 12.5 10.0-50.0 % Monocytes (%) (Auto) 7.2 0.0-12.0 % Eosinophils (%) (Auto) 0.6 0.0-7.0 % Basophils (%) (Auto) 0.4 0.0-2.0 % Neutrophils # (Auto) 9.9 H 1.6-8.6 10 ^3/uL Lymphocytes # (Auto) 1.6 0.4-5.4 10 ^3/uL Monocytes # (Auto) 0.9 0-1.3 10 ^3/uL Eosinophils # (Auto) 0.1 0-0.8 10 ^3/uL Basophils # (Auto) 0.1 0-0.2 10 ^3/uL Nucleated Red Blood Cells 0.1 % Sodium Level 131 L 136-145 mmol/L Potassium Level 4.2 3.5-5.1 mmol/L Chloride Level 94 L 98-107 mmol/L Carbon Dioxide Level 26 20-31 mmol/L Anion Gap 11 5-15 Blood Urea Nitrogen 15 9-23 mg/dL Creatinine 1.33 H 0.700-1.30 mg/dL Glomerular Filtration Rate Calc 62 >90 mL/min BUN/Creatinine Ratio 11.3 10.0-20.0 Serum Glucose 255 H 74-106 mg/dL Calcium Level 9.4 8.7-10.4 mg/dL B-Type Natriuretic Peptide 128.12 0-100 pg/mL Lipase 27 12-53 U/L X-Ray, Labs, Meds, VS Comment All studies performed the ED were evaluated by me personally. Laboratories studies were remarkable for an elevated glucose as well as some mild electrolyte concerns. CT of the left foot revealed an osteomyelitis. Patient will be admitted for IV antibiotics as well as a podiatry consultation. Time of 1ST Reevaluation: 02:18 Reevaluation 1ST: Improved Consultation: PCP Patient Education/Counseling: Diagnosis, Treatment Family Education/Counseling: Diagnosis, Treatment Sepsis Recent Procedure: No On Antibiotic Therapy: No Respiratory Rate >20: No Heart Rate >90: No Temp<36 C (96.8 F) or >38.3 C: No SBP <90 or MAP <65 mmHG: No New Acute Mental Status Change: No Is the patient on CPAP, BIPAP,: No IV fluid given: No Departure 1 Departure Time of Disposition: 02:19 Impression: Primary Impression: Osteomyelitis Additional Impression: Diabetic foot infection Disposition: 09 ADMITTED INPATIENT Condition: Fair Discharged With: Self, Spouse Critical Care Note Critical Care Time?: No Stability Stability form required: No Heart Score Heart Score: Heart Score Response (Comments) Value History N/A 0 EKG N/A 0 Age N/A 0 Risk Factors N/A 0 Troponin N/A 0 Total 0 EMI JOHNSON PAC Jun 29, 2025 02:20
[2025-06-29] MEDS: HYDROcodone-ACET 10/325MG TAB PO ONE (02:52)
[2025-06-29] MEDS: PIPERACILLIN-TAZOB 3.375GM 100 ML IV ONE (02:52)
[2025-06-29] MEDS ORDERED: DEXTROSE (50%) 50ML SYRG IV PRN (04:45)
[2025-06-29] MEDS ORDERED: VANCOMYCIN PER PHARMACY 0 MG IV SCH ×2 (04:45→08:00)
[2025-06-29] MEDS ORDERED: NITROGLYCERIN 0.4 MG SL TAB SL PRN (05:15)
[2025-06-29] MEDS ORDERED: MORPHINE SULFATE INJ 2 MG/ml SYRG IV PRN (05:15)
[2025-06-29] MEDS: InsuLIN REG 1unit/0.01ml Soln (100units/ml) SC SCH (06:00)
[2025-06-29] MEDS: ACCU-CHEK COMFORT CURVE STRIP VI SCH (06:00)
[2025-06-29 06:10] LABS: Hematocrit 45.5 % (41.0-53.0); Hemoglobin 15.1 g/dL (13.5-17.5); Mean Corpuscular Hemoglobin 26.6 pg (28.0-32.0); Mean Corpuscular Volume 80.1 fL (80.0-100.0); Nucleated Red Blood Cells % 0.1 %
[2025-06-29 06:25] LABS: Potassium 3.9 mmol/L (3.5-5.1)
[2025-06-29 06:26] LABS: Anion Gap 10 (5-15); Calcium 9.1 mg/dL (8.7-10.4); Carbon Dioxide 27 mmol/L (20-31)
[2025-06-29 06:30] LABS: Chloride 95 mmol/L (98-107); Sodium 132 mmol/L (136-145)
[2025-06-29 06:31] LABS: BUN/Creatinine Ratio 13.1 (10.0-20.0); Blood Urea Nitrogen 17 mg/dL (9-23)
[2025-06-29 06:42] LABS: Glucose 253 mg/dL (74-106)
--- NOTE | 2025-06-29 07:48 | DVH ---
BILATERAL Lower Extremity Arterial Duplex Date: 06/29/2025 07:02 AM Clinical History: rule out arterial stenosis, ischemic limb Comparison: US LT LOW EXT ART DUPLEX on DOS: 04/04/25, CT CT ANGIO LOWER EXTREMITY on DOS: 03/30/25, CT CT ANGIO LOWER EXTREMITY on DOS: 03/15/25, US BILAT LOW EXT ART DUPLEX on DOS: 03/14/25, BILAT LOW EXT ART DUPLEX on DOS: 11/10/21 Technique: Duplex Doppler evaluation including color Doppler and spectral/pulsed waveform analysis of the lower extremity arteries was performed. Finding: Left lower extremity: Monophasic waveforms seen throughout the left lower extremity with decreased velocities. IMPRESSION: Advanced left lower extremity peripheral arterial disease with monophasic waveforms. Interventional r adiology consultation recommended.
[2025-06-29] MEDS ORDERED: hydrALAZINE HCL 20 MG/ML VL IV PRN (08:00)
[2025-06-29] MEDS: ENOXAPARIN SOD 150 MG/1 ML SYRINGE SC SCH (08:07)
[2025-06-29 08:22] LABS: INR 1.09 (0.9-1.15); Prothrombin Time 11.5 sec (9.3-11.8)
[2025-06-29] MEDS: VANCOMYCIN 1GM/250ML KIT 250 ML IV ONE (09:35)
[2025-06-29 10:50] VITALS: PULSE 100; RESP 20; O2SAT 98
[2025-06-29] MEDS: FUROSEMIDE 40 MG TAB PO SCH (10:52)
[2025-06-29] MEDS: VANCOMYCIN 1GM/250ML IV ONE (10:52)
[2025-06-29] MEDS: AMIODARONE HCL 200 MG TAB PO SCH (10:53)
[2025-06-29] MEDS: OXYCODONE W/ ACETAMINOPHEN 5/325MG TABLET PO PRN (10:53)
--- NOTE | 2025-06-29 10:56 | DVH ---
CLINICAL HISTORY: Infection; rule out osteomylitis. TECHNIQUE: Multi sequence multi planar MRI images of the left foot were obtained without IV contrast . COMPARISON: CT CT L FOOT WO CONTRAST on DOS: 06/29/25, MRI MRI L FOOT WO CONTRAST on DOS: 04/01/25 FINDINGS: Postsurgical changes of prior amputations involving the 4th and 5th metatarsal shafts. The re is a wound and adjacent subcutaneous edema near the amputation stump, likely cellulitis. There is ill-defined fluid, probable phlegmon. Limited evaluation for abscess without Postcontrast images. Th ere is marrow edema with STIR hyperintense and T1 hypointense signal involving the remaining portions of the 5th metatarsal shaft and base, 4th metatarsal shaft, and 3rd metatarsal proximal to distal sh aft and extending to the 3rd metatarsal head and 3rd digit proximal and middle phalanges, suspected o steomyelitis. No marrow signal abnormality identified in the 1st and 2nd metatarsals or the 1st and 2 nd digit phalanges to suggest osteomyelitis. No other marrow signal abnormality identified in the res t of the left foot to suggest osteomyelitis. Moderate fatty atrophy of the intrinsic musculature of the hindfoot and forefoot. There is a wound mo re posteriorly in the medial plantar aspect of the midfoot with adjacent subcutaneous edema, likely c ellulitis in the appropriate clinical setting, with inflammatory changes extending to the adjacent fl exor digitorum brevis muscle. Intramuscular T2 hyperintense signal is nonspecific, may be seen with a cute / subacute denervation changes or myositis in the appropriate clinical setting. IMPRESSION: 1. Findings consistent with Osteomyelitis involving the 3rd through 5th metatarsals and 3rd digit pro ximal and middle phalanges. 2. Postsurgical changes of prior amputation at the 4th and 5th metatarsal shafts with wound at the am putation stump and associated subcutaneous edema and ill-defined fluid, likely cellulitis and probabl e phlegmon. Limited evaluation for abscess without Postcontrast images. 3. There is a wound at the medial plantar aspect of the midfoot with adjacent subcutaneous edema, lik franklin cellulitis. 4. Additional findings as described above.
[2025-06-29 11:17] VITALS: BP 105/66; PULSE 98; RESP 20; TEMP 97.8; O2SAT 89
[2025-06-29] MEDS: PIPERACILLIN-TAZOB 3.375GM 100 ML IV SCH ×2 (12:30→21:31)
--- NOTE | 2025-06-29 12:35 | DVHCONRES ---
Date Seen: Jun 29, 2025 Reason for Consultation Foot wound History of Present Illness Patient is a severely morbidly obese 59-year-old male who arrives the ED today for evaluation of left foot concerns. Patient has a history of a 4th 5th toe amputation due to complications from diabetes. Patient arrives with continued wounds of the foot as well as some purplish of the 3rd toe. Vital signs were stable. Past Medical History See H&P Past Surgical History See H&P Family History: Cerebrovascular accident (CVA) G8 FATHER Colon cancer G8 MOTHER Diabetes mellitus G8 FATHER G8 MOTHER FH: chronic kidney disease G8 FATHER FH: congestive heart failure G8 FATHER FH: heart attack G8 FATHER Hypertension G8 MOTHER Allergies: Coded Allergies: Penicillins (Verified Allergy, Severe, 04/21/23) Home Meds Active Scripts Amiodarone Hcl (Amiodarone Hcl) 200 Mg Tab, 1 TAB PO DAILY, #30 TAB 0 Refills Prov:LORENZO AGUILAR MD 07/03/21 Reported Medications Apixaban Base (ELIQUIS) 5 Mg Tab, 1 TAB PO BID for 30 Days, #60 04/03/25 Metoprolol Succinate (Metoprolol Succinate Er) 50 Mg Tab, 1 TAB PO DAILY@9AM for 30 Days, #30 04/03/25 Metolazone (Metolazone) 5 Mg Tab, 1 TAB PO DAILY for 30 Days, #30 03/15/25 Acetaminophen (Acetaminophen Extra Stren) 500 Mg Tab, 1-2 TAB PO QID PRN for 30 Days, #240 03/15/25 Furosemide (Furosemide) 40 Mg Tab, 2 TAB PO BID for 30 Days, #120 03/15/25 Tizanidine Hydrochloride (Tizanidine Hcl) 4 Mg Tab, 1 TAB PO TID for 30 Days, #90 03/15/25 Pregabalin (Pregabalin) 200 Mg Cap, 1 CAP PO TID for 30 Days, #90 03/15/25 Amitriptyline HCl (Amitriptyline Hydrochlori) 25 Mg Tab, 1 TAB PO QHSP PRN for LUMBAGO WITH SCIATICA for 30 Days, #30 03/15/25 Trazodone Hcl (Trazodone Hcl) 100 Mg Tab, 1 TAB PO HS for 30 Days, #30 03/15/25 Oxycodone HCl (Oxycodone Hydrochloride) 10 Mg Tab, 1 TAB PO TID for 30 Days, #90 03/15/25 Atorvastatin Calcium (ATORVASTATIN CALCIUM) 40 Mg Tab, 1 TAB PO DAILY@5PM for 30 Days, #30 03/15/25 Insulin Lispro (Insulin Lispro Kwikpen) 100 Unit/Ml Inj, 15-20 UNIT SC AC for 65 Days, #30 03/15/25 Insulin Glargine (Lantus Solostar) 100 Unit/Ml Inj, 40 UNITS SC HS for 57 Days, #24 03/15/25 Hydrochlorothiazide (Hydrochlorothiazide) 25 Mg Tab, 25 MG PO DAILY for 30 Days, MG 06/24/21 Current Medications Current Medications Medications (Trade) Dose Ordered Sig/Maria Isabel Route PRN Reason Start Time Stop Time Status Last Admin Piperacillin Sod/ Tazobactam Sod 100 ml @ 25 mls/hr Q8HR@0300,1100,1900 IV 06/29/25 11:00 06/29/25 12:30 Vancomycin HCl 0 ml @ 0 mls/hr UD IV 06/29/25 04:45 06/29/25 09:20 DC Enoxaparin Sodium (Lovenox) 150 mg Q12HR@0600,1800 SC 06/29/25 06:00 Diagnostic Test (Pha) (Accu-Chek Comfort Curve T) 1 strip Q6HR 06/29/25 06:00 06/29/25 12:30 Insulin Human Regular (InsuLIN R) Q6HR SC 06/29/25 06:00 Dextrose 50 ml UD PRN IV Blood Sugar LESS THAN 60 06/29/25 04:45 Furosemide (Lasix Tablet) 80 mg BIDD PO 06/29/25 06:00 Atorvastatin Calcium (Lipitor) 40 mg HS PO 06/29/25 22:00 Amiodarone HCl (Cordarone Tablet) 200 mg DAILY PO 06/29/25 10:00 06/29/25 10:53 Nitroglycerin (Ntrostat Sublingual) 0.4 mg Q5MINP PRN SL FOR CHEST PAIN 06/29/25 05:15 Morphine Sulfate 2 mg Q30M PRN IV FOR CHEST PAIN 06/29/25 05:15 Oxycodone/ Acetaminophen (Percocet 5/ 325MG Tablet) 2 tab Q8HP PRN PO SEVERE PAIN (7-10 PAIN SCALE) 06/29/25 05:15 06/29/25 10:53 Insulin Glargine (Lantus) 20 units HS SC 06/29/25 22:00 Vancomycin HCl 0 ml @ 0 mls/hr UD IV 06/29/25 08:00 Hydralazine HCl (Apresoline Injection) 10 mg Q4HPRN PRN IV SBP >160 06/29/25 08:00 Vital Signs Vital Signs Date Time Temp Pulse Resp B/P (MAP) Pulse Ox O2 Delivery O2 Flow Rate FiO2 06/29/25 11:17 97.8 98 20 105/66 (79) 89 97.8 06/29/25 10:50 Nasal Cannula* 2 28 Physical Exam Dermatological: Skin is dry with mild erythema and some maceration around the wound site No gross deformities noted Mild non-pitting edema present bilaterally Multiple wounds of the left dorsal lateral and plantar foot with surrounding erythema Vascular: Dorsalis pedis and posterior tibial pulses are 1+ bilaterally Capillary refill is under 2 seconds Skin temperature is warm bilaterally Neurologic: Protective sensation is absent on the plantar forefoot bilaterally Monofilament testing reveals decreased sensation in multiple plantar sites Musculoskeletal: Range of motion at the ankle and MTP joints is within normal limits. Strength is 5/5 in all tested muscle groups. Gait is antalgic due to offloading of the affected limb. Labs/Diagnostic Data Labs Test 06/29/25 12:13 06/29/25 05:24 06/29/25 03:52 06/29/25 00:45 Range/Units POC Glucose 252 H 70-106 mg/dl White Blood Count 11.9 H 4.4-10.8 10^3/uL Red Blood Count 5.68 4.5-5.90 10^6/uL Hemoglobin 15.1 13.5-17.5 g/dL Hematocrit 45.5 41.0-53.0 % Mean Corpuscular Volume 80.1 80.0-100.0 fL Mean Corpuscular Hemoglobin 26.6 L 28.0-32.0 pg Mean Corpuscular Hemoglobin Concent 33.3 32.0-36.0 g/dL Red Cell Distribution Width 21.4 H 11.8-14.3 % Platelet Count 298 140-450 10^3/uL Mean Platelet Volume 8.0 6.9-10.8 fL Neutrophils (%) (Auto) 76.0 37.0-80.0 % Lymphocytes (%) (Auto) 15.2 10.0-50.0 % Monocytes (%) (Auto) 7.5 0.0-12.0 % Eosinophils (%) (Auto) 0.7 0.0-7.0 % Basophils (%) (Auto) 0.6 0.0-2.0 % Neutrophils # (Auto) 9.0 H 1.6-8.6 10 ^3/uL Lymphocytes # (Auto) 1.8 0.4-5.4 10 ^3/uL Monocytes # (Auto) 0.9 0-1.3 10 ^3/uL Eosinophils # (Auto) 0.1 0-0.8 10 ^3/uL Basophils # (Auto) 0.1 0-0.2 10 ^3/uL Nucleated Red Blood Cells 0.1 % Erythrocyte Sedimentation Rate 37 H 0-20 mm/hr Prothrombin Time 11.5 9.3-11.8 sec Prothrombin Time INR 1.09 0.9-1.15 Sodium Level 132 L 136-145 mmol/L Potassium Level 3.9 3.5-5.1 mmol/L Chloride Level 95 L 98-107 mmol/L Carbon Dioxide Level 27 20-31 mmol/L Anion Gap 10 5-15 Blood Urea Nitrogen 17 9-23 mg/dL Creatinine 1.30 0.700-1.30 mg/dL Glomerular Filtration Rate Calc 64 >90 mL/min BUN/Creatinine Ratio 13.1 10.0-20.0 Serum Glucose 253 H 74-106 mg/dL Calcium Level 9.1 8.7-10.4 mg/dL C-Reactive Protein High Sensitivity 11.18 H <1.0 mg/dL Troponin I High Sensitivity 43 </=54 ng/L B-Type Natriuretic Peptide 128.12 0-100 pg/mL Lipase 27 12-53 U/L Problems(with codes): (1) Diabetes (2) Dyspnea (3) CHF (congestive heart failure) (4) Peripheral vascular disease (5) UTI (urinary tract infection) (6) Hypertension (7) Cellulitis and abscess of foot (8) Diabetic foot ulcer (9) Right leg pain (10) Acute on chronic kidney failure (11) Acute prerenal azotemia (12) Cellulitis and abscess of right leg (13) Charcot arthropathy of midfoot (14) COPD (chronic obstructive pulmonary disease) (15) Hyperglycemia (16) Type 2 diabetes mellitus (17) Chronic kidney disease (18) Supplemental oxygen dependent (19) Cellulitis of left foot (20) Heart failure with reduced ejection fraction (21) Osteomyelitis (22) Diabetic foot infection Plan/Recommendation ASSESSMENT: Patient is a 59 year old seen on the floor for a worsening ulcer PLAN: - The patients chart was reviewed, clinical findings were discussed with the p atient, the etiologies of the conditions were discussed in detail, and a treatment plan was agreed to at this time, with both oral and written instructions provided. - reviewed advanced imaging - recommend 6 weeks IV antibiotics - recommend consult with a vascular - prognosis poor for limb being salvage - no surgical intervention recommended at this point All questions were answered and concerns addressed to the patient's satisfaction. The patient was given the phone number to the clinic and was told how to make contact with the clinic should any concerns or questions arise. Patient understands that if any questions or concerns arise prior to the next appointment, we should be contacted immediately. FOLLOW-UP: Continue to follow while inpatient Plan discussed with: Patient Visit Coding Podiatry Date of Service if different f: Jun 29, 2025 Billing Provider: ARACELI MARTIN DPM Podiatry Common Visit Codes: CONSULT ONLY Podiatry Consult Codes: 93471-MM/OBS [id number] NEW/EST HI 80 ARACELI MARTIN DPM Jun 29, 2025 12:35
[2025-06-29 13:00] VITALS: BP 118/52; PULSE 86; RESP 18; TEMP 97.5; O2SAT 97
[2025-06-29 13:11] VITALS: BP 105/66; PULSE 98; RESP 20; TEMP 97.8; O2SAT 89; O2SAT 98
--- NOTE | 2025-06-29 16:09 | DVHDS2 ---
New Physician D'charge PN Admitting Diagnosis Admitting Diagnosis OM L foot Discharge Diagnosis osteomyelitis L foot Operations or Procedures none Reason(s) For Hospitalization Surgery Hospital Course 59 M who comes to ER c/o of L foot pain. He has had multiple amputations on the same foot previously. The foot was red with surrounding cellulitis and patient was admitted and started on broad spectrum IV Abx. He had a MRI L foot done with showed osteomyelitis, please refer to the report for further details, His WBC was nml and chem panel showed preserved renal function. He was seen by podiatry who recommended no surgical intervention at this time and recommended IV Abx for 4-6 weeks via PICC line for osteomyelitis. ID was consulted and saw the patient and PICC line was placed. He will go to SNF for IV Abx vancomycin pharmacy to dose daily and zosyn 4.5g IV TID as recommended by ID for the next 4-6 weeks via PICC line for osteomyelitis of L foot. [facility] to arrange for SNF bed and transport. Treatment Plan Discharge Condition of Discharge Good Disposition [facility] Facility Discharge Instructions Diet: Consistent carbohydrate, Cardiac 2g Na,low cholest Activity: No Restrictions, As Tolerated Medications: see med sheet Follow Up Care Follow Up/Referral: pcp vascular surgery Discharge Statement: "Patient was advised to return to the ER or call 911 if any headaches, dizziness, shortness of breath, chest pain, abdominal pain, bleeding, fevers, or worsening of medical condition. Patient was counseled about treatment plan, medications, possible side effects, patientverbalized understanding. All questions were answered to the best of my ability. This discharge took greater then 30 minutes in planning, reviewing documentation, counseling the patient, and discussing with other team members." JENNY MARK MD Jun 29, 2025 16:09
[2025-06-29 17:00] VITALS: BP 126/76; PULSE 94; RESP 18; TEMP 98.6; O2SAT 99
--- NOTE | 2025-06-29 17:05 | DVHCONRES ---
Date Seen: Jun 29, 2025 Resident Creating Document: JOYCE BERGMAN RESIDENT Referring Physician Primary Team. Reason for Consultation ''osteomylitis left 3rd digit'' History of Present Illness Eusebia Moulton, a 59-year-old male with a complex medical history including type 2 diabetes mellitus with complications, atrial fibrillation on anticoagulation, hyperlipidemia, hypertension, and prior amputations of the left fourth and fifth distal toes and right fifth toe, presented to the ER with left foot pain. He has a long history of tobacco use (about 4 cigarettes daily for over 40 years) and no alcohol or illicit drug use. He presented with a left foot wound, redness, and surrounding cellulitis, and MRI confirmed osteomyelitis. Although his WBC count was normal and renal function preserved, he was admitted and started on broad-spectrum IV antibiotics. As per the patient and the family, they do not wish for further amputation and surgical management. The patient has a poor prognosis for limb salvage and was explained regarding the possible utility of IV antibiotics if no surgical intervention is done, as poor peripheral vascular supply with active osteomyelitis and no source control can be devastating. The patient and the family were counseled and educated regarding the pros and cons of surgical amputation and management, along with advice for 68 weeks of IV antibiotics via PICC line. The patient and family were educated about the limitations of only IV antibiotics without surgical source control and adverse effects that can lead to permanent and worsening disability. The patient was started on vancomycin and Zosyn. Arrangements are being made for transfer to a correction facility for continued IV antibiotic therapy via PICC line. Past Medical History as above Past Surgical History as above Family History: Cerebrovascular accident (CVA) G8 FATHER Colon cancer G8 MOTHER Diabetes mellitus G8 FATHER G8 MOTHER FH: chronic kidney disease G8 FATHER FH: congestive heart failure G8 FATHER FH: heart attack G8 FATHER Hypertension G8 MOTHER Family History non contributory Allergies: Coded Allergies: Penicillins (Verified Allergy, Severe, 04/21/23) Home Meds Active Scripts Amiodarone Hcl (Amiodarone Hcl) 200 Mg Tab, 1 TAB PO DAILY, #30 TAB 0 Refills Prov:LORENZO AGUILAR MD 07/03/21 Reported Medications Apixaban Base (ELIQUIS) 5 Mg Tab, 1 TAB PO BID for 30 Days, #60 04/03/25 Metoprolol Succinate (Metoprolol Succinate Er) 50 Mg Tab, 1 TAB PO DAILY@9AM for 30 Days, #30 04/03/25 Metolazone (Metolazone) 5 Mg Tab, 1 TAB PO DAILY for 30 Days, #30 03/15/25 Acetaminophen (Acetaminophen Extra Stren) 500 Mg Tab, 1-2 TAB PO QID PRN for 30 Days, #240 03/15/25 Furosemide (Furosemide) 40 Mg Tab, 2 TAB PO BID for 30 Days, #120 03/15/25 Tizanidine Hydrochloride (Tizanidine Hcl) 4 Mg Tab, 1 TAB PO TID for 30 Days, #90 03/15/25 Pregabalin (Pregabalin) 200 Mg Cap, 1 CAP PO TID for 30 Days, #90 03/15/25 Amitriptyline HCl (Amitriptyline Hydrochlori) 25 Mg Tab, 1 TAB PO QHSP PRN for LUMBAGO WITH SCIATICA for 30 Days, #30 03/15/25 Trazodone Hcl (Trazodone Hcl) 100 Mg Tab, 1 TAB PO HS for 30 Days, #30 03/15/25 Oxycodone HCl (Oxycodone Hydrochloride) 10 Mg Tab, 1 TAB PO TID for 30 Days, #90 03/15/25 Atorvastatin Calcium (ATORVASTATIN CALCIUM) 40 Mg Tab, 1 TAB PO DAILY@5PM for 30 Days, #30 03/15/25 Insulin Lispro (Insulin Lispro Kwikpen) 100 Unit/Ml Inj, 15-20 UNIT SC AC for 65 Days, #30 03/15/25 Insulin Glargine (Lantus Solostar) 100 Unit/Ml Inj, 40 UNITS SC HS for 57 Days, #24 03/15/25 Hydrochlorothiazide (Hydrochlorothiazide) 25 Mg Tab, 25 MG PO DAILY for 30 Days, MG 06/24/21 Current Medications Current Medications Medications (Trade) Dose Ordered Sig/Maria Isabel Route PRN Reason Start Time Stop Time Status Last Admin Piperacillin Sod/ Tazobactam Sod 100 ml @ 25 mls/hr Q8HR@0300,1100,1900 IV 06/29/25 11:00 Vancomycin HCl 0 ml @ 0 mls/hr UD IV 06/29/25 04:45 06/29/25 09:20 DC Enoxaparin Sodium (Lovenox) 150 mg Q12HR@0600,1800 SC 06/29/25 06:00 Diagnostic Test (Pha) (Accu-Chek Comfort Curve T) 1 strip Q6HR 06/29/25 06:00 06/29/25 12:30 Insulin Human Regular (InsuLIN R) Q6HR SC 06/29/25 06:00 Dextrose 50 ml UD PRN IV Blood Sugar LESS THAN 60 06/29/25 04:45 Furosemide (Lasix Tablet) 80 mg BIDD PO 06/29/25 06:00 Atorvastatin Calcium (Lipitor) 40 mg HS PO 06/29/25 22:00 Amiodarone HCl (Cordarone Tablet) 200 mg DAILY PO 06/29/25 10:00 06/29/25 10:53 Nitroglycerin (Ntrostat Sublingual) 0.4 mg Q5MINP PRN SL FOR CHEST PAIN 06/29/25 05:15 Morphine Sulfate 2 mg Q30M PRN IV FOR CHEST PAIN 06/29/25 05:15 Oxycodone/ Acetaminophen (Percocet 5/ 325MG Tablet) 2 tab Q8HP PRN PO SEVERE PAIN (7-10 PAIN SCALE) 06/29/25 05:15 06/29/25 10:53 Insulin Glargine (Lantus) 20 units HS MT 06/29/25 22:00 Vancomycin HCl 0 ml @ 0 mls/hr UD IV 06/29/25 08:00 Hydralazine HCl (Apresoline Injection) 10 mg Q4HPRN PRN IV SBP >160 06/29/25 08:00 Review of Systems CONSTITUTIONAL: Fever, night sweats, weight loss, Lymphadenopathy, ecchymoses, fatigue: Negative DERMATOLOGIC: Rash, New/growing/changing skin lesions: Negative HEENT: Vision change, eye pain, Rhinorrhea, sinus pain, epistaxis, dysphagia, odynophagia, globus sensation, Change in hearing, tinnitus, vertigo, otalgia, Dental problems, oral ulcers or lesions: : Negative ENDOCRINE: Weight change, heat or cold intolerance, tremor, insomnia, neck pain or swelling, Polyuria, polydipsia, polyphagia, Abnormal hair growth, change in nails: Negative CARDIOVASCULAR: Chest pain, palpitations, syncope, Edema, cyanosis, claudication, Orthopnea, paroxysmal nocturnal dyspnea: Negative PULMONARY: Shortness of breath, dyspnea with exertion, Cough, hemoptysis, wheezing, chest pain : Negative GI: Nausea, vomiting, diarrhea, melena, hematochezia, Change in appetite, abdominal pain, change in bowel habits or stools: Negative : Dysuria, frequency, urgency, Urinary incontinence, hematuria, foamy urine, nocturia, Change in libido, erectile dysfunction, Change in menses, dysmenorrhea, dyspaerunia, pelvic pain: : Negative MUSCULOSKELETAL: Joint swelling or pain, muscle pain, back pain, all positive with worsening wound NEUROLOGIC: Headache, scotoma, Change in smell or taste, change in facial muscles, Muscle weakness, paresthesias, anesthesia, Ataxia, change in speech: Negative PSYCHIATRIC: Depression, anxiety, hallucinations, kaley, suicidal/homicidal thoughts, Binging, purging: Negative Vital Signs Vital Signs Date Time Temp Pulse Resp B/P (MAP) Pulse Ox O2 Delivery O2 Flow Rate FiO2 06/29/25 13:11 97.8 98 20 105/66 (79) 98 97.8 06/29/25 13:11 Nasal Cannula* 2 28 Labs/Diagnostic Data Labs Test 06/29/25 12:13 06/29/25 05:24 06/29/25 03:52 06/29/25 00:45 Range/Units POC Glucose 252 H 70-106 mg/dl White Blood Count 11.9 H 4.4-10.8 10^3/uL Red Blood Count 5.68 4.5-5.90 10^6/uL Hemoglobin 15.1 13.5-17.5 g/dL Hematocrit 45.5 41.0-53.0 % Mean Corpuscular Volume 80.1 80.0-100.0 fL Mean Corpuscular Hemoglobin 26.6 L 28.0-32.0 pg Mean Corpuscular Hemoglobin Concent 33.3 32.0-36.0 g/dL Red Cell Distribution Width 21.4 H 11.8-14.3 % Platelet Count 298 140-450 10^3/uL Mean Platelet Volume 8.0 6.9-10.8 fL Neutrophils (%) (Auto) 76.0 37.0-80.0 % Lymphocytes (%) (Auto) 15.2 10.0-50.0 % Monocytes (%) (Auto) 7.5 0.0-12.0 % Eosinophils (%) (Auto) 0.7 0.0-7.0 % Basophils (%) (Auto) 0.6 0.0-2.0 % Neutrophils # (Auto) 9.0 H 1.6-8.6 10 ^3/uL Lymphocytes # (Auto) 1.8 0.4-5.4 10 ^3/uL Monocytes # (Auto) 0.9 0-1.3 10 ^3/uL Eosinophils # (Auto) 0.1 0-0.8 10 ^3/uL Basophils # (Auto) 0.1 0-0.2 10 ^3/uL Nucleated Red Blood Cells 0.1 % Erythrocyte Sedimentation Rate 37 H 0-20 mm/hr Prothrombin Time 11.5 9.3-11.8 sec Prothrombin Time INR 1.09 0.9-1.15 Sodium Level 132 L 136-145 mmol/L Potassium Level 3.9 3.5-5.1 mmol/L Chloride Level 95 L 98-107 mmol/L Carbon Dioxide Level 27 20-31 mmol/L Anion Gap 10 5-15 Blood Urea Nitrogen 17 9-23 mg/dL Creatinine 1.30 0.700-1.30 mg/dL Glomerular Filtration Rate Calc 64 >90 mL/min BUN/Creatinine Ratio 13.1 10.0-20.0 Serum Glucose 253 H 74-106 mg/dL Calcium Level 9.1 8.7-10.4 mg/dL C-Reactive Protein High Sensitivity 11.18 H <1.0 mg/dL Troponin I High Sensitivity 43 </=54 ng/L B-Type Natriuretic Peptide 128.12 0-100 pg/mL Lipase 27 12-53 U/L Assessment Assessment: # Left third toe osteomyelitis, chronic diabetic ulcers now progressed to 3rd through 5th metatarsals and 3rd digit proximal and middle phalanges. # Final wound culture +ve for Finegoldia magna, Viridans Streptococcus Group, Enterococcus faecalis, Staphylococcus aureus from 04/02/25 # Left lower extremity cellulitis: There is a wound at the medial plantar aspect of the midfoot with adjacent subcutaneous edema, likely cellulitis. # S/p resection by podiatry 04/05 and 04/09 multi step surgery: Postsurgical changes of prior amputation at the 4th and 5th metatarsal shafts with wound at the amputation stump and associated subcutaneous edema and ill-defined fluid, likely cellulitis and probable phlegmon noted in CT. # uncontrolled Diabetes mellitus HbA1c 11.5 # sepsis at presentation # Hepatitis and HIV ruled out # Peripheral vascular disease, moderate, Advanced left lower extremity peripheral arterial disease with monophasic waveforms # Cellulitis and Diabetic foot ulcer # Charcot arthropathy of midfoot # known history of Hypertension # Acute on chronic kidney disease # Heart failure with reduced ejection fraction # COPD (chronic obstructive pulmonary disease), acute hypoxic respiratory failure # Atrial fibrillation. # poor medical adherence # Morbid obesity Grade III Plan/Recommendation # Continue IV vancomycin and Zosyn, arrange for PICC line # We will highly encourage wound debridement/ amputation as source control remains most important, if considered for or procedure intraoperative culture to be collected. # Repeat culture and close follow up , ESR and CRP trend for possible disease activity follow up. # Vascular consultation is advised for further evaluation and management. # Diabetic control with target in-hospital blood glucose of 140-180 and target HbA1c of 7-8, diabetic counseling. # Extensive discussion done at bedside for potential downside of IV antibiotic only with patient and family. All questions and concerns answered. Discussed with Dr. Duff. Thank you for the opportunity to consult on your patient. The patient will be followed up by ID. Plan discussed with: Patient JOYCE BERGMAN RESIDENT Jun 29, 2025 17:05
[2025-06-29] MEDS: LIDOCAINE 1% (LOCAL ANESTH.) PF 5ml SDV ID ONE (18:10)
--- NOTE | 2025-06-29 19:01 | DVHHP ---
CHIEF COMPLAINT: Coming in secondary to left foot third toe infection. HISTORY OF PRESENT ILLNESS: This is a 59-year-old male with a significant past medical history for diabetes mellitus type 2 with complications, atrial fibrillation, anticoagulation, hyperlipidemia, and essential hypertension with prior multiple amputations who presents to the Emergency Room today due to a complaint of third left foot toe discoloration, foul smell, and pain. The patient apparently has had complications with diabetic foot ulcers requiring amputations on the right foot, fifth digit, as well as the left foot, fourth and fifth digits. The patient apparently had a hospitalization back in 03/2025, requiring IV antibiotics for a 6-week course due to underlying osteomyelitis infection. The patient apparently, after that hospitalization was transitioned to SNF and then home and apparently the patient was lost to follow up due to insurance issues. The patient's has been helping him with wound care at home. The patient per the started having a new ulcer on his 3rd digit as well as draining and foul smelling. He also has these chronic ulcers at the left lateral leg, as well as a new plantar ulcer of his leg as well as erythema and has been feeling fevers and chills at home. The patient came in for further assessment and evaluation. He currently denies any chest pain, shortness of breath, cough, phlegm, diarrhea, constipation, bloody or tarry stools, or any urinary frequency, urgency, or burning sensation. PAST MEDICAL HISTORY: Diagnosed with type 2, CHF, atrial fibrillation, hyperlipidemia, essential hypertension. PAST SURGICAL HISTORY: Amputation of the left fifth and fourth distal toes and right fifth toe. SOCIAL HISTORY: Tobacco user, about 4 cigarettes a day. More than a 40-year smoker. No alcohol or illicit drugs. MEDICATIONS AT HOME: Per medical reconciliation. MEDICATION ALLERGIES: TO PENICILLIN. REVIEW OF SYSTEMS: A 10-point review of systems was covered with the patient and was negative with the exception to what was present in the history of present illness. PHYSICAL EXAMINATION: VITAL SIGNS: Temperature 97.8, pulse 90, respiratory rate 20, blood pressure 105/66. Pulse ox about 89% on 2 liters of nasal cannula. GENERAL: Seems to be alert and oriented x4, in no acute distress male, sitting up in his electric wheelchair. HEENT: Normocephalic, atraumatic. Extraocular muscles are intact. Pupils are equally round and reactive to light and accommodation. Mucous membranes are moist. CARDIOVASCULAR: S1, S2 positive. Regular rate and rhythm. No rubs, gallops or murmurs. LUNGS: Seem to be clear to auscultation bilaterally. No wheezing, rhonchi or rales. ABDOMEN: Seems to be soft, nontender, nondistended. Positive bowel sounds. EXTREMITIES: Lower extremities: The patient's left foot 3rd digit seems to be discolored. The patient also has ulceration between his 3rd and 4th digits with some drainage and foul smelling. The patient also has a fairly distantly large healing ulcer on the left lateral side of his foot and a small 1 mm circumference ulcer at the plantar surface of the distal midfoot. Right lower extremity: The patient does have a fifth digit amputation. NEUROLOGIC: Cranial nerves testing 2-12 overall seems to be intact. IMAGING: The patient has had CT of the left lower extremity, findings suggesting of partial fourth and fifth metatarsal amputations, osseous erosion, soft tissue gas about the base of the third proximal phalanx and to a lesser extent about the second distal phalanx. No drainable collection is seen. Findings are suggestive of osteomyelitis in the appropriate clinical setting. MRI would be more sensitive in further assessment if clinically indicated. * Left third toe osteomyelitis, * Left lower extremity cellulitis. SECONDARY DIAGNOSES: * Congestive heart failure. * Atrial fibrillation. * Diabetes mellitus type 2. * Essential hypertension. * Chronic Left Foot diabetic ulcers. PLAN: The patient will be admitted to Medical Surgical floor under observation status. Consultation with Podiatry as well as Infectious Disease has been requested. The patient has been initiated on broad spectrum antibiotics with vancomycin per pharmacy and Zosyn 3.375 IV every 6. Wound cultures have been taken and sent out to Lab. The patient is to also have arterial Doppler ultrasound of the lower extremity. The patient does have a previous one from 3 months ago that shows monophasic flow without any stenotic lesions, but does have some underlying peripheral vascular disease. MRI of the left foot has also been ordered to confirm the patient's osteomyelitis as well as an ESR and CRP. The patient will be resumed back on his home Lasix 80 mg twice a day as well as Lantus 20 units at bedtime with a moderate dose sliding scale insulin with Accu-Chek q. 6. The patient is to have repeat CBC, BMP, and lactic acid in the morning. Will be ordered morning labs with CBC and BMP. The patient to be switched from Eliquis to Lovenox 1 mg/kg subcu q.12. The patient is a full code. Further recommendations will depend on patient hospital progression. Ino Mason MD LM/OKSANA TID: [id number] RECEIPT: [id number] MTDD
[2025-06-29 21:00] VITALS: BP 127/61; PULSE 74; RESP 18; TEMP 97.8; O2SAT 94
--- NOTE | 2025-06-29 21:02 | DVH ---
CHEST RADIOGRAPH REASON FOR EXAM: s/p picc line placement COMPARISON: XY CHEST XRAY 1 VIEW on DOS: 03/30/25, XY CHEST PORTABLE on DOS: 03/14/25, CHEST PORTABLE o n DOS: 10/16/21, CXR1 on DOS: 06/25/21, CHEST XRAY 1 VIEW on DOS: 06/25/21 TECHNIQUE: One view of the chest is provided FINDINGS: There is a left upper extremity PICC with the catheter tip projecting over the area of the cavoatrial junction. The cardiomediastinal silhouette is stably enlarged. There is pulmonary edema. There is pulmonary venous congestion. There is no large pleural effusion. Evaluation is degraded by p atient body habitus. There is no pneumothorax. IMPRESSION: Cardiomegaly. Pulmonary edema. Left upper extremity PICC tip projects over the area of the cavoatrial junction.
[2025-06-29] MEDS: ATORVASTATIN 20 MG TAB PO SCH (21:32)
[2025-06-29] MEDS: SODIUM CHLOR 0.9% PF (SALINE LOCK) 10ML VIAL/SYR IV SCH (21:43)
[2025-06-29] MEDS: INSULIN LANTUS (GLARGINE) 1 /0.01ml (100units/ml) SC SCH (23:22)
[2025-06-30 01:00] VITALS: BP 109/52; PULSE 94; RESP 21; TEMP 98.1; O2SAT 93
[2025-06-30 05:00] VITALS: BP 126/68; PULSE 62; RESP 18; TEMP 97.6; O2SAT 100
[2025-06-30 07:06] LABS: Hematocrit 42.9 % (41.0-53.0); Hemoglobin 14.3 g/dL (13.5-17.5); Mean Corpuscular Hemoglobin 26.8 pg (28.0-32.0); Mean Corpuscular Volume 80.5 fL (80.0-100.0); Nucleated Red Blood Cells % 0.0 %
[2025-06-30 07:10] LABS: Anion Gap 8 (5-15); Carbon Dioxide 30 mmol/L (20-31); Chloride 100 mmol/L (98-107); Potassium 4.5 mmol/L (3.5-5.1); Sodium 138 mmol/L (136-145)
[2025-06-30 07:12] LABS: Calcium 8.9 mg/dL (8.7-10.4)
[2025-06-30 07:16] LABS: BUN/Creatinine Ratio 19.4 (10.0-20.0); Blood Urea Nitrogen 21 mg/dL (9-23)
[2025-06-30 07:18] LABS: Glucose 195 mg/dL (74-106)
[2025-06-30 07:36] VITALS: PULSE 87; RESP 16; O2SAT 99
[2025-06-30 08:50] VITALS: BP 128/66; PULSE 87; RESP 16; TEMP 97.6; O2SAT 99
[2025-06-30 09:00] VITALS: BP 128/66; PULSE 87; RESP 20; TEMP 97.6; O2SAT 99
== END 2025-06-30 11:35 ==
LOC: ER 00:06 → OVERFLOW 05:05 → CENTRAL 05:08
PROVIDERS: ADMIT Student in an Organized Health Care Education/Training Program; ATTEND Student in an Organized Health Care Education/Training Program
DX: M86.8X7 Other osteomyelitis, ankle and foot (principal); E11.51 Type 2 diabetes mellitus with diabetic peripheral angiopathy without gangrene; E11.621 Type 2 diabetes mellitus with foot ulcer; E78.5 Hyperlipidemia, unspecified; I11.0 Hypertensive heart disease with heart failure; I50.9 Heart failure, unspecified; F17.210 Nicotine dependence, cigarettes, uncomplicated; Z79.4 Long term (current) use of insulin; Z79.899 Other long term (current) drug therapy; Z98.890 Other specified postprocedural states
CPT/HCPCS: 36415; 36569; 71045; 73700; 73718; 76937; 80048; 80202; 82962; 83036; 83690; 83880; 84484; 85025; 85610; 85652; 86141; 87040; 87077; 87081; 87186; 87205; 93926; 96365; 96366; 96367; 96372; 99285; C1751; G0378; J1650; J1815; J2543; J3373; J7050

== ENCOUNTER 2025-10-02 13:03 | Inpatient (IN) | payer OTHER, MEDICAID ==
[~2025-10-02] VITALS: Ht 170.2 cm; Wt 152.7 kg
[~2025-10-02 13:03] MED LIST changes: -HYDR25TA4 PO; -METO5TAB5 PO
--- NOTE | 2025-10-02 13:17 | ED.PDOC ---
History of Present Illness HPI Comments 60-year-old male BIBA with prior medical history of AFib, diabetes, high lipids, CHF, COPD: Surgical history of bilateral toe amputation of 3 toes amputated on the left foot and one of the right foot, with a chief complaint of shortness a breath. EMS report that the patient has been having shortness a breath associated with cough, generalized weakness and yellow phlegm for the past week which has been worsening since. EMS state that the patient tried using the bathroom when he was unable to stand due from the weakness which prompted him to call 911 earlier today and when EMS arrived on scene the patient was lying on the ground. EMS note that the patient did have bilateral diminished lung zone and was given a breathing treatment of Atrovent and albuterol x2. Denies any other symptoms at this time. Denies chills, fever, N/V/D, CP. No other associated symptoms, modifiers, recent injuries or sick contacts present at this time. Time Seen by MD: 13:15 Primary Care Provider: [facility] Reviewed Notes: Nurses Notes, Metal Model Maker Notes, Medications, Allergies Allergies: Coded Allergies: Penicillins (Verified Allergy, Severe, 04/21/23) Home Meds Active Scripts Amiodarone Hcl (Amiodarone Hcl) 200 Mg Tab, 1 TAB PO DAILY, #30 TAB 0 Refills Prov:LORENZO AGUILAR MD 07/03/21 Reported Medications Apixaban Base (ELIQUIS) 5 Mg Tab, 1 TAB PO BID for 30 Days, #60 04/03/25 Metoprolol Succinate (Metoprolol Succinate Er) 50 Mg Tab, 1 TAB PO DAILY@9AM for 30 Days, #30 04/03/25 Acetaminophen (Acetaminophen Extra Stren) 500 Mg Tab, 1-2 TAB PO QID PRN for 30 Days, #240 03/15/25 Furosemide (Furosemide) 40 Mg Tab, 2 TAB PO BID for 30 Days, #120 03/15/25 Tizanidine Hydrochloride (Tizanidine Hcl) 4 Mg Tab, 1 TAB PO TID for 30 Days, #90 03/15/25 Pregabalin (Pregabalin) 200 Mg Cap, 1 CAP PO TID for 30 Days, #90 03/15/25 Amitriptyline HCl (Amitriptyline Hydrochlori) 25 Mg Tab, 1 TAB PO QHSP PRN for LUMBAGO WITH SCIATICA for 30 Days, #30 03/15/25 Trazodone Hcl (Trazodone Hcl) 100 Mg Tab, 1 TAB PO HS for 30 Days, #30 03/15/25 Oxycodone HCl (Oxycodone Hydrochloride) 10 Mg Tab, 1 TAB PO TID for 30 Days, #90 03/15/25 Atorvastatin Calcium (ATORVASTATIN CALCIUM) 40 Mg Tab, 1 TAB PO DAILY@5PM for 30 Days, #30 03/15/25 Insulin Lispro (Insulin Lispro Kwikpen) 100 Unit/Ml Inj, 15-20 UNIT SC AC for 65 Days, #30 03/15/25 Insulin Glargine (Lantus Solostar) 100 Unit/Ml Inj, 40 UNITS SC HS for 57 Days, #24 03/15/25 Information Source: Patient, Emergency Med Personnel Mode of Arrival: EMS Severity: Moderate Timing: Days Duration: Since onset, Days Prehospital treatment: None Past Medical History PAST MEDICAL HISTORY: AFIB, CHF, CKF, COPD, DM, High Lipids, HTN, UTI'S Surgical History: PTCA Surgical History (Other): bilateral toe amputation of 3 toes amputated on the left foot and one of the right foot Family History Family History: Reviewed,noncontributory to illness, Family hx of DM Social History Smoker: Cigarettes Alcohol: Denies ETOH Use Drugs: Denies Drug Use Lives In: Home Constitutional: reports: weakness; denies: chills, diaphoresis, fatigue, fever, malaise, sweats, others EENTM: denies: blurred vision, double vision, ear bleeding, ear discharge, ear drainage, ear pain, ear ringing, eye pain, eye redness, hearing loss, mouth p ain, mouth swelling, nasal discharge, nose bleeding, nose congestion, nose pain, photophobia, tearing, throat pain, throat swelling, voice changes, others Respiratory: reports: cough, shortness of breath; denies: hemoptysis, orthopnea, SOB at rest, SOB with excertion, stridor, wheezing, others Cardiovascular: denies: chest pain, dizzy spells, diaphoresis, Dyspnea on exertion, edema, irregular heart beat, left arm pain, lightheadedness, palpitations, PND, syncope, others Gastrointestinal: denies: abdomen distended, abdominal pain, blood streaked bowels, constipated, diarrhea, dysphagia, difficulty swallowing, hematemesis, melena, nausea, poor appetite, poor fluid intake, rectal bleeding, rectal pain, vomiting, others Genitourinary: denies: burning, dysuria, flank pain, frequency, hematuria, incontinence, penile discharge, penile sore, pain, testicle pain, testicle swelling, urgency, others Neurological: denies: dizziness, fainting, headache, left sided numbness, left sided weakness, numbness, paresthesia, pre-existing deficit, right sided numbness, right sided weakness, seizure, speech problems, tingling, tremors, weakness, others Musculoskeletal: denies: back pain, gout, joint pain, joint swelling, muscle pain, muscle stiffness, neck pain, others Integumetry: denies: bruises, change in color, change in hair/nails, dryness, laceration, lesions, lumps, rash, wounds, others Allergic/Immunocompromised: denies: Difficulty Healing, Frequent Infections, Hives, Itching, others Hematologic/Lymphatic: denies: anemia, blood clots, easy bleeding, easy bruising, swollen glands, others Endocrine: denies: excessive hunger, excessive sweating, excessive thirst, excessive urination, flushing, intolerance to cold, intolerance to heat, unexplained weight gain, unexplained weight loss, others Psychiatric: denies: anxiety, bipolar disorder, depression, hopeless, panic disorder, schizophrenia, sleepless, suicidal, others All Other Systems: Reviewed and Negative Physical Exam General Appearance: Moderate Distress HEENT: Pale Conjuntivae (L), Pale Conjuntivae (R), Pharynx Normal, TMs Normal Neck: Full Range of Motion, Non-Tender, Normal, Normal Inspection Respiratory: Chest Non-Tender, Decreased Breath Sounds, Rales, Respiratory Distress Cardiovascular: No Edema, No JVD, No Murmur, No Gallop, Normal Peripheral Pulses, Regular Rate/Rhythm Breast Exam: Deferred Gastrointestinal: No Organomegaly, Non Tender, No Pulsatile Mass, Normal Bowel Sounds, Soft Genitalia: Deferred Pelvic: Deferred Rectal: Deferred Extremities: No calf tenderness, Normal capillary refill, Pedal edema, Other (The patient has a significant infection to both feet at this time. ) Musculoskeletal : Apperance: Normal Neurologic: Alert, marble carver II-XII nml as Tested, No Motor Deficits, Normal Affect, Normal Mood, No Sensory Deficits Cerebellar Function: Normal Reflexes: Normal Skin: Dry, Normal Color, Warm Lymphatic: No Adenopathy Was a procedure done? Was a procedure done?: No EKG EKG : Pulse Rate (adult): 137 [place]: Normal Cardiac Rhythm: Afib Block: None Hypertrophy: None ST: Normal Differential Dx Considerations may include: Generalized weakness, electrolyte imbalance, dehydration, acute on chronic diastolic heart failure, COPD exacerbation, sepsis X-Ray, Labs, Meds, VS Vital Signs Date Time Temp Pulse Resp B/P (MAP) Pulse Ox O2 Delivery O2 Flow Rate FiO2 10/02/25 16:02 103 17 139/114 (122) 97 10/02/25 16:00 115 10/02/25 14:36 129/65 10/02/25 14:00 97.8 120 21 129/65 (86) 93 97.8 10/02/25 13:22 97.5 137 24 169/107 95 97.5 10/02/25 13:19 137 10/02/25 13:16 137 Lab Test 10/02/25 16:27 10/02/25 15:16 10/02/25 14:23 10/02/25 13:21 Range/Units Troponin I High Sensitivity 31 35 34 </=54 ng/L Lactic Acid Level 2.1 *H 0.4-2.0 mmol/L White Blood Count 12.3 H 4.4-10.8 10^3/uL Red Blood Count 4.98 4.5-5.90 10^6/uL Hemoglobin 14.4 13.5-17.5 g/dL Hematocrit 44.1 41.0-53.0 % Mean Corpuscular Volume 88.6 80.0-100.0 fL Mean Corpuscular Hemoglobin 29.0 28.0-32.0 pg Mean Corpuscular Hemoglobin Concent 32.7 32.0-36.0 g/dL Red Cell Distribution Width 18.1 H 11.8-14.3 % Platelet Count 253 140-450 10^3/uL Mean Platelet Volume 9.5 6.9-10.8 fL Neutrophils (%) (Auto) 79.6 37.0-80.0 % Lymphocytes (%) (Auto) 11.9 10.0-50.0 % Monocytes (%) (Auto) 7.6 0.0-12.0 % Eosinophils (%) (Auto) 0.7 0.0-7.0 % Basophils (%) (Auto) 0.2 0.0-2.0 % Neutrophils # (Auto) 9.8 H 1.6-8.6 10 ^3/uL Lymphocytes # (Auto) 1.5 0.4-5.4 10 ^3/uL Monocytes # (Auto) 0.9 0-1.3 10 ^3/uL Eosinophils # (Auto) 0.1 0-0.8 10 ^3/uL Basophils # (Auto) 0 0-0.2 10 ^3/uL Nucleated Red Blood Cells 0.0 % Sodium Level 134 L 136-145 mmol/L Potassium Level 4.0 3.5-5.1 mmol/L Chloride Level 98 98-107 mmol/L Carbon Dioxide Level 28 20-31 mmol/L Anion Gap 8 5-15 Blood Urea Nitrogen 25 H 9-23 mg/dL Creatinine 1.25 0.700-1.30 mg/dL Glomerular Filtration Rate Calc 67 >90 mL/min BUN/Creatinine Ratio 20.0 10.0-20.0 Serum Glucose 278 H 74-106 mg/dL Calcium Level 8.0 L 8.7-10.4 mg/dL B-Type Natriuretic Peptide 175.80 0-100 pg/mL Current Medications Medications (Trade) Dose Ordered Sig/Maria Isabel Route Start Time Stop Time Status Last Admin Methylprednisolone Sodium Succinate (Solu Medrol) 125 mg ONCE ONCE IV 10/02/25 13:15 10/02/25 13:16 DC 10/02/25 14:35 Furosemide (Lasix Injection) 40 mg ONCE ONCE IV 10/02/25 13:15 10/02/25 13:16 DC 10/02/25 14:36 Sodium Chloride 500 ml @ 500 mls/hr Q1H ONCE IV 10/02/25 15:00 10/02/25 15:59 DC 10/02/25 15:46 Vancomycin HCl 250 ml @ 250 mls/hr ONCE ONCE IV 10/02/25 15:00 10/02/25 15:59 DC 10/02/25 15:45 Levofloxacin/ Dextrose 100 ml @ 100 mls/hr ONCE ONCE IV 10/02/25 15:00 10/02/25 15:59 DC 10/02/25 15:45 The patient's CBC shows an elevated white blood cell count of 12.3 The rest of the CBC is within normal limits The chemistry panel shows a BUN of 25 At this time the patient was given Solu-Medrol 125 mg IV push The chest x-ray shows cardiomegaly with some CHF The patient was given Lasix 40 mg IV push The patient's lactic acid level came back elevated at 2.1 The troponin levels came back within normal range At this time the patient was started on vancomycin and Levaquin. There is a concern that this patient also has osteomyelitis to both of his feet so a CAT scan was done The CAT scan does show osteomyelitis of the mid foot. The patient also has a osteomyelitis of the right foot The patient will be continued on the vancomycin The patient is being admitted this time A podiatry consult will also be obtained. Images Reviewed?: Images reviewed and evaluated by me Time of 1ST Reevaluation: 13:45 Reevaluation 1ST: Unchanged Patient Education/Counseling: Diagnosis, Treatment, Prognosis Family Education/Counseling: No Family Present SEPSIS Sepsis Screen Physician Orders Urinalysis (10/02/25 13:12) Med Neb Initial Treatment (10/02/25 13:12) Chest Portable (10/02/25 13:12) Heplock Iv (10/02/25 13:12) Pulse Oximetry (10/02/25 13:12) Auricular Detoxification Specialist (10/02/25 13:12) Blood Pressure (10/02/25 13:12) Covid19 Antigen Viktoria (10/02/25 ) Rapid Influenza A&B (10/02/25 13:12) Electrocardigram (10/02/25 14:12) Electrocardigram (10/02/25 16:12) Blood Culture (10/02/25 14:53) Ct L Foot Wo Contrast (10/02/25 15:11) Ct R Foot Wo Contrast (10/02/25 15:11) Vital Signs Date Time Temp Pulse Resp B/P (MAP) Pulse Ox O2 Delivery O2 Flow Rate FiO2 10/02/25 16:02 103 17 139/114 (122) 97 10/02/25 16:00 115 10/02/25 14:36 129/65 10/02/25 14:00 97.8 120 21 129/65 (86) 93 97.8 10/02/25 13:22 97.5 137 24 169/107 95 97.5 10/02/25 13:19 137 10/02/25 13:16 137 Laboratory Tests Test 10/02/25 13:21 10/02/25 15:16 White Blood Count 12.3 10^3/uL (4.4-10.8) H Lactic Acid Level 2.1 mmol/L (0.4-2.0) *H Medications Medications Dose Ordered Sig/Maria Isabel Route Start Time Stop Time Status Last Admin Dose Admin Furosemide 40 mg ONCE ONCE IV 10/02/25 13:15 10/02/25 13:16 DC 10/02/25 14:36 Levofloxacin/ Dextrose 100 ml @ 100 mls/hr ONCE ONCE IV 10/02/25 15:00 10/02/25 15:59 DC 10/02/25 15:45 Methylprednisolone Sodium Succinate 125 mg ONCE ONCE IV 10/02/25 13:15 10/02/25 13:16 DC 10/02/25 14:35 Sodium Chloride 500 ml @ 500 mls/hr Q1H ONCE IV 10/02/25 15:00 10/02/25 15:59 DC 10/02/25 15:46 Vancomycin HCl 250 ml @ 250 mls/hr ONCE ONCE IV 10/02/25 15:00 10/02/25 15:59 DC 10/02/25 15:45 Departure 1 Departure Time of Disposition: 18:22 Impression: Primary Impression: Acute respiratory failure Qualified Codes: J96.01 - Acute respiratory failure with hypoxia Additional Impression: Acute on chronic diastolic heart failure Disposition: 09 ADMITTED INPATIENT Admit to: Tele Condition: Fair Critical Care Note Critical Care Time?: Yes (55 min-critical care time only) Stability Stability form required: Yes Unstable for transfer: Telemetry monitoring (Telemetry monitoring required), ED Physician Assesment (Clinical assesment) Heart Score Heart Score: Heart Score Response (Comments) Value History Moderate Suspicious 1 EKG Repolarization Disturb 1 Age 45-64 1 Risk Factors >3 or Hx ASHD 2 Troponin >3 x's Normal limit 2 Total 7 I personally scribed for ZACKARY OMALLEY MD ([email or web address]) on 10/02/25 at 13:17. Electronically submitted by Robbin Lugo ([email or web address]). I personally scribed for ZACKARY OMALLEY MD ([email or web address]) on 10/02/25 at 13:19. Electronically submitted by Robbin Lugo ([email or web address]). ZACKARY OMALLEY MD Oct 02, 2025 13:17
--- NOTE | 2025-10-02 13:27 | ECG ---
[facility] Test Date: 2025-10-02 Test Time: 13:16:34 Pat Name: EVGENY CABRAL Department: ED Room: 0292T Gender: M [employer] Director: ROXANNA : 1965 Requested By: ZACKARY OMALLEY Order Number: [id number] Reading MD: Bertram Bear Measurements Intervals [place] Rate: 137 P: 0 HI: 0 QRS: -13 QRSD: 101 T: 78 QT: 309 QTc: 467 Interpretive Statements Atrial fibrillation Ventricular premature complex Low voltage, precordial leads Baseline wander in lead(s) V6 Electronically Signed On 10-04-2025 17:19:42 PST by Bertram Bear Please click the below link to view image of tracing.
[2025-10-02 13:32] LABS: Hematocrit 44.1 % (41.0-53.0); Hemoglobin 14.4 g/dL (13.5-17.5); Mean Corpuscular Hemoglobin 29.0 pg (28.0-32.0); Mean Corpuscular Volume 88.6 fL (80.0-100.0); Nucleated Red Blood Cells % 0.0 %
[2025-10-02 13:41] LABS: Potassium 4.0 mmol/L (3.5-5.1)
[2025-10-02 13:42] LABS: Anion Gap 8 (5-15); Carbon Dioxide 28 mmol/L (20-31)
[2025-10-02 13:43] LABS: Calcium 8.0 mg/dL (8.7-10.4); Chloride 98 mmol/L (98-107); Sodium 134 mmol/L (136-145)
[2025-10-02 13:47] LABS: BUN/Creatinine Ratio 20.0 (10.0-20.0)
[2025-10-02 13:48] LABS: Blood Urea Nitrogen 25 mg/dL (9-23); Glucose 278 mg/dL (74-106)
[2025-10-02] MEDS: methylPREDNISolone SOD SUCC 125 MG/2 ML VL IV ONE (14:35)
[2025-10-02] MEDS: FUROSEMIDE 40 MG/4 ML VIAL IV ONE (14:36)
--- NOTE | 2025-10-02 14:43 | DVH ---
INDICATION: sob TECHNIQUE: Frontal view of the chest. COMPARISON: XY CHEST PORTABLE on DOS: 06/29/25, XY CHEST XRAY 1 VIEW on DOS: 03/30/25, XY CHEST PORTABLE on DOS: 03/14/25, CHEST PORTABLE on DOS: 10/16/21, CXR1 on DOS: 06/25/21 FINDINGS: . Cardiomegaly. There is no evidence of pleural disease. The lungs are clear. The bony structures of the chest are intact without fracture. IMPRESSION: 1. Cardiomegaly with CHF
[2025-10-02] MEDS: VANCOMYCIN 1GM/250ML KIT 250 ML IV ONE (15:45)
[2025-10-02] MEDS: SODIUM CHLORIDE 0.9% 500 ML IV ONE (15:46)
[2025-10-02 15:58] LABS: Lactic Acid w/Reflex 2.1 mmol/L (0.4-2.0)
--- NOTE | 2025-10-02 16:26 | DVH ---
CLINICAL HISTORY: Pain. TECHNIQUE: CT of the left lower extremity was performed without intravenous contrast. This exam was performed according to our departmental dose optimization program. Up-to-date CT equipment and radiation dose reduction techniques are utilized as appropriate. CTDI: 3.9 mGy DLP: 100.1 mGy.cm COMPARISON: MRI MRI L FOOT WO CONTRAST on DOS: 06/29/25, CT CT L FOOT WO CONTRAST on DOS: 06/29/25. FINDINGS: Prior partial 4th and 5th metatarsal amputations. Extensive osseous erosion and multiple small foci of soft tissue gas at the base of the 2nd and 3rd proximal phalanxes at the metatarsophalangeal joints, at the 2nd and 3rd proximal metatarsals, and at the medial midfoot osseous structures/1st and 2nd tarsometatarsal region. [id number] subcutaneous edema/fat stranding about the ankle and foot associated with scattered small foci of gas. Scattered areas of ulceration along the lateral aspect of the foot. No evidence of a drainable liquid collection. Osseous structures are demineralized. IMPRESSION: Findings highly suggestive of osteomyelitis of the midfoot and toes as described. Recommend clinical correlation and consider follow-up foot MRI without and with contrast if clinically indicated and desired.
[2025-10-02] MEDS ORDERED: ACETAMINOPHEN 325 MG TAB PO PRN (16:45)
[2025-10-02] MEDS ORDERED: MORPHINE SULFATE 4 MG/ML SYR/VIAL IV PRN (16:45)
[2025-10-02] MEDS ORDERED: NITROGLYCERIN 0.4 MG SL TAB SL PRN (16:45)
--- NOTE | 2025-10-02 16:49 | DVH ---
EXAM: CT CT R FOOT WO CONTRAST HISTORY: Pain. COMPARISON: None available. TECHNIQUE: Noncontrast axial CT images of the right ankle and foot were performed. Sagittal and coronal reformatted images were obtained. This CT exam was performed using one or more of the following dose reduction techniques: Automated exposure control, adjustment of the mA and/or kV according to patient size, or use of iterative reconstruction technique. Radiation Dose Information: CT Dose: CTDI volume is 7.75 mGy. Dose-length product is 191.69 mGy*cm. FINDINGS: No acute fracture or dislocation. Extensive osseous erosive changes throughout the midfoot with extensive chronic irregularity/diminutive appearance of midfoot osseous structures associated with extensive erosive changes. Large cysts/erosive changes of the distal talus measuring up to 2.1 cm and and distal calcaneus measuring up to 2.3 cm. Extensive erosive changes at the 1st through 5th metatarsal bases at the tarsometatarsal junctions. These findings are nonspecific. [id number] degenerate changes of the toes. Small anterior calcaneal spur and [id number] retrocalcaneal spur. Second through 5th hammertoe deformities. Osseous structures are demineralized. Mild subcutaneous soft tissue swelling of the foot. IMPRESSION: Extensive osseous changes centered at the midfoot in addition to involvement of the hindfoot and the proximal metatarsals, which is nonspecific. These findings may be related to severe degenerate changes/Charcot arthropathy; however, osteomyelitis can be considered in the appropriate clinical setting. Recommend clinical correlation and consider follow-up foot MRI without and with contrast if clinically indicated and desired.
[2025-10-02 16:52] VITALS: PULSE 107; RESP 17; O2SAT 97
[2025-10-02] MEDS ORDERED: VANCOMYCIN PER PHARMACY 0 MG IV SCH (17:00)
[2025-10-02] MEDS ORDERED: DEXTROSE (50%) 50ML SYRG IV PRN (17:30)
[2025-10-02] MEDS: VANCOMYCIN 1GM/250ML IV ONE (18:20)
[2025-10-02] MEDS: MORPHINE SULFATE 4 MG/ML SYR/VIAL IV PRN (18:35)
[2025-10-02] MEDS: ONDANSETRON HCL 4 MG/2 ML VIAL IV PRN (18:35)
--- NOTE | 2025-10-02 18:49 | DVH ---
EXAM: MRI MRI L FOOT WO CONTRAST INDICATION: Osteomyelitis of forefoot TECHNIQUE: Multiplanar, multisequence imaging of the left foot without contrast COMPARISON: CT CT L FOOT WO CONTRAST on DOS: 10/02/25 FINDINGS: BONES: Extensive osteomyelitis of the level of the midfoot involving the cuneiforms, cuboid, navicular bone, base of the 3rd through 5th metatarsals status post prior amputation. Additional areas of osteomyelitis centered around the 2nd and 3rd metatarsophalangeal joints with the areas of susceptibility artifact. Trace possible underlying osteitis deep to the origin of the central cord of the plantar fascia which may reflect trace plantar fasciitis. Trace amount of fluid in the posterior subtalar recess. MUSCLES: Diffuse edematous appearance of the intrinsic musculature compatible with subacute on chronic denervation. JOINT SPACES: Trace amount of fluid in the posterior subtalar recess. NEUROVASCULAR: Normal. OTHER: None. IMPRESSION: 1. Extensive osteomyelitis of the level of the midfoot involving the cuneiforms, cuboid, navicular bone, base of the 3rd through 5th metatarsals status post prior amputation. 2. Additional areas of osteomyelitis centered around the 2nd and 3rd metatarsophalangeal joints with the areas of susceptibility artifact. 3. Trace possible underlying osteitis deep to the origin of the central cord of the plantar fascia which may reflect trace plantar fasciitis.
[2025-10-02] MEDS ORDERED: LABETALOL HCL 20 MG/4 ML VL IV PRN (19:00)
[2025-10-02 19:35] LABS: COVID19 ANTIGEN SOFIA FIA NEGATIVE (NEGATIVE)
[2025-10-02 20:16] VITALS: PULSE 102; RESP 14; O2SAT 95
[2025-10-02 21:46] VITALS: RESP 18
[2025-10-02] MEDS: ACCU-CHEK COMFORT CURVE STRIP VI SCH (22:00)
[2025-10-03] VITALS (9 sets, daily range): BP systolic 108–139; BP diastolic 62–87; PULSE 55–99; RESP 13–22; TEMP 97.3–98.9; O2SAT 93–100
[2025-10-03] MEDS: AZTREONAM 1GM INJ 2 GM in D5W 5% 100 ML IV SCH (00:27)
[2025-10-03] MEDS: InsuLIN REG 1unit/0.01ml Soln (100units/ml) SC SCH ×3 (00:37→17:11)
[2025-10-03] MEDS: INSULIN LANTUS (GLARGINE) 1 /0.01ml (100units/ml) SC SCH (00:38)
[2025-10-03] MEDS: ENOXAPARIN SOD 40 MG/0.4 ML SYRINGE SC SCH (00:39)
[2025-10-03 06:00] LABS: Hematocrit 44.3 % (41.0-53.0); Hemoglobin 14.4 g/dL (13.5-17.5); Mean Corpuscular Hemoglobin 28.7 pg (28.0-32.0); Mean Corpuscular Volume 88.3 fL (80.0-100.0); Nucleated Red Blood Cells % 0.1 %
[2025-10-03] MEDS: HYDROcodone-ACET 5/325MG TAB PO PRN (06:16)
[2025-10-03 06:28] LABS: Alanine Aminotransferase 29 U/L (7-40); Anion Gap 10 (5-15); BUN/Creatinine Ratio 22.5 (10.0-20.0); Blood Urea Nitrogen 23 mg/dL (9-23); Carbon Dioxide 27 mmol/L (20-31); Chloride 100 mmol/L (98-107); Cholesterol 103 mg/dL (< 200); Potassium 4.9 mmol/L (3.5-5.1); Sodium 137 mmol/L (136-145); Total Protein 6.8 g/dL (5.7-8.2); Triglycerides 108 mg/dL (< 150)
[2025-10-03 06:29] LABS: Albumin 3.0 g/dL (3.2-4.8); Alkaline Phosphatase 470 U/L (46-116); Bilirubin, Total 0.6 mg/dL (0.2-1.0); Calcium 8.4 mg/dL (8.7-10.4); Glucose 394 mg/dL (74-106); HDL Cholesterol 19 mg/dL (40-59)
--- NOTE | 2025-10-03 09:18 | DVHHP2 ---
Admitting Diagnosis: Left Foot Pain History of Present Illness HPI Patient is a 60-year-old male past medical history of type 2 diabetes, CHF, atrial fibrillation, tobacco dependence, chronic respiratory failure secondary to COPD on 2 L baseline, history of bilateral 20 potation's, PVD, morbid obesity, hypertension who presents due to complaints of left foot pain. Patient is noted to have a large ulcer on the dorsal surface of his foot which she states has been present for several weeks now. He avoided coming to the hospital for evaluation due to fear of amputation. He ultimately came due to persistent pain. Patient notes that he had a prior amputation several months prior. He notes that he has a history of PVD with revascularization of the right leg. He notes that he was advised that he needed revascularization of the left foot but has not had that completed. Patient notes he is compliant with his diabetic medications and takes glargine 40 units at bedtime with Humalog as needed throughout the day. He notes he last saw his sign designer 1 year ago. Patient arrived to the ER noted to be in atrial fibrillation with RVR. He met criteria for severe sepsis. CT of the left lower foot was concerning for osteomyelitis of the forefoot. This was confirmed on MRI imaging. Patient was admitted for evaluation and treatment of underlying osteomyelitis. Home Meds Active Scripts Amiodarone Hcl (Amiodarone Hcl) 200 Mg Tab, 1 TAB PO DAILY, #30 TAB 0 Refills Prov:LORENZO AGUILAR MD 07/03/21 Reported Medications Apixaban Base (ELIQUIS) 5 Mg Tab, 1 TAB PO BID for 30 Days, #60 04/03/25 Metoprolol Succinate (Metoprolol Succinate Er) 50 Mg Tab, 1 TAB PO DAILY@9AM for 30 Days, #30 04/03/25 Acetaminophen (Acetaminophen Extra Stren) 500 Mg Tab, 1-2 TAB PO QID PRN for 30 Days, #240 03/15/25 Furosemide (Furosemide) 40 Mg Tab, 2 TAB PO BID for 30 Days, #120 03/15/25 Tizanidine Hydrochloride (Tizanidine Hcl) 4 Mg Tab, 1 TAB PO TID for 30 Days, #90 03/15/25 Pregabalin (Pregabalin) 200 Mg Cap, 1 CAP PO TID for 30 Days, #90 03/15/25 Amitriptyline HCl (Amitriptyline Hydrochlori) 25 Mg Tab, 1 TAB PO QHSP PRN for LUMBAGO WITH SCIATICA for 30 Days, #30 03/15/25 Trazodone Hcl (Trazodone Hcl) 100 Mg Tab, 1 TAB PO HS for 30 Days, #30 03/15/25 Oxycodone HCl (Oxycodone Hydrochloride) 10 Mg Tab, 1 TAB PO TID for 30 Days, #90 03/15/25 Atorvastatin Calcium (ATORVASTATIN CALCIUM) 40 Mg Tab, 1 TAB PO DAILY@5PM for 30 Days, #30 03/15/25 Insulin Lispro (Insulin Lispro Kwikpen) 100 Unit/Ml Inj, 15-20 UNIT SC AC for 65 Days, #30 03/15/25 Insulin Glargine (Lantus Solostar) 100 Unit/Ml Inj, 40 UNITS SC HS for 57 Days, #24 03/15/25 Past Medical History Cardiac: AFIB, CHF, HTN Pulmonary: COPD Endocrine: IDDM Past Surgical History: Other (PVD) Patient Family History: Cerebrovascular accident (CVA) G8 FATHER Colon cancer G8 MOTHER Diabetes mellitus G8 FATHER G8 MOTHER FH: chronic kidney disease G8 FATHER FH: congestive heart failure G8 FATHER FH: heart attack G8 FATHER Hypertension G8 MOTHER Smoker: Positive Alocohol: None Drugs: None Lives with: With family Review of Systems Pulmonary/Respiratory: Dyspnea H&P Exam Vital Signs Vital Signs Date Time Temp Pulse Resp B/P (MAP) Pulse Ox O2 Delivery O2 Flow Rate FiO2 10/03/25 08:44 98.4 99 19 112/67 (82) 96 98.4 10/02/25 21:46 Nasal Cannula* 1 24 General Appeara: Obese Pulmonary/Respiratory: Lungs clear Cardiovascular/Chest: Regular rate Foot: left foot infection SEPSIS Sepsis Screen Date sepsis recognized/suspect: Oct 02, 2025 Time Sepsis recognized/suspect: 1999 Recent Procedure: No On Antibiotic Therapy: Yes Respiratory Rate >20: No Heart Rate >90: Yes Temp<36 C (96.8 F) or >38.3 C: No SBP <90 or MAP <65 mmHG: No New Acute Mental Status Change: No Is the patient on CPAP, BIPAP,: No Physician Orders * Wound Consult (10/03/25 ) Vancomycin 1.75gm/350ml (10/03/25 09:00) Vancomycin Per Pharmacy Protoc (10/03/25 09:00) Vancomycin,Trough (10/04/25 20:00) Vital Signs Date Time Temp Pulse Resp B/P (MAP) Pulse Ox O2 Delivery O2 Flow Rate FiO2 10/03/25 08:44 98.4 99 19 112/67 (82) 96 98.4 10/03/25 05:00 97.9 55 18 130/73 (92) 96 97.9 Laboratory Tests Test 10/03/25 05:10 White Blood Count 10.3 10^3/uL (4.4-10.8) Medications Medications Dose Ordered Sig/Maria Isabel Route Start Time Stop Time Status Last Admin Dose Admin Aztreonam 2 gm/ Dextrose 100 ml @ 100 mls/hr Q8HR IV 10/02/25 22:00 10/03/25 07:29 100 MLS/HR Diagnostic Test (Pha) 1 strip ACHS 10/02/25 22:00 10/03/25 07:00 1 STRIP Enoxaparin Sodium 40 mg BID SC 10/02/25 22:00 10/03/25 00:39 40 MG Insulin Glargine 10 units HS SC 10/02/25 22:00 10/03/25 00:38 10 UNITS Insulin Human Regular AC SC 10/03/25 07:00 10/03/25 07:37 15 UNITS Insulin Human Regular HS SC 10/02/25 22:00 10/03/25 00:37 8 UNITS Labs/Xrays Labs Test 10/03/25 07:31 10/03/25 05:10 10/02/25 18:59 10/02/25 18:46 Range/Units POC Glucose 381 H 70-106 mg/dl White Blood Count 10.3 4.4-10.8 10^3/uL Red Blood Count 5.01 4.5-5.90 10^6/uL Hemoglobin 14.4 13.5-17.5 g/dL Hematocrit 44.3 41.0-53.0 % Mean Corpuscular Volume 88.3 80.0-100.0 fL Mean Corpuscular Hemoglobin 28.7 28.0-32.0 pg Mean Corpuscular Hemoglobin Concent 32.5 32.0-36.0 g/dL Red Cell Distribution Width 18.5 H 11.8-14.3 % Platelet Count 253 140-450 10^3/uL Mean Platelet Volume 9.8 6.9-10.8 fL Neutrophils (%) (Auto) 92.3 H 37.0-80.0 % Lymphocytes (%) (Auto) 5.8 L 10.0-50.0 % Monocytes (%) (Auto) 1.8 0.0-12.0 % Eosinophils (%) (Auto) 0.0 0.0-7.0 % Basophils (%) (Auto) 0.1 0.0-2.0 % Neutrophils # (Auto) 9.5 H 1.6-8.6 10 ^3/uL Lymphocytes # (Auto) 0.6 0.4-5.4 10 ^3/uL Monocytes # (Auto) 0.2 0-1.3 10 ^3/uL Eosinophils # (Auto) 0 0-0.8 10 ^3/uL Basophils # (Auto) 0 0-0.2 10 ^3/uL Nucleated Red Blood Cells 0.1 % Sodium Level 137 136-145 mmol/L Potassium Level 4.9 3.5-5.1 mmol/L Chloride Level 100 98-107 mmol/L Carbon Dioxide Level 27 20-31 mmol/L Anion Gap 10 5-15 Blood Urea Nitrogen 23 9-23 mg/dL Creatinine 1.02 0.700-1.30 mg/dL Glomerular Filtration Rate Calc 85 >90 mL/min BUN/Creatinine Ratio 22.5 H 10.0-20.0 Serum Glucose 394 #H 74-106 mg/dL Hemoglobin A1c 11.5 H <5.7 % A1C Calcium Level 8.4 L 8.7-10.4 mg/dL Total Bilirubin 0.6 0.2-1.0 mg/dL Aspartate Amino Transferase (AST) 21 13-40 U/L Alanine Aminotransferase (ALT) 29 7-40 U/L Alkaline Phosphatase 470 H 46-116 U/L Total Protein 6.8 5.7-8.2 g/dL Albumin 3.0 L 3.2-4.8 g/dL Triglycerides Level 108 < 150 mg/dL Cholesterol Level 103 < 200 mg/dL LDL Cholesterol 66 < 100 mg/dL HDL Cholesterol 19 L 40-59 mg/dL Random Vancomycin Level 3.2 L 5-10 ug/mL Lactic Acid Level 1.1 0.4-2.0 mmol/L Influenza Type A Antigen Negative Negative Influenza Type B Antigen Negative Negative SARS-CoV-2 Antigen (Rapid) Negative NEGATIVE Test 10/02/25 16:27 10/02/25 13:21 Range/Units Troponin I High Sensitivity 31 </=54 ng/L B-Type Natriuretic Peptide 175.80 0-100 pg/mL Assessment/Plan Primary Diagnosis 1) Severe Sepsis due to Osteomyelitis Plan 2) Chronic Respiratory Failure due to COPD 3) Atrial Fibrillation with RVR 4) Type 2 DM-Uncontrolled 5) CHF 6) PVD 7) Hypertension 8) GEORGIE 9) Charcot arthropathy of midfoot 10) Morbid Obesity Plan: - Admit to telemetry - Podiatry consulted for osteomyelitis with possible amputation - Plan for debridement 10/03 - Cardiology consulted for underlying CHF and cardiac clearance along with revascularization given PVD - CT angio of the lower extremities pending - ID consulted for osteomyelitis. Continue vancomycin and aztreonam - Blood cultures pending - Heparin drip to be resumed after I&D for atrial fibrillation - Endocrine consulted for uncontrolled diabetes. Insulin sliding scale with glargine - Goal pulse ox greater than 90%. Holding DuoNebs at this time as patient does not have any signs of COPD exacerbation. Supplemented any tachycardia which may trigger atrial fibrillation with RVR - Daily CBC and BMP - Full Code Plan discussed with: Patient, Spouse CLARY ESTRELLA Lydia YAP Oct 03, 2025 09:18
--- NOTE | 2025-10-03 09:48 | DVHCONRES ---
Date Seen: Oct 03, 2025 Reason for Consultation Left foot wound History of Present Illness 60-year-old male BIBA with prior medical history of AFib, diabetes, high lipids, CHF, COPD: Surgical history of bilateral toe amputation of 3 toes amputated on the left foot and one of the right foot, with a chief complaint of shortness a breath. EMS report that the patient has been having shortness a breath associated with cough, generalized weakness and yellow phlegm for the past week which has been worsening since. EMS state that the patient tried using the bathroom when he was unable to stand due from the weakness which prompted him to call 911 earlier today and when EMS arrived on scene the patient was lying on the ground. EMS note that the patient did have bilateral diminished lung zone and was given a breathing treatment of Atrovent and albuterol x2. Denies any other symptoms at this time. Denies chills, fever, N/V/D, CP. No other associated symptoms, modifiers, recent injuries or sick contacts present at this time. Past Medical History See H&P Past Surgical History See H&P Family History: Cerebrovascular accident (CVA) G8 FATHER Colon cancer G8 MOTHER Diabetes mellitus G8 FATHER G8 MOTHER FH: chronic kidney disease G8 FATHER FH: congestive heart failure G8 FATHER FH: heart attack G8 FATHER Hypertension G8 MOTHER Allergies: Coded Allergies: Penicillins (Verified Allergy, Severe, 04/21/23) Home Meds Active Scripts Amiodarone Hcl (Amiodarone Hcl) 200 Mg Tab, 1 TAB PO DAILY, #30 TAB 0 Refills Prov:LORENZO AGUILAR MD 07/03/21 Reported Medications Apixaban Base (ELIQUIS) 5 Mg Tab, 1 TAB PO BID for 30 Days, #60 04/03/25 Metoprolol Succinate (Metoprolol Succinate Er) 50 Mg Tab, 1 TAB PO DAILY@9AM for 30 Days, #30 04/03/25 Acetaminophen (Acetaminophen Extra Stren) 500 Mg Tab, 1-2 TAB PO QID PRN for 30 Days, #240 03/15/25 Furosemide (Furosemide) 40 Mg Tab, 2 TAB PO BID for 30 Days, #120 03/15/25 Tizanidine Hydrochloride (Tizanidine Hcl) 4 Mg Tab, 1 TAB PO TID for 30 Days, #90 03/15/25 Pregabalin (Pregabalin) 200 Mg Cap, 1 CAP PO TID for 30 Days, #90 03/15/25 Amitriptyline HCl (Amitriptyline Hydrochlori) 25 Mg Tab, 1 TAB PO QHSP PRN for LUMBAGO WITH SCIATICA for 30 Days, #30 03/15/25 Trazodone Hcl (Trazodone Hcl) 100 Mg Tab, 1 TAB PO HS for 30 Days, #30 03/15/25 Oxycodone HCl (Oxycodone Hydrochloride) 10 Mg Tab, 1 TAB PO TID for 30 Days, #90 03/15/25 Atorvastatin Calcium (ATORVASTATIN CALCIUM) 40 Mg Tab, 1 TAB PO DAILY@5PM for 30 Days, #30 03/15/25 Insulin Lispro (Insulin Lispro Kwikpen) 100 Unit/Ml Inj, 15-20 UNIT SC AC for 65 Days, #30 03/15/25 Insulin Glargine (Lantus Solostar) 100 Unit/Ml Inj, 40 UNITS SC HS for 57 Days, #24 03/15/25 Current Medications Current Medications Medications (Trade) Dose Ordered Sig/Maria Isabel Route PRN Reason Start Time Stop Time Status Last Admin Acetaminophen (Tylenol Tablet) 325 mg Q4HP PRN PO MILD PAIN (1-3 PAIN SCALE) 10/02/25 16:45 Acetaminophen/ Hydrocodone Bitart (Turon 5/325MG Tab) 1 tab Q4HP PRN PO MODERATE PAIN (4-6 PAIN SCALE) 10/02/25 16:45 10/03/25 06:16 Ondansetron HCl (Zofran) 4 mg Q4HP PRN IV NAUSEA / VOMITING 10/02/25 16:45 10/02/25 18:35 Docusate Sodium (Colace Capsule) 100 mg BIDPRN PRN PO FOR CONSTIPATION 10/02/25 16:45 Morphine Sulfate 2 mg Q4HPRN PRN IV SEVERE PAIN (7-10 PAIN SCALE) 10/02/25 16:45 10/02/25 18:35 Enoxaparin Sodium (Lovenox) 40 mg BID SC 10/02/25 22:00 10/03/25 09:29 Nitroglycerin (Ntrostat Sublingual) 0.4 mg Q5MINP PRN SL FOR CHEST PAIN 10/02/25 16:45 Morphine Sulfate 2 mg Q30M PRN IV FOR CHEST PAIN 10/02/25 16:45 Vancomycin HCl 0 ml @ 0 mls/hr PER PHARMACY IV 10/02/25 17:00 Aztreonam 2 gm/ Dextrose 100 ml @ 100 mls/hr Q8HR IV 10/02/25 22:00 10/03/25 07:29 Diagnostic Test (Pha) (Accu-Chek Comfort Curve T) 1 strip ACHS 10/02/25 22:00 10/03/25 07:00 Insulin Human Regular (InsuLIN R) HS SC 10/02/25 22:00 10/03/25 00:37 Insulin Human Regular (InsuLIN R) AC SC 10/03/25 07:00 10/03/25 07:37 Dextrose 50 ml UD PRN IV Blood Sugar LESS THAN 60 10/02/25 17:30 Insulin Glargine (Lantus) 10 units HS SC 10/02/25 22:00 10/03/25 00:38 Labetalol HCl (Labetalol HCl) 10 mg Q6HP PRN IV SBP>150 10/02/25 19:00 Vancomycin HCl 350 ml @ 200 mls/hr Q12H IV 10/03/25 09:00 Vital Signs Vital Signs Date Time Temp Pulse Resp B/P (MAP) Pulse Ox O2 Delivery O2 Flow Rate FiO2 10/03/25 08:44 98.4 99 19 112/67 (82) 96 98.4 10/02/25 21:46 Nasal Cannula* 1 24 Physical Exam Dermatological: Skin is dry with mild erythema and some maceration around the wound site No gross deformities noted Mild non-pitting edema present bilaterally Left foot wound multiple wounds with purulent drainage malodor surrounding cellulitis fibrosis and necrosis Vascular: Dorsalis pedis and posterior tibial pulses are 1+ bilaterally Capillary refill is under 2 seconds Skin temperature is warm bilaterally Neurologic: Protective sensation is absent on the plantar forefoot bilaterally Monofilament testing reveals decreased sensation in multiple plantar sites Musculoskeletal: Range of motion at the ankle and MTP joints is within normal limits. Strength is 5/5 in all tested muscle groups. Gait is antalgic due to offloading of the affected limb. Labs/Diagnostic Data Labs Test 10/03/25 07:31 10/03/25 05:10 10/02/25 18:59 10/02/25 18:46 Range/Units POC Glucose 381 H 70-106 mg/dl White Blood Count 10.3 4.4-10.8 10^3/uL Red Blood Count 5.01 4.5-5.90 10^6/uL Hemoglobin 14.4 13.5-17.5 g/dL Hematocrit 44.3 41.0-53.0 % Mean Corpuscular Volume 88.3 80.0-100.0 fL Mean Corpuscular Hemoglobin 28.7 28.0-32.0 pg Mean Corpuscular Hemoglobin Concent 32.5 32.0-36.0 g/dL Red Cell Distribution Width 18.5 H 11.8-14.3 % Platelet Count 253 140-450 10^3/uL Mean Platelet Volume 9.8 6.9-10.8 fL Neutrophils (%) (Auto) 92.3 H 37.0-80.0 % Lymphocytes (%) (Auto) 5.8 L 10.0-50.0 % Monocytes (%) (Auto) 1.8 0.0-12.0 % Eosinophils (%) (Auto) 0.0 0.0-7.0 % Basophils (%) (Auto) 0.1 0.0-2.0 % Neutrophils # (Auto) 9.5 H 1.6-8.6 10 ^3/uL Lymphocytes # (Auto) 0.6 0.4-5.4 10 ^3/uL Monocytes # (Auto) 0.2 0-1.3 10 ^3/uL Eosinophils # (Auto) 0 0-0.8 10 ^3/uL Basophils # (Auto) 0 0-0.2 10 ^3/uL Nucleated Red Blood Cells 0.1 % Sodium Level 137 136-145 mmol/L Potassium Level 4.9 3.5-5.1 mmol/L Chloride Level 100 98-107 mmol/L Carbon Dioxide Level 27 20-31 mmol/L Anion Gap 10 5-15 Blood Urea Nitrogen 23 9-23 mg/dL Creatinine 1.02 0.700-1.30 mg/dL Glomerular Filtration Rate Calc 85 >90 mL/min BUN/Creatinine Ratio 22.5 H 10.0-20.0 Serum Glucose 394 #H 74-106 mg/dL Hemoglobin A1c 11.5 H <5.7 % A1C Calcium Level 8.4 L 8.7-10.4 mg/dL Total Bilirubin 0.6 0.2-1.0 mg/dL Aspartate Amino Transferase (AST) 21 13-40 U/L Alanine Aminotransferase (ALT) 29 7-40 U/L Alkaline Phosphatase 470 H 46-116 U/L Total Protein 6.8 5.7-8.2 g/dL Albumin 3.0 L 3.2-4.8 g/dL Triglycerides Level 108 < 150 mg/dL Cholesterol Level 103 < 200 mg/dL LDL Cholesterol 66 < 100 mg/dL HDL Cholesterol 19 L 40-59 mg/dL Random Vancomycin Level 3.2 L 5-10 ug/mL Lactic Acid Level 1.1 0.4-2.0 mmol/L Influenza Type A Antigen Negative Negative Influenza Type B Antigen Negative Negative SARS-CoV-2 Antigen (Rapid) Negative NEGATIVE Test 10/02/25 16:27 10/02/25 13:21 Range/Units Troponin I High Sensitivity 31 </=54 ng/L B-Type Natriuretic Peptide 175.80 0-100 pg/mL Problems(with codes): (1) Osteomyelitis (2) Diabetic foot infection (3) COPD (chronic obstructive pulmonary disease) (4) Diabetes (5) Dyspnea (6) CHF (congestive heart failure) (7) Hyperglycemia (8) Peripheral vascular disease (9) UTI (urinary tract infection) (10) Hypertension (11) Cellulitis and abscess of foot (12) Type 2 diabetes mellitus (13) Diabetic foot ulcer (14) Chronic kidney disease (15) Right leg pain (16) Acute on chronic kidney failure (17) Supplemental oxygen dependent (18) Cellulitis of left foot (19) Acute prerenal azotemia (20) Heart failure with reduced ejection fraction (21) Cellulitis and abscess of right leg (22) Charcot arthropathy of midfoot (23) Acute respiratory failure (24) Acute on chronic diastolic heart failure Plan/Recommendation ASSESSMENT: Patient is a 52 year old seen on the floor for a worsening ulcer PLAN: - The patients chart was reviewed, clinical findings were discussed with the patient, the etiologies of the conditions were discussed in detail, and a adriana tment plan was agreed to at this time, with both oral and written instructions provided. - reviewed advanced imaging - discussed plan is to perform an incision and drainage - patient has been NPO since midnight - we will take him to the OR for an incision and drainage today - patient will need evaluation by vascular surgery - the determine if limit salvageable at that point All questions were answered and concerns addressed to the patient's satisfaction. The patient was given the phone number to the clinic and was told how to make contact with the clinic should any concerns or questions arise. Patient understands that if any questions or concerns arise prior to the next appointment, we should be contacted immediately. FOLLOW-UP: Continue to follow while inpatient Plan discussed with: Patient Visit Coding Podiatry Date of Service if different f: Oct 03, 2025 Billing Provider: ARACELI MARTIN DPM Podiatry Common Visit Codes: CONSULT ONLY Podiatry Consult Codes: 70075-MT/OBS CONSLTJ NEW/EST HI 80 ARACELI MARTIN DPM Oct 03, 2025 09:48
[2025-10-03] MEDS: INSULIN LANTUS (GLARGINE) 1 /0.01ml (100units/ml) SC ONE (09:52)
[2025-10-03] MEDS: SODIUM CHLORIDE 0.9% 1,000 ML IV SCH (10:58)
--- NOTE | 2025-10-03 11:03 | DVH ---
INDICATION: Review arterial flow in LE TECHNIQUE: Real- time ultrasound images of the lower extremity with grayscale, color, and spectral wave Doppler. COMPARISON: US LT LOW EXT ART DUPLEX on DOS: 06/29/25, FINDINGS: Biphasic/ triphasic waveforms within the right COUNTER SERVER, SFA. Monophasic waveform right posterior tibial artery, popliteal artery, right dorsalis pedis artery. Occluded right anterior tibial artery. Monophasic waveform left COUNTER SERVER, SFA, popliteal, posterior tibial, dorsalis pedis arteries. Peak systolic velocities are as follows (in cm/s): Right: Common femoral artery: 82 Profunda femoris: 79 Proximal superficial femoral: 61 Mid superficial femoral artery: 75 Distal superficial femoral artery: 79 Popliteal artery: 63 Posterior tibial artery: 78 Anterior tibial artery: 0 Dorsalis pedis artery: 40 Left: Common femoral artery: 80 Profunda femoris: 35 Proximal superficial femoral: 83 Mid superficial femoral artery: 105 Distal superficial femoral artery: 77 Popliteal artery: 132 Posterior tibial artery: 69 Anterior tibial artery: 114 Dorsalis pedis artery: 22 IMPRESSION: Extensive bilateral monophasic waveforms, left more pronounced than right consistent with moderate to advanced peripheral arterial disease and possible aortoiliac inflow disease. Occluded right anterior tibial artery. Markedly diminished velocity lived in the left dorsalis pedis artery consistent with high-grade stenosis.
--- NOTE | 2025-10-03 11:08 | DVHCONRES ---
Date Seen: Oct 03, 2025 Resident Creating Document: SIRISHA BUCK RESIDENT Referring Physician Dr Parks Reason for Consultation Uncontrolled T2DM History of Present Illness Kenney Laws is a 60 year old male patient who presents to the ED with chief complaint of mechanical fall with no loss of consciousness and not being able to bear his own weight afterwards. Associated he also complains of dyspnea in functional class III. Denies any other symptoms, including fever, chills, unintentional weight loss and sputum production. Endocrinology consulted for uncontrolled T2DM. Patient has been diagnosed with diabetes since 17 years ago, does not recall when he started insulin therapy, but he reports to be complaint with all his medication (he only takes Lantus 40 Units daily, and no rapid insulin, and he does not check frequently his blood sugars). Past medical history:Hypertension, dyslipidemia, diabetes insulin dependent, diabetic foot s/p bilateral toe amputation, Paroxysmal Atrial Fibrillation (CHADS VASC 4) on amiodarone and Apixabam, HFpEF (LVEF 50%), COPD with intermittent home O2 requirement (2 L/min) Surgical history: Amputation of 1 right toe 2019 and 3 left toes 2023 Family history: Mother had prostate cancer Social history: Lives in [place] with family (NOK is ). Current tobacco abuse (60 pack year history of smoking), currently smokes 5 cigarettes a day. Denies current alcohol and other drug abuse. 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 Currently in PACU s/p left foot debridement. He has no new complaints, is somnolent at the moment of evaluation, but responds appropriately. Past Medical History Per HPI Past Surgical History Per HPI Family History: Cerebrovascular accident (CVA) G8 FATHER Colon cancer G8 MOTHER Diabetes mellitus G8 FATHER G8 MOTHER FH: chronic kidney disease G8 FATHER FH: congestive heart failure G8 FATHER FH: heart attack G8 FATHER Hypertension G8 MOTHER Allergies: Coded Allergies: Penicillins (Verified Allergy, Severe, 04/21/23) Home Meds Active Scripts Amiodarone Hcl (Amiodarone Hcl) 200 Mg Tab, 1 TAB PO DAILY, #30 TAB 0 Refills Prov:LORENZO AGUILAR MD 07/03/21 Reported Medications Apixaban Base (ELIQUIS) 5 Mg Tab, 1 TAB PO BID for 30 Days, #60 04/03/25 Metoprolol Succinate (Metoprolol Succinate Er) 50 Mg Tab, 1 TAB PO DAILY@9AM for 30 Days, #30 04/03/25 Acetaminophen (Acetaminophen Extra Stren) 500 Mg Tab, 1-2 TAB PO QID PRN for 30 Days, #240 03/15/25 Furosemide (Furosemide) 40 Mg Tab, 2 TAB PO BID for 30 Days, #120 03/15/25 Tizanidine Hydrochloride (Tizanidine Hcl) 4 Mg Tab, 1 TAB PO TID for 30 Days, #90 03/15/25 Pregabalin (Pregabalin) 200 Mg Cap, 1 CAP PO TID for 30 Days, #90 03/15/25 Amitriptyline HCl (Amitriptyline Hydrochlori) 25 Mg Tab, 1 TAB PO QHSP PRN for LUMBAGO WITH SCIATICA for 30 Days, #30 03/15/25 Trazodone Hcl (Trazodone Hcl) 100 Mg Tab, 1 TAB PO HS for 30 Days, #30 03/15/25 Oxycodone HCl (Oxycodone Hydrochloride) 10 Mg Tab, 1 TAB PO TID for 30 Days, #90 03/15/25 Atorvastatin Calcium (ATORVASTATIN CALCIUM) 40 Mg Tab, 1 TAB PO DAILY@5PM for 30 Days, #30 03/15/25 Insulin Lispro (Insulin Lispro Kwikpen) 100 Unit/Ml Inj, 15-20 UNIT SC AC for 65 Days, #30 03/15/25 Insulin Glargine (Lantus Solostar) 100 Unit/Ml Inj, 40 UNITS SC HS for 57 Days, #24 03/15/25 Current Medications Current Medications Medications (Trade) Dose Ordered Sig/Maria Isabel Route PRN Reason Start Time Stop Time Status Last Admin Acetaminophen (Tylenol Tablet) 325 mg Q4HP PRN PO MILD PAIN (1-3 PAIN SCALE) 10/02/25 16:45 Acetaminophen/ Hydrocodone Bitart ([place] 5/325MG Tab) 1 tab Q4HP PRN PO MODERATE PAIN (4-6 PAIN SCALE) 10/02/25 16:45 10/03/25 06:16 Ondansetron HCl (Zofran) 4 mg Q4HP PRN IV NAUSEA / VOMITING 10/02/25 16:45 10/02/25 18:35 Docusate Sodium (Colace Capsule) 100 mg BIDPRN PRN PO FOR CONSTIPATION 10/02/25 16:45 Morphine Sulfate 2 mg Q4HPRN PRN IV SEVERE PAIN (7-10 PAIN SCALE) 10/02/25 16:45 10/03/25 10:54 Enoxaparin Sodium (Lovenox) 40 mg BID SC 10/02/25 22:00 10/03/25 11:02 DC 10/03/25 09:29 Nitroglycerin (Ntrostat Sublingual) 0.4 mg Q5MINP PRN SL FOR CHEST PAIN 10/02/25 16:45 Morphine Sulfate 2 mg Q30M PRN IV FOR CHEST PAIN 10/02/25 16:45 Vancomycin HCl 0 ml @ 0 mls/hr PER PHARMACY IV 10/02/25 17:00 Aztreonam 2 gm/ Dextrose 100 ml @ 100 mls/hr Q8HR IV 10/02/25 22:00 10/03/25 07:29 Diagnostic Test (Pha) (Accu-Chek Comfort Curve T) 1 strip ACHS 10/02/25 22:00 10/03/25 07:00 Insulin Human Regular (InsuLIN R) HS SC 10/02/25 22:00 10/03/25 00:37 Insulin Human Regular (InsuLIN R) AC SC 10/03/25 07:00 10/03/25 07:37 Dextrose 50 ml UD PRN IV Blood Sugar LESS THAN 60 10/02/25 17:30 Insulin Glargine (Lantus) 10 units HS MN 10/02/25 22:00 10/03/25 11:02 DC 10/03/25 00:38 Labetalol HCl (Labetalol HCl) 10 mg Q6HP PRN IV SBP>150 10/02/25 19:00 Vancomycin HCl 350 ml @ 200 mls/hr Q12H IV 10/03/25 09:00 Sodium Chloride 1,000 ml @ 60 mls/hr [id number] IV 10/03/25 10:00 10/03/25 10:58 Insulin Glargine (Lantus) 25 units HS SC 10/03/25 22:00 UNV Enoxaparin Sodium (Lovenox) 150 mg Q12HR SC 10/03/25 22:00 UNV Review of Systems Per HPI Vital Signs Vital Signs Date Time Temp Pulse Resp B/P (MAP) Pulse Ox O2 Delivery O2 Flow Rate FiO2 10/03/25 10:54 98 19 123/70 10/03/25 08:44 98.4 96 98.4 10/02/25 21:46 Nasal Cannula* 1 24 Physical Exam Patient lying in bed, in no acute distress General: Lucid, afebrile, mucosae are moist Cardiovascular: Normal S1 and S2. No murmurs, gallops or rubs Respiratory: Normal ventilation mechanics. Scattered expiratory wheezing Abdomen: Soft, nontender, no organomegaly, normal bowel sounds MSK/skin: Mobilizes 4 limbs. Skin is dry and warm. Decreased pulses in bilateral feet, mildly cool left foot. Surgical site with no active drainage and erythema. Neurological: Oriented in 3 spheres. No motor no sensitive deficits. Pupils are isocoric and reactive Labs/Diagnostic Data Labs Test 10/03/25 07:31 10/03/25 05:10 10/02/25 18:59 10/02/25 18:46 Range/Units POC Glucose 381 H 70-106 mg/dl White Blood Count 10.3 4.4-10.8 10^3/uL Red Blood Count 5.01 4.5-5.90 10^6/uL Hemoglobin 14.4 13.5-17.5 g/dL Hematocrit 44.3 41.0-53.0 % Mean Corpuscular Volume 88.3 80.0-100.0 fL Mean Corpuscular Hemoglobin 28.7 28.0-32.0 pg Mean Corpuscular Hemoglobin Concent 32.5 32.0-36.0 g/dL Red Cell Distribution Width 18.5 H 11.8-14.3 % Platelet Count 253 140-450 10^3/uL Mean Platelet Volume 9.8 6.9-10.8 fL Neutrophils (%) (Auto) 92.3 H 37.0-80.0 % Lymphocytes (%) (Auto) 5.8 L 10.0-50.0 % Monocytes (%) (Auto) 1.8 0.0-12.0 % Eosinophils (%) (Auto) 0.0 0.0-7.0 % Basophils (%) (Auto) 0.1 0.0-2.0 % Neutrophils # (Auto) 9.5 H 1.6-8.6 10 ^3/uL Lymphocytes # (Auto) 0.6 0.4-5.4 10 ^3/uL Monocytes # (Auto) 0.2 0-1.3 10 ^3/uL Eosinophils # (Auto) 0 0-0.8 10 ^3/uL Basophils # (Auto) 0 0-0.2 10 ^3/uL Nucleated Red Blood Cells 0.1 % Sodium Level 137 136-145 mmol/L Potassium Level 4.9 3.5-5.1 mmol/L Chloride Level 100 98-107 mmol/L Carbon Dioxide Level 27 20-31 mmol/L Anion Gap 10 5-15 Blood Urea Nitrogen 23 9-23 mg/dL Creatinine 1.02 0.700-1.30 mg/dL Glomerular Filtration Rate Calc 85 >90 mL/min BUN/Creatinine Ratio 22.5 H 10.0-20.0 Serum Glucose 394 #H 74-106 mg/dL Hemoglobin A1c 11.5 H <5.7 % A1C Calcium Level 8.4 L 8.7-10.4 mg/dL Total Bilirubin 0.6 0.2-1.0 mg/dL Aspartate Amino Transferase (AST) 21 13-40 U/L Alanine Aminotransferase (ALT) 29 7-40 U/L Alkaline Phosphatase 470 H 46-116 U/L Total Protein 6.8 5.7-8.2 g/dL Albumin 3.0 L 3.2-4.8 g/dL Triglycerides Level 108 < 150 mg/dL Cholesterol Level 103 < 200 mg/dL LDL Cholesterol 66 < 100 mg/dL HDL Cholesterol 19 L 40-59 mg/dL Random Vancomycin Level 3.2 L 5-10 ug/mL Lactic Acid Level 1.1 0.4-2.0 mmol/L Influenza Type A Antigen Negative Negative Influenza Type B Antigen Negative Negative SARS-CoV-2 Antigen (Rapid) Negative NEGATIVE Test 10/02/25 16:27 10/02/25 13:21 Range/Units Troponin I High Sensitivity 31 </=54 ng/L B-Type Natriuretic Peptide 175.80 0-100 pg/mL Assessment Simple hyperglycemia Ruled out DKA/HHS Diabetes insulin-dependent - Uncontrolled (Hemoglobin A1C: 11.5%) Sepsis secondary to bilateral osteomyelitis - s/p left foot debridement Acute respiratory failure secondary to COPD exacerbation vs Acute on chronic diastolic CHF (HFpEF, LVEF 50%) Probable peripheral artery disease Paroxysmal atrial fibrillation (CHADS VASC 4) - Secondary hypercoagulability state Rule out thyroid disease Vitamin D deficiency Dyslipidemia Hypertension Morbid obesity Non-adherent Plan/Recommendation Patient's anion GAP is 10, ABG ruled out acidosis, serum osmolality 320, but blood glucose never were above 600. Ruled out acute diabetic crisis, likely simple hyperglycemia. Recommend increasing Lantus form 10 Units to 25 Units SC qhs. Avoid insulin sliding scale, use scheduled Lispro 10 Units SC AC. Replenished Vitamin D. TSH 0.28. Ordered free T4 and total T3. Educated patient in importance of basal insulin and rapid insulin adherence. Also recommended more frequent ACCU checks. Appreciate Podiatry, Vascular, Cardiology and ID specialist input. Rest of medical management per primary team Goals of care discussed with patient for over 18 minutes: Full code status Discussed plan with Dr Dee, patient and nurses: Optimizing insulin therapy during hospitalization. Increased dose of Lantus and scheduled Lispro. Patient has poor prognosis due to multiple comorbidities Attending attestation: I have seen and examined the patient, reviewed the residents note, and agree with the history, physical examination, assessment, and plan as documented. I discussed the case with the resident and concur with the management plan. Plan discussed with: Patient, Other (Nurses) Visit Coding STANDARD RES Billing Provider: TIMOTHY DEE MD Date of Service if different f: Oct 03, 2025 Common Visit Codes: [id number] INP/OBS CARE (HIGH) SIRISHA BUCK RESIDENT Oct 03, 2025 11:08 TIMOTHY DEE MD Oct 04, 2025 15:48
[2025-10-03] MEDS: VANCOMYCIN 1.75GM/350ML IV SCH (11:10)
--- NOTE | 2025-10-03 11:36 | DVHINCON2 ---
Date Seen: Oct 03, 2025 Referring Physician MD Erik Reason for Consultation Congestive heart failure PVD History of Present Illness This is a 60-year-old male patient who presents to emergency room with chief complaint of mechanical fall. The patient reports that he was getting out of be d yesterday when he slid off. He denies any loss of consciousness or hitting his head. He reports generalized weakness which prompted him to come to the emergency room for further evaluation. Cardiology has been consulted at this time for congestive heart failure and peripheral arterial disease. Initial twelve lead electrocardiogram reveals atrial fibrillation with artifact. S ignificant past medical history includes congestive heart failure, peripheral vascular disease with stent placement to right leg, atrial fibrillation (on Eliquis and amiodarone), hypertension, dyslipidemia, type 2 diabetes mellitus, COPD,tobacco use, and obesity. 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 Past Medical History Past medical history reviewed. No other significant than mentioned above. Past Surgical History Right foot 5th digit amputation Left foot 4th and 5th digit amputation Family History: Cerebrovascular accident (CVA) G8 FATHER Colon cancer G8 MOTHER Diabetes mellitus G8 FATHER G8 MOTHER FH: chronic kidney disease G8 FATHER FH: congestive heart failure G8 FATHER FH: heart attack G8 FATHER Hypertension G8 MOTHER Family History Family history reviewed. Social History Patient has a 22.5 pack-year history, smokes approximately half a pack per day Denies illicit drug use Denies any alcohol use Allergies: Coded Allergies: Penicillins (Verified Allergy, Severe, 04/21/23) Home Meds Active Scripts Amiodarone Hcl (Amiodarone Hcl) 200 Mg Tab, 1 TAB PO DAILY, #30 TAB 0 Refills Prov:LORENZO AGUILAR MD 07/03/21 Reported Medications Apixaban Base (ELIQUIS) 5 Mg Tab, 1 TAB PO BID for 30 Days, #60 04/03/25 Metoprolol Succinate (Metoprolol Succinate Er) 50 Mg Tab, 1 TAB PO DAILY@9AM for 30 Days, #30 04/03/25 Acetaminophen (Acetaminophen Extra Stren) 500 Mg Tab, 1-2 TAB PO QID PRN for 30 Days, #240 03/15/25 Furosemide (Furosemide) 40 Mg Tab, 2 TAB PO BID for 30 Days, #120 03/15/25 Tizanidine Hydrochloride (Tizanidine Hcl) 4 Mg Tab, 1 TAB PO TID for 30 Days, #90 03/15/25 Pregabalin (Pregabalin) 200 Mg Cap, 1 CAP PO TID for 30 Days, #90 03/15/25 Amitriptyline HCl (Amitriptyline Hydrochlori) 25 Mg Tab, 1 TAB PO QHSP PRN for LUMBAGO WITH SCIATICA for 30 Days, #30 03/15/25 Trazodone Hcl (Trazodone Hcl) 100 Mg Tab, 1 TAB PO HS for 30 Days, #30 03/15/25 Oxycodone HCl (Oxycodone Hydrochloride) 10 Mg Tab, 1 TAB PO TID for 30 Days, #90 03/15/25 Atorvastatin Calcium (ATORVASTATIN CALCIUM) 40 Mg Tab, 1 TAB PO DAILY@5PM for 30 Days, #30 03/15/25 Insulin Lispro (Insulin Lispro Kwikpen) 100 Unit/Ml Inj, 15-20 UNIT SC AC for 65 Days, #30 03/15/25 Insulin Glargine (Lantus Solostar) 100 Unit/Ml Inj, 40 UNITS SC HS for 57 Days, #24 03/15/25 Home Meds Home medications reviewed. Current Medications Current Medications Medications (Trade) Dose Ordered Sig/Maria Isabel Route PRN Reason Start Time Stop Time Status Last Admin Acetaminophen (Tylenol Tablet) 325 mg Q4HP PRN PO MILD PAIN (1-3 PAIN SCALE) 10/02/25 16:45 Acetaminophen/ Hydrocodone Bitart ([place] 5/325MG Tab) 1 tab Q4HP PRN PO MODERATE PAIN (4-6 PAIN SCALE) 10/02/25 16:45 10/03/25 06:16 Ondansetron HCl (Zofran) 4 mg Q4HP PRN IV NAUSEA / VOMITING 10/02/25 16:45 10/02/25 18:35 Docusate Sodium (Colace Capsule) 100 mg BIDPRN PRN PO FOR CONSTIPATION 10/02/25 16:45 Morphine Sulfate 2 mg Q4HPRN PRN IV SEVERE PAIN (7-10 PAIN SCALE) 10/02/25 16:45 10/03/25 10:54 Enoxaparin Sodium (Lovenox) 40 mg BID SC 10/02/25 22:00 10/03/25 11:02 DC 10/03/25 09:29 Nitroglycerin (Ntrostat Sublingual) 0.4 mg Q5MINP PRN SL FOR CHEST PAIN 10/02/25 16:45 Morphine Sulfate 2 mg Q30M PRN IV FOR CHEST PAIN 10/02/25 16:45 Vancomycin HCl 0 ml @ 0 mls/hr PER PHARMACY IV 10/02/25 17:00 Aztreonam 2 gm/ Dextrose 100 ml @ 100 mls/hr Q8HR IV 10/02/25 22:00 10/03/25 07:29 Diagnostic Test (Pha) (Accu-Chek Comfort Curve T) 1 strip ACHS 10/02/25 22:00 10/03/25 07:00 Insulin Human Regular (InsuLIN R) HS SC 10/02/25 22:00 10/03/25 00:37 Insulin Human Regular (InsuLIN R) AC SC 10/03/25 07:00 10/03/25 07:37 Dextrose 50 ml UD PRN IV Blood Sugar LESS THAN 60 10/02/25 17:30 Insulin Glargine (Lantus) 10 units HS SC 10/02/25 22:00 10/03/25 11:02 DC 10/03/25 00:38 Labetalol HCl (Labetalol HCl) 10 mg Q6HP PRN IV SBP>150 10/02/25 19:00 Vancomycin HCl 350 ml @ 200 mls/hr Q12H IV 10/03/25 09:00 10/03/25 11:10 Sodium Chloride 1,000 ml @ 60 mls/hr [id number] IV 10/03/25 10:00 10/03/25 10:58 Insulin Glargine (Lantus) 25 units HS SC 10/03/25 22:00 Enoxaparin Sodium (Lovenox) 150 mg Q12HR SC 10/03/25 22:00 Review of Systems Constitutional: Generalized weakness Ears, Nose, & Throat: No symptom reported Eyes: No symptom reported Neurological: No symptoms reported Pulmonary/Respiratory: No symptoms reported Cardiovascular: No symptom reported Gastrointestinal: No symptom reported Genitourinary: No symptom reported Musculoskeletal: No symptom reported Skin: No symptom reported Psychiatric: No symptom reported Endocrine: No symptom reported Hematologic/Lymphatic: No symptom reported Vital Signs Vital Signs Date Time Temp Pulse Resp B/P (MAP) Pulse Ox O2 Delivery O2 Flow Rate FiO2 10/03/25 10:54 98 19 123/70 10/03/25 08:44 98.4 96 98.4 10/02/25 21:46 Nasal Cannula* 1 24 Physical Exam General Appearance: Cooperative. Morbid obesity Pulmonary/Respiratory: Clear, bilateral breaths sounds. Cardiovascular/Chest: Irregularly irregular rate and rhythm Peripheral Pulses: 2+ Radial (R). 2+ Radial (L). Abdominal Exam: Normal bowel sounds. Ankle Exam: Negative ankle edema Lower extremities: Negative lower extremity edema Neuro/Mental Status: A/OX4, coherent. Thoughts/Psych: Normal thought pattern. Appropriate mood and affect. Good judgment and insight. Appearance: No acute distress. Skin Exam: Left and right feet wrapped. Notable hyperpigmentation to bilateral lower extremities. Skin is warm to touch Labs/Diagnostic Data Labs Test 10/03/25 07:31 10/03/25 05:10 10/02/25 18:59 10/02/25 18:46 Range/Units POC Glucose 381 H 70-106 mg/dl White Blood Count 10.3 4.4-10.8 10^3/uL Red Blood Count 5.01 4.5-5.90 10^6/uL Hemoglobin 14.4 13.5-17.5 g/dL Hematocrit 44.3 41.0-53.0 % Mean Corpuscular Volume 88.3 80.0-100.0 fL Mean Corpuscular Hemoglobin 28.7 28.0-32.0 pg Mean Corpuscular Hemoglobin Concent 32.5 32.0-36.0 g/dL Red Cell Distribution Width 18.5 H 11.8-14.3 % Platelet Count 253 140-450 10^3/uL Mean Platelet Volume 9.8 6.9-10.8 fL Neutrophils (%) (Auto) 92.3 H 37.0-80.0 % Lymphocytes (%) (Auto) 5.8 L 10.0-50.0 % Monocytes (%) (Auto) 1.8 0.0-12.0 % Eosinophils (%) (Auto) 0.0 0.0-7.0 % Basophils (%) (Auto) 0.1 0.0-2.0 % Neutrophils # (Auto) 9.5 H 1.6-8.6 10 ^3/uL Lymphocytes # (Auto) 0.6 0.4-5.4 10 ^3/uL Monocytes # (Auto) 0.2 0-1.3 10 ^3/uL Eosinophils # (Auto) 0 0-0.8 10 ^3/uL Basophils # (Auto) 0 0-0.2 10 ^3/uL Nucleated Red Blood Cells 0.1 % Sodium Level 137 136-145 mmol/L Potassium Level 4.9 3.5-5.1 mmol/L Chloride Level 100 98-107 mmol/L Carbon Dioxide Level 27 20-31 mmol/L Anion Gap 10 5-15 Blood Urea Nitrogen 23 9-23 mg/dL Creatinine 1.02 0.700-1.30 mg/dL Glomerular Filtration Rate Calc 85 >90 mL/min BUN/Creatinine Ratio 22.5 H 10.0-20.0 Serum Glucose 394 #H 74-106 mg/dL Hemoglobin A1c 11.5 H <5.7 % A1C Calcium Level 8.4 L 8.7-10.4 mg/dL Total Bilirubin 0.6 0.2-1.0 mg/dL Aspartate Amino Transferase (AST) 21 13-40 U/L Alanine Aminotransferase (ALT) 29 7-40 U/L Alkaline Phosphatase 470 H 46-116 U/L Total Protein 6.8 5.7-8.2 g/dL Albumin 3.0 L 3.2-4.8 g/dL Triglycerides Level 108 < 150 mg/dL Cholesterol Level 103 < 200 mg/dL LDL Cholesterol 66 < 100 mg/dL HDL Cholesterol 19 L 40-59 mg/dL Random Vancomycin Level 3.2 L 5-10 ug/mL Lactic Acid Level 1.1 0.4-2.0 mmol/L Influenza Type A Antigen Negative Negative Influenza Type B Antigen Negative Negative SARS-CoV-2 Antigen (Rapid) Negative NEGATIVE Test 10/02/25 16:27 10/02/25 13:21 Range/Units Troponin I High Sensitivity 31 </=54 ng/L B-Type Natriuretic Peptide 175.80 0-100 pg/mL Assessment Advanced left lower extremity peripheral arterial disease History of peripheral arterial disease with a stent placement to right leg Hx of chronic HFpEF, NYHA class II (EF on 03/21/25 was 50%) Atrial fibrillation, likely paroxysmal (on Eliquis and amiodarone) Hypertension Dyslipidemia Left foot osteomyelitis Type 2 diabetes mellitus, uncontrolled (A1c 11.5%) COPD Tobacco use Morbid obesity Plan/Recommendation We will continue with the following plan/recommendations (Dr. Bear): Case discussed with Dr. Bear. A previous transthoracic echocardiogram from 03/21/2025 reveals an EF of 50%. We will obtain a new transthoracic echocardiogram to evaluate cardiac function at this time. A bilateral lower extremity arterial duplex reveals extensive bilateral monomorphic waveforms, left more pronounced than right consistent with moderate to advanced peripheral arterial disease and possible aortoiliac inflow disease. The patient was offered a bilateral peripheral angiogram. The procedure was discussed with the patient in full detail including risks and benefits. The patient understands and is agreeable to undergo the procedure. We will schedule the patient on 10/05/2025. In the meantime, continue with single antiplatelet therapy and lipid-lowering agent. [id number] VASc score: 4 points, HAS-BLED score: 1 point. Continue with therapeutic Lovenox while inpatient pending upcoming procedure and transition back to DOAC therapy when appropriate. Continue with beta-david for rate control as tolerated. Restart the patient's home antiarrhythmic agent amiodarone. Extensive education was given to the patient regarding cessation of smoking as well as tighter glycemic index control. The patient verbalized an understanding. Continue with close cardiac surveillance and notify cardiology t eam immediately for any ECG changes. Thank you for allowing us to care for this patient. Please call with any questions or concerns. Critical care time spent: 44 minutes This medical document was created using an electronic medical record system with voice recognition software and computerized dictation system. Although this document has been carefully reviewed, there might still be some phonetic and typographical errors. Occasional wrong-word or ``sound-alike substitutions may have occurred due to the inherent limitations of voice recognition software. These areas are purely typographical due to imperfections of the software programs and do not reflect any compromise in the patient's medical care. Please read the chart carefully and recognize, using context, where these substitutions have occurred. Plan discussed with: Patient NYHA Physical activity limitations: Class2(Slight)fatigue,sob Date of Service: Oct 03, 2025 Billing Provider: PERICO NAGY Cardiology Common Codes: [id number] INP/OBS CARE (High) Cardiology Consultation Codes: [id number] CONSULT <45MIN PERICO NAGY Oct 03, 2025 11:36
[2025-10-03 12:03] LABS: Opiate Scree,Urine Pos (NEGATIVE); Phencyclidine Screen, Urine Neg (NEGATIVE)
[2025-10-03 12:05] LABS: Amphetamine Screen, Urine Neg (NEGATIVE); Barbiturate Scree,Urine Neg (NEGATIVE); Benzodiazephine Screen, Urine Neg (NEGATIVE); Cannabinoid Screen, Urine Neg (NEGATIVE); Cocaine Screen, Urine Neg (NEGATIVE)
[2025-10-03] MEDS ORDERED: KETAMINE 50mg/ML 1ml syringe ONE (12:10)
[2025-10-03] MEDS ORDERED: PROPOFOL 10 MG/ML 20 ML IV ONE (12:10)
[2025-10-03] MEDS ORDERED: LIDOCAINE 2% (LOCAL ANESTH.) PF 5ml SDV ONE (12:10)
[2025-10-03] MEDS ORDERED: GLYCOPYRROLATE 0.2 MG/ML 1ML VIAL ONE (12:10)
[2025-10-03] MEDS ORDERED: ONDANSETRON HCL 4 MG/2 ML VIAL ONE (12:10)
[2025-10-03] MEDS ORDERED: KETOROLAC TROMETH 30 MG/ML 1ML VIAL ONE (12:10)
[2025-10-03] MEDS ORDERED: PHENYLEPHRINE HCL 10 MG/ML VL ONE (12:22)
[2025-10-03] MEDS ORDERED: SODIUM CHLORIDE LOCK 10 ML ONE (12:22)
[2025-10-03] MEDS ORDERED: LIDOCAINE HCL 2% TOP JELLY 5ML TOP ONE (12:23)
--- NOTE | 2025-10-03 12:30 | DVH ---
CHEST RADIOGRAPH INDICATION: Acute respiratory failure TECHNIQUE: Single frontal view of the chest was obtained COMPARISON: XY CHEST PORTABLE on DOS: 10/02/25, XY CHEST PORTABLE on DOS: 06/29/25, XY CHEST XRAY 1 VIEW on DOS: 03/30/25, XY CHEST PORTABLE on DOS: 03/14/25, CHEST PORTABLE on DOS: 10/16/21 FINDINGS: Lines and Tubes: None Lungs: No focal consolidation. Pleura: No effusion. No pneumothorax. Cardiomediastinal contours: Cardiomegaly Bones: No acute osseous abnormality. IMPRESSION: Cardiomegaly with CHF
--- NOTE | 2025-10-03 12:32 | DVHOP2 ---
Operative Report - 2 Report Details Date: 10/03/25 Preop Diagnosis: 1. Left foot osteomyelitis 2. Left foot abscess 3. Left foot necrotizing fasciitis 4. Left foot cellulitis Postop Diagnosis: Same as preop Surgeon: Araceli Martin MD Anesthesiologist: See anesthesia Anesthesia: Mac Consent: The patient was informed of the risks and benefits of the procedure. These include but are not limited to complications of anesthesia, postoperative infection, incomplete relief of symptoms, recurrence of symptoms, damage to blood vessels, nerves and tendons, deep venous thrombosis, pulmonary embolism and possible need for repeat surgery in the future. Complications: None Estimated Blood Loss: Minimal Fluids: See anesthesia Findings: Consistent with diagnosis Indications for Surgery: Worsening foot wound Name of Procedure Performed 1. Left lateral foot I&D to bone (52187) 2. Left dorsal foot I&D to bone (22669) Procedure Details Procedure Details: PRE-PROCEDURE INFORMATION: In the pre-op holding area, the extremity to be operated on was clearly marked and the patient verified correct laterality of the marking. The patient was transferred to the OR table and placed in a supine position. A timeout was performed in which identification of the correct patient, procedure, location, and materials was done. The left foot and leg were prepped and draped in normal sterile fashion. DESCRIPTION OF PROCEDURE: Attention was directed to the left lateral where area of fluctuance was noted. An incision was made over this area and was deepened through blunt dissection. The incision was deepened to the level of abscess and bone. Care was taken to the dissection to avoid any neurovascular and tendinous structures. The incision was deepened to the bone, and the abscess appeared to be purulent fluid consistent with pus. The cortices of the bone was then removed with rongeur an all necrotic tissue. After the abscess was drained, the area was irrigated with 3 L normal saline using cysto tubing. Deep cultures were then obtained from the wound. The area was then inspected and any areas of tracking, especially along the tendons were also drained. The wound was packed with Betadine-soaked gauze. Attention was directed to the left lateral where area of fluctuance was noted. An incision was made over this area and was deepened through blunt dissection. The incision was deepened to the level of abscess and bone. Care was taken to the dissection to avoid any neurovascular and tendinous structures. The incision was deepened to the bone, and the abscess appeared to be purulent fluid consistent with pus. The cortices of the bone was then removed with rongeur an all necrotic tissue. After the abscess was drained, the area was irrigated with 3 L normal saline using cysto tubing. Deep cultures were then obtained from the wound. The area was then inspected and any areas of tracking, especially along the tendons were also drained. The wound was packed with Betadine-soaked gauze. All surgical wounds were irrigated copiously with saline and closed in layers with the aforementioned suture material. A dry sterile dressing was placed on the surgical extremity. The patient was placed in a _ POSTOPERATIVE INFORMATION: The patient tolerated the above noted procedure and anesthesia well and was transferred to the PACU with vital signs stable, and vascular status intact with capillary refill intact to all digits. Patient will need consult vascular surgery for possible Revasc, prognosis poor with the amount of necrosis and exposed bone. Patient will need to continue IV antibioti cs. Reconsult Podiatry if vascular recommends amputation. Recommend consideration for possible [id number] amputation. Condition Good Disposition Still a Patient Visit Coding Podiatry Date of Service if different f: Oct 03, 2025 Billing Provider: ARACELI MARTIN DPM Podiatry Common Visit Codes: PROCEDURE ONLY ARACELI MARTIN DPM Oct 03, 2025 12:31
[2025-10-03] MEDS ORDERED: ONDANSETRON HCL 4 MG/2 ML VIAL IV PRN (12:45)
[2025-10-03] MEDS ORDERED: hydrALAZINE HCL 20 MG/ML VL IV PRN (12:45)
[2025-10-03] MEDS ORDERED: NALOXONE HCL 0.4 MG/ML VIAL IV PRN (12:45)
[2025-10-03] MEDS ORDERED: FLUMAZENIL 0.1 MG/ML INJ 10ML MDV IV PRN (12:45)
[2025-10-03] MEDS ORDERED: fentaNYL CITRATE 100 MCG/2 ML VL IV PRN (12:45)
[2025-10-03] MEDS: HYDROmorphone HCL 2 MG/ML VL/or syr IV PRN (13:08)
[2025-10-03 14:42] LABS: Urine Protein, UAD 1+ (Negative)
[2025-10-03] MEDS: LIDOCAINE 1% HCL (LOCAL ANESTH.) INJ 20ML MDV ONE (15:02)
[2025-10-03 15:28] LABS: Base Excess -1.0 mmol/L (-2.0-3.0)
[2025-10-03 15:51] LABS: Magnesium 2.0 mg/dL (1.6-2.6)
[2025-10-03 15:55] LABS: INR 1.23 (0.9-1.15); Partial Thromboplastin Time 34.2 SEC (24.5-34.5); Prothrombin Time 12.8 sec (9.3-11.8)
--- NOTE | 2025-10-03 16:39 | DVH ---
EXAM: MRI MRI R FOOT WO CONTRAST INDICATION: review for osteo TECHNIQUE:: Multiplanar and multisequence MR imaging of the right foot was performed in the absence of gadolinium contrast. COMPARISON: MRI MRI L FOOT WO CONTRAST on DOS: 10/02/25, CT CT L FOOT WO CONTRAST on DOS: 10/02/25, CT CT R FOOT WO CONTRAST on DOS: 10/02/25 FINDINGS: The bones midfoot are misshapen due to numerous erosions primarily affecting the cuneiforms cuboid and navicular bones. There also cystic changes seen in the anterior process of the os calcis in the talus. Erosions at the bases of the 1st 2nd and 3rd metatarsals There is no soft tissue abscess present. There is edema in the musculature surrounding the medial 2 metatarsals. IMPRESSION: 1. 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 No definite evidence of active osteomyelitis or soft tissue abscess. Findings could either be due to peripheral vascular disease or chronic infection
--- NOTE | 2025-10-03 17:20 | DVH ---
EXAM: CT CT ANGIO LOWER EXTREMITY W INDICATION: Review for revascularization, hx of PVD TECHNIQUE: Angiogram axial images of bilateral lower extremities have been obtained along with coronal and sagittal reformatted images. All CT scans at this facility use dose modulation, iterative reconstruction, and/or weight based dosing when appropriate to reduce radiation dose to as low as reasonably achievable. COMPARISON: CT CT ANGIO LOWER EXTREMITY on DOS: 03/30/25 FINDINGS: BONES: Extensive soft tissue emphysema and deep soft tissue ulceration compatible with osteomyelitis with significant involvement centered around the 1st tarsometatarsal articulation and 5th metatarsal base with osseous erosive change of the cuboid and residual 5th metatarsal. Likely involvement of the 4th metatarsal and centered around the 2nd and 3rd metatarsophalangeal joints. Significant midfoot Charcot arthropathy with hypertrophic changes, superior joint space loss, fragmentation and flattening of the cuneiform bones and navicular bone with osseous irregularity and cystic change of the talus. [id number] degenerative change of the 1st metatarsophalangeal joint of the left foot. Status post prior amputation of the left digits. Status post amputation 5th digit. MUSCLES: Fatty atrophy of the intrinsic musculature in the [id number]-[id number]-left lower extremities JOINT SPACES: Significant midfoot Charcot arthropathy with hypertrophic changes, superior joint space loss, fragmentation and flattening of the cuneiform bones and navicular bone with osseous irregularity and cystic change of the talus. [id number] degenerative change of the 1st metatarsophalangeal joint of the left foot. OTHER: In the right lower extremity, visualization of the medial plantar artery and poor distal opacification of the anterior tibial to dorsalis pedis artery. Right peroneal artery is patent. In the left lower extremity poor distal opacification compatible with a occlusion of the anterior tibial artery however distal reconstitution of the dorsalis pedis artery proximally however distally is occluded. Peroneal artery of the left lower extremity is patent. Posterior tibial artery distally is patent with a opacification of the medial plantar artery. IMPRESSION: 1. Extensive soft tissue emphysema and deep soft tissue ulceration compatible with osteomyelitis with significant involvement centered around the 1st tarsometatarsal articulation and 5th metatarsal base with osseous erosive change of the cuboid and residual 5th metatarsal. 2. Likely involvement of the 4th metatarsal and centered around the 2nd and 3rd metatarsophalangeal joints. 3. Significant midfoot Charcot arthropathy with hypertrophic changes, superior joint space loss, fragmentation and flattening of the cuneiform bones and navicular bone with osseous irregularity and cystic change of the talus. 4. Poor distal opacification of the anterior tibial to dorsalis pedis artery of the right lower extremity. 5. Poor distal opacification compatible with a occlusion of the anterior tibial artery however distal reconstitution of the dorsalis pedis artery proximally however distally is occluded.
[2025-10-03 19:32] LABS: Hematocrit 40.8 % (41.0-53.0); Hemoglobin 13.2 g/dL (13.5-17.5); Mean Corpuscular Hemoglobin 28.8 pg (28.0-32.0); Mean Corpuscular Volume 88.8 fL (80.0-100.0); Nucleated Red Blood Cells % 0.1 %
[2025-10-03 19:51] LABS: INR 1.19 (0.9-1.15); Partial Thromboplastin Time 33.3 SEC (24.5-34.5); Prothrombin Time 12.4 sec (9.3-11.8)
--- NOTE | 2025-10-03 20:03 | DVHINCON2 ---
Date of service: Oct 02, 2025 Family History: Cerebrovascular accident (CVA) G8 FATHER Colon cancer G8 MOTHER Diabetes mellitus G8 FATHER G8 MOTHER FH: chronic kidney disease G8 FATHER FH: congestive heart failure G8 FATHER FH: heart attack G8 FATHER Hypertension G8 MOTHER Allergies: Coded Allergies: Penicillins (Verified Allergy, Severe, 04/21/23) Home Meds Active Scripts Amiodarone Hcl (Amiodarone Hcl) 200 Mg Tab, 1 TAB PO DAILY, #30 TAB 0 Refills Prov:LORENZO AGUILAR MD 07/03/21 Reported Medications Apixaban Base (ELIQUIS) 5 Mg Tab, 1 TAB PO BID for 30 Days, #60 04/03/25 Metoprolol Succinate (Metoprolol Succinate Er) 50 Mg Tab, 1 TAB PO DAILY@9AM for 30 Days, #30 04/03/25 Acetaminophen (Acetaminophen Extra Stren) 500 Mg Tab, 1-2 TAB PO QID PRN for 30 Days, #240 03/15/25 Furosemide (Furosemide) 40 Mg Tab, 2 TAB PO BID for 30 Days, #120 03/15/25 Tizanidine Hydrochloride (Tizanidine Hcl) 4 Mg Tab, 1 TAB PO TID for 30 Days, # 90 03/15/25 Pregabalin (Pregabalin) 200 Mg Cap, 1 CAP PO TID for 30 Days, #90 03/15/25 Amitriptyline HCl (Amitriptyline Hydrochlori) 25 Mg Tab, 1 TAB PO QHSP PRN for LUMBAGO WITH SCIATICA for 30 Days, #30 03/15/25 Trazodone Hcl (Trazodone Hcl) 100 Mg Tab, 1 TAB PO HS for 30 Days, #30 03/15/25 Oxycodone HCl (Oxycodone Hydrochloride) 10 Mg Tab, 1 TAB PO TID for 30 Days, #90 03/15/25 Atorvastatin Calcium (ATORVASTATIN CALCIUM) 40 Mg Tab, 1 TAB PO DAILY@5PM for 30 Days, #30 03/15/25 Insulin Lispro (Insulin Lispro Kwikpen) 100 Unit/Ml Inj, 15-20 UNIT SC AC for 65 Days, #30 03/15/25 Insulin Glargine (Lantus Solostar) 100 Unit/Ml Inj, 40 UNITS SC HS for 57 Days, #24 03/15/25 Current Medications Current Medications Medications (Trade) Dose Ordered Sig/Maria Isabel Route PRN Reason Start Time Stop Time Status Last Admin Enoxaparin Sodium (Lovenox) 40 mg BID SC 10/02/25 22:00 10/03/25 11:02 DC 10/03/25 09:29 Aztreonam 2 gm/ Dextrose 100 ml @ 100 mls/hr Q8HR IV 10/02/25 22:00 10/03/25 15:04 Diagnostic Test (Pha) (Accu-Chek Comfort Curve T) 1 strip ACHS 10/02/25 22:00 10/03/25 17:02 Insulin Human Regular (InsuLIN R) HS SC 10/02/25 22:00 10/03/25 00:37 Insulin Human Regular (InsuLIN R) AC SC 10/03/25 07:00 10/03/25 15:32 DC 10/03/25 12:47 Insulin Glargine (Lantus) 10 units HS SC 10/02/25 22:00 10/03/25 11:02 DC 10/03/25 00:38 Vancomycin HCl 350 ml @ 200 mls/hr Q12H IV 10/03/25 09:00 10/03/25 11:36 Sodium Chloride 1,000 ml @ 60 mls/hr [id number] IV 10/03/25 10:00 10/03/25 10:58 Insulin Glargine (Lantus) 25 units HS SC 10/03/25 22:00 Enoxaparin Sodium (Lovenox) 150 mg Q12HR SC 10/03/25 22:00 Ondansetron HCl (Zofran) 4 mg ONCE PRN IV NAUSEA / VOMITING 10/03/25 12:45 10/03/25 13:03 DC Naloxone HCl (Narcan) 0.4 mg Q10M PRN IV NARCOTIC REVERSAL 10/03/25 12:45 10/03/25 13:06 DC Flumazenil (Romazicon Injection) 0.2 mg ONCE PRN IV BENZODIAZEPINE REVERSAL 10/03/25 12:45 10/03/25 13:03 DC Hydralazine HCl (Apresoline Injection) 5 mg Q10M PRN IV SBP>160 10/03/25 12:45 10/03/25 13:36 DC Ephedrine Sulfate (ePHEDrine SULFATE) 10 mg Q10M PRN IV SBP LESS THAN 90 10/03/25 12:45 10/03/25 13:26 DC Fentanyl Citrate 25 mcg Q1HP PRN IV BREAKTHROUGH PAIN (7-10) 10/03/25 12:45 10/03/25 13:03 DC Hydromorphone HCl (Dilaudid Injection) 0.5 mg Q10M PRN IV SEVERE PAIN (7-10 PAIN SCALE) 10/03/25 12:45 10/03/25 13:26 DC 10/03/25 13:08 Insulin Human Regular (InsuLIN R) AC SC 10/03/25 17:00 10/03/25 17:11 Metoprolol Tartrate (Lopressor Tablet) 25 mg BID PO 10/03/25 22:00 Amiodarone HCl (Cordarone Tablet) 200 mg Q12HR PO 10/03/25 22:00 Atorvastatin Calcium (Lipitor) 80 mg HS PO 10/03/25 22:00 Aspirin (Ecotrin Enteric Coated Tablet) 81 mg DAILY PO 10/04/25 10:00 Heparin Sodium/ Dextrose 250 ml @ 10 mls/hr Q24H IV 10/03/25 20:00 Vital Signs Vital Signs Date Time Temp Pulse Resp B/P (MAP) Pulse Ox O2 Delivery O2 Flow Rate FiO2 10/03/25 17:43 87 17 114/74 10/03/25 16:42 98.9 98 98.9 10/03/25 12:34 Nasal Cannula 2.0 10/03/25 12:34 98 Labs/Diagnostic Data Labs Test 10/03/25 19:15 10/03/25 17:01 10/03/25 15:14 10/03/25 15:05 Range/Units White Blood Count 14.7 #H 4.4-10.8 10^3/uL Red Blood Count 4.60 4.5-5.90 10^6/uL Hemoglobin 13.2 L 13.5-17.5 g/dL Hematocrit 40.8 L 41.0-53.0 % Mean Corpuscular Volume 88.8 80.0-100.0 fL Mean Corpuscular Hemoglobin 28.8 28.0-32.0 pg Mean Corpuscular Hemoglobin Concent 32.4 32.0-36.0 g/dL Red Cell Distribution Width 17.7 H 11.8-14.3 % Platelet Count 296 140-450 10^3/uL Mean Platelet Volume 9.4 6.9-10.8 fL Neutrophils (%) (Auto) 92.2 H 37.0-80.0 % Lymphocytes (%) (Auto) 4.2 L 10.0-50.0 % Monocytes (%) (Auto) 3.0 0.0-12.0 % Eosinophils (%) (Auto) 0.0 0.0-7.0 % Basophils (%) (Auto) 0.6 0.0-2.0 % Neutrophils # (Auto) 13.6 H 1.6-8.6 10 ^3/uL Lymphocytes # (Auto) 0.6 0.4-5.4 10 ^3/uL Monocytes # (Auto) 0.4 0-1.3 10 ^3/uL Eosinophils # (Auto) 0 0-0.8 10 ^3/uL Basophils # (Auto) 0.1 0-0.2 10 ^3/uL Nucleated Red Blood Cells 0.1 % Prothrombin Time 12.4 H 9.3-11.8 sec Prothrombin Time INR 1.19 H 0.9-1.15 Activated Partial Thromboplast Time 33.3 24.5-34.5 SEC POC Glucose 261 H 70-106 mg/dl Blood Gas Specimen Type Arterial Blood Gas Sample Site Right radial Blood Gas Patient Temperature 37.0 Arterial Blood Date Drawn [id number] Arterial Blood pH 7.406 7.350-7.450 Arterial Blood Partial Pressure CO2 38.1 35.0-48.0 mmHg Arterial Blood Partial Pressure O2 91.2 83.0-108.0 mmHg Arterial Blood HCO3 23.4 21.0-28.0 mmol/L Arterial Blood Oxygen Saturation 96.5 94.0-98.0 % Arterial Blood Base Excess -1.0 -2.0-3.0 mmol/L Arterial Blood Oxyhemoglobin 94.5 94.0-98.0 % Arterial Blood Carboxyhemoglobin 1.8 H 0.5-1.5 % Arterial Blood Methemoglobin 0.3 0.0-1.5 % Arterial Blood Deoxyhemoglobin 3.4 0.0-5.0 % Suresh Test Positive Blood Gas Total Hemoglobin 14.20 13.5-17.5 g/dL Blood Gas Liter Flow 2.00 Blood Gas Modality Nasal cannula FiO2 % 28.0 Phosphorus Level 1.9 L 2.4-5.1 mg/dL Magnesium Level 2.0 1.6-2.6 mg/dL Test 10/03/25 11:15 10/03/25 05:10 10/02/25 18:59 10/02/25 18:46 Range/Units Urine Color Yellow Yellow Urine Clarity Clear Clear Urine pH 5.5 5.0-9.0 Urine Specific [place] 1.026 1.001-1.035 Urine Protein 1+ H Negative Urine Ketones 1+ H Negative Urine Blood Negative Negative /uL Urine Nitrite Negative Negative Urine Bilirubin Negative Negative Urine Urobilinogen Normal Negative mg/dL Urine Leukocyte Esterase Negative Negative /uL Urine RBC 2 0 - 3 /hpf Urine Microscopic WBC 8 H 0-3 /HPF Urine Squamous Epithelial Cells Few <5 /hpf Urine Bacteria None seen None Seen /hpf Urine Glucose 4+ H Normal mg/dL Urine Opiates Screen Pos NEGATIVE Urine Fentanyl Screen Neg NEGATIVE Urine Barbiturates Screen Neg NEGATIVE Urine Phencyclidine Screen Neg NEGATIVE Urine Amphetamines Screen Neg NEGATIVE Urine Benzodiazepines Screen Neg NEGATIVE Urine Cocaine Screen Neg NEGATIVE Urine Cannabinoids Screen Neg NEGATIVE Sodium Level 137 136-145 mmol/L Potassium Level 4.9 3.5-5.1 mmol/L Chloride Level 100 98-107 mmol/L Carbon Dioxide Level 27 20-31 mmol/L Anion Gap 10 5-15 Blood Urea Nitrogen 23 9-23 mg/dL Creatinine 1.02 0.700-1.30 mg/dL Glomerular Filtration Rate Calc 85 >90 mL/min BUN/Creatinine Ratio 22.5 H 10.0-20.0 Serum Glucose 394 #H 74-106 mg/dL Hemoglobin A1c 11.5 H <5.7 % A1C Serum Osmolality 320 H 278-298 mOsm/kg Calcium Level 8.4 L 8.7-10.4 mg/dL Total Bilirubin 0.6 0.2-1.0 mg/dL Aspartate Amino Transferase (AST) 21 13-40 U/L Alanine Aminotransferase (ALT) 29 7-40 U/L Alkaline Phosphatase 470 H 46-116 U/L Total Protein 6.8 5.7-8.2 g/dL Albumin 3.0 L 3.2-4.8 g/dL Triglycerides Level 108 < 150 mg/dL Cholesterol Level 103 < 200 mg/dL LDL Cholesterol 66 < 100 mg/dL HDL Cholesterol 19 L 40-59 mg/dL Vitamin B12 Level 586 211-911 pg/mL Vitamin D 25-Hydroxy 11.0 L 30.0-100 ng/mL Thyroid Stimulating Hormone (TSH) 0.28 L 0.55-4.78 uIU/mL Random Vancomycin Level 3.2 L 5-10 ug/mL Lactic Acid Level 1.1 0.4-2.0 mmol/L Influenza Type A Antigen Negative Negative Influenza Type B Antigen Negative Negative SARS-CoV-2 Antigen (Rapid) Negative NEGATIVE Test 10/02/25 16:27 10/02/25 13:21 Range/Units Troponin I High Sensitivity 31 </=54 ng/L B-Type Natriuretic Peptide 175.80 0-100 pg/mL Microbiology Date/Time Source Procedure Growth Status 10/02/25 15:16 Blood Blood Culture - Preliminary Resulted Problems(with codes): (1) Septic shock (2) Necrotizing fasciitis (3) Osteomyelitis (4) CHF (congestive heart failure) (5) COPD (chronic obstructive pulmonary disease) (6) Acute on chronic diastolic heart failure (7) Acute respiratory failure (8) Acute on chronic kidney failure (9) Diabetic foot ulcer (10) Cellulitis and abscess of right leg (11) Charcot arthropathy of midfoot Plan/Recommendation ASSESSMENT AND PLAN: ID Problem List: \-- Severe left diabetic foot infection with extensive osteomyelitis \-- Charcot neuroarthropathy of the left midfoot \-- Concern for necrotizing soft tissue infection (soft tissue gas, purulence, malodor, necrosis) \-- Moderateadvanced peripheral arterial disease (PAD) with poor distal perfusion \-- Sepsis with concern for evolving multi-organ dysfunction (GEORGIE, acute hypoxic respiratory failure) \-- Congestive heart failure with pulmonary edema (cardiomegaly with CHF on chest X-ray) \-- Type 2 diabetes mellitus, poorly controlled (HbA1c 11.5) \-- Atrial fibrillation on anticoagulation (apixaban) \-- Thrombocytopenia (platelet count 53) \-- History of multiple toe amputations (left 4th and 5th toes, right 5th toe) \-- Chronic tobacco use (>40 years) Assessment: This is a 59-year-old male with a history of type 2 diabetes mellitus, atrial fibrillation on apixaban, hypertension, hypoglycemia, chronic tobacco use, prior osteomyelitis, PAD, and multiple toe amputations (left 4th/5th and right 5th) who presents with left foot pain and systemic symptoms (shortness of breath, cough with yellow sputum, generalized weakness, poor urine output). He has a long-standing history of diabetic foot infections, primarily of the left foot, with recent (June) MRI showing osteomyelitis involving the 3rd5th metatarsals and digits, and non-operative debridement performed at that time. PAD workup previously demonstrated advanced left lower extremity disease with monophonic waveforms, and he was deemed a poor limb salvage candidate. Current imaging (CT, MRI, Doppler, and angiography) shows extensive left midfoot osteomyelitis involving the cuneiforms, navicular, bases of the 3rd5th metatarsals (post prior amputation), and areas around the 2nd3rd MTP joints; Charcot midfoot changes; soft tissue gas; ulcerations; and poor distal arterial opacification, all consistent with severe, limb-threatening infection on a background of advanced PAD and Charcot neuroarthropathy. Clinical exam is notable for Charcot deformity, plantar bony prominences with soft points, and concern for deep abscess/osteomyelitis with tissue infarction and liquefaction, with purulent drainage, malodor, and necrosis reported. He presents with leukocytosis, elevated lactate, acute kidney injury, acute hy poxic respiratory failure, thrombocytopenia, and radiographic CHF with pulmonary edema, consistent with sepsis and possible evolving multi-organ dysfunction. There is concern for necrotizing fasciitis given soft tissue gas and necrosis; broad-spectrum coverage including toxin-suppressive therapy is appropriate. Limb salvage remains uncertain, and amputation above the ankle may ultimately be required, to be determined by vascular surgery and podiatry based on operative findings and revascularization potential. Plan: 1\. Severe left diabetic foot infection with extensive osteomyelitis, Charcot foot, concern for necrotizing soft tissue infection; sepsis: \-- Continue vancomycin; target trough 1520 g/mL. \-- Recommend transitioning from aztreonam and levofloxacin to: Piperacillin-tazobactam (Zosyn) for broad-spectrum Gram-negative, Pseudomonas, and anaerobic coverage. Clindamycin for necrotizing infection (toxin inhibition). Add aztreonam to Zosyn as stated in transcript for additional Gram-negative and Pseudomonas coverage. \-- Patient has a reported penicillin allergy but previously tolerated 6 weeks of piperacillin-tazobactam (Zosyn) without difficulty; this supports using Zosyn despite listed allergy. \-- Follow blood cultures obtained on admission; continue to monitor for growth and tailor antibiotics based on culture and susceptibility results. \-- During operative debridement of the left foot (by Dr. Ang/podiatry): Obtain deep tissue specimens for aerobic, anaerobic, and fungal cultures. Obtain cultures of any infected bone for aerobic, anaerobic, and fungal organisms. \-- Recognize high risk of recurrent infection and poor wound healing due to severe PAD and uncontrolled diabetes; this has been discussed with the patient previously per transcript. \-- Final duration of IV antibiotics and need for chronic suppressive therapy will depend on operative findings, extent of debridement or amputation, culture data, and clinical course. 2\. Surgical management and limb salvage vs amputation: \-- Plan for incision and drainage and operative debridement of the left foot with Dr. Ang (podiatry) on an urgent/emergent basis, given purulent drainage, malodor, and necrosis, and uncertainty of limb salvage. \-- Vascular surgery involvement is essential to determine: Feasibility and timing of revascularization procedures (aortoiliac inflow disease and distal disease present). Level of debridement vs below- or above-ankle amputation required for durable source control. \-- Given talus involvement and extensive midfoot osteomyelitis and Charcot changes, long-term limb salvage is guarded; a higher-level amputation may reduce recurrent sepsis risk after IV antibiotics. \-- Additional ID recommendations will be provided after operative findings and culture data are available. 3\. Peripheral arterial disease / poor distal perfusion: \-- Advanced PAD with monophonic waveforms and poor distal opacification on Doppler and angiography. \-- Recommend close coordination with vascular surgery for: Inpatient evaluation for possible revascularization to improve perfusion and enhance wound healing potential. Outpatient follow-up after stabilization for longitudinal PAD management. \-- Aggressive risk factor modification is required, including absolute smoking cessation. 4\. Sepsis with concern for multi-organ dysfunction; acute hypoxic respiratory failure; CHF with pulmonary edema; GEORGIE: \-- Sepsis with elevated lactate (2.1), leukocytosis (WBC 12.3), GEORGIE (creatinine 1.25, BUN 25), thrombocytopenia (platelets 53), and acute hypoxic respiratory failure on 1 L nasal cannula (SpO2 96%). \-- Chest X-ray shows cardiomegaly with CHF and pulmonary edema, likely contributing to dyspnea and likely exacerbated by sepsis. \-- Recommend the primary/ICU team: Carefully balance fluid resuscitation for sepsis with risk of CHF exacerbation and pulmonary edema. Maintain MAP ? 65 mmHg; if hypotension persists despite fluids, initiate vasopressor support. Consider ICU-level monitoring given low/soft MAPs and need for close hemodynamic titration and respiratory support. Continue supplemental oxygen and escalate respiratory support as needed to treat acute hypoxic respiratory failure. \-- Source control via operative debridement is urgent to improve sepsis c ontrol. 5\. Diabetes mellitus, poorly controlled (HbA1c 11.5); wound healing: \-- HbA1c 11.5 indicates poor long-term glycemic control, contributing to infection risk and impaired wound healing. \-- Recommend keeping blood glucose < 200 mg/dL during hospitalization to optimize wound healing and immune function. \-- Adjust insulin regimen as needed by primary team/endocrinology; careful glucose monitoring is required given history of hypoglycemia. \-- Diabetes education and long-term outpatient management planning will be important once acute issues stabilize. 6\. Atrial fibrillation on apixaban; anticoagulation management: \-- Home apixaban use noted for atrial fibrillation. \-- Perioperative and sepsis-related anticoagulation strategy should be coordinated with cardiology/primary team and surgeons, balancing thromboembolism risk with bleeding risk (including thrombocytopenia and planned foot surgery). \-- No specific changes to atrial fibrillation management from an ID standpoint beyond coordination for procedures. 7\. Thrombocytopenia: \-- Platelet count 53 on admission. \-- Differential includes sepsis-associated consumption vs other etiologies; not further specified in transcript. \-- Recommend ongoing monitoring of platelet count; surgical and anticoagulation plans should account for bleeding risk. 8\. Chronic heart failure and pulmonary edema: \-- Chest X-ray showed cardiomegaly with CHF; clinical shortness of breath is present. \-- Likely exacerbated in the setting of sepsis and fluid shifts. \-- Primary/ICU team to manage CHF (diuretics vs fluids, afterload reduction as appropriate) while preserving hemodynamics to support organ perfusion and limb viability. 9\. Chronic tobacco use: \-- >40-year history of smoking; no alcohol or illicit drug use. \-- Strongly recommend smoking cessation to improve vascular status and wound healing; provide counseling and consider pharmacologic aids (e.g., nicotine replacement), as appropriate. Isolation Precautions: \-- Isolation precautions: Not specified in transcript. Assessment and plan was discussed with the patient as written above, per transcript where indicated. Plan is subject to change pending incorporation of new incoming information/diagnostics. Updates may be added as addendum at the bottom (OR TOP) of this note. Thank you for the consult. Infectious Disease will continue to follow. Please contact Infectious Disease with any questions or concerns. Stephie Duff M.D. Electronically signed by: Stephie Duff MD, 10/03/2025 \ History: The patient's chart and medications were reviewed in detail and the patient was seen and examined (per transcript context). History obtained from: patient (implied from transcript; no alternate source sp ecified). Kenney Laws is a 59-year-old male with a past medical history of type 2 diabetes mellitus, atrial fibrillation on anticoagulation, hypoglycemia, hypertension, multiple amputations of his left 4th and 5th toes distally and his right 5th toe, long-standing recurrent diabetic foot infections with osteomyelitis (primarily involving the left foot), PAD, and chronic tobacco use (>40 years), who presents with left foot pain and systemic symptoms. He was recently hospitalized in June for osteomyelitis of the left foot. At that time, imaging (MRI) showed osteomyelitis involving the 3rd5th metatarsals and 3rd digit proximal and middle phalanges, with surgical changes from prior amputation of the 4th and 5th metatarsal shafts, and an ill-defined subcutaneous fluid collection at the amputation stump consistent with possible phlegmon. Arterial Doppler in June showed advanced left lower extremity PAD with monophonic waveforms. He underwent non-operative debridement, and vascular surgery recommended amputation due to poor limb salvage potential. He declined additional amputations at that time, opting instead for 68 weeks of IV antibiotics. He subsequently completed 6 weeks of IV antibiotics (including Zosyn 4.5 g IV three times daily) via a [facility]. At Infectious Disease clinic follow-up, his foot was reported to be healing moderately well. Now he returns with approximately one week of shortness of breath, cough with yellow phlegm, generalized weakness, and poor urine output. He is again experiencing significant left foot pain. On admission, he was noted to have cardiomegaly with CHF on chest X-ray, leukocytosis, elevated lactate, elevated creatinine and BUN, thrombocytopenia, and poor oxygenation [address] and MRI of the left foot now show extensive midfoot osteomyelitis involving the cuneiforms, navicular, bases of the 3rd5th metatarsals, and regions around the 2nd3rd metatarsophalangeal joints, with soft tissue gas, ulcerations, Charcot deformity, and no discrete drainable fluid collection. Doppler ultrasound and angiography confirm moderate to advanced PAD with poor distal opacification and extensive midfoot Charcot changes and erosive osteomyelitis of the cuboid and residual 5th metatarsal with likely 4th metatarsal involvement. Clinically, the left foot demonstrates significant Charcot deformity, plantar bony prominences with soft points in the midfoot, and findings concerning for underlying abscess/osteomyelitis and deep tissue infarction and liquefaction, with purulent drainage, malodor, and necrosis noted. Dr. Ang (podiatry) plans operative incision and drainage and debridement. He was started on vancomycin, aztreonam, and levofloxacin. Given concern for sepsis with possible necrotizing fasciitis and the history of tolerating Zosyn despite a reported penicillin allergy, a change in antibiotics to include piperacillin-tazobactam and clindamycin, with continuation of vancomycin and addition of aztreonam to Zosyn, is recommended. The patient has been counseled previously regarding the high risk of recurrent infection and poor wound healing due to uncontrolled diabetes and PAD, and the possible need for amputation above the ankle to reduce the risk of recurrent sepsis after IV therapy. Final decisions on level of debridement vs amputation remain with vascular surgery and podiatry based on operative and perfusion findings. Review of Systems: A complete review of systems is not fully documented in the transcript. The following items were specifically noted: -Constitutional: Reports generalized weakness. Fever and chills not discussed. -HEENT: Not discussed. -Respiratory: Positive for shortness of breath and cough with yellow phlegm for approximately one week. -Cardiovascular: History of CHF; chest X-ray with cardiomegaly and CHF. Chest pain and palpitations not discussed. -Gastrointestinal: Nausea, vomiting, diarrhea, and abdominal pain not discussed. -Genitourinary: Poor urine output for over a week. Dysuria and urinary frequency not discussed. -Musculoskeletal: Left foot pain. Charcot deformity and prior amputations noted. Other joint pain or myalgias not discussed. -Skin: Left foot ulcerations with necrosis, malodor, and purulent drainage reported. Rash and pruritus not otherwise discussed. -Neurological: Syncope, focal weakness, and headache not discussed. -Psychiatric: Mood, anxiety, and depression not discussed. Past Medical History: -Type 2 diabetes mellitus -Atrial fibrillation (on anticoagulation) -Hypoglycemia -Hypertension -Recurrent diabetic foot infections (primarily left foot) -Chronic osteomyelitis of the left foot -Peripheral arterial disease (moderate to advanced, left > right) -Congestive heart failure (cardiomegaly with CHF on chest X-ray) -Charcot neuroarthropathy of the left foot (midfoot) -Chronic tobacco use (>40 years) (Dates not provided in transcript.) Past Surgical History: -Multiple toe amputations: \-- Left 4th toe distal amputation \-- Left 5th toe distal amputation \-- Right 5th toe distal amputation -Non-operative debridement of left foot (performed in June; details and exact date not specified) Planned or recently undertaken (timing not clearly specified in transcript): -Operative incision and drainage and debridement of the left foot by Dr. Ang (podiatry). Home Medications: (As reported in transcript; doses and frequencies only when specified.) -Apixaban (dose not specified) -Metoprolol (dose not specified) -Furosemide (Lasix) (dose not specified) -Insulin (type and dosing not specified) -Atorvastatin (dose not specified) -Oxycodone (dose and schedule not specified) -Acetaminophen (Tylenol) (dose not specified) -Tizanidine (dose not specified) -Pregabalin (dose not specified) -Amitriptyline (dose not specified) -Trazodone (dose not specified) -Ipratropium-albuterol (Atrovent/albuterol) inhalations (times two; exact regimen not specified) Additional medication details (formulations, exact doses, frequencies) are not provided in the transcript. Allergies: -Reported penicillin allergy (reaction not specified). \-- Notably, patient tolerated 6 weeks of piperacillin-tazobactam (Zosyn) in the past without any difficulty. Family History: -Family history: Not provided in transcript. Social History: -Tobacco: Chronic smoker for over 40 years. -Alcohol: Denies alcohol use. -Illicit drugs: Denies illicit drug use. -Other social details (marital status, occupation, living situation, etc.): Not provided in transcript. Objective: Vital Signs on Arrival (per transcript): -Temperature: 98.4 F (36.9 C) -Blood pressure: 112/67 mmHg -Pulse: 99 beats per minute -Respiratory rate: 19 breaths per minute -SpO?: 96% on 1 L/min nasal cannula Most Recent Vital Signs: -More recent vital signs beyond those above are not provided in the transcript. Admission Weight: -Weight: Not specified in the transcript. Physical Exam: General: NAD Neck: Supple. No masses. HEENT: PERRL. Normal lids and conjunctiva. Moist mucous membranes. Oropharynx without lesions, exudates or excessive erythema. Normal appearance of the external aspects of the nose and ears. Heart: Regular rhythm, normal rate. No murmur. No lower extremity edema. Lungs: Normal respiratory effort. Clear to auscultation bilaterally. No wheezes. No crackles. Abdomen: Soft. Non-tender. Non-distended. No masses or abdominal hernia. Msk: No digital cyanosis. Normal strength and tone in all 4 limbs. Charcot deformity of the left foot with plantar bony prominences and soft points in the midfoot, concerning for underlying deep infection. Skin: Warm and dry, no rashes. Diabetic left foot ulcers with Charcot deformity; plantar-based areas with soft points over bony prominences; scattered areas of ulceration along the lateral aspect of the left foot; purulent drainage, malodor, and necrotic tissue present; findings concerning for deep tissue abscess/osteomyelitis and tissue infarction/liquefaction. Neuro: Alert. No facial droop or slurred speech. Extra-ocular movements intact. Sensation intact to soft touch in all 4 limbs. Psych: Appropriate mood. Full affect. Oriented to person, place, time, and situation. Lines: -Vascular access and other lines: Not provided in transcript. Laboratory Data (on admission, per transcript): -White blood cell count: 12.3 10/L (elevated) -Hemoglobin: 14.4 g/dL -Platelet count: 53 10/L (low) -BUN: 25 mg/dL -Creatinine: 1.25 mg/dL -Lactate: 2.1 mmol/L (elevated) -Hemoglobin A1c: 11.5% -A value of 134 is mentioned in the transcript (weight count 134); the specific analyte is not clearly identified. Diagnostic Studies: Available diagnostic studies were reviewed personally (per transcript). Significant relevant results: Chest X-Ray: -Cardiomegaly with congestive heart failure (CHF). -Pulmonary edema is implied in the context of CHF and shortness of breath (described in assessment as cardiomegaly with CHF and pulmonary edema in the lungs). Left Foot CT (on current admission): -Highly suggestive of osteomyelitis of the midfoot. -Small foci of soft tissue gas at the base of the 2nd and 3rd phalanges and metatarsal joints. -Involvement of the 2nd and 3rd proximal metatarsals and medial midfoot osseous structures. -First and second tarsometatarsal region involved. -Mild to moderate subcutaneous edema and fat stranding about the ankle and foot. -Small foci of gas with scattered areas of ulceration along the lateral aspect of the foot. -No evidence of a discrete drainable fluid collection. Left Foot MRI (current admission): -Extensive osteomyelitis at the level of the midfoot involving the cuneiform and navicular bones. -Involvement of the bases of the 3rd5th metatarsals (post prior amputation). -Areas of osteomyelitis along the 2nd and 3rd metatarsophalangeal joints. -Areas of susceptibility artifact with trace possible underlying osteomyelitis deep to the origin of the central cord of the plantar fascia, which may reflect plantar fasciitis. Arterial Doppler Ultrasound (current admission): -Extensive monophonic waveforms, left more than right, consistent with moderate to advanced peripheral arterial disease. -Possible aortoiliac inflow disease. -Occluded right anterior tibial artery. -Markedly diminished velocity in the left dorsalis pedis artery consistent with high-grade stenosis. Angiography (current admission, recommended/performed by vascular surgery): -Extensive soft tissue ulceration compatible with osteomyelitis. -Significant involvement centered around the first metatarsal articulation and fifth metatarsal base. -Osseous erosive changes of the cuboid and residual fifth metatarsal with likely involvement of the fourth metatarsal. -Significant midfoot Charcot arthropathy with hypertrophic changes, joint space loss, fragmentation, and flattening of the cuneiform and navicular bones. -Osseous irregularity and cystic changes of the talus. -Poor distal opacification of the anterior tibial and dorsalis pedis arteries of the right lower extremity, compatible with occlusion of the anterior tibial artery with some distal reconstitution of the dorsalis pedis artery but distal occlusion. Prior Imaging (June, summarized from transcript): -Left foot MRI: Osteomyelitis of the 3rd5th metatarsals and 3rd digit proximal and middle phalanges; postsurgical changes of prior amputation of the 4th and 5t h metatarsal shafts with an ill-defined subcutaneous fluid collection at the amputation stump, likely phlegmon. -Arterial Doppler: Advanced left lower extremity PAD with monophonic waveforms. Blood cultures on current admission are reported as no growth to date in the transcript at the time of documentation. Plan discussed with: Patient STEPHIE DUFF MD Oct 03, 2025 20:03
[2025-10-03] MEDS ORDERED: PIPERACILLIN-TAZO 4.5GM 100 ML IV SCH (21:00)
[2025-10-03] MEDS: HEPARIN DRIP/D5W 100UNITS/ML 250 ML IV SCH (21:32)
[2025-10-03] MEDS ORDERED: PIPERACILLIN-TAZOB 3.375GM 100 ML IV SCH (22:00)
[2025-10-03] MEDS ORDERED: ENOXAPARIN SOD 100 MG/1 ML SYRINGE SC SCH (22:00)
[2025-10-03 23:28] LABS: Free T4 (Free Thyroxine) 1.34 ng/dL (0.89-1.76)
[2025-10-04] VITALS (7 sets, daily range): BP systolic 120–131; BP diastolic 75–86; PULSE 70–89; RESP 20; TEMP 97–98.6; O2SAT 93–98
[2025-10-04] MEDS: AMIODARONE HCL 200 MG TAB PO SCH (00:02)
[2025-10-04] MEDS: ATORVASTATIN 20 MG TAB PO SCH (00:02)
[2025-10-04] MEDS: METOPROLOL TARTRATE 25 MG TAB PO SCH (00:03)
[2025-10-04] MEDS: INSULIN LANTUS (GLARGINE) 1 /0.01ml (100units/ml) SC SCH ×2 (00:30→23:26)
[2025-10-04] MEDS: CLINDAMYCIN 900MG IV 50 ML IV SCH (00:51)
[2025-10-04 04:39] LABS: INR 1.13 (0.9-1.15); Partial Thromboplastin Time 32.8 SEC (24.5-34.5); Prothrombin Time 11.8 sec (9.3-11.8)
[2025-10-04] MEDS: HEPARIN SODIUM (PORCINE) 5000 UNITS/ML 1ML VIAL IV ONE (05:25)
[2025-10-04] MEDS: HEPARIN DRIP/D5W 100UNITS/ML 250 ML IV SCH ×3 (05:33→22:48)
[2025-10-04 06:09] LABS: Hematocrit 40.1 % (41.0-53.0); Hemoglobin 12.9 g/dL (13.5-17.5); Mean Corpuscular Hemoglobin 28.5 pg (28.0-32.0); Mean Corpuscular Volume 88.5 fL (80.0-100.0); Nucleated Red Blood Cells % 0.0 %
[2025-10-04] MEDS: PIPERACILLIN-TAZO 4.5GM 100 ML IV SCH ×2 (06:31→11:47)
[2025-10-04 06:37] LABS: Alanine Aminotransferase 20 U/L (7-40); Anion Gap 8 (5-15); BUN/Creatinine Ratio 30.5 (10.0-20.0); Bilirubin, Total 0.4 mg/dL (0.2-1.0); Carbon Dioxide 27 mmol/L (20-31); Chloride 101 mmol/L (98-107); Potassium 4.9 mmol/L (3.5-5.1); Sodium 136 mmol/L (136-145); Total Protein 6.3 g/dL (5.7-8.2)
[2025-10-04 06:38] LABS: Albumin 2.8 g/dL (3.2-4.8); Alkaline Phosphatase 342 U/L (46-116); Blood Urea Nitrogen 29 mg/dL (9-23); Calcium 8.1 mg/dL (8.7-10.4); Glucose 364 mg/dL (74-106)
[2025-10-04] MEDS: InsuLIN REG 1unit/0.01ml Soln (100units/ml) SC SCH (06:51)
--- NOTE | 2025-10-04 08:59 | DVHPN2 ---
Progress Note - Dictate Date Seen: Oct 04, 2025 Medical Necessity Reason Pt with a Central, PICC or Fol: No Subjective Pt feeling better after debridement. vital signs Vital Sign Date Time Temp Pulse Resp B/P (MAP) Pulse Ox O2 Delivery O2 Flow Rate FiO2 10/04/25 05:00 97.4 89 20 123/75 (91) 93 97.4 10/03/25 20:00 Nasal Cannula* 1 24 Total Intake and Output 10/03/25 10/03/25 10/04/25 15:00 23:00 07:00 Intake Total 400 ml 280 ml 340 ml Output Total 800 ml Balance 400 ml -520 ml 340 ml medications Current Medications Medications Dose Ordered Sig/Maria Isabel Route Start Time Stop Time Status Last Admin Dose Admin Acetaminophen 325 mg Q4HP PRN PO 10/02/25 16:45 Acetaminophen/ Hydrocodone Bitart 1 tab Q4HP PRN PO 10/02/25 16:45 10/04/25 03:33 1 TAB Ondansetron HCl 4 mg Q4HP PRN IV 10/02/25 16:45 10/02/25 18:35 4 MG Docusate Sodium 100 mg BIDPRN PRN PO 10/02/25 16:45 Morphine Sulfate 2 mg Q4HPRN PRN IV 10/02/25 16:45 10/03/25 17:13 2 MG Nitroglycerin 0.4 mg Q5MINP PRN SL 10/02/25 16:45 Morphine Sulfate 2 mg Q30M PRN IV 10/02/25 16:45 Vancomycin HCl 0 ml @ 0 mls/hr PER PHARMACY IV 10/02/25 17:00 Diagnostic Test (Pha) 1 strip ACHS 10/02/25 22:00 10/04/25 06:38 1 STRIP Insulin Human Regular HS SC 10/02/25 22:00 10/04/25 00:31 6 UNITS Dextrose 50 ml UD PRN IV 10/02/25 17:30 Vancomycin HCl 350 ml @ 200 mls/hr Q12H IV 10/03/25 09:00 10/03/25 21:44 200 MLS/HR Sodium Chloride 1,000 ml @ 60 mls/hr [id number] IV 10/03/25 10:00 10/04/25 03:37 60 MLS/HR Insulin Glargine 25 units HS SC 10/03/25 22:00 12/18/25 00:30 25 UNITS Enoxaparin Sodium 150 mg Q12HR SC 10/03/25 22:00 Cancel Metoprolol Tartrate 25 mg BID PO 10/03/25 22:00 10/04/25 00:03 25 MG Amiodarone HCl 200 mg Q12HR PO 10/03/25 22:00 10/04/25 00:02 200 MG Atorvastatin Calcium 80 mg HS PO 10/03/25 22:00 10/04/25 00:02 80 MG Aspirin 81 mg DAILY PO 10/04/25 10:00 Clindamycin Phosphate 50 ml @ 50 mls/hr Q8HR IV 10/03/25 22:00 10/04/25 06:31 50 MLS/HR Piperacillin Sod/ Tazobactam Sod 100 ml @ 25 mls/hr Q8HR IV 10/03/25 22:00 UNV Ergocalciferol 50,000 unit Q7D PO 10/04/25 10:00 Insulin Human Regular 10 units AC SC 10/04/25 07:00 10/04/25 06:51 10 UNITS Heparin Sodium/ Dextrose 250 ml @ 13 mls/hr [id number] IV 10/04/25 05:15 10/04/25 05:33 13 MLS/HR Piperacillin Sod/ Tazobactam Sod 100 ml @ 25 mls/hr Q6H IV 10/04/25 12:00 objective General: Obese, no acute distress Respiratory: Non-labored respirations Cards: RRR MSK: LLE bandaged laboratory and microbiology Laboratory Tests 10/04/25 05:10 Test 10/04/25 05:10 Range/Units Serum Glucose 364 H 74-106 mg/dL Assessment/Plan 1) Severe Sepsis due to Osteomyelitis Plan 2) Chronic Respiratory Failure due to COPD 3) Atrial Fibrillation with RVR 4) Type 2 DM-Uncontrolled 5) CHF 6) PVD 7) Hypertension 8) GEORGIE 9) Charcot arthropathy of midfoot 10) Morbid Obesity Plan: - Podiatry consulted for osteomyelitis with possible amputation. S/p debridement on 10/03. Pending possible amputation. - Cardiology consulted for underlying CHF and cardiac clearance along with revascularization given PVD. TTE pending. - CT angio of the lower extremities consistent with PAD on left. Plan for angioplasty 10/05 - ID consulted for osteomyelitis. Continue vancomycin and aztreonam. Clindamycin added - Blood cultures growing MRSA. On vancomycin, repeat Bcx ordered. Plan for PICC line once clearance achieved. - Heparin drip to be resumed after I&D for atrial fibrillation - Endocrine consulted for uncontrolled diabetes. Insulin sliding scale with glargine - Goal pulse ox greater than 90%. Holding DuoNebs at this time as patient does not have any signs of COPD exacerbation. Supplemented any tachycardia which may trigger atrial fibrillation with RVR - Daily CBC and BMP - Full Code Plan discussed with: Patient Is the fluid challenge complet: Yes Date of Reassessment: Oct 02, 2025 Time of Reassessment: 1645 Blood Culture Time: 1600 Time Antibiotics Given: 1600 Systolic BP: 128 Diastolic BP: 52 Blood Pressure Mean: 77 Respiration: 17 Respiratory Effort: Non-Labored Respiratory Pattern: Regular Oxygen Saturation: 95 Pulse Rate: 107 Pulse Location: Brachial Pulse Strength: Normal Pulse Assessment Method: Palpation Pulse Rhythm: Regular Capillary Refill: < 3 seconds Heart Sounds: S1 & S2 Breath sounds: Crackles, Diminished Skin Moisture: Dry Skin Tugor: WNL Skin Color: Pale CLARY ESTRELLA DO Oct 04, 2025 08:59
[2025-10-04] MEDS: ASPirin-EC 81 mg tab PO SCH (09:07)
[2025-10-04] MEDS: ERGOCALCIFEROL 50,000 UNIT(1.25MG) CAP PO SCH (09:14)
--- NOTE | 2025-10-04 10:06 | DVHPN2 ---
Consult Progress Note Subjective Other Systems: Patient is in atrial fibrillation with controlled rate on alarm security or surveillance monitor. He denies any cardiac symptoms at time of assessment Objective vital signs Vital Sign Date Time Temp Pulse Resp B/P (MAP) Pulse Ox O2 Delivery O2 Flow Rate FiO2 10/04/25 09:07 86 123/76 10/04/25 08:30 97.9 20 96 97.9 10/03/25 20:00 Nasal Cannula* 1 24 Total Intake and Output 10/03/25 10/03/25 10/04/25 15:00 23:00 07:00 Intake Total 400 ml 280 ml 340 ml Output Total 800 ml Balance 400 ml -520 ml 340 ml medications Current Medications Medications Dose Ordered Sig/Amria Isabel Route Start Time Stop Time Status Last Admin Dose Admin Acetaminophen 325 mg Q4HP PRN PO 10/02/25 16:45 Ondansetron HCl 4 mg Q4HP PRN IV 10/02/25 16:45 10/02/25 18:35 4 MG Docusate Sodium 100 mg BIDPRN PRN PO 10/02/25 16:45 Nitroglycerin 0.4 mg Q5MINP PRN SL 10/02/25 16:45 Morphine Sulfate 2 mg Q30M PRN IV 10/02/25 16:45 Vancomycin HCl 0 ml @ 0 mls/hr PER PHARMACY IV 10/02/25 17:00 Diagnostic Test (Pha) 1 strip ACHS 10/02/25 22:00 10/04/25 06:38 1 STRIP Insulin Human Regular HS SC 10/02/25 22:00 10/04/25 00:31 6 UNITS Dextrose 50 ml UD PRN IV 10/02/25 17:30 Vancomycin HCl 350 ml @ 200 mls/hr Q12H IV 10/03/25 09:00 10/04/25 09:05 200 MLS/HR Sodium Chloride 1,000 ml @ 60 mls/hr [id number] IV 10/03/25 10:00 10/04/25 03:37 60 MLS/HR Insulin Glargine 25 units HS SC 10/03/25 22:00 10/04/25 00:30 25 UNITS Enoxaparin Sodium 150 mg Q12HR SC 10/03/25 22:00 Cancel Metoprolol Tartrate 25 mg BID PO 10/03/25 22:00 10/04/25 09:07 25 MG Amiodarone HCl 200 mg Q12HR PO 10/03/25 22:00 10/04/25 09:06 200 MG Atorvastatin Calcium 80 mg HS PO 10/03/25 22:00 10/04/25 00:02 80 MG Aspirin 81 mg DAILY PO 10/04/25 10:00 10/04/25 09:07 81 MG Clindamycin Phosphate 50 ml @ 50 mls/hr Q8HR IV 10/03/25 22:00 10/04/25 06:31 50 MLS/HR Piperacillin Sod/ Tazobactam Sod 100 ml @ 25 mls/hr Q8HR IV 10/03/25 22:00 UNV Ergocalciferol 50,000 unit Q7D PO 10/04/25 10:00 10/04/25 09:14 50,000 UNIT Insulin Human Regular 10 units AC SC 10/04/25 07:00 10/04/25 06:51 10 UNITS Heparin Sodium/ Dextrose 250 ml @ 13 mls/hr [id number] IV 10/04/25 05:15 10/04/25 05:33 13 MLS/HR Piperacillin Sod/ Tazobactam Sod 100 ml @ 25 mls/hr Q6H IV 10/04/25 12:00 Hydromorphone HCl 0.5 mg Q2HPRN PRN IV 10/04/25 09:30 Acetaminophen/ Hydrocodone Bitart 1 tab Q4HP PRN PO 10/04/25 09:30 Examination: GENERAL:Abnormal (Generalized weakness), LUNGS:Normal, CVS:Abnormal (Atrial fibrillation with controlled rate), NEURO:Normal laboratory and microbiology Laboratory Tests 10/04/25 05:10 Test 10/04/25 05:10 Range/Units Serum Glucose 364 H 74-106 mg/dL Problem List/Assessment/Plan Problem List/Assessment/Plan Advanced left lower extremity peripheral arterial disease History of peripheral arterial disease with a stent placement to right leg Hx of chronic HFpEF, NYHA class II (EF on 03/21/25 was 50%) Atrial fibrillation, likely paroxysmal (on Eliquis and amiodarone) Hypertension Dyslipidemia Sepsis Left foot osteomyelitis s/p I &D Type 2 diabetes mellitus, uncontrolled (A1c 11.5%) COPD Tobacco use Morbid obesity Plan/Recommendations (Dr. Bear): Case discussed with Dr. Bear. A previous transthoracic echocardiogram from 03/21/2025 reveals an EF of 50%. Continue GDMT per HFpEF guidelines. We will obtain a new transthoracic echocardiogram to evaluate cardiac function at this time. A bilateral lower extremity arterial duplex reveals extensive bilateral monomorphic waveforms, left more pronounced than right consistent with moderate to advanced peripheral arterial disease and possible aortoiliac inflow disease. The patient was offered a bilateral peripheral angiogram. The procedure was discussed with the patient in full detail including risks and benefits. The patient understands and is agreeable to undergo the procedure. We will schedule the patient on 10/05/2025. In the meantime, continue with single antiplatelet therapy and lipid-lowering agent. [id number] VASc score: 4 points, HAS-BLED score: 1 point. Continue with Heparin therapy while inpatient pending upcoming procedure and transition back to DOAC therapy when appropriate. Continue with beta-david for rate control as tolerated. Restart the patient's home antiarrhythmic agent amiodarone. Extensive education was given to the patient regarding cessation of smoking as well as tighter glycemic index control. The patient verbalized an understanding. Continue with close cardiac surveillance and notify cardiology team immediately for any ECG changes. Thank you for allowing us to care for this patient. Please call with any questions or concerns. This medical document was created using an electronic medical record system with voice recognition software and computerized dictation system. Although this document has been carefully reviewed, there might still be some phonetic and typographical errors. Occasional wrong-word or ``sound-alike substitutions may have occurred due to the inherent limitations of voice recognition software. These areas are purely typographical due to imperfections of the software programs and do not reflect any compromise in the patient's medical care. Please read the chart carefully and recognize, using context, where these substitutions have occurred. Plan discussed with: Patient Date of Service: Oct 04, 2025 Billing Provider: PERICO NAGY Common Visit Codes: [id number] INP/OBS CARE(HIGH) PERICO NAGY Oct 04, 2025 10:06
[2025-10-04] MEDS: HYDROmorphone HCL 2 MG/ML VL/or syr IV PRN (11:45)
[2025-10-04 12:24] LABS: INR 1.12 (0.9-1.15); Partial Thromboplastin Time 37.0 SEC (24.5-34.5); Prothrombin Time 11.7 sec (9.3-11.8)
--- NOTE | 2025-10-04 12:43 | CONS ---
Pharmacy Clinical Information: INCREASE HEPARIN RATE TO 15 ML/HR OR 1500 UNITS/HR SINCE APTT = 37 @1125 ON 10/04 PER RX PROTOCOL NEXT APTT CARA 6 HOURS FROM STARTING NEW HEPARIN RATE. SIVA BHATT AWARE TO INCREASE RATE FROM 13 ML/HR TO 15 ML/HR AND REPEATED ORDER BACK YADIRA BOND PHARMACIST Oct 04, 2025 12:43
[2025-10-04] MEDS: HYDROcodone-ACET 10/325MG TAB PO PRN (15:20)
[2025-10-04] MEDS ORDERED: DEXTROSE (50%) 50ML SYRG IV PRN (15:45)
--- NOTE | 2025-10-04 15:49 | DVHPN2 ---
Progress Note - Dictate Date Seen: Oct 04, 2025 Medical Necessity Reason Pt with a Central, PICC or Fol: No Subjective NAEO. Persistent dysglycemia both fasting and postprandial. vital signs Vital Sign Date Time Temp Pulse Resp B/P (MAP) Pulse Ox O2 Delivery O2 Flow Rate FiO2 10/04/25 13:30 98.3 70 20 128/83 (98) 97 98.3 10/04/25 08:00 Room Air* 1 N/A Nasal Cannula* Total Intake and Output 10/03/25 10/03/25 10/04/25 15:00 23:00 07:00 Intake Total 400 ml 280 ml 340 ml Output Total 800 ml Balance 400 ml -520 ml 340 ml medications Current Medications Medications Dose Ordered Sig/Maria Isabel Route Start Time Stop Time Status Last Admin Dose Admin Acetaminophen 325 mg Q4HP PRN PO 10/02/25 16:45 Ondansetron HCl 4 mg Q4HP PRN IV 10/02/25 16:45 10/02/25 18:35 4 MG Docusate Sodium 100 mg BIDPRN PRN PO 10/02/25 16:45 Nitroglycerin 0.4 mg Q5MINP PRN SL 10/02/25 16:45 Morphine Sulfate 2 mg Q30M PRN IV 10/02/25 16:45 Vancomycin HCl 0 ml @ 0 mls/hr PER PHARMACY IV 10/02/25 17:00 Vancomycin HCl 350 ml @ 200 mls/hr Q12H IV 10/03/25 09:00 10/04/25 09:05 200 MLS/HR Sodium Chloride 1,000 ml @ 60 mls/hr [id number] IV 10/03/25 10:00 10/04/25 03:37 60 MLS/HR Enoxaparin Sodium 150 mg Q12HR SC 10/03/25 22:00 Cancel Amiodarone HCl 200 mg Q12HR PO 10/03/25 22:00 10/04/25 09:06 200 MG Atorvastatin Calcium 80 mg HS PO 10/03/25 22:00 10/04/25 00:02 80 MG Aspirin 81 mg DAILY PO 10/04/25 10:00 10/04/25 09:07 81 MG Clindamycin Phosphate 50 ml @ 50 mls/hr Q8HR IV 10/03/25 22:00 10/04/25 06:31 50 MLS/HR Piperacillin Sod/ Tazobactam Sod 100 ml @ 25 mls/hr Q8HR IV 10/03/25 22:00 UNV Ergocalciferol 50,000 unit Q7D PO 10/04/25 10:00 10/04/25 09:14 50,000 UNIT Piperacillin Sod/ Tazobactam Sod 100 ml @ 25 mls/hr Q6H IV 10/04/25 12:00 10/04/25 11:47 25 MLS/HR Hydromorphone HCl 0.5 mg Q2HPRN PRN IV 10/04/25 09:30 10/04/25 11:45 0.5 MG Acetaminophen/ Hydrocodone Bitart 1 tab Q4HP PRN PO 10/04/25 09:30 10/04/25 15:20 1 TAB Metoprolol Succinate 50 mg DAILY PO 10/05/25 10:00 Empaglifozin 10 mg DAILY PO 10/05/25 10:00 Heparin Sodium/ Dextrose 250 ml @ 15 mls/hr [id number] IV 10/04/25 12:45 10/04/25 12:42 15 MLS/HR Mupirocin 1 applic BID EACHNOSTRI 10/04/25 22:00 10/09/25 21:59 Insulin Glargine 40 units HS SC 10/04/25 22:00 UNV Insulin Human Lispro 10 units AC SC 10/04/25 17:00 Diagnostic Test (Pha) 1 strip ACHS 10/04/25 17:00 UNV Insulin Human Regular HS SC 10/04/25 22:00 UNV Insulin Human Regular AC SC 10/04/25 17:00 UNV Dextrose 50 ml UD PRN IV 10/04/25 15:45 UNV objective Gen - no acute distress HEENT - no thyromegaly CV - RRR, no m/r/g Resp - CTAB Ext - no edema laboratory and microbiology Laboratory Tests 10/04/25 05:10 Test 10/04/25 05:10 Range/Units Serum Glucose 364 H 74-106 mg/dL Assessment/Plan 1. Severe sepsis 2. Osteomyelitis 3. Uncontrolled type II DM with hyperglycemia 4. Afib with RVR 5. CHF 6. PVD 7. HTN - Increase glargine to 40 units daily - Change lispro to 10 units tidac - Change regular insulin to moderate intensity lispro SSI tidac, qhs - Hypoglycemia protocol - Diabetic diet Dietary Evaluation Review Comments: Diet Advancement: When medically cleared and off NPO, advance to CCHO-Cardiac diet. Activity & Weight Management: Reduce weight-bearing activities as appropriate for current condition. Increase physical activity gradually when tolerated to support recovery and metabolic health. Implement weight management strategies during hospitalization and reinforce upon discharge. Monitoring: Track PO intake and tolerance. Monitor labs and clinical status. Reassess PRN. Expected Outcomes/Goals: recover from sepsis Plan discussed with: Other (nurse) Is the fluid challenge complet: Yes Date of Reassessment: Oct 02, 2025 Time of Reassessment: 1645 Blood Culture Time: 1600 Time Antibiotics Given: 1600 Systolic BP: 128 Diastolic BP: 52 Blood Pressure Mean: 77 Respiration: 17 Respiratory Effort: Non-Labored Respiratory Pattern: Regular Oxygen Saturation: 95 Pulse Rate: 107 Pulse Location: Brachial Pulse Strength: Normal Pulse Assessment Method: Palpation Pulse Rhythm: Regular Capillary Refill: < 3 seconds Heart Sounds: S1 & S2 Breath sounds: Crackles, Diminished Skin Moisture: Dry Skin Tugor: WNL Skin Color: Pale TIMOTHY DEE MD Oct 04, 2025 15:49
[2025-10-04] MEDS ORDERED: InsuLIN REG 1unit/0.01ml Soln (100units/ml) SC SCH (17:00)
--- NOTE | 2025-10-04 17:07 | DVHSR ---
APPROVED REPORT EXAM: Two-dimensional and M-mode echocardiogram with Doppler and color Doppler. Blood Pressure: 130/73 mmHg INDICATION CHF eval, cardiac clearance prior to amputation. RISK FACTORS Obesity: Height: 67, Weight: 333 DIMENSIONS LVDd (3.8-5.7cm) LA (2D) 4.1 (1.9-4.0cm) Aortic Root (2.0-3.7cm) EF (%) 48.0 (55-70%) Rt. Atrium (1.9-4.0cm) Asc. Aorta cm Mitral Valve Mitral Mitral Stenosis E wave 1.39m/s MV Mean GR. mmHg E/A ratio 0.0 2D MVA cm2 Aortic Valve Aortic Valve Aortic Stenosis V1 0.83m/s AO Mean GR. 2mmHg V2 0.95m/s AO Peak GR. 4mmHg Other Information Quality : Technically Limited Rhythm : Technically limited study due to body habitus and patient position. Patient was laying on his right side. Only able to obtain apical view. Conclusion Technically difficult study with poor cardiac visualization LVEF likely grossly normal at 50%, Right ventricle not well visualized , likely grossly normal No hemodynamic significant aortic stenosis
[2025-10-04] MEDS: INSULIN LISPRO (HUMAN) 100 UNITS/ML ML SC SCH ×2 (17:31→17:58)
[2025-10-04] MEDS: ACCU-CHEK COMFORT CURVE STRIP VI SCH (17:31)
[2025-10-04 19:21] LABS: INR 1.13 (0.9-1.15); Partial Thromboplastin Time 38.2 SEC (24.5-34.5); Prothrombin Time 11.8 sec (9.3-11.8)
--- NOTE | 2025-10-04 19:49 | CONS ---
Pharmacy Clinical Information: HEPARIN PER [facility] PROTOCOL: APTT result of 38.2 received from draw on 10/04 @1830. Increase rate 200 units per hour. New rate is 1700 units per hour (17ml/hr). Orders read back and confirmed with MILLER Ohara @[id number]. Next APTT scheduled for 10/05 @0200. AGNIESZKA COKER PHARMACIST Oct 04, 2025 19:49
[2025-10-04] MEDS: MUPIROCIN 2% OINT 15gm or 22gm FOR MRSA NARES EACHNOSTRI SCH (22:00)
[2025-10-05] VITALS (8 sets, daily range): BP systolic 122–142; BP diastolic 71–101; PULSE 67–87; RESP 16–20; TEMP 96.5–98.1; O2SAT 96–100
[2025-10-05 02:57] LABS: INR 1.13 (0.9-1.15); Partial Thromboplastin Time 41.9 SEC (24.5-34.5); Prothrombin Time 11.8 sec (9.3-11.8)
[2025-10-05] MEDS: HEPARIN DRIP/D5W 100UNITS/ML 250 ML IV SCH ×2 (05:20→13:09)
[2025-10-05 06:17] LABS: Hematocrit 40.9 % (41.0-53.0); Hemoglobin 13.4 g/dL (13.5-17.5); Mean Corpuscular Hemoglobin 28.9 pg (28.0-32.0); Mean Corpuscular Volume 88.2 fL (80.0-100.0); Nucleated Red Blood Cells % 0.1 %
[2025-10-05 06:32] LABS: Alanine Aminotransferase 15 U/L (7-40); Anion Gap 9 (5-15); BUN/Creatinine Ratio 21.6 (10.0-20.0); Bilirubin, Total 0.5 mg/dL (0.2-1.0); Blood Urea Nitrogen 19 mg/dL (9-23); Carbon Dioxide 28 mmol/L (20-31); Chloride 103 mmol/L (98-107); Potassium 3.8 mmol/L (3.5-5.1); Sodium 140 mmol/L (136-145); Total Protein 6.8 g/dL (5.7-8.2)
[2025-10-05 06:37] LABS: Albumin 3.2 g/dL (3.2-4.8); Alkaline Phosphatase 284 U/L (46-116); Calcium 8.5 mg/dL (8.7-10.4); Glucose 194 mg/dL (74-106)
[2025-10-05] MEDS: IODIXANOL 320MG/ML 100ML BTL IV ONE ×2 (08:08→18:23)
[2025-10-05] MEDS: EMPAGLIFLOZIN 10 MG TAB PO SCH (08:24)
[2025-10-05] MEDS: METOPROLOL SUCCINATE XL 50 MG TAB PO SCH (08:25)
[2025-10-05] MEDS: VANCOMYCIN 1.5GM/250ML 250 ML IV SCH (08:31)
--- NOTE | 2025-10-05 08:48 | DVHPN2 ---
Progress Note - Dictate Date Seen: Oct 05, 2025 Medical Necessity Reason Pt with a Central, PICC or Fol: No Subjective Patient pending angioplasty today with cardiology. vital signs Vital Sign Date Time Temp Pulse Resp B/P (MAP) Pulse Ox O2 Delivery O2 Flow Rate FiO2 10/05/25 08:25 80 138/95 10/05/25 08:24 20 10/05/25 05:00 97.0 98 97.0 10/04/25 20:00 Room Air* 1 N/A Nasal Cannula* Total Intake and Output 10/04/25 10/04/25 10/05/25 15:00 23:00 07:00 Intake Total 400 ml 450 ml 0 ml Output Total 250 ml 200 ml Balance 150 ml 450 ml -200 ml medications Current Medications Medications Dose Ordered Sig/Maria Isabel Route Start Time Stop Time Status Last Admin Dose Admin Acetaminophen 325 mg Q4HP PRN PO 10/02/25 16:45 Ondansetron HCl 4 mg Q4HP PRN IV 10/02/25 16:45 10/02/25 18:35 4 MG Docusate Sodium 100 mg BIDPRN PRN PO 10/02/25 16:45 Nitroglycerin 0.4 mg Q5MINP PRN SL 10/02/25 16:45 Morphine Sulfate 2 mg Q30M PRN IV 10/02/25 16:45 Vancomycin HCl 0 ml @ 0 mls/hr PER PHARMACY IV 10/02/25 17:00 Sodium Chloride 1,000 ml @ 60 mls/hr [id number] IV 10/03/25 10:00 10/04/25 03:37 60 MLS/HR Enoxaparin Sodium 150 mg Q12HR SC 10/03/25 22:00 Cancel Amiodarone HCl 200 mg Q12HR PO 10/03/25 22:00 10/05/25 08:24 200 MG Atorvastatin Calcium 80 mg HS PO 10/03/25 22:00 10/04/25 22:27 80 MG Aspirin 81 mg DAILY PO 10/04/25 10:00 10/05/25 08:24 81 MG Clindamycin Phosphate 50 ml @ 50 mls/hr Q8HR IV 10/03/25 22:00 10/05/25 05:00 50 MLS/HR Piperacillin Sod/ Tazobactam Sod 100 ml @ 25 mls/hr Q8HR IV 10/03/25 22:00 UNV Ergocalciferol 50,000 unit Q7D PO 10/04/25 10:00 10/04/25 09:14 50,000 UNIT Piperacillin Sod/ Tazobactam Sod 100 ml @ 25 mls/hr Q6H IV 10/04/25 12:00 10/05/25 06:19 25 MLS/HR Hydromorphone HCl 0.5 mg Q2HPRN PRN IV 10/04/25 09:30 10/05/25 08:24 0.5 MG Acetaminophen/ Hydrocodone Bitart 1 tab Q4HP PRN PO 10/04/25 09:30 10/05/25 00:17 1 TAB Metoprolol Succinate 50 mg DAILY PO 10/05/25 10:00 10/05/25 08:25 50 MG Empaglifozin 10 mg DAILY PO 10/05/25 10:00 10/05/25 08:24 10 MG Mupirocin 1 applic BID EACHNOSTRI 10/04/25 22:00 10/09/25 21:59 10/05/25 08:30 1 APPLIC Insulin Glargine 40 units HS SC 10/04/25 22:00 10/04/25 23:26 40 UNITS Insulin Human Lispro 10 units AC SC 10/04/25 17:00 10/05/25 06:02 10 UNITS Diagnostic Test (Pha) 1 strip ACHS 10/04/25 17:00 10/05/25 06:00 1 STRIP Insulin Human Lispro ACHS SC 10/04/25 17:00 10/05/25 06:16 3 UNITS Dextrose 50 ml UD PRN IV 10/04/25 15:45 Vancomycin HCl 250 ml @ 142.857 mls/hr Q12H IV 10/05/25 09:00 10/05/25 08:31 142.857 MLS/HR Heparin Sodium/ Dextrose 250 ml @ 19 mls/hr [id number] IV 10/05/25 03:30 10/05/25 05:20 19 MLS/HR objective General: Obese, no acute distress Respiratory: Non-labored respirations Cards: RRR MSK: LLE bandaged laboratory and microbiology Laboratory Tests 10/05/25 05:30 Test 10/05/25 05:30 Range/Units Serum Glucose 194 #H 74-106 mg/dL Assessment/Plan 1) Severe Sepsis due to Osteomyelitis Plan 2) Chronic Respiratory Failure due to COPD 3) Atrial Fibrillation with RVR 4) Type 2 DM-Uncontrolled 5) CHF 6) PVD 7) Hypertension 8) GEORGIE 9) Charcot arthropathy of midfoot 10) Morbid Obesity Plan: - Podiatry consulted for osteomyelitis with possible amputation. S/p debridement on 10/03. Pending possible amputation. - Cardiology consulted for underlying CHF and cardiac clearance along with revascularization given PVD. TTE pending. - CT angio of the lower extremities consistent with PAD on left. Plan for angioplasty 10/05 - ID consulted for osteomyelitis. Continue vancomycin and aztreonam. Clindamycin added - Blood cultures growing MRSA. On vancomycin, repeat Bcx ordered. Plan for PICC line once clearance achieved. Repeat Bcx still growing gram positive cocci. Repeat ordered on 10/05. - Heparin drip for atrial fibrillation - Endocrine consulted for uncontrolled diabetes. Insulin sliding scale with glargine. Glargine 40U QHS, lispro 10 U TID AC with sliding scale moderate. - Goal pulse ox greater than 90%. Holding DuoNebs at this time as patient does not have any signs of COPD exacerbation. Supplemented any tachycardia which may trigger atrial fibrillation with RVR - Daily CBC and BMP - Full Code Dietary Evaluation Review Comments: Diet Advancement: When medically cleared and off NPO, advance to CCHO-Cardiac diet. Activity & Weight Management: Reduce weight-bearing activities as appropriate for current condition. Increase physical activity gradually when tolerated to support recovery and metabolic health. Implement weight management strategies during hospitalization and reinforce upon discharge. Monitoring: Track PO intake and tolerance. Monitor labs and clinical status. Reassess PRN. Expected Outcomes/Goals: recover from sepsis Plan discussed with: Patient Is the fluid challenge complet: Yes Date of Reassessment: Oct 02, 2025 Time of Reassessment: 1645 Blood Culture Time: 1600 Time Antibiotics Given: 1600 Systolic BP: 128 Diastolic BP: 52 Blood Pressure Mean: 77 Respiration: 17 Respiratory Effort: Non-Labored Respiratory Pattern: Regular Oxygen Saturation: 95 Pulse Rate: 107 Pulse Location: Brachial Pulse Strength: Normal Pulse Assessment Method: Palpation Pulse Rhythm: Regular Capillary Refill: < 3 seconds Heart Sounds: S1 & S2 Breath sounds: Crackles, Diminished Skin Moisture: Dry Skin Tugor: WNL Skin Color: Pale TAHHAN,CLARY S DO Oct 05, 2025 08:48
[2025-10-05] MEDS ORDERED: HYDROmorphone HCL 2 MG/ML VL/or syr IV PRN (09:15)
[2025-10-05] MEDS: OXYCODONE W/ ACETAMINOPHEN 5/325MG TABLET PO PRN (11:27)
[2025-10-05 12:28] LABS: INR 1.14 (0.9-1.15); Partial Thromboplastin Time 43.4 SEC (24.5-34.5); Prothrombin Time 11.9 sec (9.3-11.8)
--- NOTE | 2025-10-05 12:45 | CONS ---
Pharmacy Clinical Information: HEPARIN PER [facility] PROTOCOL: APTT result of 43.4 received from draw on 10/05 @1159. Increase rate 200 units per hour per PRx protocol. New rate is 2100 units per hour (21ml/hr). Orders read back and confirmed with MILLER Sorto @8875. Next APTT scheduled for 1900. AGNIESZKA COKER PHARMACIST Oct 05, 2025 12:45
[2025-10-05] MEDS: HYDROmorphone HCL 2 MG/ML VL/or syr IV PRN (15:05)
--- NOTE | 2025-10-05 16:38 | DVHPN2 ---
Progress Note - Dictate Date Seen: Oct 05, 2025 Medical Necessity Reason Pt with a Central, PICC or Fol: No Subjective Improving dyslgycemia over past 24 hours. Scheduled mealtime lispro inappropriatley given this AM despite patient being NPO. vital signs Vital Sign Date Time Temp Pulse Resp B/P (MAP) Pulse Ox O2 Delivery O2 Flow Rate FiO2 10/05/25 15:05 77 18 142/101 10/05/25 13:00 97.6 99 97.6 10/05/25 08:00 Room Air* 0 21 Total Intake and Output 10/04/25 10/04/25 10/05/25 15:00 23:00 07:00 Intake Total 400 ml 450 ml 0 ml Output Total 250 ml 200 ml Balance 150 ml 450 ml -200 ml medications Current Medications Medications Dose Ordered Sig/Maria Isabel Route Start Time Stop Time Status Last Admin Dose Admin Acetaminophen 325 mg Q4HP PRN PO 10/02/25 16:45 Ondansetron HCl 4 mg Q4HP PRN IV 10/02/25 16:45 10/02/25 18:35 4 MG Docusate Sodium 100 mg BIDPRN PRN PO 10/02/25 16:45 Nitroglycerin 0.4 mg Q5MINP PRN SL 10/02/25 16:45 Morphine Sulfate 2 mg Q30M PRN IV 10/02/25 16:45 Vancomycin HCl 0 ml @ 0 mls/hr PER PHARMACY IV 10/02/25 17:00 Sodium Chloride 1,000 ml @ 60 mls/hr [id number] IV 10/03/25 10:00 10/05/25 12:00 60 MLS/HR Enoxaparin Sodium 150 mg Q12HR SC 10/03/25 22:00 Cancel Amiodarone HCl 200 mg Q12HR PO 10/03/25 22:00 10/05/25 08:24 200 MG Atorvastatin Calcium 80 mg HS PO 10/03/25 22:00 10/04/25 22:27 80 MG Aspirin 81 mg DAILY PO 10/04/25 10:00 10/05/25 08:24 81 MG Clindamycin Phosphate 50 ml @ 50 mls/hr Q8HR IV 10/03/25 22:00 10/05/25 15:04 50 MLS/HR Piperacillin Sod/ Tazobactam Sod 100 ml @ 25 mls/hr Q8HR IV 10/03/25 22:00 UNV Ergocalciferol 50,000 unit Q7D PO 10/04/25 10:00 10/04/25 09:14 50,000 UNIT Piperacillin Sod/ Tazobactam Sod 100 ml @ 25 mls/hr Q6H IV 10/04/25 12:00 10/05/25 11:27 25 MLS/HR Acetaminophen/ Hydrocodone Bitart 1 tab Q4HP PRN PO 10/04/25 09:30 10/05/25 00:17 1 TAB Metoprolol Succinate 50 mg DAILY PO 10/05/25 10:00 10/05/25 08:25 50 MG Empaglifozin 10 mg DAILY PO 10/05/25 10:00 10/05/25 08:24 10 MG Mupirocin 1 applic BID EACHNOSTRI 10/04/25 22:00 10/09/25 21:59 10/05/25 08:30 1 APPLIC Insulin Glargine 40 units HS [place] 10/04/25 22:00 10/04/25 23:26 40 UNITS Insulin Human Lispro 10 units AC TX 10/04/25 17:00 10/05/25 06:02 10 UNITS Diagnostic Test (Pha) 1 strip ACHS 10/04/25 17:00 10/05/25 11:30 1 STRIP Insulin Human Lispro ACHS [place] 10/04/25 17:00 10/05/25 06:16 3 UNITS Dextrose 50 ml UD PRN IV 10/04/25 15:45 Vancomycin HCl 250 ml @ 142.857 mls/hr Q12H IV 10/05/25 09:00 10/05/25 08:31 142.857 MLS/HR Oxycodone/ Acetaminophen 2 tab Q6HP PRN PO 10/05/25 09:30 10/05/25 11:27 2 TAB Hydromorphone HCl 1 mg Q3HPRN PRN IV 10/05/25 10:15 10/05/25 15:05 1 MG Heparin Sodium/ Dextrose 250 ml @ 21 mls/hr [id number] IV 10/05/25 12:45 10/05/25 13:09 21 MLS/HR objective Gen - no acute distress HEENT - no thyromegaly CV - RRR, no m/r/g Resp - CTAB Ext - no edema laboratory and microbiology Laboratory Tests 10/05/25 05:30 Test 10/05/25 05:30 Range/Units Serum Glucose 194 #H 74-106 mg/dL Assessment/Plan 1. Severe sepsis 2. Osteomyelitis 3. Uncontrolled type II DM with hyperglycemia 4. Afib with RVR 5. CHF 6. PVD 7. HTN - Glargine 30 units daily - Lispro 10 units tidac. Hold if NPO or likely to eat < 50% of meal. - Mod intensity SSI lispro tidac, qhs - Hypoglycemia protocol - Diabetic diet Dietary Evaluation Review Comments: Diet Advancement: When medically cleared and off NPO, advance to CCHO-Cardiac diet. Activity & Weight Management: Reduce weight-bearing activities as appropriate for current condition. Increase physical activity gradually when tolerated to support recovery and metabolic health. Implement weight management strategies during hospitalization and reinforce upon discharge. Monitoring: Track PO intake and tolerance. Monitor labs and clinical status. Reassess PRN. Expected Outcomes/Goals: recover from sepsis Plan discussed with: Other (nurse) Is the fluid challenge complet: Yes Date of Reassessment: Oct 02, 2025 Time of Reassessment: 1645 Blood Culture Time: 1600 Time Antibiotics Given: 1600 Systolic BP: 128 Diastolic BP: 52 Blood Pressure Mean: 77 Respiration: 17 Respiratory Effort: Non-Labored Respiratory Pattern: Regular Oxygen Saturation: 95 Pulse Rate: 107 Pulse Location: Brachial Pulse Strength: Normal Pulse Assessment Method: Palpation Pulse Rhythm: Regular Capillary Refill: < 3 seconds Heart Sounds: S1 & S2 Breath sounds: Crackles, Diminished Skin Moisture: Dry Skin Tugor: WNL Skin Color: Pale TIMOTHY DEE MD Oct 05, 2025 16:38
[2025-10-05] MEDS: HEPARIN IN NS 1000Units/500mL 1,500 ML ONE (18:23)
[2025-10-05] MEDS: ANGIOMAX 250 MG VIAL IV ONE (18:33)
[2025-10-05] MEDS: fentaNYL CITRATE 100 MCG/2 ML VL ONE (18:33)
[2025-10-05] MEDS: LIDOCAINE 2%HCL (LOCAL ANESTH.) INJ 20ML MDV ONE (18:34)
[2025-10-05] MEDS: MIDAZOLAM HCL 2MG/2ML 2ml VIAL (1mg/ml) ONE (18:34)
[2025-10-05] MEDS: SODIUM CHL 0.9% 0 ML ONE (18:34)
[2025-10-05 19:51] LABS: INR 1.17 (0.9-1.15); Partial Thromboplastin Time 56.1 SEC (24.5-34.5); Prothrombin Time 12.2 sec (9.3-11.8)
[2025-10-05] MEDS: INSULIN LANTUS (GLARGINE) 1 /0.01ml (100units/ml) SC SCH (21:30)
[2025-10-06] VITALS (8 sets, daily range): BP systolic 31–149; BP diastolic 72–96; PULSE 72–91; RESP 16–18; TEMP 97.3–98.3; O2SAT 100
[2025-10-06 01:39] LABS: INR 1.19 (0.9-1.15); Partial Thromboplastin Time 64.7 SEC (24.5-34.5); Prothrombin Time 12.4 sec (9.3-11.8)
[2025-10-06 07:07] LABS: Hematocrit 40.6 % (41.0-53.0); Hemoglobin 13.4 g/dL (13.5-17.5); Mean Corpuscular Hemoglobin 29.0 pg (28.0-32.0); Mean Corpuscular Volume 88.0 fL (80.0-100.0); Nucleated Red Blood Cells % 0.2 %
[2025-10-06 08:32] LABS: INR 1.18 (0.9-1.15); Partial Thromboplastin Time 68.9 SEC (24.5-34.5); Prothrombin Time 12.3 sec (9.3-11.8)
[2025-10-06 08:53] LABS: Alanine Aminotransferase 17 U/L (7-40); BUN/Creatinine Ratio 22.0 (10.0-20.0); Bilirubin, Total 0.6 mg/dL (0.2-1.0); Blood Urea Nitrogen 20 mg/dL (9-23); Chloride 102 mmol/L (98-107); Glucose 86 mg/dL (74-106); Potassium 4.2 mmol/L (3.5-5.1); Sodium 142 mmol/L (136-145); Total Protein 6.1 g/dL (5.7-8.2)
[2025-10-06 08:55] LABS: Albumin 2.9 g/dL (3.2-4.8); Alkaline Phosphatase 257 U/L (46-116); Anion Gap 10 (5-15); Calcium 8.3 mg/dL (8.7-10.4); Carbon Dioxide 30 mmol/L (20-31)
--- NOTE | 2025-10-06 11:02 | DVHPN2 ---
Consult Progress Note Date Seen: Oct 06, 2025 Subjective Review of Systems: CVS:Normal, RESPIRATORY:Normal, MSK:Abnormal (LLE pain), NEURO:Normal Objective vital signs Vital Sign Date Time Temp Pulse Resp B/P (MAP) Pulse Ox O2 Delivery O2 Flow Rate FiO2 10/06/25 09:47 72 133/78 10/06/25 09:00 97.5 18 100 97.5 10/05/25 20:00 Room Air* 0 21 Total Intake and Output 10/05/25 10/05/25 10/06/25 15:00 23:00 07:00 Intake Total 350 ml 235 ml 168 ml Output Total 400 ml 900 ml Balance 350 ml -165 ml -732 ml medications Current Medications Medications Dose Ordered Sig/Maria Isabel Route Start Time Stop Time Status Last Admin Dose Admin Acetaminophen 325 mg Q4HP PRN PO 10/02/25 16:45 Ondansetron HCl 4 mg Q4HP PRN IV 10/02/25 16:45 10/02/25 18:35 4 MG Docusate Sodium 100 mg BIDPRN PRN PO 10/02/25 16:45 Nitroglycerin 0.4 mg Q5MINP PRN SL 10/02/25 16:45 Morphine Sulfate 2 mg Q30M PRN IV 10/02/25 16:45 Vancomycin HCl 0 ml @ 0 mls/hr PER PHARMACY IV 10/02/25 17:00 Sodium Chloride 1,000 ml @ 60 mls/hr [id number] IV 10/03/25 10:00 10/05/25 12:00 60 MLS/HR Enoxaparin Sodium 150 mg Q12HR SC 10/03/25 22:00 Cancel Amiodarone HCl 200 mg Q12HR PO 10/03/25 22:00 10/06/25 09:53 200 MG Atorvastatin Calcium 80 mg HS PO 10/03/25 22:00 10/05/25 21:32 80 MG Aspirin 81 mg DAILY PO 10/04/25 10:00 10/06/25 09:47 81 MG Clindamycin Phosphate 50 ml @ 50 mls/hr Q8HR IV 10/03/25 22:00 10/06/25 06:01 50 MLS/HR Piperacillin Sod/ Tazobactam Sod 100 ml @ 25 mls/hr Q8HR IV 10/03/25 22:00 UNV Ergocalciferol 50,000 unit Q7D PO 10/04/25 10:00 10/04/25 09:14 50,000 UNIT Piperacillin Sod/ Tazobactam Sod 100 ml @ 25 mls/hr Q6H IV 10/04/25 12:00 10/06/25 06:01 25 MLS/HR Acetaminophen/ Hydrocodone Bitart 1 tab Q4HP PRN PO 10/04/25 09:30 10/05/25 16:53 1 TAB Metoprolol Succinate 50 mg DAILY PO 10/05/25 10:00 10/06/25 09:47 50 MG Empaglifozin 10 mg DAILY PO 10/05/25 10:00 10/06/25 09:48 10 MG Mupirocin 1 applic BID EACHNOSTRI 10/04/25 22:00 10/09/25 21:59 10/06/25 09:43 1 APPLIC Insulin Human Lispro 10 units AC SC 10/04/25 17:00 10/05/25 06:02 10 UNITS Diagnostic Test (Pha) 1 strip ACHS 10/04/25 17:00 10/06/25 06:08 1 STRIP Insulin Human Lispro ACHS SC 10/04/25 17:00 10/05/25 06:16 3 UNITS Dextrose 50 ml UD PRN IV 10/04/25 15:45 Vancomycin HCl 250 ml @ 142.857 mls/hr Q12H IV 10/05/25 09:00 10/06/25 09:58 142.857 MLS/HR Oxycodone/ Acetaminophen 2 tab Q6HP PRN PO 10/05/25 09:30 10/06/25 09:47 2 TAB Hydromorphone HCl 1 mg Q3HPRN PRN IV 10/05/25 10:15 10/06/25 01:02 1 MG Heparin Sodium/ Dextrose 250 ml @ 21 mls/hr [id number] IV 10/05/25 12:45 10/05/25 21:28 21 MLS/HR Insulin Glargine 30 units HS SC 10/05/25 22:00 Examination: LUNGS:Normal, CVS:Normal (A-fib controlled rate), SKIN:Abnormal (LLE wounds), NEURO:Normal laboratory and microbiology Laboratory Tests 10/06/25 05:32 Test 10/06/25 05:32 Range/Units Serum Glucose 86 # 74-106 mg/dL Problem List/Assessment/Plan Problem List/Assessment/Plan Sepsis with left foot osteomyelitis s/p I &D Progressive left lower extremity peripheral arterial disease History of peripheral arterial disease with a stent placement to right leg Chronic compensated HFpEF, NYHA class II Paroxysmal atrial fibrillation with controlled rate (on Eliquis and amiodarone) Type 2 diabetes mellitus, uncontrolled (A1c 11.5%) Hypertension Dyslipidemia COPD with current tobacco use Morbid obesity Plan/Recommendations (Dr. Bear) Case discussed with Dr. Bear. A bilateral lower extremity arterial duplex reveals extensive bilateral monomorphic waveforms, left more pronounced than right consistent with moderate to advanced peripheral arterial disease and possible aortoiliac inflow disease. Re-scheduled for a left lower extremity peripheral angiogram with anesthesia on 10/08/2025. In the meantime, continue with single-antiplatelet therapy and lipid-lowering agent. A transthoracic echocardiogram revealed a LVEF of 50%. Continue GDMT per HFpEF guidelines. Continue with Heparin therapy while inpatient pending upcoming procedure and transition back to DOAC therapy when appropriate ([id number] VASc score: 4 points, HAS-BLED score: 1 point). Continue with beta-david for rate control as tolerated. Continue antiarrhythmic agent, amiodarone. Extensive education was given to the patient regarding cessation of smoking as well as tighter glycemic index control. The patient verbalized an understanding. Continue with close cardiac surveillance and notify cardiology team immediately for any ECG changes. Further orders per clinical course. Thank you for allowing us to care for this patient. Please call with any questions or concerns. This medical document was created using an electronic medical record system with voice recognition software and computerized dictation system. Although this document has been carefully reviewed, there might still be some phonetic and typographical errors. Occasional wrong-word or ``sound-alike substitutions may have occurred due to the inherent limitations of voice recognition software. These areas are purely typographical due to imperfections of the software programs and do not reflect any compromise in the patient's medical care. Please read the chart carefully and recognize, using context, where these substitutions have occurred. Plan discussed with: Patient, Other Dietary Evaluation Review Comments: Diet Advancement: When medically cleared and off NPO, advance to CCHO-Cardiac diet. Activity & Weight Management: Reduce weight-bearing activities as appropriate for current condition. Increase physical activity gradually when tolerated to support recovery and metabolic health. Implement weight management strategies during hospitalization and reinforce upon discharge. Monitoring: Track PO intake and tolerance. Monitor labs and clinical status. Reassess PRN. Expected Outcomes/Goals: recover from sepsis Date of Service: Oct 06, 2025 Billing Provider: DESIRAE STACY Cardiology Common Codes: 15349-[id number](High DESIRAE STACY Oct 06, 2025 11:02
--- NOTE | 2025-10-06 15:42 | DVHPN2 ---
Progress Note - Dictate Date Seen: Oct 06, 2025 Medical Necessity Reason Pt with a Central, PICC or Fol: No Subjective Patient resting. vital signs Vital Sign Date Time Temp Pulse Resp B/P (MAP) Pulse Ox O2 Delivery O2 Flow Rate FiO2 10/06/25 13:00 97.3 83 18 149/96 (113) 100 97.3 10/06/25 08:00 Nasal Cannula* 2 28 Total Intake and Output 10/05/25 10/05/25 10/06/25 14:59 22:59 06:59 Intake Total 350 ml 214 ml 189 ml Output Total 400 ml 900 ml Balance 350 ml -186 ml -711 ml medications Current Medications Medications Dose Ordered Sig/Maria Isabel Route Start Time Stop Time Status Last Admin Dose Admin Acetaminophen 325 mg Q4HP PRN PO 10/02/25 16:45 Ondansetron HCl 4 mg Q4HP PRN IV 10/02/25 16:45 10/02/25 18:35 4 MG Docusate Sodium 100 mg BIDPRN PRN PO 10/02/25 16:45 Nitroglycerin 0.4 mg Q5MINP PRN SL 10/02/25 16:45 Morphine Sulfate 2 mg Q30M PRN IV 10/02/25 16:45 Vancomycin HCl 0 ml @ 0 mls/hr PER PHARMACY IV 10/02/25 17:00 Sodium Chloride 1,000 ml @ 60 mls/hr [id number] IV 10/03/25 10:00 10/05/25 12:00 60 MLS/HR Enoxaparin Sodium 150 mg Q12HR SC 10/03/25 22:00 Cancel Amiodarone HCl 200 mg Q12HR PO 10/03/25 22:00 10/06/25 09:53 200 MG Atorvastatin Calcium 80 mg HS PO 10/03/25 22:00 10/05/25 21:32 80 MG Aspirin 81 mg DAILY PO 10/04/25 10:00 10/06/25 09:47 81 MG Clindamycin Phosphate 50 ml @ 50 mls/hr Q8HR IV 10/03/25 22:00 10/06/25 06:01 50 MLS/HR Piperacillin Sod/ Tazobactam Sod 100 ml @ 25 mls/hr Q8HR IV 10/03/25 22:00 UNV Ergocalciferol 50,000 unit Q7D PO 10/04/25 10:00 10/04/25 09:14 50,000 UNIT Piperacillin Sod/ Tazobactam Sod 100 ml @ 25 mls/hr Q6H IV 10/04/25 12:00 10/06/25 06:01 25 MLS/HR Acetaminophen/ Hydrocodone Bitart 1 tab Q4HP PRN PO 10/04/25 09:30 10/05/25 16:53 1 TAB Metoprolol Succinate 50 mg DAILY PO 10/05/25 10:00 10/06/25 09:47 50 MG Empaglifozin 10 mg DAILY PO 10/05/25 10:00 10/06/25 09:48 10 MG Mupirocin 1 applic BID EACHNOSTRI 10/04/25 22:00 10/09/25 21:59 10/06/25 09:43 1 APPLIC Insulin Human Lispro 10 units AC SC 10/04/25 17:00 10/05/25 06:02 10 UNITS Diagnostic Test (Pha) 1 strip ACHS 10/04/25 17:00 10/06/25 11:30 1 STRIP Insulin Human Lispro ACHS SC 10/04/25 17:00 10/05/25 06:16 3 UNITS Dextrose 50 ml UD PRN IV 10/04/25 15:45 Vancomycin HCl 250 ml @ 142.857 mls/hr Q12H IV 10/05/25 09:00 10/06/25 09:58 142.857 MLS/HR Oxycodone/ Acetaminophen 2 tab Q6HP PRN PO 10/05/25 09:30 10/06/25 09:47 2 TAB Hydromorphone HCl 1 mg Q3HPRN PRN IV 10/05/25 10:15 10/06/25 01:02 1 MG Heparin Sodium/ Dextrose 250 ml @ 21 mls/hr [id number] IV 10/05/25 12:45 10/06/25 12:23 21 MLS/HR Insulin Glargine 30 units HS SC 10/05/25 22:00 objective General: Obese, no acute distress Respiratory: Non-labored respirations Cards: RRR MSK: LLE bandaged laboratory and microbiology Laboratory Tests 10/06/25 05:32 Test 10/06/25 05:32 Range/Units Serum Glucose 86 # 74-106 mg/dL Assessment/Plan 1) Severe Sepsis due to Osteomyelitis Plan 2) Chronic Respiratory Failure due to COPD 3) Atrial Fibrillation with RVR 4) Type 2 DM-Uncontrolled 5) CHF 6) PVD 7) Hypertension 8) GEORGIE 9) Charcot arthropathy of midfoot 10) Morbid Obesity Plan: - Podiatry consulted for osteomyelitis with possible amputation. S/p debridement on 10/03. Pending possible amputation. - Cardiology consulted for underlying CHF and cardiac clearance along with revascularization given PVD. TTE shows LVEF 50%. - CT angio of the lower extremities consistent with PAD on left. Plan for angioplasty 10/08. Rescheduled as patient needs general anesthesia. - ID consulted for osteomyelitis. Continue vancomycin and aztreonam. Clindamycin added - Blood cultures growing MRSA. On vancomycin, repeat Bcx ordered. Plan for PICC line once clearance achieved. Repeat Bcx still growing gram positive cocci. Repeat ordered on 10/05 now cleared. - Heparin drip for atrial fibrillation - Endocrine consulted for uncontrolled diabetes. Insulin sliding scale with glargine. Glargine 40U QHS, lispro 10 U TID AC with sliding scale moderate. Goal glucose 140-180 while in hospital. - Goal pulse ox greater than 90%. Holding DuoNebs at this time as patient does not have any signs of COPD exacerbation. Supplemented any tachycardia which may trigger atrial fibrillation with RVR - Daily CBC and BMP - Full Code Dietary Evaluation Review Comments: Diet Advancement: When medically cleared and off NPO, advance to CCHO-Cardiac diet. Activity & Weight Management: Reduce weight-bearing activities as appropriate for current condition. Increase physical activity gradually when tolerated to support recovery and metabolic health. Implement weight management strategies during hospitalization and reinforce upon discharge. Monitoring: Track PO intake and tolerance. Monitor labs and clinical status. Reassess PRN. Expected Outcomes/Goals: recover from sepsis Plan discussed with: Other Is the fluid challenge complet: Yes Date of Reassessment: Oct 02, 2025 Time of Reassessment: 1644 Blood Culture Time: 1600 Time Antibiotics Given: 1600 Systolic BP: 128 Diastolic BP: 52 Blood Pressure Mean: 77 Respiration: 17 Respiratory Effort: Non-Labored Respiratory Pattern: Regular Oxygen Saturation: 95 Pulse Rate: 107 Pulse Location: Brachial Pulse Strength: Normal Pulse Assessment Method: Palpation Pulse Rhythm: Regular Capillary Refill: < 3 seconds Heart Sounds: S1 & S2 Breath sounds: Crackles, Diminished Skin Moisture: Dry Skin Tugor: WNL Skin Color: Pale CLARY ESTRELLA DO Oct 06, 2025 15:42
[2025-10-06] MEDS: DOCUSATE SOD 100 MG CAP PO PRN (17:43)
[2025-10-07] VITALS (8 sets, daily range): BP systolic 137–167; BP diastolic 75–113; PULSE 73–92; RESP 15–20; TEMP 97.7–98.5; O2SAT 92–100
--- NOTE | 2025-10-07 06:54 | DVHPN2 ---
Progress Note Date Seen: Oct 07, 2025 Medical Necessity Reason Pt with a Central, PICC or Fol: No Subjective Patient reports: No new complaints Review of Systems: HEENT:Normal, RESPIRATORY:Normal, GI:Normal, NEURO:Normal Objective vital signs Vital Sign Date Time Temp Pulse Resp B/P (MAP) Pulse Ox O2 Delivery O2 Flow Rate FiO2 10/07/25 05:00 98.1 90 15 137/75 (95) 99 98.1 10/06/25 20:00 Nasal Cannula* 2 28 Total Intake and Output 10/06/25 10/06/25 10/07/25 15:00 23:00 07:00 Intake Total 647 ml 676 ml Output Total 1200 ml 1000 ml Balance -553 ml -324 ml medications Current Medications Medications Dose Ordered Sig/Maria Isabel Route Start Time Stop Time Status Last Admin Dose Admin Acetaminophen 325 mg Q4HP PRN PO 10/02/25 16:45 Ondansetron HCl 4 mg Q4HP PRN IV 10/02/25 16:45 10/02/25 18:35 4 MG Docusate Sodium 100 mg BIDPRN PRN PO 10/02/25 16:45 10/06/25 17:43 100 MG Nitroglycerin 0.4 mg Q5MINP PRN SL 10/02/25 16:45 Morphine Sulfate 2 mg Q30M PRN IV 10/02/25 16:45 Vancomycin HCl 0 ml @ 0 mls/hr PER PHARMACY IV 10/02/25 17:00 Sodium Chloride 1,000 ml @ 60 mls/hr [id number] IV 10/03/25 10:00 10/05/25 12:00 60 MLS/HR Enoxaparin Sodium 150 mg Q12HR SC 10/03/25 22:00 Cancel Amiodarone HCl 200 mg Q12HR PO 10/03/25 22:00 10/06/25 21:41 200 MG Atorvastatin Calcium 80 mg HS PO 10/03/25 22:00 10/06/25 21:41 80 MG Aspirin 81 mg DAILY PO 10/04/25 10:00 10/06/25 09:47 81 MG Clindamycin Phosphate 50 ml @ 50 mls/hr Q8HR IV 10/03/25 22:00 10/07/25 05:41 50 MLS/HR Piperacillin Sod/ Tazobactam Sod 100 ml @ 25 mls/hr Q8HR IV 10/03/25 22:00 UNV Ergocalciferol 50,000 unit Q7D PO 10/04/25 10:00 10/04/25 09:14 50,000 UNIT Piperacillin Sod/ Tazobactam Sod 100 ml @ 25 mls/hr Q6H IV 10/04/25 12:00 10/07/25 06:45 25 MLS/HR Acetaminophen/ Hydrocodone Bitart 1 tab Q4HP PRN PO 10/04/25 09:30 10/05/25 16:53 1 TAB Metoprolol Succinate 50 mg DAILY PO 10/05/25 10:00 10/06/25 09:47 50 MG Empaglifozin 10 mg DAILY PO 10/05/25 10:00 10/06/25 09:48 10 MG Mupirocin 1 applic BID EACHNOSTRI 10/04/25 22:00 10/09/25 21:59 10/06/25 21:42 1 APPLIC Insulin Human Lispro 10 units AC SC 10/04/25 17:00 10/05/25 06:02 10 UNITS Diagnostic Test (Pha) 1 strip ACHS 10/04/25 17:00 10/06/25 22:02 1 STRIP Insulin Human Lispro ACHS SC 10/04/25 17:00 10/05/25 06:16 3 UNITS Dextrose 50 ml UD PRN IV 10/04/25 15:45 Vancomycin HCl 250 ml @ 142.857 mls/hr Q12H IV 10/05/25 09:00 10/06/25 22:30 142.857 MLS/HR Oxycodone/ Acetaminophen 2 tab Q6HP PRN PO 10/05/25 09:30 10/07/25 01:34 2 TAB Hydromorphone HCl 1 mg Q3HPRN PRN IV 10/05/25 10:15 10/06/25 01:02 1 MG Heparin Sodium/ Dextrose 250 ml @ 21 mls/hr [id number] IV 10/05/25 12:45 10/07/25 04:00 21 MLS/HR Insulin Glargine 30 units HS SC 10/05/25 22:00 Examination: GENERAL:Normal, LUNGS:Normal, CVS:Normal, ABDOMEN:Normal laboratory and microbiology Test 12/21/25 05:50 Range/Units Serum Glucose Pending Problem List/Assessment/Plan Problem List/Assessment/Plan 1) L foot osteomyelitis s/p debridement 2) PAD 3) Atrial fibrillation 4) HFpEF 5) DM 2, uncontrolled 6) MRSA bacteremia 7) MRSA UTI 8) Chronic respiratory failure on 2L NC plan; 10/07---labs for this AM still pending will follow up, on 2L NC this AM, on IV ABx as per ID, repeat BCx show no growth, had debridement L foot with podiatry, now pending lower ext angiogram on 10/08 for posssible intervention, vascular surgery consulted, cardio on board, echo shows preserved EF, on BB and PO amio for afib as well as heparin gtt in light of pending procedure, daily labs, continue all care, will follow along Plan discussed with: Other (N) Dietary Evaluation Review Comments: Diet Advancement: When medically cleared and off NPO, advance to CCHO-Cardiac diet. Activity & Weight Management: Reduce weight-bearing activities as appropriate for current condition. Increase physical activity gradually when tolerated to support recovery and metabolic health. Implement weight management strategies during hospitalization and reinforce upon discharge. Monitoring: Track PO intake and tolerance. Monitor labs and clinical status. Reassess PRN. Expected Outcomes/Goals: recover from sepsis Sepsis reassessment post fluid Is the fluid challenge complet: Yes Date of Reassessment: Oct 02, 2025 Time of Reassessment: 1645 Blood Culture Time: 1600 Time Antibiotics Given: 1600 Systolic BP: 128 Diastolic BP: 52 Blood Pressure Mean: 77 Respiration: 17 Respiratory Effort: Non-Labored Respiratory Pattern: Regular Oxygen Saturation: 95 Pulse Rate: 107 Pulse Location: Brachial Pulse Strength: Normal Pulse Assessment Method: Palpation Pulse Rhythm: Regular Capillary Refill: < 3 seconds Heart Sounds: S1 & S2 Breath sounds: Crackles, Diminished Skin Moisture: Dry Skin Tugor: WNL Skin Color: Pale JENNY MARK MD Oct 07, 2025 06:54
[2025-10-07 07:09] LABS: Hematocrit 39.9 % (41.0-53.0); Hemoglobin 12.9 g/dL (13.5-17.5); Mean Corpuscular Hemoglobin 28.4 pg (28.0-32.0); Mean Corpuscular Volume 87.6 fL (80.0-100.0); Nucleated Red Blood Cells % 0.0 %
[2025-10-07 07:23] LABS: INR 1.17 (0.9-1.15); Partial Thromboplastin Time 39.7 SEC (24.5-34.5); Prothrombin Time 12.2 sec (9.3-11.8)
[2025-10-07 07:24] LABS: Alanine Aminotransferase 11 U/L (7-40); Anion Gap 7 (5-15); BUN/Creatinine Ratio 11.6 (10.0-20.0); Blood Urea Nitrogen 10 mg/dL (9-23); Carbon Dioxide 29 mmol/L (20-31); Chloride 104 mmol/L (98-107); Potassium 3.9 mmol/L (3.5-5.1); Sodium 140 mmol/L (136-145); Total Protein 6.5 g/dL (5.7-8.2)
[2025-10-07 07:25] LABS: Bilirubin, Total 0.8 mg/dL (0.2-1.0)
[2025-10-07 07:30] LABS: Albumin 3.2 g/dL (3.2-4.8); Alkaline Phosphatase 229 U/L (46-116); Calcium 8.7 mg/dL (8.7-10.4); Glucose 113 mg/dL (74-106)
--- NOTE | 2025-10-07 08:46 | CONS ---
Pharmacy Clinical Information: INCREASE HEPARIN DRIP RATE FROM 2100 UNITS/HR TO 2300 UNITS/HR PER APTT OF 39.7 (SUBTHERAPEUTIC) NEXT APTT DRAW SCHEDULED FOR 10/07 @1500 PER RX PROTOCOL CONFIRMED WITH LIBORIO HEBERT PHARMACIST Oct 07, 2025 08:46
[2025-10-07] MEDS: HEPARIN DRIP/D5W 100UNITS/ML 250 ML IV SCH ×2 (09:07→17:32)
[2025-10-07] MEDS: LIDOCAINE 1% (LOCAL ANESTH.) PF 5ml SDV ID ONE (10:39)
--- NOTE | 2025-10-07 11:41 | DVH ---
INDICATION: PICC tip verification TECHNIQUE: Frontal view of the chest. COMPARISON: XY CHEST XRAY 1 VIEW on DOS: 10/03/25, XY CHEST PORTABLE on DOS: 10/02/25, XY CHEST PORTABLE on DOS: 06/29/25, XY CHEST XRAY 1 VIEW on DOS: 03/30/25, XY CHEST PORTABLE on DOS: 03/14/25 FINDINGS: . Heart size is again enlarged. There is redemonstration of increased interstitial markings bilaterally. No definite effusions are seen. IMPRESSION: 1. Cardiomegaly with persistent congestion
--- NOTE | 2025-10-07 12:20 | DVHPN2 ---
Progress Note - Dictate Date Seen: Oct 07, 2025 Medical Necessity Reason Pt with a Central, PICC or Fol: No Subjective Low normal BG. Refused evening lantus. vital signs Vital Sign Date Time Temp Pulse Resp B/P (MAP) Pulse Ox O2 Delivery O2 Flow Rate FiO2 10/07/25 11:53 97.9 86 20 167/93 (117) 97 97.9 10/06/25 20:00 Nasal Cannula* 2 28 Total Intake and Output 10/06/25 10/06/25 10/07/25 15:00 23:00 07:00 Intake Total 647 ml 676 ml Output Total 1200 ml 1000 ml Balance -553 ml -324 ml medications Current Medications Medications Dose Ordered Sig/Maria Isabel Route Start Time Stop Time Status Last Admin Dose Admin Acetaminophen 325 mg Q4HP PRN PO 10/02/25 16:45 Ondansetron HCl 4 mg Q4HP PRN IV 10/02/25 16:45 10/02/25 18:35 4 MG Docusate Sodium 100 mg BIDPRN PRN PO 10/02/25 16:45 10/06/25 17:43 100 MG Nitroglycerin 0.4 mg Q5MINP PRN SL 10/02/25 16:45 Morphine Sulfate 2 mg Q30M PRN IV 10/02/25 16:45 Vancomycin HCl 0 ml @ 0 mls/hr PER PHARMACY IV 10/02/25 17:00 Sodium Chloride 1,000 ml @ 60 mls/hr [id number] IV 10/03/25 10:00 10/05/25 12:00 60 MLS/HR Enoxaparin Sodium 150 mg Q12HR SC 10/03/25 22:00 Cancel Amiodarone HCl 200 mg Q12HR PO 10/03/25 22:00 10/07/25 08:18 200 MG Atorvastatin Calcium 80 mg HS PO 10/03/25 22:00 10/06/25 21:41 80 MG Aspirin 81 mg DAILY PO 10/04/25 10:00 10/07/25 08:18 81 MG Clindamycin Phosphate 50 ml @ 50 mls/hr Q8HR IV 10/03/25 22:00 10/07/25 05:41 50 MLS/HR Piperacillin Sod/ Tazobactam Sod 100 ml @ 25 mls/hr Q8HR IV 10/03/25 22:00 UNV Ergocalciferol 50,000 unit Q7D PO 10/04/25 10:00 10/04/25 09:14 50,000 UNIT Piperacillin Sod/ Tazobactam Sod 100 ml @ 25 mls/hr Q6H IV 10/04/25 12:00 10/07/25 12:11 25 MLS/HR Acetaminophen/ Hydrocodone Bitart 1 tab Q4HP PRN PO 10/04/25 09:30 10/05/25 16:53 1 TAB Metoprolol Succinate 50 mg DAILY PO 10/05/25 10:00 10/07/25 08:18 50 MG Empaglifozin 10 mg DAILY PO 10/05/25 10:00 10/07/25 08:18 10 MG Mupirocin 1 applic BID EACHNOSTRI 10/04/25 22:00 10/09/25 21:59 10/07/25 08:19 1 APPLIC Insulin Human Lispro 10 units AC SC 10/04/25 17:00 10/07/25 11:42 10 UNITS Diagnostic Test (Pha) 1 strip ACHS 10/04/25 17:00 10/07/25 11:42 1 STRIP Insulin Human Lispro ACHS SC 10/04/25 17:00 10/05/25 06:16 3 UNITS Dextrose 50 ml UD PRN IV 10/04/25 15:45 Oxycodone/ Acetaminophen 2 tab Q6HP PRN PO 10/05/25 09:30 10/07/25 08:19 2 TAB Hydromorphone HCl 1 mg Q3HPRN PRN IV 10/05/25 10:15 10/06/25 01:02 1 MG Insulin Glargine 30 units HS SC 10/05/25 22:00 Heparin Sodium/ Dextrose 250 ml @ 23 mls/hr [id number] IV 10/07/25 08:45 10/07/25 09:07 23 MLS/HR Sodium Chloride 10 ml QSHIFT@10,22 IV 10/07/25 22:00 objective Gen - no acute distress HEENT - no thyromegaly CV - RRR, no m/r/g Resp - CTAB Ext - no edema laboratory and microbiology Laboratory Tests 10/07/25 05:50 Test 10/07/25 05:50 Range/Units Serum Glucose 113 H 74-106 mg/dL Assessment/Plan 1. Severe sepsis 2. Osteomyelitis 3. Uncontrolled type II DM with hyperglycemia 4. Afib with RVR 5. CHF 6. PVD 7. HTN - Glargine 10 units daily - Lispro 3 units tidac. Hold if NPO or likely to eat < 50% of meal. - Mod intensity SSI lispro tidac, qhs - Hypoglycemia protocol - Diabetic diet Dietary Evaluation Review Comments: Diet Advancement: When medically cleared and off NPO, advance to CCHO-Cardiac diet. Activity & Weight Management: Reduce weight-bearing activities as appropriate for current condition. Increase physical activity gradually when tolerated to support recovery and metabolic health. Implement weight management strategies during hospitalization and reinforce upon discharge. Monitoring: Track PO intake and tolerance. Monitor labs and clinical status. Reassess PRN. Expected Outcomes/Goals: recover from sepsis Plan discussed with: Other (nurse) Is the fluid challenge complet: Yes Date of Reassessment: Oct 02, 2025 Time of Reassessment: 1645 Blood Culture Time: 1600 Time Antibiotics Given: 1600 Systolic BP: 128 Diastolic BP: 52 Blood Pressure Mean: 77 Respiration: 17 Respiratory Effort: Non-Labored Respiratory Pattern: Regular Oxygen Saturation: 95 Pulse Rate: 107 Pulse Location: Brachial Pulse Strength: Normal Pulse Assessment Method: Palpation Pulse Rhythm: Regular Capillary Refill: < 3 seconds Heart Sounds: S1 & S2 Breath sounds: Crackles, Diminished Skin Moisture: Dry Skin Tugor: WNL Skin Color: Pale TIMOTHY DEE MD Oct 07, 2025 12:20
--- NOTE | 2025-10-07 13:26 | DVHPN2 ---
Consult Progress Note Date Seen: Oct 07, 2025 Subjective Review of Systems: CVS:Normal, RESPIRATORY:Normal, MSK:Abnormal (LLE pain), NEURO:Normal Objective vital signs Vital Sign Date Time Temp Pulse Resp B/P (MAP) Pulse Ox O2 Delivery O2 Flow Rate FiO2 10/07/25 11:53 97.9 86 20 167/93 (117) 97 97.9 10/06/25 20:00 Nasal Cannula* 2 28 Total Intake and Output 10/06/25 10/06/25 10/07/25 15:00 23:00 07:00 Intake Total 647 ml 676 ml Output Total 1200 ml 1000 ml Balance -553 ml -324 ml medications Current Medications Medications Dose Ordered Sig/Maria Isabel Route Start Time Stop Time Status Last Admin Dose Admin Acetaminophen 325 mg Q4HP PRN PO 10/02/25 16:45 Ondansetron HCl 4 mg Q4HP PRN IV 10/02/25 16:45 10/02/25 18:35 4 MG Docusate Sodium 100 mg BIDPRN PRN PO 10/02/25 16:45 10/06/25 17:43 100 MG Nitroglycerin 0.4 mg Q5MINP PRN SL 10/02/25 16:45 Morphine Sulfate 2 mg Q30M PRN IV 10/02/25 16:45 Vancomycin HCl 0 ml @ 0 mls/hr PER PHARMACY IV 10/02/25 17:00 Sodium Chloride 1,000 ml @ 60 mls/hr [id number] IV 10/03/25 10:00 10/05/25 12:00 60 MLS/HR Enoxaparin Sodium 150 mg Q12HR SC 10/03/25 22:00 Cancel Amiodarone HCl 200 mg Q12HR PO 10/03/25 22:00 10/07/25 08:18 200 MG Atorvastatin Calcium 80 mg HS PO 10/03/25 22:00 10/06/25 21:41 80 MG Aspirin 81 mg DAILY PO 10/04/25 10:00 10/07/25 08:18 81 MG Clindamycin Phosphate 50 ml @ 50 mls/hr Q8HR IV 10/03/25 22:00 10/07/25 05:41 50 MLS/HR Piperacillin Sod/ Tazobactam Sod 100 ml @ 25 mls/hr Q8HR IV 10/03/25 22:00 UNV Ergocalciferol 50,000 unit Q7D PO 10/04/25 10:00 10/04/25 09:14 50,000 UNIT Piperacillin Sod/ Tazobactam Sod 100 ml @ 25 mls/hr Q6H IV 10/04/25 12:00 10/07/25 12:11 25 MLS/HR Acetaminophen/ Hydrocodone Bitart 1 tab Q4HP PRN PO 10/04/25 09:30 10/05/25 16:53 1 TAB Metoprolol Succinate 50 mg DAILY PO 10/05/25 10:00 10/07/25 08:18 50 MG Empaglifozin 10 mg DAILY PO 10/05/25 10:00 10/07/25 08:18 10 MG Mupirocin 1 applic BID EACHNOSTRI 10/04/25 22:00 10/09/25 21:59 10/07/25 08:19 1 APPLIC Diagnostic Test (Pha) 1 strip ACHS 10/04/25 17:00 10/07/25 11:42 1 STRIP Insulin Human Lispro ACHS SC 10/04/25 17:00 10/05/25 06:16 3 UNITS Dextrose 50 ml UD PRN IV 10/04/25 15:45 Oxycodone/ Acetaminophen 2 tab Q6HP PRN PO 10/05/25 09:30 10/07/25 08:19 2 TAB Hydromorphone HCl 1 mg Q3HPRN PRN IV 10/05/25 10:15 10/06/25 01:02 1 MG Heparin Sodium/ Dextrose 250 ml @ 23 mls/hr [id number] IV 10/07/25 08:45 10/07/25 09:07 23 MLS/HR Sodium Chloride 10 ml QSHIFT@10,22 IV 10/07/25 22:00 Insulin Glargine 10 units HS SC 10/07/25 22:00 Insulin Human Lispro 3 units AC SC 10/07/25 17:00 Examination: LUNGS:Normal, CVS:Normal (A-fib controlled rate), SKIN:Abnormal (LLE wounds), NEURO:Normal laboratory and microbiology Laboratory Tests 10/07/25 05:50 Test 10/07/25 05:50 Range/Units Serum Glucose 113 H 74-106 mg/dL Problem List/Assessment/Plan Problem List/Assessment/Plan Sepsis with left foot osteomyelitis s/p I &D Progressive left lower extremity peripheral arterial disease History of peripheral arterial disease with a stent placement to right leg Chronic compensated HFpEF, NYHA class II Paroxysmal atrial fibrillation with controlled rate (on Eliquis and amiodarone) Type 2 diabetes mellitus, uncontrolled (A1c 11.5%) Hypertension Dyslipidemia COPD with current tobacco use Morbid obesity Plan/Recommendations (Dr. Bear) Case discussed with Dr. Bear. A bilateral lower extremity arterial duplex reveals extensive bilateral monomorphic waveforms, left more pronounced than right consistent with moderate to advanced peripheral arterial disease and possible aortoiliac inflow disease. Re-scheduled for a left lower extremity peripheral angiogram with anesthesia on 10/08/2025. In the meantime, continue with single-antiplatelet therapy and lipid-lowering agent. A transthoracic echocardiogram revealed a LVEF of 50%. Continue GDMT per HFpEF guidelines. Continue with Heparin therapy while inpatient pending upcoming procedure and transition back to DOAC therapy when appropriate ([id number] VASc score: 4 points, HAS-BLED score: 1 point). Continue with beta-david for rate control as tolerated. Continue antiarrhythmic agent, amiodarone. Extensive education was given to the patient regarding cessation of smoking as well as tighter glycemic index control. The patient verbalized an understanding. Continue with close cardiac surveillance and notify cardiology team immediately for any ECG changes. Further orders per clinical course. Thank you for allowing us to care for this patient. Please call with any questions or concerns. This medical document was created using an electronic medical record system with voice recognition software and computerized dictation system. Although this document has been carefully reviewed, there might still be some phonetic and typographical errors. Occasional wrong-word or ``sound-alike substitutions may have occurred due to the inherent limitations of voice recognition software. These areas are purely typographical due to imperfections of the software programs and do not reflect any compromise in the patient's medical care. Please read the chart carefully and recognize, using context, where these substitutions have occurred. Plan discussed with: Patient, Other Dietary Evaluation Review Comments: Diet Advancement: When medically cleared and off NPO, advance to CCHO-Cardiac diet. Activity & Weight Management: Reduce weight-bearing activities as appropriate for current condition. Increase physical activity gradually when tolerated to support recovery and metabolic health. Implement weight management strategies during hospitalization and reinforce upon discharge. Monitoring: Track PO intake and tolerance. Monitor labs and clinical status. Reassess PRN. Expected Outcomes/Goals: recover from sepsis Date of Service: Oct 07, 2025 Billing Provider: DESIRAE STACY Cardiology Common Codes: 42334-[id number](High DESIRAE STACY Oct 07, 2025 13:26
[2025-10-07 15:43] LABS: INR 1.22 (0.9-1.15); Partial Thromboplastin Time 42.4 SEC (24.5-34.5); Prothrombin Time 12.7 sec (9.3-11.8)
[2025-10-07] MEDS ORDERED: PREGABALIN 25 MG CAP PO ONE (16:30)
[2025-10-07] MEDS ORDERED: HEPARIN DRIP/D5W 100UNITS/ML 250 ML IV SCH (17:00)
[2025-10-07] MEDS: PREGABALIN CAPSULE 75 MG CAP PO ONE (17:04)
[2025-10-07] MEDS: PREGABALIN 25 MG CAP PO ONE (17:05)
--- NOTE | 2025-10-07 17:11 | CONS ---
Pharmacy Clinical Information: APTT = 42.4 (SUBTHERAPEUTIC) PT'S IV LINE WAS NOT WORKING PROPERLY PER MILLER BELTRAN PT NOW HAS NEW PICC LINE KEEP HEPARIN DRIP AT SAME RATE = 2300 UNITS/HR IN VIEW OF NEW IV ACCESS NEXT APTT DRAW SCHEDULED FOR 2300 PER RX PROTOCOL LIBORIO LIU PHARMACIST Oct 07, 2025 17:11
[2025-10-07] MEDS: INSULIN LISPRO (HUMAN) 100 UNITS/ML ML SC SCH (17:33)
[2025-10-07] MEDS: INSULIN LANTUS (GLARGINE) 1 /0.01ml (100units/ml) SC SCH (22:00)
[2025-10-07] MEDS: SODIUM CHLOR 0.9% PF (SALINE LOCK) 10ML VIAL/SYR IV SCH (22:03)
[2025-10-08 00:06] LABS: INR 1.2 (0.9-1.15); Partial Thromboplastin Time 69.8 SEC (24.5-34.5); Prothrombin Time 12.5 sec (9.3-11.8)
[2025-10-08] MEDS: PREGABALIN 25 MG CAP PO SCH (00:08)
[2025-10-08] MEDS: PREGABALIN CAPSULE 75 MG CAP PO SCH (00:08)
[2025-10-08 01:00] VITALS: BP 131/73; PULSE 79; RESP 18; TEMP 98.4; O2SAT 100
[2025-10-08 04:46] VITALS: BP 143/94; PULSE 82; RESP 18; TEMP 98.4; O2SAT 97
--- NOTE | 2025-10-08 05:14 | DVHPN2 ---
Progress Note Date Seen: Oct 08, 2025 Medical Necessity Reason Pt with a Central, PICC or Fol: No Subjective Patient reports: No new complaints Review of Systems: HEENT:Normal, CVS:Normal, RESPIRATORY:Normal Objective vital signs Vital Sign Date Time Temp Pulse Resp B/P (MAP) Pulse Ox O2 Delivery O2 Flow Rate FiO2 10/08/25 04:40 85 18 140/85 10/08/25 01:00 98.4 100 98.4 10/07/25 20:00 Nasal Cannula* 2 28 Total Intake and Output 10/07/25 10/07/25 10/08/25 15:00 23:00 07:00 Intake Total 100 ml 790 ml 100 ml Output Total 850 ml Balance 100 ml -60 ml 100 ml medications Current Medications Medications Dose Ordered Sig/Maria Isabel Route Start Time Stop Time Status Last Admin Dose Admin Acetaminophen 325 mg Q4HP PRN PO 10/02/25 16:45 Ondansetron HCl 4 mg Q4HP PRN IV 10/02/25 16:45 10/02/25 18:35 4 MG Docusate Sodium 100 mg BIDPRN PRN PO 10/02/25 16:45 10/06/25 17:43 100 MG Nitroglycerin 0.4 mg Q5MINP PRN SL 10/02/25 16:45 Morphine Sulfate 2 mg Q30M PRN IV 10/02/25 16:45 Vancomycin HCl 0 ml @ 0 mls/hr PER PHARMACY IV 10/02/25 17:00 Sodium Chloride 1,000 ml @ 60 mls/hr [id number] IV 10/03/25 10:00 10/07/25 14:29 60 MLS/HR Enoxaparin Sodium 150 mg Q12HR SC 10/03/25 22:00 Cancel Amiodarone HCl 200 mg Q12HR PO 10/03/25 22:00 10/07/25 21:41 200 MG Atorvastatin Calcium 80 mg HS PO 10/03/25 22:00 10/07/25 21:41 80 MG Aspirin 81 mg DAILY PO 10/04/25 10:00 10/07/25 08:18 81 MG Clindamycin Phosphate 50 ml @ 50 mls/hr Q8HR IV 10/03/25 22:00 10/08/25 04:55 50 MLS/HR Piperacillin Sod/ Tazobactam Sod 100 ml @ 25 mls/hr Q8HR IV 10/03/25 22:00 UNV Ergocalciferol 50,000 unit Q7D PO 10/04/25 10:00 10/04/25 09:14 50,000 UNIT Piperacillin Sod/ Tazobactam Sod 100 ml @ 25 mls/hr Q6H IV 10/04/25 12:00 10/08/25 00:10 25 MLS/HR Acetaminophen/ Hydrocodone Bitart 1 tab Q4HP PRN PO 10/04/25 09:30 10/05/25 16:53 1 TAB Metoprolol Succinate 50 mg DAILY PO 10/05/25 10:00 10/07/25 08:18 50 MG Empaglifozin 10 mg DAILY PO 10/05/25 10:00 10/07/25 08:18 10 MG Mupirocin 1 applic BID EACHNOSTRI 10/04/25 22:00 10/09/25 21:59 10/07/25 21:55 1 APPLIC Diagnostic Test (Pha) 1 strip ACHS 10/04/25 17:00 10/07/25 21:41 1 STRIP Insulin Human Lispro ACHS SC 10/04/25 17:00 10/07/25 17:34 2 UNITS Dextrose 50 ml UD PRN IV 10/04/25 15:45 Oxycodone/ Acetaminophen 2 tab Q6HP PRN PO 10/05/25 09:30 10/07/25 08:19 2 TAB Hydromorphone HCl 1 mg Q3HPRN PRN IV 10/05/25 10:15 10/08/25 04:40 1 MG Sodium Chloride 10 ml QSHIFT@10,22 IV 10/07/25 22:00 10/07/25 22:03 10 ML Insulin Glargine 10 units HS SC 10/07/25 22:00 Insulin Human Lispro 3 units AC SC 10/07/25 17:00 10/07/25 17:33 3 UNITS Pregabalin 50 mg Q8H PO 10/08/25 01:00 10/08/25 00:08 50 MG Pregabalin 150 mg Q8H PO 10/08/25 01:00 10/08/25 00:08 150 MG Heparin Sodium/ Dextrose 250 ml @ 23 mls/hr [id number] IV 10/07/25 17:15 10/08/25 04:48 23 MLS/HR Examination: GENERAL:Normal, LUNGS:Normal, CVS:Normal laboratory and microbiology Laboratory Tests 10/07/25 05:50 Test 10/07/25 05:50 Range/Units Serum Glucose 113 H 74-106 mg/dL Problem List/Assessment/Plan Problem List/Assessment/Plan 1) L foot osteomyelitis s/p debridement 2) PAD 3) Atrial fibrillation 4) HFpEF 5) DM 2, uncontrolled 6) MRSA bacteremia 7) MRSA UTI 8) Chronic respiratory failure on 2L NC plan; 10/07---labs for this AM still pending will follow up, on 2L NC this AM, on IV ABx as per ID, repeat BCx show no growth, had debridement L foot with podiatry, now pending lower ext angiogram on 10/08 for posssible intervention, vascular surgery consulted, cardio on board, echo shows preserved EF, on BB and PO amio for afib as well as heparin gtt in light of pending procedure, daily labs, continue all care, will follow along 10/08---awaiting lower extremity angiogram planned for today, continue IV ABx, repeat BCx are negative, PICC line was inserted yesterday, will follow up with angiogram results and POC thereafter, Dc planning to SNF for intermission coordinator IV Abx as recommended by ID once cleared Plan discussed with: Other (n) Dietary Evaluation Review Comments: Diet Advancement: When medically cleared and off NPO, advance to CCHO-Cardiac diet. Activity & Weight Management: Reduce weight-bearing activities as appropriate for current condition. Increase physical activity gradually when tolerated to support recovery and metabolic health. Implement weight management strategies during hospitalization and reinforce upon discharge. Monitoring: Track PO intake and tolerance. Monitor labs and clinical status. Reassess PRN. Expected Outcomes/Goals: recover from sepsis Sepsis reassessment post fluid Is the fluid challenge complet: Yes Date of Reassessment: Oct 02, 2025 Time of Reassessment: 1644 Blood Culture Time: 1600 Time Antibiotics Given: 1600 Systolic BP: 128 Diastolic BP: 52 Blood Pressure Mean: 77 Respiration: 17 Respiratory Effort: Non-Labored Respiratory Pattern: Regular Oxygen Saturation: 95 Pulse Rate: 107 Pulse Location: Brachial Pulse Strength: Normal Pulse Assessment Method: Palpation Pulse Rhythm: Regular Capillary Refill: < 3 seconds Heart Sounds: S1 & S2 Breath sounds: Crackles, Diminished Skin Moisture: Dry Skin Tugor: WNL Skin Color: Pale JENNY MARK MD Oct 08, 2025 05:13
[2025-10-08 06:41] LABS: Alanine Aminotransferase 12 U/L (7-40); Albumin 3.6 g/dL (3.2-4.8); Anion Gap 6 (5-15); BUN/Creatinine Ratio 7.8 (10.0-20.0); Calcium 8.7 mg/dL (8.7-10.4); Carbon Dioxide 29 mmol/L (20-31); Chloride 103 mmol/L (98-107); Potassium 4.2 mmol/L (3.5-5.1); Sodium 138 mmol/L (136-145); Total Protein 7.4 g/dL (5.7-8.2)
[2025-10-08 06:42] LABS: Bilirubin, Total 0.7 mg/dL (0.2-1.0)
[2025-10-08 06:43] LABS: Hematocrit 43.4 % (41.0-53.0); Hemoglobin 14.1 g/dL (13.5-17.5); Mean Corpuscular Hemoglobin 28.3 pg (28.0-32.0); Mean Corpuscular Volume 87.3 fL (80.0-100.0); Nucleated Red Blood Cells % 0.0 %
[2025-10-08 06:45] LABS: INR 1.25 (0.9-1.15); Partial Thromboplastin Time 60.4 SEC (24.5-34.5); Prothrombin Time 13.0 sec (9.3-11.8)
[2025-10-08 06:47] LABS: Alkaline Phosphatase 273 U/L (46-116); Blood Urea Nitrogen 8 mg/dL (9-23); Glucose 169 mg/dL (74-106)
[2025-10-08 08:00] VITALS: PULSE 69
[2025-10-08] MEDS: IOHEXOL 350 MG/ML 100ML IJ ONE ×2 (08:16)
[2025-10-08 09:00] VITALS: BP 130/82; PULSE 74; RESP 18; TEMP 97.5; O2SAT 99
[2025-10-08] MEDS ORDERED: VANCOMYCIN 1.5GM/250ML 250 ML IV SCH (10:00)
[2025-10-08] MEDS: VANCOMYCIN 1.25GM/250ML 250 ML IV SCH (10:00)
--- NOTE | 2025-10-08 10:33 | DVHCONRES ---
Date Seen: Oct 08, 2025 Resident Creating Document: APRIL GONZALEZ Jr., MD Referring Physician yared Reason for Consultation Peripheral arterial disease History of Present Illness 60-year-old male past medical history of type 2 diabetes, CHF, atrial fibrillation, tobacco dependence, chronic respiratory failure secondary to COPD on 2 L baseline, history of bilateral 20 potation's, PVD, morbid obesity, hypertension who presents due to complaints of left foot pain. Patient is noted to have a large ulcer on the dorsal surface of his foot which she states has been present for several weeks now. He avoided coming to the hospital for evaluation due to fear of amputation. He ultimately came due to persistent pain. Patient notes that he had a prior amputation several months prior. He notes that he has a history of PVD with revascularization of the right leg. He notes that he was advised that he needed revascularization of the left foot but has not had that completed. Patient underwent a foot debridement last week. Scheduled for an angiogram today. Past Medical History of type 2 diabetes, CHF, atrial fibrillation, tobacco dependence, chronic respiratory failure secondary to COPD on 2 L baseline, history of bilateral 20 potation's, PVD, morbid obesity, hypertension Past Surgical History Angiogram with right lower extremity stenting Family History: Cerebrovascular accident (CVA) G8 FATHER Colon cancer G8 MOTHER Diabetes mellitus G8 FATHER G8 MOTHER FH: chronic kidney disease G8 FATHER FH: congestive heart failure G8 FATHER FH: heart attack G8 FATHER Hypertension G8 MOTHER Social History None Allergies: Coded Allergies: Penicillins (Verified Allergy, Severe, 04/21/23) Home Meds Active Scripts Amiodarone Hcl (Amiodarone Hcl) 200 Mg Tab, 1 TAB PO DAILY, #30 TAB 0 Refills Prov:LORENZO AGUILAR MD 07/03/21 Reported Medications Apixaban Base (ELIQUIS) 5 Mg Tab, 1 TAB PO BID for 30 Days, #60 04/03/25 Metoprolol Succinate (Metoprolol Succinate Er) 50 Mg Tab, 1 TAB PO DAILY@9AM for 30 Days, #30 04/03/25 Acetaminophen (Acetaminophen Extra Stren) 500 Mg Tab, 1-2 TAB PO QID PRN for 30 Days, #240 03/15/25 Furosemide (Furosemide) 40 Mg Tab, 2 TAB PO BID for 30 Days, #120 03/15/25 Tizanidine Hydrochloride (Tizanidine Hcl) 4 Mg Tab, 1 TAB PO TID for 30 Days, #90 03/15/25 Pregabalin (Pregabalin) 200 Mg Cap, 1 CAP PO TID for 30 Days, #90 03/15/25 Amitriptyline HCl (Amitriptyline Hydrochlori) 25 Mg Tab, 1 TAB PO QHSP PRN for LUMBAGO WITH SCIATICA for 30 Days, #30 03/15/25 Trazodone Hcl (Trazodone Hcl) 100 Mg Tab, 1 TAB PO HS for 30 Days, #30 03/15/25 Oxycodone HCl (Oxycodone Hydrochloride) 10 Mg Tab, 1 TAB PO TID for 30 Days, #90 03/15/25 Atorvastatin Calcium (ATORVASTATIN CALCIUM) 40 Mg Tab, 1 TAB PO DAILY@5PM for 30 Days, #30 03/15/25 Insulin Lispro (Insulin Lispro Kwikpen) 100 Unit/Ml Inj, 15-20 UNIT SC AC for 65 Days, #30 03/15/25 Insulin Glargine (Lantus Solostar) 100 Unit/Ml Inj, 40 UNITS SC HS for 57 Days, #24 03/15/25 Current Medications Current Medications Medications (Trade) Dose Ordered Sig/Maria Isabel Route PRN Reason Start Time Stop Time Status Last Admin Sodium Chloride (Saline Lock Ns) 10 ml QSHIFT@10,22 IV 10/07/25 22:00 10/08/25 09:57 Insulin Glargine (Lantus) 10 units HS SC 10/07/25 22:00 Insulin Human Lispro (HumaLOG) 3 units AC SC 10/07/25 17:00 10/07/25 17:33 Pregabalin (Lyrica Capsule) 50 mg Q8H PO 10/08/25 01:00 10/08/25 09:00 Pregabalin (Lyrica Capsule) 150 mg Q8H PO 10/08/25 01:00 10/08/25 09:00 Heparin Sodium/ Dextrose 250 ml @ 25 mls/hr Q10H IV 10/07/25 17:00 10/07/25 17:06 DC Heparin Sodium/ Dextrose 250 ml @ 23 mls/hr [id number] IV 10/07/25 17:15 10/08/25 04:48 Vancomycin HCl 250 ml @ 166.667 mls/hr Q12H IV 10/08/25 10:00 UNV Vancomycin HCl 250 ml @ 200 mls/hr Q12H IV 10/08/25 10:00 Review of Systems All systems reviewed otherwise negative other than what is in HPI. Vital Signs Vital Signs Date Time Temp Pulse Resp B/P (MAP) Pulse Ox O2 Delivery O2 Flow Rate FiO2 10/08/25 09:57 74 130/82 10/08/25 09:00 97.5 18 99 97.5 10/07/25 20:00 Nasal Cannula* 2 28 Physical Exam The patient morbidly obese. Head eyes ears nose and throat exam eyes are nonicteric conjunctiva was pink neck was supple no JVD no lymphadenopathy no carotid bruits lungs are clear to auscultation heart was regular rate and rhythm abdomen was soft nontender no pulsatile abdominal masses could be appreciated. Lower extremities palpable femoral pulses nonpalpable pedal pulses left foot is wrapped from a recent surgical debridement by Podiatry. Labs/Diagnostic Data Labs Test 10/08/25 05:48 10/07/25 21:54 10/06/25 19:57 10/03/25 22:33 Range/Units White Blood Count 8.6 4.4-10.8 10^3/uL Red Blood Count 4.97 4.5-5.90 10^6/uL Hemoglobin 14.1 13.5-17.5 g/dL Hematocrit 43.4 41.0-53.0 % Mean Corpuscular Volume 87.3 80.0-100.0 fL Mean Corpuscular Hemoglobin 28.3 28.0-32.0 pg Mean Corpuscular Hemoglobin Concent 32.4 32.0-36.0 g/dL Red Cell Distribution Width 17.6 H 11.8-14.3 % Platelet Count 273 140-450 10^3/uL Mean Platelet Volume 9.5 6.9-10.8 fL Neutrophils (%) (Auto) 72.7 37.0-80.0 % Lymphocytes (%) (Auto) 17.2 10.0-50.0 % Monocytes (%) (Auto) 7.5 0.0-12.0 % Eosinophils (%) (Auto) 2.0 0.0-7.0 % Basophils (%) (Auto) 0.6 0.0-2.0 % Neutrophils # (Auto) 6.3 1.6-8.6 10 ^3/uL Lymphocytes # (Auto) 1.5 0.4-5.4 10 ^3/uL Monocytes # (Auto) 0.6 0-1.3 10 ^3/uL Eosinophils # (Auto) 0.2 0-0.8 10 ^3/uL Basophils # (Auto) 0.1 0-0.2 10 ^3/uL Nucleated Red Blood Cells 0.0 % Prothrombin Time 13.0 H 9.3-11.8 sec Prothrombin Time INR 1.25 H 0.9-1.15 Activated Partial Thromboplast Time 60.4 H 24.5-34.5 SEC Sodium Level 138 136-145 mmol/L Potassium Level 4.2 3.5-5.1 mmol/L Chloride Level 103 98-107 mmol/L Carbon Dioxide Level 29 20-31 mmol/L Anion Gap 6 5-15 Blood Urea Nitrogen 8 L 9-23 mg/dL Creatinine 1.02 0.700-1.30 mg/dL Glomerular Filtration Rate Calc 85 >90 mL/min BUN/Creatinine Ratio 7.8 L 10.0-20.0 Serum Glucose 169 H 74-106 mg/dL Calcium Level 8.7 8.7-10.4 mg/dL Total Bilirubin 0.7 0.2-1.0 mg/dL Aspartate Amino Transferase (AST) 14 13-40 U/L Alanine Aminotransferase (ALT) 12 7-40 U/L Alkaline Phosphatase 273 H 46-116 U/L Total Protein 7.4 5.7-8.2 g/dL Albumin 3.6 3.2-4.8 g/dL Random Vancomycin Level 13.2 H 5-10 ug/mL POC Glucose 200 H 70-106 mg/dl Vancomycin Level Trough 27.1 H 5-10 ug/mL Free Thyroxine (T4) Calculated 1.34 0.89-1.76 ng/dL Total Triiodothyronine (TT3) 0.47 L 0.60-1.81 ng/mL Test 10/03/25 15:14 10/03/25 15:05 10/03/25 11:15 10/03/25 05:10 Range/Units Blood Gas Specimen Type Arterial Blood Gas Sample Site Right radial Blood Gas Patient Temperature 37.0 Arterial Blood Date Drawn [id number] Arterial Blood pH 7.406 7.350-7.450 Arterial Blood Partial Pressure CO2 38.1 35.0-48.0 mmHg Arterial Blood Partial Pressure O2 91.2 83.0-108.0 mmHg Arterial Blood HCO3 23.4 21.0-28.0 mmol/L Arterial Blood Oxygen Saturation 96.5 94.0-98.0 % Arterial Blood Base Excess -1.0 -2.0-3.0 mmol/L Arterial Blood Oxyhemoglobin 94.5 94.0-98.0 % Arterial Blood Carboxyhemoglobin 1.8 H 0.5-1.5 % Arterial Blood Methemoglobin 0.3 0.0-1.5 % Arterial Blood Deoxyhemoglobin 3.4 0.0-5.0 % Suresh Test Positive Blood Gas Total Hemoglobin 14.20 13.5-17.5 g/dL Blood Gas Liter Flow 2.00 Blood Gas Modality Nasal cannula FiO2 % 28.0 Phosphorus Level 1.9 L 2.4-5.1 mg/dL Magnesium Level 2.0 1.6-2.6 mg/dL Urine Color Yellow Yellow Urine Clarity Clear Clear Urine pH 5.5 5.0-9.0 Urine Specific [place] 1.026 1.001-1.035 Urine Protein 1+ H Negative Urine Ketones 1+ H Negative Urine Blood Negative Negative /uL Urine Nitrite Negative Negative Urine Bilirubin Negative Negative Urine Urobilinogen Normal Negative mg/dL Urine Leukocyte Esterase Negative Negative /uL Urine RBC 2 0 - 3 /hpf Urine Microscopic WBC 8 H 0-3 /HPF Urine Squamous Epithelial Cells Few <5 /hpf Urine Bacteria None seen None Seen /hpf Urine Glucose 4+ H Normal mg/dL Urine Opiates Screen Pos NEGATIVE Urine Fentanyl Screen Neg NEGATIVE Urine Barbiturates Screen Neg NEGATIVE Urine Phencyclidine Screen Neg NEGATIVE Urine Amphetamines Screen Neg NEGATIVE Urine Benzodiazepines Screen Neg NEGATIVE Urine Cocaine Screen Neg NEGATIVE Urine Cannabinoids Screen Neg NEGATIVE Hemoglobin A1c 11.5 H <5.7 % A1C Serum Osmolality 320 H 278-298 mOsm/kg Triglycerides Level 108 < 150 mg/dL Cholesterol Level 103 < 200 mg/dL LDL Cholesterol 66 < 100 mg/dL HDL Cholesterol 19 L 40-59 mg/dL Vitamin B12 Level 586 211-911 pg/mL Vitamin D 25-Hydroxy 11.0 L 30.0-100 ng/mL Thyroid Stimulating Hormone (TSH) 0.28 L 0.55-4.78 uIU/mL Test 10/02/25 18:59 10/02/25 18:46 10/02/25 16:27 10/02/25 13:21 Range/Units Lactic Acid Level 1.1 0.4-2.0 mmol/L Influenza Type A Antigen Negative Negative Influenza Type B Antigen Negative Negative SARS-CoV-2 Antigen (Rapid) Negative NEGATIVE Troponin I High Sensitivity 31 </=54 ng/L B-Type Natriuretic Peptide 175.80 0-100 pg/mL Microbiology Date/Time Source Procedure Growth Status 10/05/25 09:44 Blood Blood Culture - Preliminary NO GROWTH AFTER 72 HOURS OF INCUBATION. Resulted 10/03/25 15:33 Nose MRSA Screen - Final Methicillin Resistant S.aureus Complete 10/03/25 11:15 Voided Urine Urine Culture - Final Methicillin Resistant S.aureus Complete EXAM: CT CT ANGIO LOWER EXTREMITY W INDICATION: Review for revascularization, hx of PVD TECHNIQUE: Angiogram axial images of bilateral lower extremities have been obtained along with coronal and sagittal reformatted images. All CT scans at [facility] facility use dose modulation, iterative reconstruction, and/or weight based dosing when appropriate to reduce radiation dose to as low as reasonably achievable. COMPARISON: CT CT ANGIO LOWER EXTREMITY on DOS: 03/30/25 FINDINGS: BONES: Extensive soft tissue emphysema and deep soft tissue ulceration compatible with osteomyelitis with significant involvement centered around the 1st tarsometatarsal articulation and 5th metatarsal base with osseous erosive change of the cuboid and residual 5th metatarsal. Likely involvement of the 4th metatarsal and centered around the 2nd and 3rd metatarsophalangeal joints. Significant midfoot Charcot arthropathy with hypertrophic changes, superior joint space loss, fragmentation and flattening of the cuneiform bones and navicular bone with osseous irregularity and cystic change of the talus. [id number] degenerative change of the 1st metatarsophalangeal joint of the left foot. Status post prior amputation of the left digits. Status post amputation 5th digit. MUSCLES: Fatty atrophy of the intrinsic musculature in the [id number]-left lower extremities JOINT SPACES: Significant midfoot Charcot arthropathy with hypertrophic changes, superior joint space loss, fragmentation and flattening of the cuneiform bones a nd navicular bone with osseous irregularity and cystic change of the talus. [id number] degenerative change of the 1st metatarsophalangeal joint of the left foot. OTHER: In the right lower extremity, visualization of the medial plantar artery and poor distal opacification of the anterior tibial to dorsalis pedis artery. Right peroneal artery is patent. In the left lower extremity poor distal opacification compatible with a occlusion of the anterior tibial artery however distal reconstitution of the dorsalis pedis artery proximally however distally is occluded. Peroneal artery of the left lower extremity is patent. Posterior ti bial artery distally is patent with a opacification of the medial plantar artery. IMPRESSION: 1. Extensive soft tissue emphysema and deep soft tissue ulceration compatible with osteomyelitis with significant involvement centered around the 1st tarsometatarsal articulation and 5th metatarsal base with osseous erosive change of the cuboid and residual 5th metatarsal. 2. Likely involvement of the 4th metatarsal and centered around the 2nd and 3rd metatarsophalangeal joints. 3. Significant midfoot Charcot arthropathy with hypertrophic changes, superior joint space loss, fragmentation and flattening of the cuneiform bones and navic ular bone with osseous irregularity and cystic change of the talus. 4. Poor distal opacification of the anterior tibial to dorsalis pedis artery of the right lower extremity. 5. Poor distal opacification compatible with a occlusion of the anterior tibial artery however distal reconstitution of the dorsalis pedis artery proximally however distally is occluded. INDICATION: Review arterial flow in LE TECHNIQUE: Real- time ultrasound images of the lower extremity with grayscale, color, and spectral wave Doppler. COMPARISON: US LOW EXT ART DUPLEX on DOS: 06/29/25, FINDINGS: Biphasic/ triphasic waveforms within the right TRANSFER WORKER, SFA. Monophasic waveform right posterior tibial artery, popliteal artery, right dorsalis pedis artery. Occluded right anterior tibial artery. Monophasic waveform left TRANSFER WORKER, SFA, popliteal, posterior tibial, dorsalis pedis arteries. Peak systolic velocities are as follows (in cm/s): Right: Common femoral artery: 82 Profunda femoris: 79 Proximal superficial femoral: 61 Mid superficial femoral artery: 75 Distal superficial femoral artery: 79 Popliteal artery: 63 Posterior tibial artery: 78 Anterior tibial artery: 0 Dorsalis pedis artery: 40 Left: Common femoral artery: 80 Profunda femoris: 35 Proximal superficial femoral: 83 Mid superficial femoral artery: 105 Distal superficial femoral artery: 77 Popliteal artery: 132 Posterior tibial artery: 69 Anterior tibial artery: 114 Dorsalis pedis artery: 22 IMPRESSION: Extensive bilateral monophasic waveforms, left more pronounced than right consistent with moderate to advanced peripheral arterial disease and possible aortoiliac inflow disease. Occluded right anterior tibial artery. Markedly diminished velocity lived in the left dorsalis pedis artery consistent with high-grade stenosis. Assessment 60-year-old male with multiple medical problems who has a left foot wound postsurgical. With the peripheral vascular disease. Patient is scheduled for an angiogram today with cardiology I agree with this. Continue current wound care management per Podiatry. Plan/Recommendation 60-year-old male with multiple medical problems who has a left foot wound postsurgical. With the peripheral vascular disease. Patient is scheduled for an angiogram today with cardiology I agree with this. Continue current wound care management per Podiatry. Plan discussed with: Patient APRIL GONZALEZ Jr., MD Oct 08, 2025 10:33
[2025-10-08 12:30] VITALS: BP 125/73; PULSE 55; RESP 18; TEMP 97.6; O2SAT 99
[2025-10-08] MEDS: ANGIOMAX 250 MG VIAL IV ONE (13:14)
[2025-10-08] MEDS: LIDOCAINE 2%HCL (LOCAL ANESTH.) INJ 20ML MDV ONE (13:14)
[2025-10-08] MEDS: SODIUM CHL 0.9% 0 ML ONE (13:14)
[2025-10-08] MEDS ORDERED: MIDAZOLAM HCL 2MG/2ML 2ml VIAL (1mg/ml) ONE (13:16)
[2025-10-08] MEDS ORDERED: fentaNYL CITRATE 100 MCG/2 ML VL ONE (13:16)
[2025-10-08] MEDS ORDERED: LIDOCAINE 2% (LOCAL ANESTH.) PF 5ml SDV ONE (13:17)
[2025-10-08] MEDS ORDERED: ONDANSETRON HCL 4 MG/2 ML VIAL ONE (13:17)
[2025-10-08] MEDS ORDERED: METOCLOPRAMIDE HCL 5MG/ml INJ 2ml VIAL ONE (13:17)
[2025-10-08] MEDS ORDERED: SUGAMMADEX 200mg/2ml Vial (100MG/ML) IV ONE (13:18)
[2025-10-08] MEDS ORDERED: ROCURONIUM 10MG/ML 10ML VIAL IV ONE ×2 (13:18)
[2025-10-08] MEDS ORDERED: PROPOFOL 10 MG/ML 20 ML IV ONE (13:18)
[2025-10-08] MEDS ORDERED: PHENYLEPHRINE HCL 10 MG/ML VL ONE (13:20)
[2025-10-08] MEDS: IODIXANOL 320MG/ML 100ML BTL IV ONE (13:55)
--- NOTE | 2025-10-08 14:14 | MEDREC ---
[facility] Intervention Section I [facility] Intervention: Review courses of therapy (Multiple cultures show MRSA/VRE infections. Please re-evaluate the infections and consider d/c zosyn and clindamycin) JANICE MERINO [facility] RESIDENT Oct 08, 2025 14:14
--- NOTE | 2025-10-08 14:55 | DVHPN2 ---
Consult Progress Note Objective vital signs Vital Sign Date Time Temp Pulse Resp B/P (MAP) Pulse Ox O2 Delivery O2 Flow Rate FiO2 10/08/25 12:32 60 18 124/72 10/08/25 12:30 97.6 99 97.6 10/07/25 20:00 Nasal Cannula* 2 28 Total Intake and Output 10/07/25 10/07/25 10/08/25 15:00 23:00 07:00 Intake Total 100 ml 790 ml 750 ml Output Total 850 ml 1100 ml Balance 100 ml -60 ml -350 ml medications Current Medications Medications Dose Ordered Sig/Maria Isabel Route Start Time Stop Time Status Last Admin Dose Admin Acetaminophen 325 mg Q4HP PRN PO 10/02/25 16:45 Ondansetron HCl 4 mg Q4HP PRN IV 10/02/25 16:45 10/02/25 18:35 4 MG Docusate Sodium 100 mg BIDPRN PRN PO 10/02/25 16:45 10/06/25 17:43 100 MG Nitroglycerin 0.4 mg Q5MINP PRN SL 10/02/25 16:45 Morphine Sulfate 2 mg Q30M PRN IV 10/02/25 16:45 Vancomycin HCl 0 ml @ 0 mls/hr PER PHARMACY IV 10/02/25 17:00 Cancel Sodium Chloride 1,000 ml @ 60 mls/hr [id number] IV 10/03/25 10:00 10/07/25 14:29 60 MLS/HR Enoxaparin Sodium 150 mg Q12HR SC 10/03/25 22:00 Cancel Amiodarone HCl 200 mg Q12HR PO 10/03/25 22:00 10/08/25 09:57 200 MG Atorvastatin Calcium 80 mg HS PO 10/03/25 22:00 10/07/25 21:41 80 MG Aspirin 81 mg DAILY PO 10/04/25 10:00 10/08/25 09:57 81 MG Piperacillin Sod/ Tazobactam Sod 100 ml @ 25 mls/hr Q8HR IV 10/03/25 22:00 UNV Ergocalciferol 50,000 unit Q7D PO 10/04/25 10:00 10/04/25 09:14 50,000 UNIT Acetaminophen/ Hydrocodone Bitart 1 tab Q4HP PRN PO 10/04/25 09:30 10/05/25 16:53 1 TAB Metoprolol Succinate 50 mg DAILY PO 10/05/25 10:00 10/08/25 09:57 50 MG Empaglifozin 10 mg DAILY PO 10/05/25 10:00 10/08/25 09:57 10 MG Mupirocin 1 applic BID EACHNOSTRI 10/04/25 22:00 10/09/25 21:59 10/08/25 09:56 1 APPLIC Diagnostic Test (Pha) 1 strip ACHS 10/04/25 17:00 10/08/25 11:30 1 STRIP Insulin Human Lispro ACHS SC 10/04/25 17:00 10/08/25 11:30 2 UNITS Dextrose 50 ml UD PRN IV 10/04/25 15:45 Oxycodone/ Acetaminophen 2 tab Q6HP PRN PO 10/05/25 09:30 10/07/25 08:19 2 TAB Hydromorphone HCl 1 mg Q3HPRN PRN IV 10/05/25 10:15 10/08/25 12:02 1 MG Sodium Chloride 10 ml QSHIFT@ IV 10/07/25 22:00 10/08/25 09:57 10 ML Insulin Glargine 10 units HS SC 10/07/25 22:00 Insulin Human Lispro 3 units AC SC 10/07/25 17:00 10/08/25 11:30 3 UNITS Pregabalin 50 mg Q8H PO 10/08/25 01:00 10/08/25 09:00 50 MG Pregabalin 150 mg Q8H PO 10/08/25 01:00 10/08/25 09:00 150 MG Heparin Sodium/ Dextrose 250 ml @ 23 mls/hr [id number] IV 10/07/25 17:15 10/08/25 04:48 23 MLS/HR Vancomycin HCl 250 ml @ 166.667 mls/hr Q12H IV 10/08/25 10:00 UNV laboratory and microbiology Laboratory Tests 10/08/25 05:48 Test 10/08/25 05:48 Range/Units Serum Glucose 169 H 74-106 mg/dL Problem List/Assessment/Plan Problem List/Assessment/Plan ASSESSMENT AND PLAN: ID Problem List: \-- Severe left diabetic foot infection with extensive osteomyelitis \-- Charcot neuroarthropathy of the left midfoot \-- Concern for necrotizing soft tissue infection (soft tissue gas, purulence, malodor, necrosis) \-- Moderateadvanced peripheral arterial disease (PAD) with poor distal perfusion \-- Sepsis with concern for evolving multi-organ dysfunction (GEORGIE, acute hypoxic respiratory failure) \-- Congestive heart failure with pulmonary edema (cardiomegaly with CHF on chest X-ray) \-- Type 2 diabetes mellitus, poorly controlled (HbA1c 11.5) \-- Atrial fibrillation on anticoagulation (apixaban) \-- Thrombocytopenia (platelet count 53) \-- History of multiple toe amputations (left 4th and 5th toes, right 5th toe) \-- Chronic tobacco use (>40 years) Assessment: This is a 59-year-old male with a history of type 2 diabetes mellitus, atrial fibrillation on apixaban, hypertension, hypoglycemia, chronic tobacco use, prior osteomyelitis, PAD, and multiple toe amputations (left 4th/5th and right 5th) who presents with left foot pain and systemic symptoms (shortness of breath, cough with yellow sputum, generalized weakness, poor urine output). He has a long-standing history of diabetic foot infections, primarily of the left foot, with recent (June) MRI showing osteomyelitis involving the 3rd5th metatarsals and digits, and non-operative debridement performed at that time. PAD workup previously demonstrated advanced left lower extremity disease with monophonic waveforms, and he was deemed a poor limb salvage candidate. Current imaging (CT, MRI, Doppler, and angiography) shows extensive left midfoot osteomyelitis involving the cuneiforms, navicular, bases of the 3rd5th metatarsals (post prior amputation), and areas around the 2nd3rd MTP joints; Charcot midfoot changes; soft tissue gas; ulcerations; and poor distal arterial opacification, all consistent with severe, limb-threatening infection on a background of advanced PAD and Charcot neuroarthropathy. Clinical exam is notable for Charcot deformity, plantar bony prominences with soft points, and concern for deep abscess/osteomyelitis with tissue infarction and liquefaction, with purulent drainage, malodor, and necrosis reported. He presents with leukocytosis, elevated lactate, acute kidney injury, acute hypoxic respiratory failure, thrombocytopenia, and radiographic CHF with pulmonary edema, consistent with sepsis and possible evolving multi-organ dysfunction. There is concern for necrotizing fasciitis given soft tissue gas and necrosis; broad-spectrum coverage including toxin-suppressive therapy is appropriate. Limb salvage remains uncertain, and amputation above the ankle may ultimately be required, to be determined by vascular surgery and podiatry based on operative findings and revascularization potential. Plan: 1\. Severe left diabetic foot infection with extensive osteomyelitis, Charcot foot, concern for necrotizing soft tissue infection; sepsis: \-- Continue vancomycin; target trough 1520 g/mL. \-- Recommend transitioning from aztreonam and levofloxacin to: Piperacillin-tazobactam (Zosyn) for broad-spectrum Gram-negative, Pseudomonas, and anaerobic coverage. Clindamycin for necrotizing infection (toxin inhibition). Add aztreonam to Zosyn as stated in transcript for additional Gram-negative and Pseudomonas coverage. \-- Patient has a reported penicillin allergy but previously tolerated 6 weeks of piperacillin-tazobactam (Zosyn) without difficulty; this supports using Zosyn despite listed allergy. \-- Follow blood cultures obtained on admission; continue to monitor for growth and tailor antibiotics based on culture and susceptibility results. \-- During operative debridement of the left foot (by Dr. Ang/podiatry): Obtain deep tissue specimens for aerobic, anaerobic, and fungal cultures. Obtain cultures of any infected bone for aerobic, anaerobic, and fungal organisms. \-- Recognize high risk of recurrent infection and poor wound healing due to severe PAD and uncontrolled diabetes; this has been discussed with the patient previously per transcript. \-- Final duration of IV antibiotics and need for chronic suppressive therapy will depend on operative findings, extent of debridement or amputation, culture data, and clinical course. 2\. Surgical management and limb salvage vs amputation: \-- Plan for incision and drainage and operative debridement of the left foot with Dr. Ang (podiatry) on an urgent/emergent basis, given purulent drainage, malodor, and necrosis, and uncertainty of limb salvage. \-- Vascular surgery involvement is essential to determine: Feasibility and timing of revascularization procedures (aortoiliac inflow disease and distal disease present). Level of debridement vs below- or above-ankle amputation required for durable source control. \-- Given talus involvement and extensive midfoot osteomyelitis and Charcot changes, long-term limb salvage is guarded; a higher-level amputation may reduce recurrent sepsis risk after IV antibiotics. \-- Additional ID recommendations will be provided after operative findings and culture data are available. 3\. Peripheral arterial disease / poor distal perfusion: \-- Advanced PAD with monophonic waveforms and poor distal opacification on Doppler and angiography. \-- Recommend close coordination with vascular surgery for: Inpatient evaluation for possible revascularization to improve perfusion and enhance wound healing potential. Outpatient follow-up after stabilization for longitudinal PAD management. \-- Aggressive risk factor modification is required, including absolute smoking cessation. 4\. Sepsis with concern for multi-organ dysfunction; acute hypoxic respiratory failure; CHF with pulmonary edema; GEORGIE: \-- Sepsis with elevated lactate (2.1), leukocytosis (WBC 12.3), GEORGIE (creatinine 1.25, BUN 25), thrombocytopenia (platelets 53), and acute hypoxic respiratory failure on 1 L nasal cannula (SpO2 96%). \-- Chest X-ray shows cardiomegaly with CHF and pulmonary edema, likely contributing to dyspnea and likely exacerbated by sepsis. \-- Recommend the primary/ICU team: Carefully balance fluid resuscitation for sepsis with risk of CHF exacerbation and pulmonary edema. Maintain MAP ? 65 mmHg; if hypotension persists despite fluids, initiate vasopressor support. Consider ICU-level monitoring given low/soft MAPs and need for close hemodynamic titration and respiratory support. Continue supplemental oxygen and escalate respiratory support as needed to treat acute hypoxic respiratory failure. \-- Source control via operative debridement is urgent to improve sepsis control. 5\. Diabetes mellitus, poorly controlled (HbA1c 11.5); wound healing: \-- HbA1c 11.5 indicates poor long-term glycemic control, contributing to infection risk and impaired wound healing. \-- Recommend keeping blood glucose < 200 mg/dL during hospitalization to optimize wound healing and immune function. \-- Adjust insulin regimen as needed by primary team/endocrinology; careful glucose monitoring is required given history of hypoglycemia. \-- Diabetes education and long-term outpatient management planning will be important once acute issues stabilize. 6\. Atrial fibrillation on apixaban; anticoagulation management: \-- Home apixaban use noted for atrial fibrillation. \-- Perioperative and sepsis-related anticoagulation strategy should be coordinated with cardiology/primary team and surgeons, balancing thromboembolism risk with bleeding risk (including thrombocytopenia and planned foot surgery). \-- No specific changes to atrial fibrillation management from an ID standpoint beyond coordination for procedures. 7\. Thrombocytopenia: \-- Platelet count 53 on admission. \-- Differential includes sepsis-associated consumption vs other etiologies; not further specified in transcript. \-- Recommend ongoing monitoring of platelet count; surgical and anticoagulation plans should account for bleeding risk. 8\. Chronic heart failure and pulmonary edema: \-- Chest X-ray showed cardiomegaly with CHF; clinical shortness of breath is present. \-- Likely exacerbated in the setting of sepsis and fluid shifts. \-- Primary/ICU team to manage CHF (diuretics vs fluids, afterload reduction as appropriate) while preserving hemodynamics to support organ perfusion and limb viability. 9\. Chronic tobacco use: \-- >40-year history of smoking; no alcohol or illicit drug use. \-- Strongly recommend smoking cessation to improve vascular status and wound healing; provide counseling and consider pharmacologic aids (e.g., nicotine replacement), as appropriate. Isolation Precautions: \-- Isolation precautions: Not specified in transcript. Assessment and plan was discussed with the patient as written above, per transcript where indicated. Plan is subject to change pending incorporation of new incoming information/diagnostics. Updates may be added as addendum at the bottom (OR TOP) of this note. Thank you for the consult. Infectious Disease will continue to follow. Please contact Infectious Disease with any questions or concerns. Stephie Duff M.D. Electronically signed by: Stephie Duff MD, 10/03/2025 \ Physical Exam: General: NAD Neck: Supple. No masses. HEENT: PERRL. Normal lids and conjunctiva. Moist mucous membranes. Oropharynx without lesions, exudates or excessive erythema. Normal appearance of the external aspects of the nose and ears. Heart: Regular rhythm, normal rate. No murmur. No lower extremity edema. Lungs: Normal respiratory effort. Clear to auscultation bilaterally. No wheezes. No crackles. Abdomen: Soft. Non-tender. Non-distended. No masses or abdominal hernia. Msk: No digital cyanosis. Normal strength and tone in all 4 limbs. Charcot deformity of the left foot with plantar bony prominences and soft points in the midfoot, concerning for underlying deep infection. Skin: Warm and dry, no rashes. Diabetic left foot ulcers with Charcot deformity; plantar-based areas with soft points over bony prominences; scattered areas of ulceration along the lateral aspect of the left foot; purulent drainage, malodor, and necrotic tissue present; findings concerning for deep tissue abscess/osteomyelitis and tissue infarction/liquefaction. Neuro: Alert. No facial droop or slurred speech. Extra-ocular movements intact. Sensation intact to soft touch in all 4 limbs. Psych: Appropriate mood. Full affect. Oriented to person, place, time, and situation. Dietary Evaluation Review Comments: Diet Advancement: When medically cleared and off NPO, advance to CCHO-Cardiac diet. Activity & Weight Management: Reduce weight-bearing activities as appropriate for current condition. Increase physical activity gradually when tolerated to support recovery and metabolic health. Implement weight management strategies during hospitalization and reinforce upon discharge. Monitoring: Track PO intake and tolerance. Monitor labs and clinical status. Reassess PRN. Expected Outcomes/Goals: recover from sepsis STEPHIE DUFF MD Oct 08, 2025 14:55
[2025-10-08] MEDS ORDERED: MET500T PO (15:08)
--- NOTE | 2025-10-08 15:14 | DVHDS2 ---
New Physician D'charge PN Admitting Diagnosis Admitting Diagnosis osteomyelitis L foot s/p debridement PAD s/p lower ext angiogram, no intervention done afib on eliquis uncontrolled DM Discharge Diagnosis ok to dc to SNF today PICC line inserted IV abx as per ID x 4-6 weeks [facility] to arrange for SNF bed and transport Operations or Procedures L foot I and D lower extremity vascular angiogram Reason(s) For Hospitalization Surgery Hospital Course 60 M with uncontrolled diabetes HgbA1c of 11.5 who comes to ER for worsening pain in L foot. MRI of L foot revealed osteomyelitis with abscess. He was admitted started on broad spectrum IV Abx and podiatry saw him and he underwent incision and drainage of L foot. Cultures from L foot showed MRSA and E. faecal is. His Urine culture grew MRSA and blood cultures also grew MRSA. He was kept on IV Abx and eventually repeat blood cultures showed clearance. Cardiology also saw him and he had echo done which showed HFpEF 50%. He has a lower extremity CTA done which revealed PAD with reconstitution and thus cardiology did a lower extremity angiogram earlier today however no intervention was carried out (please refer to the angiogram report for more details) and he was recommended to follow up outpatient in a few weeks. ID was also consulted on the case and given his L foot cultures and UCx/BCx as noted above he was recommended for daptomycin 8mg/kg IV daily, Rocephin 2g iv daily x 4-6 weeks along with flagyl 500 mg PO TID x 2 weeks. PICC line has been inserted and patient will be discharged to SNF for continued IV ABx therapy as recommended by ID. He will be restarted back on eliquis 5 bid for afib as he was bridged with heparin gtt in anticipation of procedures. HIs WBC this AM was 8k and chem panel showed Cr of 1 with preserved renal function. Repeat blood cultures show no growth. [facility] to arrange for SNF bed and transport and patient to DC to SNF for IV ABx via PICC line as recommended by ID with outpt follow up via [facility], Updated patient and his and both understand POC. His HgbA1c is 11.5 and he will also be enrolled to diabetic management. DC to SNF today. Treatment Plan Discharge Condition of Discharge Good Disposition Care Home Facility Discharge Instructions Diet: Consistent carbohydrate, Cardiac 2g Na,low cholest Activity: No Restrictions, As Tolerated Medications: see med sheet Follow Up Care Follow Up/Referral: pcp ID Discharge Statement: "Patient was advised to return to the ER or call 911 if any headaches, dizziness, shortness of breath, chest pain, abdominal pain, bleeding, fevers, or worsening of medical condition. Patient was counseled about treatment plan, medications, possible side effects, patientverbalized understanding. All questions were answered to the best of my ability. This discharge took greater then 30 minutes in planning, reviewing documentation, counseling the patient, and discussing with other team members." JENNY MARK MD Oct 08, 2025 15:14
--- NOTE | 2025-10-08 15:19 | ECG ---
[facility] Test Date: 2025-10-08 Test Time: 04:37:25 Pat Name: EVGENY CABRAL Department: Room: 0292T B Gender: M [employer]: GP : [id number] Requested By: CLARY ESTRELLA Order Number: [id number] Reading MD: Bertram Bear Measurements Intervals [place] Rate: 80 P: 0 [place]: 0 QRS: 4 QRSD: 102 T: 67 QT: 405 QTc: 468 Interpretive Statements Atrial fibrillation Low voltage, extremity and precordial leads Electronically Signed On 10-08-2025 15:19:07 PST by Bertram Bear Please click the below link to view image of tracing.
[2025-10-08] MEDS: SUCCINYLCHOLINE CHLORIDE 20 MG/ML 10ML VIAL IV ONE (16:14)
--- NOTE | 2025-10-08 16:18 | DVHPN2 ---
Progress Note - Dictate Date Seen: Oct 08, 2025 Medical Necessity Reason Pt with a Central, PICC or Fol: No Subjective Very well controlled dysglycemia. vital signs Vital Sign Date Time Temp Pulse Resp B/P (MAP) Pulse Ox O2 Delivery O2 Flow Rate FiO2 10/08/25 12:32 60 18 124/72 10/08/25 12:30 97.6 99 97.6 10/08/25 08:00 Nasal Cannula* 2 28 Total Intake and Output 10/07/25 10/07/25 10/08/25 15:00 23:00 07:00 Intake Total 100 ml 790 ml 750 ml Output Total 850 ml 1100 ml Balance 100 ml -60 ml -350 ml medications Current Medications Medications Dose Ordered Sig/Maria Isabel Route Start Time Stop Time Status Last Admin Dose Admin Acetaminophen 325 mg Q4HP PRN PO 10/02/25 16:45 Ondansetron HCl 4 mg Q4HP PRN IV 10/02/25 16:45 10/02/25 18:35 4 MG Docusate Sodium 100 mg BIDPRN PRN PO 10/02/25 16:45 10/06/25 17:43 100 MG Nitroglycerin 0.4 mg Q5MINP PRN SL 10/02/25 16:45 Morphine Sulfate 2 mg Q30M PRN IV 10/02/25 16:45 Vancomycin HCl 0 ml @ 0 mls/hr PER PHARMACY IV 10/02/25 17:00 Cancel Sodium Chloride 1,000 ml @ 60 mls/hr [id number] IV 10/03/25 10:00 10/07/25 14:29 60 MLS/HR Enoxaparin Sodium 150 mg Q12HR SC 10/03/25 22:00 Cancel Amiodarone HCl 200 mg Q12HR PO 10/03/25 22:00 10/08/25 09:57 200 MG Atorvastatin Calcium 80 mg HS PO 10/03/25 22:00 10/07/25 21:41 80 MG Aspirin 81 mg DAILY PO 10/04/25 10:00 10/08/25 09:57 81 MG Piperacillin Sod/ Tazobactam Sod 100 ml @ 25 mls/hr Q8HR IV 10/03/25 22:00 UNV Ergocalciferol 50,000 unit Q7D PO 10/04/25 10:00 10/04/25 09:14 50,000 UNIT Acetaminophen/ Hydrocodone Bitart 1 tab Q4HP PRN PO 10/04/25 09:30 10/05/25 16:53 1 TAB Metoprolol Succinate 50 mg DAILY PO 10/05/25 10:00 10/08/25 09:57 50 MG Empaglifozin 10 mg DAILY PO 10/05/25 10:00 10/08/25 09:57 10 MG Mupirocin 1 applic BID EACHNOSTRI 10/04/25 22:00 10/09/25 21:59 10/08/25 09:56 1 APPLIC Diagnostic Test (Pha) 1 strip ACHS 10/04/25 17:00 10/08/25 11:30 1 STRIP Insulin Human Lispro ACHS SC 10/04/25 17:00 10/08/25 11:30 2 UNITS Dextrose 50 ml UD PRN IV 10/04/25 15:45 Oxycodone/ Acetaminophen 2 tab Q6HP PRN PO 10/05/25 09:30 10/07/25 08:19 2 TAB Hydromorphone HCl 1 mg Q3HPRN PRN IV 10/05/25 10:15 10/08/25 12:02 1 MG Sodium Chloride 10 ml QSHIFT@10,22 IV 10/07/25 22:00 10/08/25 09:57 10 ML Insulin Glargine 10 units HS SC 10/07/25 22:00 Insulin Human Lispro 3 units AC SC 10/07/25 17:00 10/08/25 11:30 3 UNITS Pregabalin 50 mg Q8H PO 10/08/25 01:00 10/08/25 09:00 50 MG Pregabalin 150 mg Q8H PO 10/08/25 01:00 10/08/25 09:00 150 MG Vancomycin HCl 250 ml @ 166.667 mls/hr Q12H IV 10/08/25 10:00 UNV Daptomycin 800 mg/ Sodium Chloride 50 ml @ 100 mls/hr DAILY@1700 IV 10/09/25 17:00 Apixaban 5 mg BID PO 10/08/25 22:00 Metronidazole 500 mg Q8HR PO 10/08/25 22:00 objective Gen - no acute distress HEENT - no thyromegaly CV - RRR, no m/r/g Resp - CTAB Ext - no edema laboratory and microbiology Laboratory Tests 10/08/25 05:48 Test 10/08/25 05:48 Range/Units Serum Glucose 169 H 74-106 mg/dL Assessment/Plan 1. Severe sepsis 2. Osteomyelitis 3. Uncontrolled type II DM with hyperglycemia 4. Afib with RVR 5. CHF 6. PVD 7. HTN - Glargine 10 units daily - Lispro 3 units tidac. Hold if NPO or likely to eat < 50% of meal. - Mod intensity SSI lispro tidac, qhs - Hypoglycemia protocol - Diabetic diet Dietary Evaluation Review Comments: Diet Advancement: When medically cleared and off NPO, advance to CCHO-Cardiac diet. Activity & Weight Management: Reduce weight-bearing activities as appropriate for current condition. Increase physical activity gradually when tolerated to support recovery and metabolic health. Implement weight management strategies during hospitalization and reinforce upon discharge. Monitoring: Track PO intake and tolerance. Monitor labs and clinical status. Reassess PRN. Expected Outcomes/Goals: recover from sepsis Plan discussed with: Other (nurse) Is the fluid challenge complet: Yes Date of Reassessment: Oct 02, 2025 Time of Reassessment: 1645 Blood Culture Time: 1600 Time Antibiotics Given: 1600 Systolic BP: 128 Diastolic BP: 52 Blood Pressure Mean: 77 Respiration: 17 Respiratory Effort: Non-Labored Respiratory Pattern: Regular Oxygen Saturation: 95 Pulse Rate: 107 Pulse Location: Brachial Pulse Strength: Normal Pulse Assessment Method: Palpation Pulse Rhythm: Regular Capillary Refill: < 3 seconds Heart Sounds: S1 & S2 Breath sounds: Crackles, Diminished Skin Moisture: Dry Skin Tugor: WNL Skin Color: Pale TIMOTHY DEE MD Oct 08, 2025 16:18
[2025-10-08 16:27] LABS: INR 1.19 (0.9-1.15); Partial Thromboplastin Time 31.2 SEC (24.5-34.5); Prothrombin Time 12.4 sec (9.3-11.8)
--- NOTE | 2025-10-08 16:42 | DVHOP2 ---
Operative Report - 2 Report Details Date: 10/08/25 Preop Diagnosis: Peripheral vascular disease. Postop Diagnosis: Peripheral vascular disease, osteomyelitis Surgeon: Gissell Bear MD Anesthesiologist: Miguel A Kwon nurse aircraft painter Anesthesia: General, Mac Consent: The patient was informed of the risks and benefits of the procedure. These include but are not limited to complications of anesthesia, postoperative infection, incomplete relief of symptoms, recurrence of symptoms, damage to blood vessels, nerves and tendons, deep venous thrombosis, pulmonary embolism and possible need for repeat surgery in the future. Complications: No complications Estimated Blood Loss: Cc Fluids: 750 cc normal saline Findings: Peripheral vascular disease Indications for Surgery: Osteomyelitis peripheral vascular disease Name of Procedure Performed Angiographic evaluation of bilateral lower extremities Procedure Details Procedure Details: Prior local anesthesia with 2% lidocaine to the right groin full informed consent obtained the patient was prepped and draped in usual fashion and Mr. Jaime in her stenosis proceeded to intubate patient with general anesthesia. We performed angiographic evaluation of the lower extremities successfully. We inserted a six [place] sheath into the femoral artery informed angiographic evaluation with runoff to the level of the ankle. We then placed a rim catheter over to the left iliac contralaterally and performed an angiographic evaluation the level of the left ankle as well. Aortic blood pressure initially was 85/70. It was up to 110-115 postprocedure. No complications. Angiographic evaluation: Bilateral iliacs were patent without disease. The right femoral artery is occluded at the junction of the acetabulum. The profunda is patent and collateralizes the distal superficial femoral artery at Sage's canal above the right popliteal artery. The right popliteal artery then gives rise to the tibioperoneal trunk and the posterior tibial artery supplies the ankle and collateralizes the anterior tibial artery. The left superficial femoral artery is open. The left profunda has minimal flow. There are no stenosis in the left superficial femoral artery or p opliteal. The tibioperoneal trunk is open. The posterior tibial artery of the left lower extremity supplies the ankle with collateralization to the distal anterior tibial artery which also helps supply the ankle. The peroneal artery is occluded. Impression: Angiographic evaluation of both lower extremities reveal a patent left iliac superficial femoral artery popliteal tibioperoneal trunk and posterior tibial artery directly into the ankle. Collateralization to the left anterior tibial. Occlusion of the right superficial femoral artery with collateralization from the profunda to the distal superficial femoral artery with single-vessel runoff to the ankle as well on the right lower extremity. Recommendations: There was no need to perform a revascularization of the left lower extremity which seems to suffer from the osteomyelitis. The right lower extremity for the most part is asymptomatic. Albeit there is a significant disease present and prone to ischemia the patient is stable at this time. Suggest a staged procedure at a later date. Patient tolerated the procedure well there were no complications. A Perclose device was used to seal the right femoral artery Condition Good Disposition Still a Patient Date of Service: Oct 08, 2025 Billing Provider: GISSELL BEAR Sr., MD Cardiology Common Codes: 63940-[id number] INP/OBS CARE (High) Peripheral Procedures Codes: 51091-[id number] RAD SUP/INTERP GISSELL BEAR Sr., MD Oct 08, 2025 16:42
[2025-10-08 17:00] VITALS: BP 145/79; PULSE 61; RESP 18; TEMP 98.6; O2SAT 100
[2025-10-08] MEDS ORDERED: metroNIDAZOLE 500 MG TAB PO SCH (22:00)
[2025-10-08] MEDS ORDERED: APIXABAN 5 MG TAB PO SCH (22:00)
[2025-10-09] MEDS ORDERED: DAPTOmycin 800 MG in SODIUM CHL 0.9% 50 ML IV SCH (17:00)
== END 2025-10-08 16:45 | DRG 871 ==
LOC: EDSEX 13:03 → ER 13:03 → EDBD 13:03 → OVERFLOW 16:45 → TELE-WESTW 21:01
PROVIDERS: ADMIT Student in an Organized Health Care Education/Training Program; ATTEND Student in an Organized Health Care Education/Training Program
PROC: 0Y9N0ZZ Drainage of Left Foot, Open Approach (ICD-10-PCS; 2025-10-03)
PROC: 02HV33Z Insertion of Infusion Device into Superior Vena Cava, Percutaneous Approach (ICD-10-PCS; principal; 2025-10-07)
PROC: B548ZZA Ultrasonography of Superior Vena Cava, Guidance (ICD-10-PCS; 2025-10-07)
PROC: B41GYZZ Fluoroscopy of Left Lower Extremity Arteries using Other Contrast (ICD-10-PCS; 2025-10-08)
PROC: B41FYZZ Fluoroscopy of Right Lower Extremity Arteries using Other Contrast (ICD-10-PCS; 2025-10-08)
DX: A41.9 Sepsis, unspecified organism (principal); I50.33 Acute on chronic diastolic (congestive) heart failure; R65.21 Severe sepsis with septic shock; J96.21 Acute and chronic respiratory failure with hypoxia; M72.6 Necrotizing fasciitis; I11.0 Hypertensive heart disease with heart failure; L03.115 Cellulitis of right lower limb; N17.9 Acute kidney failure, unspecified; L02.612 Cutaneous abscess of left foot; M86.8X7 Other osteomyelitis, ankle and foot; L03.116 Cellulitis of left lower limb; D69.6 Thrombocytopenia, unspecified; Z79.01 Long term (current) use of anticoagulants; L08.9 Local infection of the skin and subcutaneous tissue, unspecified; E11.51 Type 2 diabetes mellitus with diabetic peripheral angiopathy without gangrene; E66.01 Morbid (severe) obesity due to excess calories; J44.9 Chronic obstructive pulmonary disease, unspecified; I70.201 Unspecified atherosclerosis of native arteries of extremities, right leg; Z68.43 Body mass index [BMI] 50.0-59.9, adult; E11.621 Type 2 diabetes mellitus with foot ulcer; E11.610 Type 2 diabetes mellitus with diabetic neuropathic arthropathy; E78.5 Hyperlipidemia, unspecified; F17.210 Nicotine dependence, cigarettes, uncomplicated; Z20.822 Contact with and (suspected) exposure to COVID-19; E11.628 Type 2 diabetes mellitus with other skin complications; L97.529 Non-pressure chronic ulcer of other part of left foot with unspecified severity; E11.69 Type 2 diabetes mellitus with other specified complication; E11.65 Type 2 diabetes mellitus with hyperglycemia; I48.0 Paroxysmal atrial fibrillation; Z88.0 Allergy status to penicillin; Z79.4 Long term (current) use of insulin; Z83.3 Family history of diabetes mellitus; Z82.49 Family history of ischemic heart disease and other diseases of the circulatory system; Z82.3 Family history of stroke; Z80.0 Family history of malignant neoplasm of digestive organs
CPT/HCPCS: 36415; 36569; 36600; 71045; 73700; 73706; 73718; 75716; 76937; 80048; 80053; 80061; 80202; 80307; 81001; 82306; 82607; 82805; 82962; 83036; 83605; 83735; 83880; 83930; 84100; 84439; 84443; 84480; 84484; 85025; 85610; 85730; 86850; 86900; 86901; 87040; 87070; 87075; 87077; 87081; 87086; 87088; 87186; 87205; 87426; 87804; 93005; 93306; 93925; 96365; 99152; 99291; C1769; G0378; J0330; J1100; J1815; J1885; J1956; J2003; J2250; J2405; J2543; J2704; J3490; J7060; Q9967